=== PATIENT | male | born 1960 | race Caucasian/White ===

== ENCOUNTER 2023-06-15 08:50 | Outpatient (OUT) | payer OTHER, SELFPAY ==
[2023-06-15 10:29] LABS: Alanine Aminotransferase 35 U/L (16-63); Albumin Globulin Ratio 0.9; Albumin Level 3.5 g/dL (3.4-5.0); Alkaline Phosphatase 22 U/L (46-116); Anion Gap 8.7; Aspartate Amino Transferase 19 U/L (15-37); BUN Creatinine Ratio 13.7; Bilirubin Total 0.6 mg/dL (0.2-1.0); Calcium 8.7 mg/dL (8.5-10.1); Carbon Dioxide 29.6 mmol/L (21.0-32.0); Chloride 103 mmol/L (98-107); Chol HDL Ratio 5.8; Cholesterol 215 mg/dL (<=200); Estimated GFR (African America >60 (>=60); Estimated GFR (Non-African Ame >60 (>=60); Globulin 3.8 g/dL; Glucose 118 mg/dL (74-106); HDL Cholesterol 37 mg/dL (40-60); Potassium 4.3 mmol/L (3.5-5.1); Sodium 137 mmol/L (136-145); Total Protein 7.3 g/dL (6.4-8.2); Triglycerides 381 mg/dL (<=150); VLDL CHOLESTEROL 76.2 mg/dL
[2023-06-15 10:30] LABS: Prostate Specific Antigen Scrn 1.44 ng/mL (<=4.00)
[2023-06-15 10:38] LABS: Basophils Absolute Auto 0.1 10^3/uL (0.0-0.1); Basophils Percent Auto 0.9 % (0.2-2.0); Eosinophils Absolute Auto 0.2 10^3/uL (0.0-0.7); Eosinophils Percent Auto 3.4 % (0.9-7.0); Hematocrit 48.5 % (42.0-54.0); Hemoglobin 16.5 g/dL (14.0-18.0); Immature Granulocytes Abs Auto 0.01 10^3/uL (0.00-0.03); Immature Granulocytes Pct Auto 0.2 % (0.0-0.5); Lymphocytes Absolute Auto 1.6 10^3/uL (1.2-3.8); Lymphocytes Percent Auto 30.1 % (20.5-60.0); Mean Corpuscular Hemoglobin 30.7 pg (25.9-34.0); Mean Corpuscular Volume 90.1 fL (80.0-94.0); Mean Platelet Volume 9.8 fL (9.5-13.5); Monocytes Absolute Auto 0.6 10^3/uL (0.3-0.8); Monocytes Percent Auto 10.7 % (1.7-12.0); Neutrophils Absolute Auto 2.9 10^3/uL (1.4-6.5); Neutrophils Percent Auto 54.7 % (43.0-75.0); Platelet Count 278 10^3/uL (150-450); Red Blood Count 5.38 10^6/uL (4.70-6.10); Red Cell Distribution Width 12.9 % (11.0-15.0); White Blood Count 5.4 10^3/uL (4.0-11.0)
[2023-06-15 15:03] LABS: Estimated Average Glucose 108 mg/dL; Glycohemoglobin A1C 5.4 % (4.5-6.2)
== END 2023-06-15 08:51 | disposition home or self-care (01) ==
LOC: LAB 08:54
PROVIDERS: PCP Internal Medicine; Visit Provider Internal Medicine
DX: Z00.00 Encounter for general adult medical examination without abnormal findings (principal); Z12.5 Encounter for screening for malignant neoplasm of prostate
CPT/HCPCS: 36415; 80053; 80061; 83036; 85025; G0103

== ENCOUNTER 2023-07-05 09:36 | Outpatient (OUT) | payer OTHER, SELFPAY ==
--- NOTE | 2023-07-05 | ECG_ITS ---
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
[2023-07-05 11:27] LABS: Free T4 0.82 ng/dL (0.76-1.46)
[2023-07-05 11:51] LABS: Thyroid Stimulating Hormone 4.905 uIU/mL (0.358-3.740)
[2023-07-06 08:12] LABS: Triiodothyronine (T3) 131 ng/dL (71-180)
== END 2023-07-05 09:37 | disposition home or self-care (01) ==
LOC: CARD 09:37
PROVIDERS: PCP Internal Medicine; Visit Provider Internal Medicine
DX: I10 Essential (primary) hypertension (principal); R00.0 Tachycardia, unspecified
CPT/HCPCS: 36415; 84439; 84443; 84480; 93005

== ENCOUNTER 2023-07-24 19:47 | Outpatient (OUT) | payer OTHER, SELFPAY | END 2023-07-24 19:48 | disposition home or self-care (01) | LOC: SLEEP 19:47 | PROVIDERS: PCP Internal Medicine; Visit Provider Internal Medicine | DX: G47.33 Obstructive sleep apnea (adult) (pediatric) (principal) | CPT/HCPCS: 95810 ==

== ENCOUNTER 2023-08-28 19:50 | Outpatient (OUT) | payer OTHER, SELFPAY | END 2023-08-28 19:51 | disposition home or self-care (01) | LOC: SLEEP 19:50 | PROVIDERS: PCP Internal Medicine; Visit Provider Internal Medicine | DX: G47.33 Obstructive sleep apnea (adult) (pediatric) (principal) | CPT/HCPCS: 95811 ==

== ENCOUNTER 2023-11-08 10:44 | Outpatient (OUT) | payer OTHER, SELFPAY ==
--- NOTE | 2023-11-08 | NM_ITS ---
Patient Name: IRVING FRAGOSO MR#: [id number] : 1960 Exam Date: 11/08/2023 Ordering Doctor: DR Jonah Duffy D.O. RADIOLOGY REPORT PROCEDURE: NM ANIL PERF SPECT REST STR COMPARISON: None. INDICATIONS: PRIMARY HYPERTENSION, IFG, HYPERCHOLESTEROLEMIA, FAMILY HX TECHNIQUE: Exam Description: Stress/Rest one day protocol gated SPECT Rest Imagin.9 mCi Tc-99m Cardiolite IV on 11/08/2023 Stress Imaging 30.9 mCi Tc-99m Cardiolite IV on 11/08/2023 Exercise Protocol: 0.4 mg Lexiscan given IV Heart Rate (bpm): Rest: 83 Max: 136 PMHR: 86 Blood Pressure: Rest: 132/86 Max: 178/92 Exercise Time: Minutes: 8 Seconds: 00 Stage Reached: Stage: 3 Mets 10.1 Symptoms: Rest and peak stress ECG findings were normal and the exercise portion of the study was normal per attending physician Dr. Ramon Duffy . For more details please see separate cardiac stress test report. FINDINGS: QUALITY OF STUDY: Good. PERFUSION DEFECT: Perfusion abnormality seen only on rest images with normal stress LOCATION: Basal inferoseptal. Basal inferior. Basal inferolateral. Mid-inferior. Apical inferior. SIZE: Large (5 or more segments). SEVERITY: Severe. TYPE: N/A. WALL MOTION: Normal. LV SIZE: Normal. 66 mL. TID / TCD: None; 0.8 LVEF: Normal. Calculated EF 79%. SUMMARY: Myocardial perfusion imaging study has ABNORMAL findings. CONCLUSION: 1. Large perfusion abnormality in the inferior wall, RCA distribution, only on rest images with normal appearance on the stress images. I favor artifact 2. Normal exercise test Dictated by: Naif Frederick MD on 11/08/2023 at 14:31 Approved by: Naif Frederick MD on 11/08/2023 at 14:34
--- OUTSIDE RECORDS SUMMARY | 2023-11-08 10:47 | XMS_ITS | CCD ---
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 Name Role Phone Jonah Ribera Primary Care Provider Dash Gregory Attending Provider MOUNIKA, DR HAUSER Consulting Unavailable BALL, DR HAUSER Attending Unavailable BALL, DR HAUSER Admitting Unavailable BALL, DR HAUSER Primary Care Unavailable BALL, DR HAUSER Primary Care Unavailable BALL, DR HAUSER Consulting Unavailable BALL, DR HAUSER Attending Unavailable BALL, DR HAUSER Admitting Unavailable Mounika, Jonah Unavailable JONAH RIBERA Referring Unavailabl e Unavailable Unavailable Unavailable Allergies Allergy Classification Reported Allergen(s) Allergy Type Date of Onset Reaction(s) Facility (1 source) patient allergy list reviewed by nurse or physicia Propensity to adverse reactions 8 Comment:Done [facility] Other (1 source) ALLERGIES NOT ON FILE; Translations: [ALLERGIES NOT ON FILE] Propensity to adverse reactions (disorder) [facility] Repository Medications Current Medications Medication Drug Class(es) Dates Sig (Normalized) Sig (Original) aspirin 81 mg delayed release oral tablet (2 sources) Platelet Aggregation Inhibitor, Nonsteroidal Anti-inflammatory Drug take 1 tablet by mouth every twenty-four hours Aspirin 81 81 MG 1 tablet Orally Once a day Active atorvastatin 10 mg oral tablet (4 sources) HMG-CoA Reductase Inhibitor take 1 tablet by mouth once daily in the evening Atorvastatin Calcium 10 MG TAKE 1 TABLET BY MOUTH EVERY DAY IN THE EVENING Active benazepril hydrochloride 10 mg oral tablet (9 sources) Angiotensin Converting Enzyme Inhibitor take 1 tablet by mouth once daily Benazepril HCl 10 MG TAKE 1 TABLET BY MOUTH EVERY DAY Active benzonatate 200 mg oral capsule (8 sources) Non-narcotic Antitussive Start: 04-10-2023 take 1 capsule by mouth every eight hours Benzonatate 200 MG 1 capsule Orally Three times a day for 10 days Mar, Active carvedilol 6.25 mg oral tablet (5 sources) alpha-Adrenergic Gloria, beta-Adrenergic Gloria Start: 06-29-2023 take 1 tablet by mouth every twelve hours Carvedilol 6.25 MG 1 tablet with food Orally Twice a day Jun, Active fenofibrate 134 mg oral capsule (7 sources) Peroxisome Proliferator Receptor alpha Agonist take 1 capsule by mouth every twenty-four hours Fenofibrate Micronized 134 MG 1 capsule with a meal Orally Once a day Active sildenafil 100 mg oral tablet (9 sources) Phosphodiesterase 5 Inhibitor take 1 tablet by mouth every twenty-four hours Sildenafil Citrate 100 MG 1 tablet as needed Orally Once a day for 30 days Active Completed/Discontinued Medications Medication Drug Class(es) Dates Sig (Normalized) Sig (Original) Suprep Bowel Prep - (9 sources) Start: 09-08-2016 Suprep Bowel Prep - 1 Orally Daily for 1 day(s) Aug, Not-Taking/PRN Start: 09-08-2016 Suprep Bowel P rep - 1 Orally Daily for 1 day(s) Aug, Not-Taking Problems Active Problems Problem Classification Problem Date Documented Da te Episodic/Chronic Cardiac dysrhythmias (1 source) Tachycardia, unspecified Episodic Diabetes mellitus without complication (2 sources) Impaired fasting glucose Episodic Disorders of lipid metabolism (18 sources) Pure hypercholesterolemi a, unspecified; Translations: [Pure hypercholesterolemi a] Onset: 08-30-2022 Resolved: 08-30-2022 Chronic Esophageal disorders (15 sources) Stricture of esophagus; Translations: [Esophageal stricture] Onset: 05-13-2018 Chronic Essential hypertension (15 sources) Essential hypertension; Translations: [Essential (primary) hypertension] Onset: 07-16-2023 Chronic Hemorrhoids (3 sources) External hemorrhoids; Translations: [Residual hemorrhoidal skin tags] Episodic Other and unspecified benign neoplasm (9 sources) Benign neoplasm of colon; Translations: [Benign neoplasm of descending colon] Episodic Other and unspecified benign neoplasm (1 source) Benign neoplasm of descending colon; Translations: [Benign neoplasm of descending colon] Episodic Other gastrointestinal disorders (2 sources) Dysphagia; Translations: [Dysphagia] Episodic Other male genital disorders (1 source) Impotence of organic origin; 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] Chronic Other nutritional; endocrine; and metabolic disorders (7 sources) Body mass index 30+ - obesity; Translations: [Body mass index (BMI) 32.0-32.9, adult] Chronic Other nutritional; endocrine; and metabolic disorders (7 sources) Obesity caused by energy imbalance; Translations: [Other obesity due to excess calories] Chronic Other nutritional; endocrine; and metabolic disorders (2 sources) Other obesity due to excess calories Chronic Other nutritional; endocrine; and metabolic disorders (2 sources) Body mass index (BMI) 32.0-32.9, adult Chronic Other screening for suspected conditions (not mental disorders or infectious disease) (2 sources) Encounter for screening for malignant neoplasm of prostate; Translations: [Abnormal findings on diagnostic imaging of heart and coronary circulation] Onset: 07-02-2022 Episodic Other skin disorders (2 sources) Skin tag; Translations: [Other hypertrophic disorders of the skin] Episodic Residual codes; unclassified (2 sources) Obstructive sleep apnea syndrome; Translations: [Obstructive sleep apnea (adult) (pediatric)] Chronic Residual codes; unclassified (1 source) Obstructive sleep apnea (adult) (pediatric) Chronic Residual codes; unclassified (3 sources) Family history of ischemic heart disease and other diseases of the circulatory system; Translations: [Family history of ischemic heart disease and other diseases of the circulatory system] Onset: 07-16-2023 Episodic Past or Other Problems Problem Classification Problem Date Documented Date Episodic/Chronic Esophageal disorders (7 sources) Esophageal disorders; Translations: [Gastro-esophageal reflux disease with esophagitis, without bleeding] Onset: 05-13-2018 Resolved: 06-12-2022 Hyperplasia of prostate (1 source) Benign prostatic hypertrophy without outflow obstruction; Translations: [Hypertrophy (benign) of prostate without urinary obstruction and other lower urinary tract symptoms [LUTS]] Onset: 08-14-2017 Resolved: 06-12-2022 Chronic Other connective tissue disease (1 source) Lateral epicondylitis; Translations: [Lateral epicondylitis of elbow] Onset: 06-02-2015 Episodic Other nutritional; endocrine; and metabolic disorders (1 source) Body mass index 25-29 - overweight; Translations: [Body mass index 28.0-28.9, adult] Onset: 04-01-2018 Resolved: 06-12-2022 Episodic Other nutritional; endocrine; and metabolic disorders (8 sources) Overweight; Translations: [Overweight] Onset: 08-14-2017 Resolved: 06-12-2022 Episodic Results Test Name Value Interpretation Reference Range Facility CT CARDIAC SCORING WO IV CON TRASTon 07-16-2023 CT CARDIAC SCORING WO IV CONTRAST Interpreted By: Eliezer Bazan, STUDY: CT CARDIAC SCORING WO IV CONTRAST; 07/16/2023 11:29 am INDICATION: Signs/Symptoms:FAMILY HISTORY OF ISCHEMIC HEART DISEASE. COMPARISON: None. ACCESSION NUMBER(S): [id number] ORDERING CLINICIAN: JONAH RIBERA TECHNIQUE: Using prospective ECG gating, CT scan of the coronary arteries was performed without intravenous contrast. Coronary calcium scoring was performed according to the method of Agatston. FINDINGS: The score and distribution of calcium in the coronary arteries is as follows: LM 0, LAD 236.83, LCx 0, RCA 0, Total 236.83 The visualized ascending thoracic aorta measures 3.1 cm in diameter. The heart is normal in size. No pericardial effusion is present. No gross evidence of mediastinal or hilar lymphadenopathy or masses is identified. The visualized segments of the lungs are normally expanded. The main pulmonary artery, right and left pulmonary artery are normal in size. The visualized subdiaphragmatic structures appear intact. IMPRESSION: 1. Elevated coronary artery calcium score of 236.83*. *Coronary Artery Agatston score Score risk Very low 1-99 Mildly increased 100-299 Moderately increased >300 Moderate to severely increased >800 Caryl et al. JCCT 2016 (http://dx.doi.org/10 .1016/j.[email or web address]. 003) LAYNE 10-Year CHD Risk with Coronary Artery Calcification can be calcuate using link below [email or web address]. aspx Janae et al. JACC 2015 (http://dx.doi.org/10 .1016/[email or web address] [email or web address]) Signed by: Eliezer Bazan 07/16/2023 4:52 PM Dictation workstation: [id number] DIRECT LDLon 08-30-2022 Cholesterol in LDL [Mass/Vol] 81 mg/dL Normal [facility] Comment on above: Performed By: #### D LDL, ALT #### [facility] [address] [place] [address] Dr. Angel Hernández DLDL NORMAL SEE BELOW Normal [facility] Comment on above: Result Comment: <100 mg/dl OPTIMAL 100 - 129 mg/dl NEAR OR ABOVE OPTIMAL 130 - 159 mg/dl BORDERLINE HIGH 160 - 189 mg/dl HIGH >190 mg/dl VERY HIGH Performed By: #### D LDL, ALT #### [facility] [address] [place] [address] Dr. Angel Hernández SGPTon 08-30-2022 ALT [Catalytic activity/Vol] 53 U/L Normal 16-63 [facility] Comment on above: Performed By: #### D LDL, ALT #### [facility] [address] [place] [address] Dr. Angel Hernández CBC AUTO DIFFon 06-29-2022 BASO # 0.1 103/ul Normal 0.0-0.1 [facility] Comment on above: Performed By: #### C BC #### [facility] [address] [place] [address] Dr. Angel Hernández Basophils/100 WBC (Bld) 1.0 % Normal 0.2-2.0 [facility] Comment on above: Performed By: #### C BC #### [facility] [address] [place] [address] Dr. Angel Hernández EO # 0.2 103/ul Normal 0.0-0.7 [facility] Comment on above: Performed By: #### C BC #### [facility] [address] [place] [address] Dr. Angel Hernández Eosinophils/100 WBC (Bld) 4.7 % Normal 0.9-7.0 [facility] Comment on above: Performed By: #### C BC #### [facility] [address] [place] [address] Dr. Angel Hernández Erythrocyte distribution width (RBC) [Ratio] 12.5 % Normal 11.0-15.0 [facility] Comment on above: Performed By: #### C BC #### [facility] [address] [place] [address] Dr. Angel Hernández Hematocrit (Bld) [Volume fraction] 47.9 % Normal 42.0-54.0 [facility] Comment on above: Performed By: #### C BC #### [facility] [address] [place] [address] Dr. Angel Hernández Hemoglobin (Bld) [Mass/Vol] 16.7 g/dL Normal 14.0-18.0 [facility] Comment on above: Performed By: #### C BC #### [facility] [address] [place] [address] Dr. Angel Hernández IG # 0.01 10e3/ul Normal 0.00-0.03 [facility] Comment on above: Performed By: #### C BC #### [facility] [address] [place] [address] Dr. Angel Hernández IG % 0.2 % Normal 0.0-0.5 [facility] Comment on above: Performed By: #### C BC #### [facility] [address] [place] [address] Dr. Angel Hernández LYMPH # 1.6 103/ul Normal 1.2-3.8 [facility] Comment on above: Performed By: #### C BC #### [facility] [address] [place] [address] Dr. Angel Hernández Lymphocytes/100 WBC (Bld) 30.2 % Normal 20.5-60.0 [facility] Comment on above: Performed By: #### C BC #### [facility] [address] [place] [address] Dr. Angel Hernández MANUAL DIFF REQ NO Normal [facility] Comment on above: Performed By: #### C BC #### [facility] [address] [place] [address] Dr. Angel Hernández MCH (RBC) [Entitic mass] 31.3 pg Normal 25.9-34.0 [facility] Comment on above: Performed By: #### C BC #### [facility] [address] [place] [address] Dr. Angel Hernández MCHC (RBC) [Mass/Vol] 34.9 g/dL Normal 29.9-35.2 [facility] Comment on above: Performed By: #### C BC #### [facility] [address] [place] [address] Dr. Angel Hernández MCV (RBC) [Entitic vol] 89.7 fL Normal 80.0-94.0 [facility] Comment on above: Performed By: #### C BC #### [facility] [address] [place] [address] Dr. Angel Hernández MONO # 0.5 103/ul Normal 0.3-0.8 [facility] Comment on above: Performed By: #### C BC #### [facility] [address] [place] [address] Dr. Angel Hernández Monocytes/100 WBC (Bld) 10.1 % Normal 1.7-12.0 [facility] Comment on above: Performed By: #### C BC #### [facility] [address] [place] [address] Dr. Angel Hernández NEUT # 2.8 103/ul Normal 1.4-6.5 [facility] Comment on above: Performed By: #### C BC #### [facility] [address] [place] [address] Dr. Angel Hernández Neutrophils/100 WBC (Bld) 53.8 % Normal 43.0-75.0 [facility] Comment on above: Performed By: #### C BC #### [facility] [address] [place] [address] Dr. Angel Hernández Platelet mean volume (Bld) [Entitic vol] 9.2 fL Critically low 9.5-13.5 [facility] Comment on above: Performed By: #### C BC #### [facility] [address] [place] [address] Dr. Angel Hernández PLT 271 103/ul Normal 150-450 [facility] Comment on above: Performed By: #### C BC #### [facility] [address] [place] [address] Dr. Angel Hernández RBC 5.34 106/ul Normal 4.70-6.10 [facility] Comment on above: Performed By: #### C BC #### [facility] [address] [address] [address] Angel Hernández WBC 5.1 103/ul Normal 4.0-11.0 [facility] Comment on above: Performed By: #### C BC #### [facility] [address] [address] [address] Angel Hernández DIRECT LDLon 06-29-2022 Cholesterol in LDL [Mass/Vol] 106 mg/dL Normal [facility] Comment on above: Performed By: #### T SH, LIPID, DLDL, CMP #### [facility] [address] [address] [address] Angel Hernández DLDL NORMAL SEE BELOW Normal [facility] Comment on above: Result Comment: <100 mg/dl OPTIMAL 100 - 129 mg/dl NEAR OR ABOVE OPTIMAL 130 - 159 mg/dl BORDERLINE HIGH 160 - 189 mg/dl HIGH >190 mg/dl VERY HIGH Performed By: #### T SH, LIPID, DLDL, CMP #### [facility] [address] [address] [address] Angel Hernández GLYCOHEMOGLOBIN A1Con 2021 ADA RECOMMENDATION SEE BELOW Normal [facility] Comment on above: Result Comment: ADA RECOMMENDED LIMIT 4.0 - 6.0 ADA THERAPEUTIC TARGET < 7.0 ACTION SUGGESTED > 7.0 Performed By: #### A 1C #### [facility] [address] [address] [address] Angel Hernández Glucose [Mass/Vol] 114 mg/dL Normal [facility] Comment on above: Performed By: #### A 1C #### [facility] [address] [address] [address] Angel Hernández HbA1c (Bld) [Mass fraction] 5.6 % Normal 4.5-6.2 [facility] Comment on above: Performed By: #### A 1C #### [facility] [address] [place] [address] Dr. Angel Hernández LIPID PROFILEon 06-29-2022 CHOL-HDL RATIO NORM SEE BELOW Normal [facility] Comment on above: Result Comment: 3.3 - 4.4 LOW RISK 4.4 - 7.1 AVERAGE RISK 7.1 - 11.0 MODERATE RISK >11.0 HIGH RISK Performed By: #### T SH, LIPID, DLDL, CMP #### [facility] [address] [address] [address] Angel Hernández Cholesterol [Mass/Vol] 222 mg/dL Critically high <=200 [facility] Comment on above: Performed By: #### T SH, LIPID, DLDL, CMP #### [facility] [address] [address] [address] Angel Hernández Cholesterol in HDL [Mass/Vol] 35 mg/dL Critically low 40-60 [facility] Comment on above: Performed By: #### T SH, LIPID, DLDL, CMP #### [facility] [address] [address] [address] Angel Hernández Cholesterol.total/Ch olesterol in HDL [Mass ratio] 6.3 {ratio} Normal [facility] Comment on above: Performed By: #### T SH, LIPID, DLDL, CMP #### [facility] [address] [address] [address] Angel Hernández HDL NORMAL > or = 60 mg/dl - LO W CARDIOVASCULAR RISK <40 mg/dl - HIGH CARDIOVASCULAR RISK Normal [facility] Comment on above: Performed By: #### T SH, LIPID, DLDL, CMP #### [facility] [address] [address] [address] Angel Hernández Triglyceride [Mass/Vol] 482 mg/dL Critically high <=150 [facility] Comment on above: Performed By: #### T SH, LIPID, DLDL, CMP #### [facility] [address] [address] [address] Angel Hernández VLDL CALC 96.4 mg/dL Normal [facility] Comment on above: Performed By: #### T SH, LIPID, DLDL, CMP #### [facility] [address] [address] [address] Angel Hernández PROF 14(COMP METB)on 09-15-2 022 Albumin [Mass/Vol] 3.6 g/dL Normal 3.4-5.0 [facility] Comment on above: Performed By: #### T SH, LIPID, DLDL, CMP #### [facility] [address] [place] [address] Dr. Angel Hernández Albumin/Globulin [Mass ratio] 1.0 {ratio} Normal [facility] Comment on above: Performed By: #### T SH, LIPID, DLDL, CMP #### [facility] [address] [place] [address] Dr. Angel Hernández ALP [Catalytic activity/Vol] 26 U/L Critically low 46-116 [facility] Comment on above: Performed By: #### T SH, LIPID, DLDL, CMP #### [facility] [address] [place] [address] Dr. Angel Hernández ALT [Catalytic activity/Vol] 40 U/L Normal 16-63 [facility] Comment on above: Performed By: #### T SH, LIPID, DLDL, CMP #### [facility] [address] [place] [address] Dr. Angel Hernández Anion gap [Moles/Vol] 6.9 mmol/L Normal [facility] Comment on above: Performed By: #### T SH, LIPID, DLDL, CMP #### [facility] [address] [place] [address] Dr. Angel Hernández AST [Catalytic activity/Vol] 17 U/L Normal 15-37 [facility] Comment on above: Performed By: #### T SH, LIPID, DLDL, CMP #### [facility] [address] [place] [address] Dr. Angel Hernández Bilirubin [Mass/Vol] 0.4 mg/dL Normal 0.2-1.0 [facility] Comment on above: Performed By: #### T SH, LIPID, DLDL, CMP #### [facility] [address] [place] [address] Dr. Angel Hernández Calcium [Mass/Vol] 8.8 mg/dL Normal 8.5-10.1 [facility] Comment on above: Performed By: #### T SH, LIPID, DLDL, CMP #### [facility] [address] [address] [address] Angel Hernández Chloride [Moles/Vol] 102 mmol/L Normal 98-107 [facility] Comment on above: Performed By: #### T SH, LIPID, DLDL, CMP #### [facility] [address] [place] [address] Dr. Angel Hernández CO2 [Moles/Vol] 31.5 mmol/L Normal 21.0-32.0 [facility] Comment on above: Performed By: #### T SH, LIPID, DLDL, CMP #### [facility] [address] [place] [address] Dr. nAgel Hernández Creatinine [Mass/Vol] 1.05 mg/dL Normal 0.70-1.30 [facility] Comment on above: Performed By: #### T SH, LIPID, DLDL, CMP #### [facility] [address] [place] [address] Dr. Angel Hernández EGFR-AF CZECH >60 Normal >=60 [facility] Comment on above: Performed By: #### T SH, LIPID, DLDL, CMP #### [facility] [address] [place] [address] Dr. Angel Hernández EGFR-NON AF CZECH >60 Normal >=60 [facility] Comment on above: Performed By: #### T SH, LIPID, DLDL, CMP #### [facility] [address] [place] [address] Dr. Angel Hernández Globulin (S) [Mass/Vol] 3.7 g/dL Normal [facility] Comment on above: Performed By: #### T SH, LIPID, DLDL, CMP #### [facility] [address] [place] [address] Dr. Angel Hernánedz Glucose [Mass/Vol] 125 mg/dL Critically high 74-106 [facility] Comment on above: Performed By: #### T SH, LIPID, DLDL, CMP #### [facility] [address] [place] [address] Dr. Angel Hernández Potassium [Moles/Vol] 4.4 mmol/L Normal 3.5-5.1 [facility] Comment on above: Performed By: #### T SH, LIPID, DLDL, CMP #### [facility] [address] [place] [address] Dr. Angle Hernández Protein [Mass/Vol] 7.3 g/dL Normal 6.4-8.2 [facility] Comment on above: Performed By: #### T SH, LIPID, DLDL, CMP #### [facility] [address] [place] [address] Dr. Angel Hernández Sodium [Moles/Vol] 136 mmol/L Normal 136-145 [facility] Comment on above: Performed By: #### T SH, LIPID, DLDL, CMP #### [facility] [address] [place] [address] Dr. Angel Hernández Urea nitrogen [Mass/Vol] 12.0 mg/dL Normal 7.0-18.0 [facility] Comment on above: Performed By: #### T SH, LIPID, DLDL, CMP #### [facility] [address] [place] [address] Dr. Angel Hernández Urea nitrogen/Creatinine [Mass ratio] 11.4 mg/mg Normal [facility] Comment on above: Performed By: #### T SH, LIPID, DLDL, CMP #### [facility] [address] [place] [address] Dr. Angel Hernández TSHon 06-29-2022 TSH 3.683 uIU/mL Normal 0.358-3.740 [facility] Comment on above: Performed By: #### T SH, LIPID, DLDL, CMP #### [facility] [address] [place] [address] Dr. Angel Hernández COVID-19 Positive/Negativeon 10-05-2020 COVID-19 Positive/Negative Negative Negative [facility] Comment on above: Testing for SARS-CoV -2 by RT-PCRThis test was developed and its performance characteristics determined by [employer] ([place]) and validated at the [facility]. This test has not been FDA cleared or approved. This test has been authorized by FDA under an Emergency Use Authorization (EUA). This test has been validated in accordance with the FDA's Guidance Document (Policy for Diagnostics Testing in Laboratories Certified to Perform High Complexity Testing under CLIA prior to Emergency Use Authorization for Coronavirus Disease-2019 during the Public Health Emergency) issued on January 15, 2020. This test is only authorized for the duration of time the declaration that circumstances exist justifying the authorization of the emergency use of in vitro diagnostic tests for detection of SARS-CoV-2 virus and/or diagnosis of COVID-19 infection under section 564(b)(1) of the Act, 21 U.S.C. 360bbb-3(b)(1), unless the authorization is terminated or revoked sooner. Otheron 10-05-2020 Coronavirus 2019 PCR Interp N/A [facility] Vital Signs Date Time Vital Sign Value Performing Clinician Facility 10-22-2023 15:30-0500 Body height 175.26 cm Jonah Catapooolt Other [facility] Other 10-22-2023 15:30-0500 Body mass index (BMI) [Ratio] 32.16 kg/m2 [facility] Other [facility] Other 10-22-2023 15:30-0500 Body weight 98.79 kg Jonah Ball Other [facility] Other 10-22-2023 15:30-0500 Diastolic blood pressure 80 mm[Hg] Jonah Ball Other [facility] Other 10-22-2023 15:30-0500 Respiratory rate 12 /min Jonah Ball Other [facility] Other 10-22-2023 15:30-0500 Systolic blood pressure 135 mm[Hg] Jonah Ball Other [facility] Other 06-15-2023 13:30-0400 Body height 175.26 cm Jonah Catapooolt Other [facility] Other 06-15-2023 13:30-0400 Body mass index (BMI) [Ratio] 32.1 kg/m2 Jonah Ball Other [facility] Other 06-15-2023 13:30-0400 Body weight 98.61 kg Jonah Ball Other [facility] Other 06-15-2023 13:30-0400 Diastolic blood pressure 85 mm[Hg] Jonah Ball Other [facility] Other 06-15-2023 13:30-0400 Respiratory rate 12 /min Jonah Ball Other [facility] Other 06-15-2023 13:30-0400 Systolic blood pressure 125 mm[Hg] Jonah Ball Other [facility] Other Encounters Encounter Date Encounter Type Care Provider Facility Start: 11-06-2023 End: 11-06-2023 ambulatory Jonah Ball Other [facility] Other Start: 11-06-2023 Telephone encounter Jonah Ball [facility] Start: 10-22-2023 End: 10-22-2023 ambulatory Jonah Ball Other [facility] Other Start: 10-22-2023 Office outpatient vi sit 25 minutes Jonah Ball [facility] Start: 09-05-2023 End: 09-05-2023 ambulatory Jonah Ball Other [facility] Other Start: 09-05-2023 Telephone encounter Jonah Ball [facility] Start: 07-18-2023 End: 07-18-2023 ambulatory Jonah Ball Other [facility] Other Start: 07-18-2023 Telephone encounter Jonah Ball [facility] Start: 07-16-2023 End: 07-17-2023 ambulatory JONAH RIBERA [facility] Start: 06-29-2023 End: 06-29-2023 ambulatory Jonah Ribera Other [facility] Other Start: 06-29-2023 Telephone encounter Jonah Ribera [facility] Start: 06-19-2023 End: 06-19-2023 ambulatory Jonah Ribera Other [facility] Other Start: 06-19-2023 Telephone encounter Jonah Ribera [facility] Start: 06-15-2023 End: 06-15-2023 ambulatory Jonah Ribera Other [facility] Other Start: 06-15-2023 Encounter for genera l adult medical examination without abnormal findings Jonah Ribera [facility] Start: 06-15-2023 Periodic preventive med est patient 40-64yrs Jonah Ribera [facility] Start: 06-11-2023 End: 06-11-2023 ambulatory Jonah Ribera Other [facility] Other Start: 06-11-2023 Encounter for genera l adult medical examination without abnormal findings Jonah Ribera [facility] Start: 06-11-2023 Telephone encounter Jonah Ribera [facility] Start: 03-09-2023 End: 03-09-2023 ambulatory Jonah Ribera Other [facility] Other Start: 03-09-2023 Telephone encounter Jonah Ribera [facility] Start: 08-30-2022 End: 08-31-[address] JONAH RIBERA Facility:[facility] Start: 07-02-2022 Encounter for genera l adult medical examination without abnormal findings DR JONAH RIBERA [facility] Start: 06-29-2022 End: 06-30-[address] JONAH RIBERA Facility:[facility] Start: 06-29-2022 End: 06-30-2022 Encounter for general adult medical examination without abnormal findings DR JONAH RIBERA Facility:[facility] Start: 06-12-2022 Adult health examination Jonah Ribera Other [facility] Other Start: 10-05-2020 End: 10-05-2020 Patient encounter procedure Jonah Ribera -Pre-Surgical Testing Procedures Date Procedure Procedure Detail Performing Clinician Start: 07-16-2023 CT CARDIAC SCORING W O IV CONTRAST JONAH MOUNIKA Start: 06-29-[address] MANUEL RIBERA Comment on above: Performed By: #### [facility] #### [facility] [address] [place] [address] Dr. Angel Hernández Start: 08-23-2017 End: 06-12-2022 Hypertension screening Jonah Ribera Other Start: 04-21-2014 End: 06-12-2022 General examination of patient Jonah Ribera Other Depression screening Henry Ribera Other Immunizations Immunization Date Immunization Notes Care Provider [facility] 08-17-2016 tetanus and diphther ia toxoids, adsorbed, preservative free, for adult use (5 Lf of tetanus toxoid and 2 Lf of diphtheria toxoid) Jonah Ribera Other [facility] Other Payers Date Payer Category Payer Unknown [id number] 1960 Unknown [id number] 1958 Unknown [id number] Self-pay Self Pay [id number] Unknown [id number] Unknown [id number] Social History Date Type Detail Facility Tobacco smoking status NHIS Unknown if ever smoked [facility] Start: 1960 Sex Assigned At Male F [facility] Sex Assigned At Sex Assigned At Bir th [facility] Other Goals Date Patient Goal Desired Activity /State Evaluation note 10-22-2023 Note Date & Type Note Facility 10-22-2023 Evaluation note Encounter Date Diagnosis Assessment Notes Oct, Primary hypertension (ICD-10 - I10) This patient is instructed to consume a healthy, low-fat, low-salt diet. They are also encouraged to continue exercise to achieve/maintain a normal BMI. Oct, IFG (impaired fasting glucose) (ICD-10 - R73.01) Last 2 FBS: 118, 125 A1C < 6.5% Instructed on healthy diet and exercise Oct, Hypercholesterolemia (ICD-10 - E78.00) Instructed on diet and exercise with continued statin therapy.Discusse d the beneficial effects of lowering cholesterol in reducing the risk for cerebrovascular and cardiovascular disease. Oct, Agatston CAC score 200-399 (ICD-10 - R93.1) Increased risk for CAD. LAYNE score indicates 100% risk for WA in next 10 years. Recommend initiating primary prevention measures Recommend initiating ASA 81mg qd Recommend Stress testing Oct, CALLIE (obstructive sleep apnea) (ICD-10 - G47.33) This patient is aware of the benefits associated with CALLIE: With continued use, the patient reduces the risk for WA, CVA, HTN, cardiac dysrhythmias and sudden cardiac deaths.The patient is also aware of the association between CALLIE and morning headaches, daytime somnolence, fatigue and obesity, which also has been improved with continued use.The patient is compliant with treatment, wearing the equipment every night for greater than 4 hours.The patient is instructed to continue use of the CPAP for CALLIE treatment. Oct, Other obesity due to excess calories (ICD-10 - E66.09) This patient has been instructed on a low-fat, high-fiber diet. They are instructed to reduce calories, portion sizes and snacks. It is recommended that they exercise for 30 minutes, 3-5 times weekly. Oct, Body mass index [BMI] 32.0-32.9, adult (ICD-10 - Z68.32) Oct, Family history of premature CAD (ICD-10 - Z82.49) He has increased 10 year risk for CAD. Father suffered fatal WA in 40s. Initiate primary prevention measures. Apr, Gastro-esophageal reflux disease with esophagitis, without bleeding (ICD-10 - K21.00) Avoid lying flat after eating. Avoid eating 2 hours prior to bedtime. Smaller, frequent meals may be better tolerated.Weight loss if overweight.PPI with any heartburn.Monito r for dysphagia. [facility] Other Evaluation note 07-18-2023 Note Date & Type Note Facility 07-18-2023 Evaluation note Encounter Date Diagnosis Assessment Notes Jul, Hypertriglyceridemia (ICD-10 - E78.1) [facility] Other Evaluation note 06-29-2023 Note Date & Type Note Facility 06-29-2023 Evaluation note Encounter Date Diagnosis Assessment Notes Jun, Primary hypertension (ICD-10 - I10) Jun, Tachycardia (ICD-10 - R00.0) [facility] Other Evaluation note 06-15-2023 Note Date & Type Note Facility 06-15-2023 Evaluation note Encounter Date Diagnosis Assessment Notes Jun, Wellness examination (ICD-10 - Z00.00) Healthy diet and exercise. Reviewed age-appropriate preventive testing recommended. Jun, Pure hyperglyceridemia (ICD-10 - E78.1) Instructed on diet and exercise with continued statin therapy.Discussed the beneficial effects of lowering cholesterol in reducing the risk for cerebrovascular and cardiovascular disease. INstructed to restart medications Jun, Primary hypertension (ICD-10 - I10) This patient is instructed to consume a healthy, low-fat, low-salt diet. They are also encouraged to continue exercise to achieve/maintain a normal BMI. Patient is instructed on home BP measurements: - rest for 5 minutes w/o talking- positioned w/ feet on floor and arm supported- average best 2/3 readings w/ goal < 135/85 Stop in after couple weeks for recheck Jun, IFG (impaired fasting glucose) (ICD-10 - R73.01) Healthy diet and exercise Encouraged to lose weight Check A1C Jun, Other obesity due to excess calories (ICD-10 - E66.09) This patient has been instructed on a low-fat, high-fiber diet. They are instructed to reduce calories, portion sizes and snacks. It is recommended that they exercise for 30 minutes, 3-5 times weekly. Jun, Body mass index [BMI] 32.0-32.9, adult (ICD-10 - Z68.32) Apr, Gastro-esophageal reflux disease with esophagitis, without bleeding (ICD-10 - K21.00) Diet instructions: Smaller portions, avoid eating and laying flat, avoid eating or drinking prior to bedtime. Weight loss. [facility] Other Evaluation note 06-11-2023 Note Date & Type Note Facility 06-11-2023 Evaluation note Encounter Date Diagnosis Assessment Notes May, Wellness examination (ICD-10 - Z00.00) [facility] Other Evaluation note Note Date & Type Note Facility Evaluation note No Information [facility] Other History general Narrative - Reported Note Date & Type Note Facility History general Narrative - Reported Type Medical History Dysphagia, unspecified Medical History Esophageal obstruction Medical History Schatzki's ring Medical History Essential hypertension Medical History External hemorrhoids Medical History Adenomatous polyp of descending colon Surgical History COLONOSCOPY Surgical History EGD W/ DILATATION 2015 Hospitalization History SEE SURGICAL HX [facility] Other History general Narrative - Reported Note Date & Type Note Facility History general Narrative - Reported Type Medical History Dysphagia, unspecified Medical History Esophageal obstruction Medical History Schatzki's ring Medical History Essential hypertension Medical History External hemorrhoids Medical History Adenomatous polyp of descending colon Surgical History COLONOSCOPY (repeat 2024) 2019 Surgical History EGD W/ DILATATION 2015 Hospitalization History SEE SURGICAL HX [facility] Other Advance Directives Advance Directive Response Recorded Date/ Time Advance Directives No September 4:44pm Chief Complaint and Reason for Visit Chief Complaint Schatzkis Ring,Fam H x Colon Cancer Assessments No Assessments Information Available Summary Purpose Family History No Family History Records FoundNo Family History Records Found Additional Source Comments (unrecognized sect ion and content) No Status Records FoundNo Status Records Found INFORMATION SOURCE (unrecogn ized section and content) DATE CREATED AUTHOR 09/02/2022 [facility] DATE CREATED AUTHOR AUTHOR'S ORGANIZ ATION 07/21/2023 [facility] REASON FOR VISIT (unrecogniz ed section and content) LLQ painWellness Lab OrdersW ELLNESSLab ResultsBP checkCardiac scoring resultsrefill4 month Follow upMedication Question FOR RECORDS PERTAINING TO PATIENTS WHO ARE OR HAVE BEEN ENROLLED IN A CHEMICAL DEPENDENCY/SUBSTANCEABUSE PROGRAM, SOME INFORMATION MAY BE OMITTED. This clinical summary was aggregated from multiple sources. Caution should be exercised in using it in the provision of clinical care. This summary normalizes information from multiple sources, and as a consequence, information in this document may materially change the coding, format and clinical context of patient data. In addition, data may be omitted in some cases. CLINICAL DECISIONS SHOULD BE BASED ON THE PRIMARY CLINICAL RECORDS. [facility] [employer] [facility]. provides no warranty or guarantee of the accuracy or completeness of information in this document.
--- NOTE | 2023-11-08 13:24 | P.STRESS_ITS ---
Stress Test Stress Test Requesting physician: Jonah Duffy Procedure: treadmill exercise test General Information: Reason for Stress Test: [Evaluation of the patient with strong family history of premature coronary disease and elevated CAC score] Cardiac History and Risk Factors: [Remigio is a 63-year-old patient with no personal history of coronary disease. He has a strong family history of coronary disease with his father dying of a fatal myocardial infarction at age of forty- two. Personal risk factors include essential hypertension hyperlipidemia and elevated CAC score] Resting 12 - Lead Electrocardiogram: Normal sinus rhythm with a ventricular rate 83 bpm. The TX interval is 0.16, QRS 0.10 and the QT 0.36, all within normal limits. There are no pathologic Q waves and only nonspecific ST-T wave changes. Stress Test: Protocol: [Zach protocol] Exercise Capacity: [Patient demonstrated above average exercise capacity. He exercised for eight minutes achieving a heart rate of 136 bpm which is equivalent to eighty-six percent maximum predicted heart rate. Patient exercised into stage III of this protocol which is equivalent to 3.4 miles per hour fourteen percent grade in 10.1 METs units.] Blood Pressure Response: [Patient demonstrated normal blood pressure response to exercise. His resting blood pressure was 132/86 increasing to a peak of 178/92 the gradually returned to baseline during the recovery phase.] Rhythm: [The patient remained in sinus rhythm during exercise, without ectopy] ST - Response: [At peak exercise were slight J-point depression with upsloping ST segments easily returning to baseline prior to 0.08 seconds.] Patient Response: [The patient denied chest pain during exercise] Interpretation: There was no objective evidence of myocardial ischemia during exercise. He demonstrated normal heart rate and blood pressure response to exercise. He demonstrated above average exercise capacity. His Joseph's treadmill score was eight days him in the low risk category. Cardiolite was injected with images in interpretation pending
== END 2023-11-08 10:45 | disposition home or self-care (01) ==
LOC: NM 10:45
PROVIDERS: PCP Internal Medicine; Visit Provider Internal Medicine
DX: I10 Essential (primary) hypertension (principal); R73.01 Impaired fasting glucose; E78.00 Pure hypercholesterolemia, unspecified; R93.1 Abnormal findings on diagnostic imaging of heart and coronary circulation; Z85.49 Personal history of malignant neoplasm of other male genital organs
CPT/HCPCS: 78452; 93017; A9500

== ENCOUNTER 2023-12-05 07:55 | Outpatient (OUT) | payer OTHER, SELFPAY ==
--- OUTSIDE RECORDS SUMMARY | 2023-12-05 07:58 | XMS_ITS | CCD ---
Author Name Unknown Address [address] [facility] [address] [place] [address] Organization [facility] Care Team Providers Care Top Carrier Name Role Phone Jonah Ribera Primary Care Provider [phone] Dash Gregory Attending Provider CLIVE, DR HAUSER Consulting Unavailable BALL, DR HAUSER Attending Unavailable BALL, DR HAUSER Admitting Unavailable BALL, DR HAUSER Primary Care Unavailable BALL, DR HAUSER Primary Care Unavailable BALL, DR HAUSER Consulting Unavailable BALL, DR HAUSER Attending Unavailable BALL, DR HAUSER Admitting Unavailable Clive, Jonah Unavailable JONAH RIBERA Referring UnavailARLENE Zamorano Attending Unavailable Unavailable Unavailable Unavailable Allergies Allergy Classification Reported Allergen(s) Allergy Type Date of Onset Reaction(s) Facility (1 source) patient allergy list reviewed by nurse or physicia Propensity to adverse reactions 8 Comment:Done [facility] Other (1 source) ALLERGIES NOT ON FILE; Translations: [ALLERGIES NOT ON FILE] Propensity to adverse reactions (disorder) [facility] Medications Current Medications Medication Drug Class(es) Dates Sig (Normalized) Sig (Original) aspirin 81 mg delayed release oral tablet (5 sources) Platelet Aggregation Inhibitor, Nonsteroidal Anti-inflammatory Drug take 1 tablet by mouth every twenty-four hours Aspirin 81 81 MG 1 tablet Orally Once a day Active atorvastatin 10 mg oral tablet (7 sources) HMG-CoA Reductase Inhibitor take 1 tablet by mouth once daily in the evening Atorvastatin Calcium 10 MG TAKE 1 TABLET BY MOUTH EVERY DAY IN THE EVENING Active benazepril hydrochloride 10 mg oral tablet (12 sources) Angiotensin Converting Enzyme Inhibitor take 1 tablet by mouth once daily Benazepril HCl 10 MG TAKE 1 TABLET BY MOUTH EVERY DAY Active benzonatate 200 mg oral capsule (11 sources) Non-narcotic Antitussive Start: 04-10-2023 take 1 capsule by mouth every eight hours Benzonatate 200 MG 1 capsule Orally Three times a day for 10 days Mar, Active carvedilol 6.25 mg oral tablet (8 sources) alpha-Adrenergic Gloria, beta-Adrenergic Gloria Start: 06-29-2023 [...] day Active sildenafil 100 mg oral tablet (12 sources) Phosphodiesterase 5 Inhibitor take 1 tablet by mouth every twenty-four hours Sildenafil Citrate 100 MG 1 tablet as needed Orally Once a day for 30 days Active Completed/Discontinued Medications Medication Drug Class(es) Dates Sig (Normalized) Sig (Original) Suprep Bowel Prep - (12 sources) Start: 09-08-2016 Suprep Bowel Prep - 1 Orally Daily for 1 day(s) Aug, Not-Taking/PRN Start: 09-08-2016 Suprep Bowel P rep - 1 Orally Daily for 1 day(s) Aug, Not-Taking Problems Active Problems Problem Classification Problem Date Documented Da te Episodic/Chronic Cardiac dysrhythmias (1 source) Tachycardia, unspecified Episodic Diabetes mellitus without complication (3 sources) Impaired fasting glucose Episodic Disorders of lipid metabolism (20 sources) Pure hypercholesterolemi a, unspecified; Translations: [Pure hypercholesterolemi a] Onset: 08-30-2022 Resolved: 08-30-2022 Chronic Esophageal disorders (20 sources) Stricture of esophagus; Translations: [Esophageal stricture] Onset: 05-13-2018 Chronic Essential hypertension (19 sources) Essential hypertension; Translations: [Essential (primary) hypertension] Onset: 07-16-2023 Chronic Hemorrhoids (3 sources) External hemorrhoids; Translations: [Residual hemorrhoidal skin tags] Episodic Other and unspecified benign neoplasm (12 sources) Benign neoplasm of colon; Translations: [Benign [...] Chronic Other nutritional; endocrine; and metabolic disorders (10 sources) Body mass index 30+ - obesity; Translations: [Body mass index (BMI) 32.0-32.9, adult] Chronic Other nutritional; endocrine; and metabolic disorders (10 sources) Obesity caused by energy imbalance; Translations: [Other obesity due to excess calories] Chronic Other nutritional; endocrine; and metabolic disorders (3 sources) Other obesity due to excess calories Chronic Other nutritional; endocrine; and metabolic disorders (3 sources) Body mass index (BMI) 32.0-32.9, adult Chronic Other screening for suspected conditions (not mental disorders or infectious disease) (3 sources) Encounter for screening for malignant neoplasm of prostate; Translations: [Abnormal findings on diagnostic imaging of heart and coronary circulation] Onset: 07-02-2022 Episodic Other skin disorders (2 sources) Skin tag; Translations: [Other hypertrophic disorders of the skin] Episodic Residual codes; unclassified (5 sources) Obstructive sleep apnea syndrome; Translations: [Obstructive sleep apnea (adult) (pediatric)] Chronic Residual codes; unclassified (2 sources) Obstructive sleep apnea (adult) (pediatric) Chronic Residual codes; unclassified (4 sources) Family history of ischemic heart disease and other diseases of the circulatory system; Translations: [Family history of ischemic heart disease and other diseases of the circulatory system] Onset: 07-16-2023 Episodic Past or Other Problems Problem Classification Problem Date Documented Date Episodic/Chronic Esophageal disorders (8 sources) Esophageal disorders; Translations: [Gastro-esophageal reflux disease [...] Episodic Other nutritional; endocrine; and metabolic disorders (11 sources) Overweight; Translations: [Overweight] Onset: 08-14-2017 Resolved: 06-12-2022 Episodic Results Test Name Value Interpretation Reference Range Facility Office Visiton 11-30-2023 Follow-up visit [id number] Irving Fragoso 1960 M Date Provider Department Center 11/30/2023 Mariela8-ARLENE GUIDRY [facility] Family History Problem Relation Age of Onset Diabetes Mother Heart failure Mother Kidney disease Mother Heart attack Father 42 Family Status - Relation Status Age at Mother Father Level of Service:10098 [place] OFFICE/OUTPATIENT NEW MODERATE MDM 45 MINUTES Normal [facility] CT CARDIAC SCORING WO IV CON TRASTon 07-16-2023 CT CARDIAC SCORING WO IV CONTRAST Interpreted By: Eliezer Bazan, STUDY: CT CARDIAC SCORING WO IV CONTRAST; 07/16/2023 11:29 am INDICATION: Signs/Symptoms:FAMILY HISTORY OF ISCHEMIC HEART DISEASE. COMPARISON: None. ACCESSION NUMBER(S): [id number] ORDERING CLINICIAN: JONAH RIBERA TECHNIQUE: Using prospective [...] using link below [email or web address] aspx Fili. JACC 2014 (http://dx.doi.org/10 .1016/j.j [email or web address]) Signed by: Eliezer Bazan 07/16/2023 4:52 PM Dictation workstation: [id number] [facility] DIRECT LDLon 08-30-2022 Cholesterol in LDL [Mass/Vol] 81 mg/dL Normal [facility] Comment on above: Performed By: #### D LDL, ALT #### [facility] [address] [place] [address] Dr. Angel Hernández DLDL NORMAL SEE BELOW Normal [facility] Comment on above: Result Comment: <100 mg/dl OPTIMAL 100 - 129 mg/dl NEAR OR ABOVE OPTIMAL 130 - 159 mg/dl BORDERLINE HIGH 160 - 189 mg/dl HIGH >190 mg/dl VERY HIGH Performed By: #### D LDL, ALT #### [facility] [address] [place] [address] Dr. [facility] ALT [Catalytic activity/Vol] 53 U/L Normal 16-63 [facility] Comment on above: Performed By: #### D LDL, ALT #### [facility] [address] [place] [address] Dr. Angel Hernández CBC AUTO DIFFon 06-29-2022 BASO # 0.1 103/ul Normal 0.0-0.1 [facility] Comment on above: Performed By: #### C BC #### [facility] [address] [place] [address] Dr. Angel Hernández Basophils/100 WBC (Bld) 1.0 % Normal 0.2-2.0 [facility] Comment on above: Performed By: #### C BC #### [facility] [address] [place] [address] Dr. Angel Hernández EO # 0.2 103/ul Normal 0.0-0.7 [facility] Comment on above: Performed By: #### C BC #### [facility] [address] [place] [address] Dr. Angel Hernández Eosinophils/100 WBC (Bld) 4.7 % Normal 0.9-7.0 [facility] Comment on above: Performed By: #### C BC #### [facility] [address] [place] [address] Dr. Angel Hernández Erythrocyte distribution width (RBC) [Ratio] 12.5 % Normal 11.0-15.0 [facility] Comment on above: Performed By: #### C BC #### [facility] [address] [place] [address] Dr. Angel Hernández Hematocrit (Bld) [Volume fraction] 47.9 % Normal 42.0-54.0 [facility] Comment on above: Performed By: #### C BC #### [facility] [address] [place] [address] Dr. Angel Hernández Hemoglobin (Bld) [Mass/Vol] 16.7 g/dL Normal 14.0-18.0 [facility] Comment on above: Performed By: #### C BC #### [facility] [address] [place] [address] Dr. Angel Hernández IG # 0.01 10e3/ul Normal 0.00-0.03 [facility] Comment on above: Performed By: #### C BC #### [facility] [address] [place] [address] Dr. Angel Hernández IG % 0.2 % Normal 0.0-0.5 [facility] Comment on above: Performed By: #### C BC #### [facility] [address] [place] [address] Dr. Angel Hernández LYMPH # 1.6 103/ul Normal 1.2-3.[address] [facility] Comment on above: Performed By: #### C BC #### [facility] [address] [place] [address] Dr. Angel Hernández Lymphocytes/100 WBC (Bld) 30.2 % Normal 20.5-60.0 [facility] Comment on above: Performed By: #### C BC #### [facility] [address] [place] [address] Dr. Angel Hernández MANUAL DIFF REQ NO Normal [facility] Comment on above: Performed By: #### C BC #### [facility] [address] [place] [address] Dr. Angel Hernández MCH (RBC) [Entitic mass] 31.3 pg Normal 25.9-34.0 [facility] Comment on above: Performed By: #### C BC #### [facility] [address] [place] [address] Dr. Angel Hernández MCHC (RBC) [Mass/Vol] 34.9 g/dL Normal 29.9-35.2 [facility] Comment on above: Performed By: #### C BC #### [facility] [address] [place] [address] Dr. Angel Hernández MCV (RBC) [Entitic vol] 89.7 fL Normal 80.0-94.0 [facility] Comment on above: Performed By: #### C BC #### [facility] [address] [place] [address] Dr. Angel Hernández MONO # 0.5 103/ul Normal 0.3-0.8 [facility] Comment on above: Performed By: #### C BC #### [facility] [address] [place] [address] Dr. Angel Hernández Monocytes/100 WBC (Bld) 10.1 % Normal 1.7-12.0 [facility] Comment on above: Performed By: #### C BC #### [facility] [address] [place] [address] Dr. Angel Hernández NEUT # 2.8 103/ul Normal 1.4-6.[address] [facility] Comment on above: Performed By: #### C BC #### [facility] [address] [place] [address] Dr. Angel Hernández Neutrophils/100 WBC (Bld) 53.8 % Normal 43.0-75.0 [facility] Comment on above: Performed By: #### C BC #### [facility] [address] [place] [address] Dr. Angel Hernández Platelet mean volume (Bld) [Entitic vol] 9.2 fL Critically low 9.5-13.5 [facility] Comment on above: Performed By: #### C BC #### [facility] [address] [address] [address] Angel Hernández PLT 271 103/ul Normal 150-450 [facility] Comment on above: Performed By: #### C BC #### [facility] [address] [address] [address] Angel Hernández RBC 5.34 106/ul Normal 4.70-6.10 [facility] Comment on above: Performed By: #### C BC #### [facility] [address] [address] [address] Angel Hernández WBC 5.1 103/ul Normal 4.0-11.0 [facility] Comment on above: Performed By: #### C BC #### [facility] [address] [place] [address] Dr. Angel Hernández DIRECT LDLon 06-29-2022 Cholesterol in LDL [Mass/Vol] 106 mg/dL Normal [facility] Comment on above: Performed By: #### T MIRANDA, LIPID, DLDL, CMP #### [facility] [address] [place] [address] Dr. Angel Hernández DLDL NORMAL SEE BELOW Normal [facility] Comment on above: Result Comment: <100 mg/dl OPTIMAL 100 - 129 mg/dl NEAR OR ABOVE OPTIMAL 130 - 159 mg/dl BORDERLINE HIGH 160 - 189 mg/dl HIGH >190 mg/dl VERY HIGH Performed By: #### T MIRANDA, LIPID, DLDL, CMP #### [facility] [address] [place] [address] Dr. Angel Hernández GLYCOHEMOGLOBIN A1Con 2021 ADA RECOMMENDATION SEE BELOW Normal [facility] Comment on above: Result Comment: ADA RECOMMENDED LIMIT 4.0 - 6.0 ADA THERAPEUTIC TARGET < 7.0 ACTION SUGGESTED > 7.0 Performed By: #### A 1C #### [facility] [address] [place] [address] Dr. Angel Hernández Glucose [Mass/Vol] 114 mg/dL Normal [facility] Comment on above: Performed By: #### A 1C #### [facility] [address] [address] [address] Angel Hernández HbA1c (Bld) [Mass fraction] 5.6 % Normal 4.5-6.2 [facility] Comment on above: Performed By: #### A 1C #### [facility] [address] [address] [address] Angel Hernández LIPID PROFILEon 06-29-2022 CHOL-HDL RATIO NORM SEE BELOW Normal [facility] Comment on above: Result Comment: 3.3 - 4.4 LOW RISK 4.4 - 7.1 AVERAGE RISK 7.1 - 11.0 MODERATE RISK >11.0 HIGH RISK Performed By: #### T SH, LIPID, DLDL, CMP #### [facility] [address] [address] [address] Angel Hernández Cholesterol [Mass/Vol] 222 mg/dL Critically high <=200 [facility] Comment on above: Performed By: #### T SH, LIPID, DLDL, CMP #### [facility] [address] [address] [address] Angel Hernández Cholesterol in HDL [Mass/Vol] 35 mg/dL Critically low 40-60 [facility] Comment on above: Performed By: #### T SH, LIPID, DLDL, CMP #### [facility] [address] [address] [address] Angel Hernández Cholesterol.total/Ch olesterol in HDL [Mass ratio] 6.3 {ratio} Normal [facility] Comment on above: Performed By: #### T SH, LIPID, DLDL, CMP #### [facility] [address] [address] [address] Angel Hernández HDL NORMAL > or = 60 mg/dl - LO W CARDIOVASCULAR RISK <40 mg/dl - HIGH CARDIOVASCULAR RISK Normal [facility] Comment on above: Performed By: #### T SH, LIPID, DLDL, CMP #### [facility] [address] [address] [address] Angel Hernández Triglyceride [Mass/Vol] 482 mg/dL Critically high <=150 [facility] Comment on above: Performed By: #### T SH, LIPID, DLDL, CMP #### [facility] [address] [address] [address] Angel Hernández VLDL CALC 96.4 mg/dL Normal [facility] Comment on above: Performed By: #### T SH, LIPID, DLDL, CMP #### [facility] [address] [address] [address] Angel Hernández PROF 14(COMP METB)on 022 Albumin [Mass/Vol] 3.6 g/dL Normal 3.4-5.0 [facility] Comment on above: Performed By: #### T SH, LIPID, DLDL, CMP #### [facility] [address] [place] [address] Dr. Angel Hernández Albumin/Globulin [Mass ratio] 1.0 {ratio} Normal [facility] Comment on above: Performed By: #### T SH, LIPID, DLDL, CMP #### [facility] [address] [place] [address] Dr. Angel Hernández ALP [Catalytic activity/Vol] 26 U/L Critically low 46-116 [facility] Comment on above: Performed By: #### T SH, LIPID, DLDL, CMP #### [facility] [address] [place] [address] Dr. Angel Hernández ALT [Catalytic activity/Vol] 40 U/L Normal 16-63 [facility] Comment on above: Performed By: #### T SH, LIPID, DLDL, CMP #### [facility] [address] [place] [address] Dr. Angel Hernández Anion gap [Moles/Vol] 6.9 mmol/L Normal [facility] Comment on above: Performed By: #### T SH, LIPID, DLDL, CMP #### [facility] [address] [place] [address] Dr. Angel Hernández AST [Catalytic activity/Vol] 17 U/L Normal 15-37 [facility] Comment on above: Performed By: #### T SH, LIPID, DLDL, CMP #### [facility] [address] [address] [address] Angel Hernández Bilirubin [Mass/Vol] 0.4 mg/dL Normal 0.2-1.0 [facility] Comment on above: Performed By: #### T SH, LIPID, DLDL, CMP #### [facility] [address] [address] [address] Angel Hernández Calcium [Mass/Vol] 8.8 mg/dL Normal 8.5-10.1 [facility] Comment on above: Performed By: #### T SH, LIPID, DLDL, CMP #### [facility] [address] [place] [address] Dr. Angel Hernández Chloride [Moles/Vol] 102 mmol/L Normal 98-107 [facility] Comment on above: Performed By: #### T SH, LIPID, DLDL, CMP #### [facility] [address] [place] [address] Dr. Angel Hernández CO2 [Moles/Vol] 31.5 mmol/L Normal 21.0-32.0 [facility] Comment on above: Performed By: #### T SH, LIPID, DLDL, CMP #### [facility] [address] [address] [address] Angel Hernández Creatinine [Mass/Vol] 1.05 mg/dL Normal 0.70-1.30 [facility] Comment on above: Performed By: #### T SH, LIPID, DLDL, CMP #### [facility] [address] [place] [address] Dr. Angel Hernández EGFR-AF SRI LANKAN >60 Normal >=60 [facility] Comment on above: Performed By: #### T SH, LIPID, DLDL, CMP #### [facility] [address] [place] [address] Dr. Angel Hernández EGFR-NON AF SRI LANKAN >60 Normal >=60 [facility] Comment on above: Performed By: #### T SH, LIPID, DLDL, CMP #### [facility] [address] [place] [address] Dr. Angel Hernández Globulin (S) [Mass/Vol] 3.7 g/dL Normal [facility] Comment on above: Performed By: #### T SH, LIPID, DLDL, CMP #### [facility] [address] [address] [address] Angel Hernández Glucose [Mass/Vol] 125 mg/dL Critically high 74-106 [facility] Comment on above: Performed By: #### T SH, LIPID, DLDL, CMP #### [facility] [address] [place] [address] Dr. Angel Hernández Potassium [Moles/Vol] 4.4 mmol/L Normal 3.5-5.1 [facility] Comment on above: Performed By: #### T SH, LIPID, DLDL, CMP #### [facility] [address] [place] [address] Dr. Angel Hernández Protein [Mass/Vol] 7.3 g/dL Normal 6.4-8.2 [facility] Comment on above: Performed By: #### T SH, LIPID, DLDL, CMP #### [facility] [address] [place] [address] Dr. Angel Hernández Sodium [Moles/Vol] 136 mmol/L Normal 136-145 [facility] Comment on above: Performed By: #### T SH, LIPID, DLDL, CMP #### [facility] [address] [place] [address] Dr. Angel Hernández Urea nitrogen [Mass/Vol] 12.0 mg/dL Normal 7.0-18.0 [facility] Comment on above: Performed By: #### T SH, LIPID, DLDL, CMP #### [facility] [address] [place] [address] Dr. Angel Hernández Urea nitrogen/Creatinine [Mass ratio] 11.4 mg/mg Normal [facility] Comment on above: Performed By: #### T SH, LIPID, DLDL, CMP #### [facility] [address] [place] [address] Dr. Angel Hernández TSHon 06-29-2022 TSH 3.683 uIU/mL Normal 0.358-3.740 [facility] Comment on above: Performed By: #### T SH, LIPID, DLDL, CMP #### [facility] [address] [address] [address] Angel Hernández COVID-19 Positive/Negativeon 10-05-2020 COVID-19 Positive/Negative Negative Negative [facility] Comment on above: Testing for SARS-CoV -2 by RT-PCRThis test was developed and its performance characteristics determined by [employer] ([employer] and validated at the [facility]. This test has not been FDA [...] Otheron 10-05-2020 Coronavirus 2019 PCR Interp N/A [facility] Vital Signs Date Time Vital Sign Value Performing Clinician Facility 10-22-2023 15:30-0500 Body height 175.26 cm [facility] Other 10-22-2023 15:30-0500 Body mass index (BMI) [Ratio] 32.16 kg/m2 [facility] Other 10-22-2023 15:30-0500 Body weight 98.79 kg [facility] Other [facility] Other 10-22-2023 15:30-0500 Diastolic blood pressure 80 mm[Hg] [facility] Other [facility] Other 10-22-2023 15:30-0500 Respiratory rate 12 /min Jonah Ball Other [facility] Other 10-22-2023 15:30-0500 Systolic blood pressure 135 mm[Hg] Jonah Ball Other [facility] Other 06-15-2023 13:30-0400 Body height 175.26 cm Jonah Ball Other [facility] Other 06-15-2023 13:30-0400 Body mass index (BMI) [Ratio] 32.1 kg/m2 Jonah Ball Other [facility] Other 06-15-2023 13:30-0400 Body weight 98.61 kg Jonah Ball Other [facility] Other 06-15-2023 13:30-0400 Diastolic blood pressure 85 mm[Hg] Jonah Ball Other [facility] Other 06-15-2023 13:30-0400 Respiratory rate 12 /min Jonah Ball Other [facility] Other 06-15-2023 13:30-0400 Systolic blood pressure 125 mm[Hg] Jonah Ball Other [facility] Other Encounters Encounter Date Encounter Type Care Provider Facility Start: 11-30-2023 End: 11-30-2023 ambulatory [facility] Start: 11-14-2023 End: 11-14-2023 ambulatory Jonah Ball Other [facility] Other Start: 11-14-2023 Telephone encounter Jonah Ball [facility] Start: 11-13-2023 End: 11-13-2023 ambulatory Jonah Ball Other [facility] Other Start: 11-13-2023 Telephone encounter Jonah Ribera [facility] Start: 11-06-2023 End: 11-06-2023 ambulatory Jonah Clive Other [facility] Other Start: 11-06-2023 Telephone encounter Jonah Ribera [facility] Start: 10-22-2023 End: 10-22-2023 ambulatory Jonah Ball Other [facility] Other Start: 10-22-2023 Office outpatient vi sit 25 minutes Jonah Ball [facility] Start: 09-05-2023 End: 09-05-2023 ambulatory Jonah Clive Other [facility] Other Start: 09-05-2023 Telephone encounter Jonah Ribera [facility] Start: 07-18-2023 End: 07-18-2023 ambulatory Jonah Clive Other [facility] Other Start: 07-18-2023 Telephone encounter Jonah Ribera [facility] Start: 07-16-2023 End: 07-17-2023 ambulatory JONAH LAWSONBRENT CLIVE [facility] Start: 06-29-2023 End: 06-29-2023 ambulatory Jonah Ribera Other [facility] Other Start: 06-29-2023 Telephone encounter Jonah Ball [facility] Start: 06-19-2023 End: 06-19-2023 ambulatory Jonah Ball Other [facility] Other Start: 06-19-2023 Telephone encounter Jonah Ball [facility] Start: 06-15-2023 End: 06-15-2023 ambulatory Jonah Ball Other [facility] Other Start: 06-15-2023 Encounter for genera l adult medical examination without abnormal findings Jonah Ball [facility] Start: 06-15-2023 Periodic preventive med est patient 40-64yrs Jonah Ball [facility] Start: 06-11-2023 End: 06-11-2023 ambulatory Jonah Ribera Other [facility] Other Start: 06-11-2023 Encounter for genera l adult medical examination without abnormal findings Jonah Ribera [facility] Start: 06-11-2023 Telephone encounter Jonah Ribera [facility] Start: 03-09-2023 End: 03-09-2023 ambulatory Jonah Ribera Other [facility] Other Start: 03-09-2023 Telephone encounter Jonah Ribera [facility] Start: 08-30-2022 End: 08-31-[address] JONAH RIBERA Facility:[facility] Start: 07-02-2022 Encounter for genera l adult medical examination without abnormal findings DR JONAH RIBERA [facility] Start: 06-29-2022 End: 06-30-[address] JONAH RIBERA Facility:[facility] Start: 06-29-2022 End: 06-30-2022 Encounter for general adult medical examination without abnormal findings DR JONAH RIBERA Facility:[facility] Start: 06-12-2022 Adult health examination Jonah Ribera Other [facility] Other Start: 10-05-2020 End: 10-05-2020 Patient encounter procedure Jonah Ribera -Pre-Surgical Testing Procedures Date Procedure Procedure Detail Performing Clinician Start: 07-16-2023 CT CARDIAC SCORING W O IV CONTRAST JONAH RIBERA Start: 06-29-[address] JACKSON IN [facility] Comment on above: Performed By: #### P [facility] #### [facility] [address] [place] [address] Dr. Angel Hernández Start: 08-23-2017 End: 06-12-2022 Hypertension screening Jonah Ribera Other Start: 04-21-2014 End: 06-12-2022 General examination of patient Jonah Clive Other Depression screening Henry Ribera Other Immunizations Immunization Date Immunization Notes Care Provider Shabbir de oliveira 08-17-2016 tetanus and diphther ia toxoids, adsorbed, preservative free, for adult use (5 Lf of tetanus toxoid and 2 Lf of diphtheria toxoid) Jonah Ribera Other [facility] Other Payers Date Payer Category Payer Unknown [id number] 1960 Unknown [id number] 1960 Unknown [id number] 1958 Unknown [id number] Self-pay Self Pay [id number] Unknown [id number] Social History Date Type Detail Facility Tobacco smoking status NHIS Unknown if ever smoked [facility] Start: 1960 Sex Assigned At Male F [facility] Sex Assigned At Sex Assigned At Bir th [facility] Other Goals Date Patient Goal Desired Activity /State Clinical Notes 06-11-2023 to 11-30-2023 Note Date & Type Note Facility 11-30-2023 Note Cardiology Clinic No te Chief Complaint: abnormal stress test HPI: Irving Fragoso is a 63 y.o. male with a past medical history of HTN who was referred to cardiology clinic due to family history of premature coronary artery disease and abnormal stress test. Stress test reveals a defect in inferior portion on rest images but no defect on stress images. Today, patient states that he is doing well. He patient adamantly denies any chest pain. He does endorse occasional shortness of breath. He denies any lower extreme edema, orthopnea, or paroxysmal nocturnal dyspnea.. Patient denies any previous history of CVA, PVD, DM, HTN, Depressed LVEF, and CAD. Patient states that his father had an NH due to blood clots in his early 40s. He denies any other family history of any cardiac problems Cardiology ROS: GENERAL: Denies fever, chills, night sweats, weight loss. HEENT: Denies changes in vision, photophobia, changes in hearing, epistaxis, oral bleeding. CARDIOVASCULAR: As per HPI RESPIRATORY: Denies SOB, coughing, wheezing GI: Denies abdominal pain, nausea/vomiting, heartburn, melena/hematochezia. RENAL: Denies dysuria, hematuria, flank pain. MSK: Denies muscle weakness/pain, arthralgias/joint pain. NEUROLOGIC: Denies LOC, weakness, numbness, headaches. SKIN: Denies abnormal rashes or bleeding. PSYCH: Denies significant anxiety, depression, sleep disturbances. Past Medical History He has a past medical history of Hyperlipidemia, Hypertension, and Sleep apnea. Surgical History He has no past surgical history on file. Social History He reports that he has never smoked. He has never used smokeless tobacco. He reports current alcohol use. No history on file for drug use. Family History Family History Problem Relation Name Age of Onset Diabetes Mother Heart failure Mother Kidney disease Mother Heart attack Father 42 Medications Current Outpatient Medications on File Prior to Visit Medication Sig Dispense Refill aspirin 81 mg EC tablet Take 81 mg by mouth in the morning. atorvastatin (Lipitor) 10 mg tablet Take 10 mg by mouth at bedtime. benazepril (Lotensin) 10 mg tablet Take 10 mg by mouth in the morning. carvedilol (Coreg) 6.25 mg tablet TAKE 1 TABLET BY MOUTH TWICE A DAY WITH FOOD FOR 30 DAYS No current facility-administered medications on file prior to visit. Allergies Patient has no known allergies. Physical Exam VITAL SIGNS: BP 122/80 (BP Location: Right arm, Patient Position: Sitting) Pulse 83 Ht 1.778 m (5' 10 ) Wt 99.3 kg (219 lb) SpO2 95% BMI 31.42 kg/m??? Constitutional: Well developed, Well nourished, No acute distress, Non-toxic appearance. HENT: Normocephalic, Atraumatic, Bilateral external ears have normal appearance, Nose appears normal, nares are patent. Eyes: PERRLA, EOMI, Conjunctiva normal, No discharge. Neck: Normal range of motion, No tenderness, Supple, No stridor. No cervical lymphadenopathy noted. Cardiovascular: Normal heart rate, Normal rhythm, No murmurs, No rubs, No gallops. Thorax & Lungs: Normal breath sounds, No respiratory distress, No wheezing, No chest tenderness to palpation. Abdomen: Bowel sounds normal, Soft, Nontender, No masses, No pulsatile masses. Skin: Warm, Dry, No erythema, No rash. Back: No tenderness, No CVA tenderness. Extremities: Intact distal pulses, No edema, No tenderness, No cyanosis, No clubbing. Musculoskeletal: Grossly normal strength in extremities Neurologic: Alert & oriented x 3, no gross focal neurological deficits Psychiatric: Affect normal, Judgment normal, Mood normal. EKG results: No results found for this or any previous visit (from the past 4464 hour(s)). Echo results: No echocardiogram results found for the past 12 months Radiology: No image results found. Impression: -Abnormal stress test, Defect seen at rest but not at stress -Shortness of breath -Coronary calcification -Family history of premature CAD -Alcohol abuse Plan: -Patient with stress test abnormality at rest, not with stress. This is likely indicative of artifact. Would recommend no further ischemic evaluation at this time given absence of chest pain. -Given shortness of breath, will obtain echocardiogram to assess LVEF, regional wall motion, and valvular function -Would recommend high intensity statin therapy and 81 mg of aspirin daily given coronary calcification and family history of premature CAD. Unfortunately, patient has a strong history of alcohol abuse. He is currently on atorvastatin 10 mg. I counseled him on the importance of alcohol cessation, and will consider additional statin therapy once he cuts down amount of alcohol consumption -Continue atorvastatin 10 mg daily and aspirin 81 mg daily for coronary calcification And for family history of premature CAD -Counseled the patient Extensively on the importance of cutting down on alcohol consumption. He voices understanding (more content not included)... [facility] 11-30-2023 Note New patient here to establish care. Ref from Dr. Ribera for abnormal stress test and family hx of premature CAD. Father passed from NH at age of 42. Never been a smoker, but does drink 3+ beers daily. states his nose turns purple when he drinks. He denies chest pain, SOB, palpitations, and lightheadedness/syncope. Review of Systems All other systems reviewed and are negative. [facility] 10-22-2023 Evaluation note Encounter Date Diagnosis Assessment [...] CAD. LAYNE score indicates 100% risk for NH in next 10 years. Recommend initiating primary prevention measures Recommend initiating ASA 81mg qd Recommend Stress testing Oct, CALLIE (obstructive sleep apnea) (ICD-10 - G47.33) This patient is aware of the benefits associated with CALLIE: With continued use, the patient reduces the risk for NH, CVA, HTN, cardiac dysrhythmias and sudden cardiac [...] year risk for CAD. Father suffered fatal NH in 40s. Initiate primary prevention measures. Apr, Gastro-esophageal reflux disease with esophagitis, without bleeding (ICD-10 - K21.00) Avoid lying flat after eating. Avoid eating 2 hours prior to bedtime. Smaller, frequent meals may be better tolerated.Weight loss if overweight.PPI with any heartburn.Monito r for dysphagia. [facility] Other 10-04-2023 Evaluation note* Encounter Date Diagnosis Assessment Notes Treatment Notes Treatment Clinical Notes Jul, Hypertriglyceridemia (ICD-10 - E78.1) [facility] Other 09-15-2023 Evaluation note* Encounter Date Diagnosis Assessment Notes Treatment Notes Treatment Clinical Notes Jun, Primary hypertension (ICD-10 - I10) Jun, Tachycardia (ICD-10 - R00.0) [facility] Other 09-01-2023 Evaluation note* Encounter Date Diagnosis Assessment Notes Treatment Notes Treatment Clinical Notes Jun, Wellness examination (ICD-10 - Z00.00) Healthy diet and exercise. Reviewed age-appropriate preventive testing recommended. Jun, Pure hyperglyceridem ia (ICD-10 - E78.1) Instructed on diet and [...] couple weeks for recheck Jun, IFG (impaired fastin g glucose) (ICD-10 - R73.01) Healthy diet and exercise Encouraged to lose weight Check A1C Jun, Other obesity due to excess calories (ICD-10 - E66.09) This patient has been instructed on a low-fat, high-fiber diet. They are instructed to reduce calories, portion sizes and snacks. It is recommended that they exercise for 30 minutes, 3-5 times weekly. Jun, Body mass index [BMI ] 32.0-32.9, adult (ICD-10 - Z68.32) Apr, Gastro-esophageal reflux disease with esophagitis, without bleeding (ICD-10 - K21.00) Diet instructions: Smaller portions, avoid eating and laying flat, avoid eating or drinking prior to bedtime. Weight loss. [facility] Other 08-28-2023 Evaluation note* Encounter Date Diagnosis Assessment Notes Treatment Notes Treatment Clinical Notes May, Wellness examination (ICD-10 - Z00.00) [facility] Other Evaluation noteNo InformationNort EventRegist Other History general Narrative - Reported* Type Description Date Medical History Dysphagia, unspecified Medical History Esophageal obstruction Medical History Schatzki's ring Medical History Essential hypertension Medical History External hemorrhoids Medical History Adenomatous polyp of descending colon Surgical History COLONOSCOPY Surgical History EGD W/ DILATATION 2015 Hospitalization History SEE SURGICAL HX [facility] Other History general Narrative - Reported* Type Description Date Medical History Dysphagia, unspecified Medical History Esophageal obstruction Medical History Schatzki's ring Medical History Essential hypertension Medical History External hemorrhoids Medical History Adenomatous polyp of descending colon Surgical History COLONOSCOPY (repeat 2024) 2019 Surgical History EGD W/ DILATATION 2015 Hospitalization History SEE SURGICAL HX [facility] Other Reason for referral (narrative)* Reason Referral for an abno rmal stress test. Diagnosis 1 Family history of pr emature CAD (Z82.49) Referral Organization [facility] sandrita Referring Provider First Name Jonah Referring Provider Last Name Clive Referring Provider Specialty Internal Me dicine Referred Organization [facility] Referred Provider Dileep Ivy V Referred Address [address] [place], [place],[address] Referred Provider Specialty Cardiovascul ar Disease Referral Priority Routine General Notes Mr. Fragoso has a str peter family history for CAD w/ his father having a fatal myocardial infarction in his 40's. Mr. Fragoso risk factors include HTN, HLD, IFG and an elevated CAC score. He completed a stress test, complaining of dyspnea without exertional chest pain. There was no ischemic EKG changes during exercise but his NM images revealed stress induced perfusion defects. Mr. Fragoso is being referred for further testing for obstructive CAD. Clinical Notes Include labs and str ess test (both NM imaging report and treadmill test dictation) [facility] Other Advance Directives No Advanced Directives Records Found Advance Directive Response Recorded Date/ Time Advance Directives No September 4:44pm Chief Complaint and Reason for Visit Chief Complaint Nilesh Kirk H x Colon Cancer Assessments No Assessments Information Available Summary Purpose Family History No Family History Records FoundNo Family History Records FoundNo Family History Records Found Additional Source Comments (unrecognized sect ion and content) No Status Records FoundNo Status Records FoundNo Status Records Found INFORMATION SOURCE (unrecogn ized section and content) DATE CREATED AUTHOR 09/02/2022 [facility] DATE CREATED AUTHOR AUTHOR'S ORGANIZ ATION 07/21/2023 [facility] DATE CREATED AUTHOR AUTHOR'S ORGANIZ ATION 12/02/2023 [facility] REASON FOR VISIT (unrecogniz ed section and content) LLQ painWellness Lab OrdersW ELLNESSLab ResultsBP checkCardiac scoring resultsrefill4 month Follow upMedication QuestionNo Information4 month Follow upStress Test results FOR RECORDS PERTAINING TO PATIENTS WHO ARE [...] BE BASED ON THE PRIMARY CLINICAL RECORDS. [facility]. provides no warranty or guarantee of the accuracy or completeness of information in this document.
--- NOTE | 2023-12-05 09:15 | CA_ITS ---
Patient Name: IRVING FRAGOSO MR#: [id number] : 1960 Exam Date: 12/05/2023 Ordering Doctor: ARLENE GUIDRY M.D. ECHOCARDIOGRAM REPORT PROCEDURE: CA ECHO DOPPLER COMPLETE INDICATIONS: Dyspnea COMPARISON: None. DESCRIPTION: COMPLETE ECHOCARDIOGRAM Real-time transthoracic echocardiography with 2D, M-mode, spectral and color flow Doppler performed. QUALITY: Technical quality was good. LEFT VENTRICLE: Normal chamber size. Mild concentric left ventricular hypertrophy. Global left ventricular systolic function is normal. LV EF: Estimated left ventricular ejection fraction is 55-60%. DIASTOLIC: Normal diastolic function. ATRIAL SEPTUM: LEFT ATRIUM: Normal chamber size. RIGHT ATRIUM: Mild dilatation. RIGHT VENTRICLE: Normal chamber size. Normal right ventricular systolic function. TRICUSPID VALVE: Normal mobility and thickness. No stenosis with trivial regurgitation. No evidence of pulmonary hypertension. RVSP 33 mmHg. MITRAL VALVE: Normal mobility and thickness. No evidence of mitral valve stenosis. There is no mitral annular calcification. Trivial mitral regurgitation. AORTIC VALVE: Normal trileaflet appearance. Thickened aortic valve. Normal leaflet mobility. No evidence of aortic valve stenosis. No aortic regurgitation. AORTIC ROOT: Normal diameter and appearance. PULMONIC VALVE: Normal thickness and mobility. No stenosis. Trivial regurgitation. PERICARDIUM: Trivial pericardial effusion. IVC: Collapses with inspirations. Normal size. PLEURA: CONCLUSION: 1. Mild concentric left ventricular hypertrophy with normal systolic function. LVEF is 55 to 60%. 2. Normal right ventricular size and systolic function. 3. No significant valvular dysfunction. 4. Normal diastolic function. 5. Normal right-sided pressures. 6. Trivial pericardial effusion. Adult Echocardiography Procedure Report Left Ventricle LVEDD (3.7 - 5.6 cm): 4.43 cm LVESD (2.2 - 4.0 cm): 2.93 cm LVIVS thickness (0.6 - 1.2 cm): 1.29 cm LVPW thickness (0.5 - 1.0 cm): 1.25 cm e': 0.09 m/s E - e': 6.21 LVOT Max Gradient: 2.96 mm[Hg] LVOT Area (cm2): 0.86 m/s Peak Velocity (LVOT): 0.86 m/s Mean Velocity (LVOT): 0.59 m/s LVOT Diameter 2.15 cm Left Ventricular Ejection Fraction: 55-60 % Left Atrium LA Volume Index (2D A2C): 21.76 ml/m2 Left Atrium Systolic Dimension: 3.98 cm Mitral Valve MV E to A Ratio: 0.95 Mitral Valve A-Wave Peak Velocity: 0.62 m/s Mitral Valve E-Wave Peak Velocity: 0.59 m/s Right Ventricle RV Internal Diastolic Dimension: 3.73 cm Aorta AO Root Diam: 3.26 cm Ascending Ao Diam: 2.71 cm Aortic Valve AoV Area (Peak Jared): 2.87 cm2, 2.87 cm2 AoV Area (VTI): 2.27 cm2, 2.27 cm2 Peak Velocity(Antegrade Flow): 1.09 m/s Peak Gradient(Antegrade Flow): 4.72 mm[Hg] Mean Velocity(Antegrade Flow): 0.78 m/s Mean Gradient(Antegrade Flow): 2.73 mm[Hg] Velocity Time Integral: 23.49 cm Tricuspid Valve Peak Velocity (Regurgitant Flow): 2.34 m/s, 2.73 m/s, 2.50 m/s Pulmonic Valve Mean Gradient: 3.21 mm[Hg], 3.86 mm[Hg], 3.71 mm[Hg] Mean Velocity: 0.81 m/s, 0.94 m/s, 0.91 m/s Peak Velocity: 1.32 m/s Peak Gradient: 6.72 mm[Hg], 7.09 mm[Hg], 7.09 mm[Hg] Right Atrium Right Atrium Systolic Pressure: 39.80 ml, 39.80 ml Dictated by: Dileep Ivy M.D. on 12/06/2023 at 12:13 Approved by: Dileep Ivy M.D. on 12/06/2023 at 12:17
== END 2023-12-05 07:56 | disposition home or self-care (01) ==
LOC: CARD 07:55
PROVIDERS: PCP Internal Medicine; Visit Provider Internal Medicine Cardiovascular Disease
DX: R06.09 Other forms of dyspnea (principal)
CPT/HCPCS: 93306

== ENCOUNTER 2024-06-25 09:02 | Outpatient (OUT) | payer OTHER, SELFPAY ==
--- OUTSIDE RECORDS SUMMARY | 2024-06-25 09:28 | XMS_ITS | CCD ---
Author Organization [facility] Care Team Providers Care Security Checker Name Role Phone Jonah Duffy Primary Care Provider [phone] Dash Gregory Attending Provider CLIVE, DR HAUSER Consulting Unavailable CLIVE, DR HAUSER Attending Unavailable CLIVE, DR HAUSER Admitting Unavailable BALL, DR HAUSER Primary Care Unavailable CLIVE, DR HAUSER Primary Care Unavailable BALL, DR HAUSER Consulting Unavailable CLIVE, DR HAUSER Attending Unavailable CLIVE, DR HAUSER Admitting Unavailable Clive, Jonah Unavailable JONAH DUFFY Referring Unavailabl e MAYELA YAO Attending Unavailable MAYELA YAO Attending Unavailable MAYELA YAO Attending Unavailable Unavailable Unavailable Unavailable Allergies Allergy Classification Reported Allergen(s) Allergy Type Date of Onset Reaction(s) Facility (1 source) patient allergy list reviewed by nurse or physicia Propensity to adverse reactions 8 Comment:Done [employer] Other (1 source) ALLERGIES NOT ON FILE; Translations: [ALLERGIES NOT ON FILE] Propensity to adverse reactions (disorder) [facility] Repository Medications Current Medications Medication Drug Class(es) Dates Sig (Normalized) Sig (Original) aspirin 81 mg delayed release oral tablet (7 sources) Platelet Aggregation Inhibitor, Nonsteroidal Anti-inflammatory Drug Start: 02-19-2024 Aspirin (Adult Low Dose Aspirin) 81 mg tablet,delayed release (DR/EC) Active 81 MG PO Daily February 19, 2024 12:00am take 1 tablet by bella th every twenty-four hours Aspirin 81 81 MG 1 tablet Orally Once a day Active atorvastatin 10 mg oral tablet (9 sources) HMG-CoA Reductase Inhibitor Start: 02-19-2024 take 10 mg by mouth once daily in the evening Atorvastatin Active 10 MG PO Every evening February 19, 2024 12:00am take 1 tablet by bella th once daily in the evening Atorvastatin Calcium 10 MG TAKE 1 TABLET BY MOUTH EVERY DAY IN THE EVENING Active benazepril hydrochloride 10 mg oral tablet (15 sources) Angiotensin Converting Enzyme Inhibitor Start: 10-11-2020 End: 06-12-2024 take 10 mg by mouth once daily Benazepril Active 10 MG PO Daily 90 90 June 12, 2024 9:59am benzonatate 200 mg oral capsule (11 sources) Non-narcotic Antitussive Start: 04-10-2023 take 1 capsule by mouth every eight hours Benzonatate 200 MG 1 capsule Orally Three times a day for 10 days Mar, Active carvedilol 6.25 mg oral tablet (13 sources) alpha-Adrenergic Gloria, beta-Adrenergic Gloria Start: 12-17-2023 End: 06-17-2024 take 1 tablet by mouth twice daily at mealtime Carvedilol Active 0 .ROUTE .COMPLEX 180 June 17, 2024 5:31pm TAKE 1 TABLET BY MOUTH TWICE A DAY WITH FOOD FOR 30 DAYS Start: 12-17-2023 End: 12-17-2023 take 6.25 mg by mouth twice daily Carvedilol Discontinued 6.25 MG PO Twice daily December 17, 2023 1:00am December 17, 2023 1:59pm Start: 06-29-2023 take 1 tablet by bella th every twelve hours Carvedilol 6.25 MG 1 tablet with food Orally Twice a day Jun, Active fenofibrate 134 mg oral capsule (7 sources) Peroxisome Proliferator Receptor alpha Agonist take 1 capsule by mouth every twenty-four hours Fenofibrate Micronized 134 MG 1 capsule with a meal Orally Once a day Active sildenafil 100 mg oral tablet (14 sources) Phosphodiesterase 5 Inhibitor Start: take 100 mg by mouth once daily Sildenafil Active 100 MG PO Daily February 19, 2024 12:00am take 1 tablet by bella th every twenty-four hours Sildenafil Citrate 100 MG [...] [Esophageal stricture] Onset: 05-13-2018 Chronic Essential hypertension (20 sources) Essential hypertension; Translations: [Essential (primary) hypertension] Onset: 07-16-2023 Chronic Hemorrhoids (3 sources) External hemorrhoids; Translations: [Residual hemorrhoidal skin tags] Episodic Hyperplasia of prostate (3 sources) Benign prostatic hypertrophy without outflow obstruction; Translations: [Hypertrophy (benign) of prostate without urinary obstruction and other lower urinary tract symptoms [LUTS]] Onset: 08-14-2017 Resolved: 06-12-2022 02-20-2024 Chronic Other and unspecified benign neoplasm (12 sources) [...] dysfunction due to arterial insufficiency] Chronic Other male genital disorders (2 sources) Male erectile dysfunction, unspecified; Translations: [Erectile dysfunction] 02-20-2024 Chronic Other nutritional; endocrine; and metabolic disorders [...] mass index (BMI) 32.0-32.9, adult Chronic Other nutritional; endocrine; and metabolic disorders (1 source) Obesity; Translations: [Obesity, unspecified] 02-20-2024 Chronic Other nutritional; endocrine; and metabolic disorders (1 source) Obesity, unspecified; Translations: [Obesity, unspecified] 06-24-2024 Chronic Other screening for suspected conditions (not mental disorders or infectious disease) (9 sources) Encounter for screening for malignant neoplasm of prostate; Translations: [Abnormal findings on diagnostic imaging of heart and coronary circulation] Onset: 07-02-2022 Episodic Other skin disorders (2 sources) Skin tag; Translations: [Other hypertrophic disorders of the skin] Episodic Residual codes; unclassified (7 sources) Obstructive sleep apnea syndrome; Translations: [Obstructive sleep apnea (adult) (pediatric)] 01-07-2024 Chronic Residual codes; unclassified (4 sources) Obstructive sleep apnea (adult) (pediatric); Translations: [Obstructive sleep apnea (adult)(pediatric)] Chronic Residual codes; unclassified (4 sources) Family [...] esophagitis, without bleeding] Onset: 05-13-2018 Resolved: 06-12-2022 Other connective tissue disease (1 source) Lateral [...] Value Interpretation Reference Range Facility Office Vis[facility] 06-09-2024 Follow-up visit [id number] Remigio Min 1960 M Date Provider Department Center 06/09/2024 3848-MAYELA YAO [facility] Family History Problem Relation Age of Onset Diabetes Mother Heart failure Mother Kidney disease Mother Heart attack Father 42 Family Status - Relation Status Age at Mother Father Level of Service:22428 UT OFFICE/OUTPATIENT ESTABLISHED LOW MDM 20 MIN Normal [facility] Office [facility] 02-29-2024 Follow-up visit [id number] Remigio Min 1960 M Date Provider Department Center 02/29/2024 MAYELA HERBERT Family History Problem Relation Age of Onset Diabetes Mother Heart failure Mother Kidney disease Mother Heart attack Father 42 Family Status - Relation Status Age at Mother Father Level of Service:05056 UT OFFICE/OUTPATIENT ESTABLISHED LOW MDM 20 MIN Normal [facility] Office [facility] 11-30-2023 Follow-up visit [id number] Remigio Min 1960 M Date Provider [facility] History Problem Relation Age of Onset Diabetes Mother Heart failure Mother Kidney disease Mother Heart attack Father 42 Family Status - Relation Status Age at Mother Father Level of Service:44044 UT OFFICE/OUTPATIENT NEW MODERATE MDM 45 MINUTES Normal [facility] CT CARDIAC SCORING WO IV CON TRASTon 07-16-2023 CT CARDIAC SCORING WO IV CONTRAST Interpreted By: Eliezer Bazan, STUDY: CT CARDIAC SCORING WO IV CONTRAST; 07/16/2023 11:29 am INDICATION: Signs/Symptoms:FAMILY HISTORY OF ISCHEMIC HEART DISEASE. COMPARISON: None. ACCESSION NUMBER(S): [id number] ORDERING CLINICIAN: JONAH DUFFY TECHNIQUE: Using prospective ECG gating, CT scan [...] link below [email or web address] aspx Janae valladares al. JACC 2014 (http://dx.doi.org/10 .1016/j.j [email or web address]) Signed by: Eliezer Bazan 07/16/2023 4:52 PM Dictation workstation: [id number] [facility] DIRECT LDLon 08-30-2022 Cholesterol in LDL [Mass/Vol] 81 mg/dL Normal [facility] Comment on above: Performed By: #### D LDL, ALT #### [facility] [address] [place] [address] Dr. Angel Hernández DLDL NORMAL SEE BELOW Normal [facility] Comment on above: Result Comment: <100 mg/dl OPTIMAL 100 - 129 mg/dl NEAR OR ABOVE OPTIMAL 130 - 159 mg/dl BORDERLINE HIGH 160 - 189 mg/dl HIGH >190 mg/dl VERY HIGH Performed By: #### D LDL, ALT #### [facility] [address] [place] [address] Dr. Angel Hernández SGPTon 08-30-2022 ALT [Catalytic activity/Vol] 53 U/L Normal 16-63 [facility] Comment on above: Performed By: #### D LDL, ALT #### [facility] [address] [address] [address] Angel Hernández CBC AUTO DIFFon 06-29-2022 BASO # 0.1 103/ul Normal 0.0-0.1 [facility] Comment on above: Performed By: #### C BC #### [facility] [address] [place] [address] Dr. Angel Hernández Basophils/100 WBC (Bld) 1.0 % Normal 0.2-2.0 [facility] Comment on above: Performed By: #### C BC #### [facility] [address] [address] [address] Angel Hernández EO # 0.2 103/ul Normal 0.0-0.7 [facility] Comment on above: Performed By: #### C BC #### [facility] [address] [place] [address] Dr. Angel Hernández Eosinophils/100 WBC (Bld) 4.7 % Normal 0.9-7.0 [facility] Comment on above: Performed By: #### C BC #### [facility] [address] [place] [address] Dr. Angel Hernández Erythrocyte distribution width (RBC) [Ratio] 12.5 % Normal 11.0-15.0 [facility] Comment on above: Performed By: #### C BC #### [facility] [address] [place] [address] Dr. Angel Hernández Hematocrit (Bld) [Volume fraction] 47.9 % Normal 42.0-54.0 [facility] Comment on above: Performed By: #### C BC #### [facility] [address] [place] [address] Dr. Angel Hernández Hemoglobin (Bld) [Mass/Vol] 16.7 g/dL Normal 14.0-18.0 [facility] Comment on above: Performed By: #### C BC #### [facility] [address] [place] [address] Dr. Angel Hernández IG # 0.01 10e3/ul Normal 0.00-0.03 [facility] Comment on above: Performed By: #### C BC #### [facility] [address] [place] [address] Dr. Angel Hernández IG % 0.2 % Normal 0.0-0.5 [facility] Comment on above: Performed By: #### C BC #### [facility] [address] [place] [address] Dr. Angel Hernández LYMPH # 1.6 103/ul Normal 1.2-3.8 [facility] Comment on above: Performed By: #### C BC #### [facility] [address] [place] [address] Dr. Angel Hernández Lymphocytes/100 WBC (Bld) 30.2 % Normal 20.5-60.0 [facility] Comment on above: Performed By: #### C BC #### [facility] [address] [place] [address] Dr. Angel Hernández MANUAL DIFF REQ NO Normal [facility] Comment on above: Performed By: #### C BC #### [facility] [address] [place] [address] Dr. Angel Hernández MCH (RBC) [Entitic mass] 31.3 pg Normal 25.9-34.0 [facility] Comment on above: Performed By: #### C BC #### [facility] [address] [place] [address] Dr. Angel Hernández MCHC (RBC) [Mass/Vol] 34.9 g/dL Normal 29.9-35.2 [facility] Comment on above: Performed By: #### C BC #### [facility] [address] [place] [address] Dr. Angel Hernández MCV (RBC) [Entitic vol] 89.7 fL Normal 80.0-94.0 [facility] Comment on above: Performed By: #### C BC #### [facility] [address] [place] [address] Dr. Angel Hernández MONO # 0.5 103/ul Normal 0.3-0.8 [facility] Comment on above: Performed By: #### C BC #### [facility] [address] [place] [address] Dr. Angel Hernández Monocytes/100 WBC (Bld) 10.1 % Normal 1.7-12.0 [facility] Comment on above: Performed By: #### C BC #### [facility] [address] [place] [address] Dr. Angel Hernández NEUT # 2.8 103/ul Normal 1.4-6.5 [facility] Comment on above: Performed By: #### C BC #### [facility] [address] [place] [address] Dr. Angel Hernández Neutrophils/100 WBC (Bld) 53.8 % Normal 43.0-75.0 [facility] Comment on above: Performed By: #### C BC #### [facility] [address] [place] [address] Dr. Angel Hernández Platelet mean volume (Bld) [Entitic vol] 9.2 fL Critically low 9.5-13.5 [facility] Comment on above: Performed By: #### C BC #### [facility] [address] [place] [address] Dr. Angel Hernández PLT 271 103/ul Normal 150-450 [facility] Comment on above: Performed By: #### C BC #### [facility] [address] [place] [address] Dr. Angel Hernández RBC 5.34 106/ul Normal 4.70-6.10 [facility] Comment on above: Performed By: #### C BC #### [facility] [address] [place] [address] Dr. Angel Hernández WBC 5.1 103/ul Normal 4.0-11.0 [facility] Comment on above: Performed By: #### C BC #### [facility] [address] [place] [address] Dr. Angel Hernández DIRECT LDLon 06-29-2022 Cholesterol in LDL [Mass/Vol] 106 mg/dL Normal [facility] Comment on above: Performed By: #### T SH, LIPID, DLDL, CMP #### [facility] [address] [place] [address] Dr. Angel Hernández DLDL NORMAL SEE BELOW Normal [facility] Comment on above: Result Comment: <100 mg/dl OPTIMAL 100 - 129 mg/dl NEAR OR ABOVE OPTIMAL 130 - 159 mg/dl BORDERLINE HIGH 160 - 189 mg/dl HIGH >190 mg/dl VERY HIGH Performed By: #### T SH, LIPID, DLDL, CMP #### [facility] [address] [place] [address] Dr. Angel Hernández GLYCOHEMOGLOBIN A1Con 2021 ADA RECOMMENDATION SEE BELOW Normal [facility] Comment on above: Result Comment: ADA RECOMMENDED LIMIT 4.0 - 6.0 ADA THERAPEUTIC TARGET < 7.0 ACTION SUGGESTED > 7.0 Performed By: #### A 1C #### [facility] [address] [address] [address] Angel Hernández Glucose [Mass/Vol] 114 mg/dL Normal [facility] Comment on above: Performed By: #### A 1C #### [facility] [address] [address] [address] Angel Hernández HbA1c (Bld) [Mass fraction] 5.6 % Normal 4.5-6.2 [facility] Comment on above: Performed By: #### A 1C #### [facility] [address] [place] [address] Dr. Angel Hernández LIPID PROFILEon 06-29-2022 CHOL-HDL RATIO NORM SEE BELOW Normal [facility] Comment on above: Result Comment: 3.3 - 4.4 LOW RISK 4.4 - 7.1 AVERAGE RISK 7.1 - 11.0 MODERATE RISK >11.0 HIGH RISK Performed By: #### T SH, LIPID, DLDL, CMP #### [facility] [address] [address] [address] Angel Hernández Cholesterol [Mass/Vol] 222 mg/dL Critically high <=200 [facility] Comment on above: Performed By: #### T SH, LIPID, DLDL, CMP #### [facility] [address] [address] [address] Angel Hernández Cholesterol in HDL [Mass/Vol] 35 mg/dL Critically low 40-60 [facility] Comment on above: Performed By: #### T SH, LIPID, DLDL, CMP #### [facility] [address] [address] [address] Angel Hernández Cholesterol.total/Ch olesterol in HDL [Mass ratio] 6.3 {ratio} Normal [facility] Comment on above: Performed By: #### T SH, LIPID, DLDL, CMP #### [facility] [address] [address] [address] Angel Hernández HDL NORMAL > or = 60 mg/dl - LO W CARDIOVASCULAR RISK <40 mg/dl - HIGH CARDIOVASCULAR RISK Normal [facility] Comment on above: Performed By: #### T SH, LIPID, DLDL, CMP #### [facility] [address] [address] [address] Angel Hernández Triglyceride [Mass/Vol] 482 mg/dL Critically high <=150 [facility] Comment on above: Performed By: #### T SH, LIPID, DLDL, CMP #### [facility] [address] [address] [address] Angel Hernández VLDL CALC 96.4 mg/dL Normal [facility] Comment on above: Performed By: #### T SH, LIPID, DLDL, CMP #### [facility] [address] [address] [address] Angel Hernández PROF 14(COMP METB)on 022 Albumin [Mass/Vol] 3.6 g/dL Normal 3.4-5.0 [facility] Comment on above: Performed By: #### T SH, LIPID, DLDL, CMP #### [facility] [address] [address] [address] Angel Hernández Albumin/Globulin [Mass ratio] 1.0 {ratio} Normal [facility] Comment on above: Performed By: #### T SH, LIPID, DLDL, CMP #### [facility] [address] [address] [address] Angel Hernández ALP [Catalytic activity/Vol] 26 U/L Critically low 46-116 [facility] Comment on above: Performed By: #### T SH, LIPID, DLDL, CMP #### [facility] [address] [address] [address] Angel Hernández ALT [Catalytic activity/Vol] 40 U/L Normal 16-63 [facility] Comment on above: Performed By: #### T SH, LIPID, DLDL, CMP #### [facility] [address] [address] [address] Angel Hernández Anion gap [Moles/Vol] 6.9 mmol/L Normal [facility] Comment on above: Performed By: #### T SH, LIPID, DLDL, CMP #### [facility] [address] [place] [address] Dr. Angel Hernández AST [Catalytic activity/Vol] 17 U/L Normal 15-37 [facility] Comment on above: Performed By: #### T SH, LIPID, DLDL, CMP #### [facility] [address] [place] [address] Dr. Angel Hrenández Bilirubin [Mass/Vol] 0.4 mg/dL Normal 0.2-1.0 [facility] Comment on above: Performed By: #### T SH, LIPID, DLDL, CMP #### [facility] [address] [place] [address] Dr. Angel Hernández Calcium [Mass/Vol] 8.8 mg/dL Normal 8.5-10.1 [facility] Comment on above: Performed By: #### T SH, LIPID, DLDL, CMP #### [facility] [address] [place] [address] Dr. Angel Hernández Chloride [Moles/Vol] 102 mmol/L Normal 98-107 [facility] Comment on above: Performed By: #### T SH, LIPID, DLDL, CMP #### [facility] [address] [place] [address] Dr. Angel Hernández CO2 [Moles/Vol] 31.5 mmol/L Normal 21.0-32.0 [facility] Comment on above: Performed By: #### T SH, LIPID, DLDL, CMP #### [facility] [address] [place] [address] Dr. Angel Hernández Creatinine [Mass/Vol] 1.05 mg/dL Normal 0.70-1.30 [facility] Comment on above: Performed By: #### T SH, LIPID, DLDL, CMP #### [facility] [address] [place] [address] Dr. Angel Hernández EGFR-AF MALDIVIAN >60 Normal >=60 [facility] Comment on above: Performed By: #### T SH, LIPID, DLDL, CMP #### [facility] [address] [place] [address] Dr. Angel Hernández EGFR-NON AF MALDIVIAN >60 Normal >=60 [facility] Comment on above: Performed By: #### T SH, LIPID, DLDL, CMP #### [facility] [address] [address] [address] Angel Hernández Globulin (S) [Mass/Vol] 3.7 g/dL Normal [facility] Comment on above: Performed By: #### T SH, LIPID, DLDL, CMP #### [facility] [address] [address] [address] Angel Hernández Glucose [Mass/Vol] 125 mg/dL Critically high 74-106 [facility] Comment on above: Performed By: #### T SH, LIPID, DLDL, CMP #### [facility] [address] [place] [address] Dr. Angel Hernández Potassium [Moles/Vol] 4.4 mmol/L Normal 3.5-5.1 [facility] Comment on above: Performed By: #### T SH, LIPID, DLDL, CMP #### [facility] [address] [place] [address] Dr. Angel Hernández Protein [Mass/Vol] 7.3 g/dL Normal 6.4-8.2 [facility] Comment on above: Performed By: #### T SH, LIPID, DLDL, CMP #### [facility] [address] [place] [address] Dr. Angel Hernández Sodium [Moles/Vol] 136 mmol/L Normal 136-145 [facility] Comment on above: Performed By: #### T SH, LIPID, DLDL, CMP #### [facility] [address] [place] [address] Dr. Angel Hernández Urea nitrogen [Mass/Vol] 12.0 mg/dL Normal 7.0-18.0 [facility] Comment on above: Performed By: #### T SH, LIPID, DLDL, CMP #### [facility] [address] [place] [address] Dr. Angel Hernández Urea nitrogen/Creatinine [Mass ratio] 11.4 mg/mg Normal [facility] Comment on above: Performed By: #### T SH, LIPID, DLDL, CMP #### [facility] [address] [place], [place] [address] Dr. Angel Hernández TSHon 06-29-2022 TSH 3.683 uIU/mL Normal 0.358-3.740 [facility] Comment on above: Performed By: #### T SH, LIPID, DLDL, CMP #### [facility] [address] [address] [address] Angel Hernández COVID-19 Positive/Negativeon 10-05-2020 COVID-19 Positive/Negative Negative Negative [facility] Comment on above: Testing for SARS-CoV -2 by RT-PCRThis test was developed and its performance characteristics determined by [employer] and validated at the [facility]. This test has not been FDA [...] Otheron 10-05-2020 Coronavirus 2019 PCR Interp N/A [facility] Vital Signs Date Time Vital Sign Value Performing Clinician Facility 06-24-2024 09: Body height 175.26 cm [facility] 06-24-2024 09: Body mass index (BMI) [Ratio] 33.7 kg/m2 [facility] 06-24-2024 09: Body weight 103.53 kg [facility] 06-24-2024 09:040 Diastolic blood pressure 89 mm[Hg] [facility] 06-24-2024 09:19-0400 Heart rate 91 /min [facility] 06-24-2024 09:19-0400 Respiratory rate 16 /min [facility] 06-24-2024 09:19-0400 Systolic blood pressure 130 mm[Hg] [facility] 02-20-2024 09:41-0400 Body height 175.26 cm [facility] 02-20-2024 09:41-0400 Body mass index (BMI) [Ratio] 33.2 kg/m2 [facility] 02-20-2024 09:41-0400 Body weight 102.05 kg [facility] 02-20-2024 09:41-0400 Diastolic blood pressure 88 mm[Hg] [facility] 02-20-2024 09:41-0400 Heart rate 96 /min [facility] 02-20-2024 09:41-0400 Respiratory rate 20 /min [facility] 02-20-2024 09:41-0400 Systolic blood pressure 120 mm[Hg] [facility] 10-22-2023 15:30-0500 Body height 175.26 cm Ojnah Ball Other [facility] [employer] Other 10-22-2023 15:30-0500 Body mass index (BMI) [Ratio] 32.16 kg/m2 Jonah Ball Other [facility] [employer] Other 10-22-2023 15:30-0500 Body weight 98.79 kg Jonah Ball Other [employer] [facility] [employer] Other 10-22-2023 15:30-0500 Diastolic blood pressure 80 mm[Hg] Jonah Ball Other [facility] [employer] Other 10-22-2023 15:30-0500 Respiratory rate 12 /min Jonah Ball Other [facility] [employer] Other 10-22-2023 15:30-0500 Systolic blood pressure 135 mm[Hg] Jonah Ball Other [employer] Other 06-15-2023 13:30-0400 Body height 175.26 cm Jonah Ball Other [employer] Other 06-15-2023 13:30-0400 Body mass index (BMI) [Ratio] 32.1 kg/m2 Jonah Ball Other [employer] Other 06-15-2023 13:30-0400 Body weight 98.61 kg Jonah Ball Other [employer] Other 06-15-2023 13:30-0400 Diastolic blood pressure 85 mm[Hg] Jonah Ball Other [employer] Other 06-15-2023 13:30-0400 Respiratory rate 12 /min Jonah Ball Other [employer] Other 06-15-2023 13:30-0400 Systolic blood pressure 125 mm[Hg] Jonah Ball Other [employer] Other Encounters Encounter Date Encounter Type Care Provider Facility Start: 06-24-2024 End: 06-24-2024 ambulatory [facility] Work Phone: Start: 06-24-2024 End: 06-24-2024 Encounter for general adult medical examination without abnormal findings [facility] Start: 06-24-2024 End: 06-24-2024 Patient encounter procedure [facility] Work Phone: Start: 06-20-2024 Patient encounter status [facility] Start: 06-09-2024 End: 06-09-2024 ambulatory [facility] Start: 02-29-2024 End: 02-29-2024 ambulatory [facility] Start: 02-20-2024 End: 02-20-2024 ambulatory [facility] Work Phone: Start: 02-20-2024 End: 02-20-2024 Patient encounter procedure [facility] Work Phone: Start: 12-17-2023 Non-patient / Non-visit [facility] Work Phone: Start: 11-30-2023 End: 11-30-2023 ambulatory MAYELA [facility] Start: 11-14-2023 End: 11-14-2023 ambulatory Jonah Ball Other [employer] Other Start: 11-14-2023 Telephone encounter Jonah Ball [facility] Start: 11-13-2023 End: 11-13-2023 ambulatory Jonah Ball Other [employer] Other Start: 11-13-2023 Telephone encounter Jonah Ball [facility] Start: 11-06-2023 End: 11-06-2023 ambulatory Jonah Ball Other [employer] Other Start: 11-06-2023 Telephone encounter Jonah Ball [facility] Start: 10-22-2023 End: 10-22-2023 ambulatory Jonah Ball Other [employer] Other Start: 10-22-2023 Office outpatient vi sit 25 minutes Jonah Ball [facility] Start: 09-05-2023 End: 09-05-2023 ambulatory Jonah Ball Other [employer] Other Start: 09-05-2023 Telephone encounter Jonah Ball [facility] Start: 07-18-2023 End: 07-18-2023 ambulatory Jonah Ball Other [employer] Other Start: 07-18-2023 Telephone encounter Jonah Ball [facility] Start: 07-16-2023 End: 07-17-2023 ambulatory JONAH DUFFY [facility] Start: 06-29-2023 End: 06-29-2023 ambulatory Jonah Duffy Other [employer] Other Start: 06-29-2023 Telephone encounter Jonah Duffy [facility] Start: 06-19-2023 End: 06-19-2023 ambulatory Jonah Duffy Other [employer] Other Start: 06-19-2023 Telephone encounter Jonah Duffy [facility] Start: 06-15-2023 End: 06-15-2023 ambulatory Jonah Duffy Other [employer] Other Start: 06-15-2023 Encounter for genera l adult medical examination without abnormal findings Jonah Duffy [facility] Start: 06-15-2023 Periodic preventive med est patient 40-64yrs Jonah Duffy [facility] Start: 06-11-2023 End: 06-11-2023 ambulatory Jonah Duffy Other [employer] Other Start: 06-11-2023 Encounter for genera l adult medical examination without abnormal findings Jonah Duffy [facility] Start: 06-11-2023 Telephone encounter Jonah STORM [facility] Start: 03-09-2023 End: 03-09-2023 ambulatory Jonah Duffy Other [employer] Other Start: 03-09-2023 Telephone encounter Jonah STORM [facility] Start: 08-30-2022 End: 08-31-[address] JONAH DUFFY Facility:[facility] Start: 07-02-2022 Encounter for genera l adult medical examination without abnormal findings DR JONAH DUFFY [facility] Start: 06-29-2022 End: 06-30-[address] JONAH DUFFY Facility:[facility] Start: 06-29-2022 End: 06-30-2022 Encounter for general adult medical examination without abnormal findings DR JONAH DUFFY Facility:[facility] Start: 06-12-2022 Adult health examination oJnah Duffy Other [facility] [employer] Other Start: 10-05-2020 End: 10-05-2020 Patient encounter procedure Jonah Duffy -Pre-Surgical Testing Procedures Date Procedure Procedure Detail Performing Clinician Start: 07-16-2023 CT CARDIAC SCORING W O IV CONTRAST JONAH DUFFY Start: 06-29-[address] JACKSON [facility] Comment on above: Performed By: #### [facility] #### [facility] [address] [place] [address] Dr. Angel Hernández Start: 08-23-2017 End: 06-12-2022 Hypertension screening Jonah Duffy Other Start: 04-21-2014 End: 06-12-2022 General examination of patient Jonah Duffy Other Depression screening Henry Duffy Other Plan of Treatment Date Care Activity Detail Author Comprehensive metabo lic 2000 panel - Serum or Plasma [facility] enter [facility] Immunizations Immunization Date Immunization Notes Care Provider Fa yennifer 08-17-2016 tetanus and diphther ia toxoids, adsorbed, preservative free, for adult use (5 Lf of tetanus toxoid and 2 Lf of diphtheria toxoid) Jonah Duffy Other [facility] Payers Date Payer Category Payer Unknown [id number] 2022 Unknown [id number] 1960 Unknown [id number] [id number] [id number] 1960 Unknown [id number] [id number] 1958 Unknown [id number] Self-pay Self Pay [id number] Unknown [id number] Social History Date Type Detail Facility Tobacco smoking status NHIS Unknown if ever smoked [facility] Start: 1960 Sex Assigned At Male F [facility] Sex Assigned At Sex Assigned At Bir th [facility] [employer] Other Start: 10-11-2020 Tobacco smoking status NHIS Never smoked tobacco (finding) [facility] Goals Date Patient Goal Desired Activity /State Clinical Notes 06-11-2023 to 06-09-2024 Note Date & Type Note Facility 06-09-2024 Note [facility] Note HPI: Remigio Min is a 64 y.o. male with a past medical history of HTN who was referred to cardiology clinic due to family history of premature coronary artery disease and abnormal stress test. Stress test revealed a defect in inferior portion on rest images but no defect on stress images. Patient presents today for follow-up. Overall, he is doing well. He adamantly denies any chest pain/chest pressure/chest tightness. He denies any significant dyspnea/dyspnea on exertion. He states that a few days ago, he went to the fair and walked for several hours without any chest pain or shortness of breath. He does complain of some overall fatigue, which he is scheduled to see his PCP for. Cardiology ROS: Review of Systems All other systems reviewed and are negative. Past Medical History He has a past [...] known allergies. Physical Exam VITAL SIGNS: BP 128/79 (BP Location: Left arm, Patient Position: Sitting) Pulse 88 Ht 1.778 m (5' 10 ) Wt 104 kg (230 lb) SpO2 95% BMI 33.00 kg/m??? Constitutional: Well developed, Well nourished, No [...] previous visit (from the past 4464 hour(s)). Impression: -Abnormal stress test, Defect seen at rest but not at stress -Coronary calcification -Family history of premature CAD -Alcohol abuse Plan: -Patient with stress test abnormality at rest, not with stress. This is likely indicative of artifact. Would recommend no further ischemic evaluation at this time given absence of chest pain. Echo unremarkable. -Continue high intensity statin therapy and 81 mg [...] And for family history of premature CAD -He will follow up with his PCP regarding fatigue -Optimize medical management -Aggressive risk factor modification -Plan of care discussed with patient. All questions were answered. Patient voices understanding and is agreeable with current plan. -Patient was educated on red flag symptoms. Strict return precautions were provided. Patient verbalizes understanding -Follow-up in cardiology clinic in 3 months, or sooner as needed Thank you for allowing us to participate in the care of your patient. Please do not hesitate to contact cardiology with any questions or concerns. Mayela Yao MD Interventional Cardiology [facility] 02-29-2024 Note [facility] Note HPI: Remigio Min is a 63 y.o. male with a past medical history of HTN who was referred to cardiology clinic due to family history of premature coronary artery disease and abnormal stress test. Stress test reveals a defect in inferior portion on rest images but no defect on stress images. Patient here for 3 mo follow up echo, SOB, and hyperlipidemia. He denies chest pain, SOB, palpitations, and lightheadedness/syncope. Echo was performed and demonstrates mild concentric left ventricular hypertrophy. Otherwise, no significant findings. Cardiology ROS: Review of Systems All other systems reviewed and are negative. Past Medical History He has a past [...] no known allergies. Physical Exam VITAL SIGNS: There were no vitals taken for this visit. Constitutional: Well developed, Well nourished, No acute [...] previous visit (from the past 4464 hour(s)). Impression: -Abnormal stress test, Defect seen at rest but not at stress -Shortness of breath, resolved -Coronary calcification -Family history of premature CAD -Alcohol abuse Plan: -Patient with stress test abnormality at rest, not with stress. This is likely indicative of artifact. Would recommend no further ischemic evaluation at this time given absence of chest pain. Echo unremarkable. -Continue high intensity statin therapy and 81 mg [...] And for family history of premature CAD -Optimize medical management -Aggressive risk factor modification -Plan of care discussed with patient. All questions were answered. Patient voices understanding and is agreeable with current plan. -Patient was educated on red flag symptoms. Strict return precautions were provided. Patient verbalizes understanding -Follow-up in cardiology clinic in 3 months, or sooner as needed Thank you for allowing us to participate in the care of your patient. Please do not hesitate to contact cardiology with any questions or concerns. Mayela Yao MD Interventional Cardiology [facility] 11-30-2023 Note Cardiology Clinic No te Chief Complaint: abnormal stress test HPI: Remigio Min is a 63 y.o. male with a [...] Patient states that his father had an ME due to blood clots in his early [...] He voices understanding (more content not included)... [facility] 11-30-2023 Note New patient here to establish care. Ref from Dr. Duffy for abnormal stress test and family hx of premature CAD. Father passed from ME at age of 42. Never been a smoker, but does drink 3+ beers daily. states his nose turns purple when he drinks. He denies chest pain, SOB, palpitations, and lightheadedness/syncope. Review of Systems All other systems reviewed and are negative. [facility] 10-22-2023 Evaluation note Encounter Date Diagnosis [...] CAD. LAYNE score indicates 100% risk for ME in next 10 years. Recommend initiating primary prevention measures Recommend initiating ASA 81mg qd Recommend Stress testing Oct, CALLIE (obstructive sleep apnea) (ICD-10 - G47.33) This patient is aware of the benefits associated with CALLIE: With continued use, the patient reduces the risk for ME, CVA, HTN, cardiac dysrhythmias and sudden cardiac [...] year risk for CAD. Father suffered fatal ME in 40s. Initiate primary prevention measures. Apr, Gastro-esophageal reflux disease with esophagitis, without bleeding (ICD-10 - K21.00) Avoid lying flat after eating. Avoid eating 2 hours prior to bedtime. Smaller, frequent meals may be better tolerated.Weight loss if overweight.PPI with any heartburn.Monito r for dysphagia. [employer] Other 10-04-2023 Evaluation note* Encounter Date Diagnosis Assessment Notes Treatment Notes Treatment Clinical Notes Jul, Hypertriglyceridemia (ICD-10 - E78.1) [employer] Other 09-15-2023 Evaluation note* Encounter Date Diagnosis Assessment Notes Treatment Notes Treatment Clinical Notes Jun, Primary hypertension (ICD-10 - I10) Jun, Tachycardia (ICD-10 - R00.0) [employer] Other 09-01-2023 Evaluation note* Encounter Date Diagnosis [...] or drinking prior to bedtime. Weight loss. [employer] Other 08-28-2023 Evaluation note* Encounter Date Diagnosis Assessment Notes Treatment Notes Treatment Clinical Notes May, Wellness examination (ICD-10 - Z00.00) [employer] Other Evaluation noteNo [employer] Other Evaluation note* Diagnosis Onset Date Resolution Status Elevated cholesterol acute Elevated coronary artery calcium score acute Hypertension acute CALLIE (obstructive sleep apnea) acute [facility] Work Phone: Evaluation note* Diagnosis Onset Date Resolution Status Benign prostatic hyperplasia with lower urinary tract symptoms acute Elevated cholesterol acute Elevated coronary artery calcium score acute Erectile dysfunction acute Hypertension acute Obesity acute CALLIE (obstructive sleep apnea) acute Screening PSA (prostate specific antigen) acute Wellness examination acute [facility] Work Phone: Hismyvi general Narrative - Reported* Type Description Date Medical History Dysphagia, unspecified Medical History Esophageal obstruction Medical History Schatzki's ring Medical History Essential hypertension Medical History External hemorrhoids Medical History Adenomatous polyp of descending colon Surgical History COLONOSCOPY Surgical History EGD W/ DILATATION 2015 Hospitalization History SEE SURGICAL [employer] Other History general Narrative - Reported* Type Description Date Medical History Dysphagia, unspecified Medical History Esophageal obstruction Medical History Schatzki's ring Medical History Essential hypertension Medical History External hemorrhoids Medical History Adenomatous polyp of descending colon Surgical History COLONOSCOPY (repeat 2024) 2019 Surgical History EGD W/ DILATATION 2015 Hospitalization History SEE SURGICAL [employer] Other Reason for referral (narrative)* Reason Referral for an abno rmal stress test. Diagnosis 1 Family history of pr emature CAD (Z82.49) Referral Organization [facility] Rose remy Referring Provider First Name Jonah Referring Provider Last Name Clive Referring Provider Specialty Internal Me dicjavi Referred Organization [facility] Referred Provider Dileep Ivy V Referred Address [address] [place], [place],[address] Referred Provider Specialty Cardiovascul ar Disease Referral Priority Routine General Notes Mr. Min has a str peter family history for CAD w/ his father having a fatal myocardial infarction in his 40's. Mr. Min risk factors include HTN, HLD, IFG and an elevated CAC score. He completed a stress test, complaining of dyspnea without exertional chest pain. There was no ischemic EKG changes during exercise but his NM images revealed stress induced perfusion defects. Mr. Min is being referred for further testing for obstructive CAD. Clinical Notes Include labs and str ess test (both NM imaging report and treadmill test dictation) [employer] Other Advance Directives Advance Directive Response Recorded Date/ Time Advance Directives No September 4:44pm Advance Directive Response Recorded Date/ Time Advance Directives No September 5:44pm Chief Complaint and Reason for Visit Chief Complaint Dioweslyricky Liang,Fam H x Colon Cancer Chief Complaint Amb Documentation 4 month follow up Reason for Visit Elevated cholesterol Elevated coronary artery calcium score Hypertension CALLIE (obstructive sleep apnea) Chief Complaint Wellness Reason for Visit Benign prostatic hyp erplasia with lower urinary tract symptoms Elevated cholesterol Elevated coronary artery calcium score Erectile dysfunction Hypertension Obesity CALLIE (obstructive sleep apnea) Screening PSA (prostate specific antigen) Wellness examination Assessments No Assessments Information Available Summary Purpose Family History Relationship Condition Age at Onset Recorded Date/T rona Not Specified No pertinent family history Unknown father Unknown Heart disease Unknown Not Specified Heart disease Unknown Diabetes mellitus Unknown Unknown Relationship Condition Age at Onset Recorded Date/T rona Not Specified No pertinent family history Unknown father Unknown Heart disease Unknown mother Heart disease Unknown Diabetes mellitus Unknown Unknown Additional Source Comments (unrecognized sect ion and content) No Status Records FoundNo Status Records FoundNo Status Records Found INFORMATION SOURCE (unrecogn ized section and content) DATE CREATED AUTHOR 09/02/2022 [facility] DATE CREATED AUTHOR AUTHOR'S ORGANIZ ATION 07/21/2023 [facility] DATE CREATED AUTHOR AUTHOR'S ORGANIZ ATION 06/10/2024 [facility] REASON FOR VISIT (unrecogniz ed section and content) LLQ painWellness Lab OrdersW ELLNESSLab ResultsBP checkCardiac scoring resultsrefill4 month Follow upMedication QuestionNo Information4 month Follow upStress Test results Care Teams (unrecognized sec tion and content) Team Status: Active Member Role Status Dates Jonah Duffy , Primary Care Provider Active Team Status: Inactive Member Role Status Dates Jonah Duffy , DO Primary Care Provide r, Attending Provider Active Start: June 24, 2024 End: June 24, 2024 Team Status: Active Member Role Status Dates Jonah Duffy , Primary Care Provider Active Team Status: Active Member Role Status Dates Jonah Duffy , Primary Care Provider Active Start: December 17, 2023 ISAAC Talbot Attending Provider Active Start : December 17, 2023 Team Status: Inactive Member Role Status Dates Jonah Duffy , Primary Care Provide r, Attending Provider Active Start: February 20, 2024 End: February 20, 2024 Team Status: Inactive Member Role Status Dates Jonah Duffy , DO Primary Care Provide r, Attending Provider Active Start: June 24, 2024 End: June 24, 2024 Goals (unrecognized section and content) Goals may be documented in a n alternate section FOR RECORDS PERTAINING TO PATIENTS WHO ARE [...] BE BASED ON THE PRIMARY CLINICAL RECORDS. [facility]. provides no warranty or guarantee of the accuracy or completeness of information in this document.
[2024-06-25 09:39] LABS: Basophils Absolute Auto 0.1 10^3/uL (0.0-0.1); Basophils Percent Auto 1.2 % (0.2-2.0); Eosinophils Absolute Auto 0.2 10^3/uL (0.0-0.7); Eosinophils Percent Auto 2.7 % (0.9-7.0); Hematocrit 47.6 % (42.0-54.0); Hemoglobin 16.3 g/dL (14.0-18.0); Immature Granulocytes Abs Auto 0.01 10^3/uL (0.00-0.03); Immature Granulocytes Pct Auto 0.2 % (0.0-0.5); Lymphocytes Absolute Auto 1.6 10^3/uL (1.2-3.8); Lymphocytes Percent Auto 27.5 % (20.5-60.0); Mean Corpuscular HGB Conc 34.2 g/dL (29.9-35.2); Mean Corpuscular Hemoglobin 30.8 pg (25.9-34.0); Mean Platelet Volume 9.3 fL (9.5-13.5); Monocytes Absolute Auto 0.6 10^3/uL (0.3-0.8); Monocytes Percent Auto 10.1 % (1.7-12.0); Neutrophils Absolute Auto 3.5 10^3/uL (1.4-6.5); Neutrophils Percent Auto 58.3 % (43.0-75.0); Platelet Count 254 10^3/uL (150-450); Red Blood Count 5.29 10^6/uL (4.70-6.10); Red Cell Distribution Width 12.3 % (11.0-15.0); White Blood Count 5.9 10^3/uL (4.0-11.0)
[2024-06-25 11:32] LABS: Alanine Aminotransferase 45 U/L (16-63); Albumin Level 3.6 g/dL (3.4-5.0); Alkaline Phosphatase 29 U/L (46-116); Anion Gap 10.8; Aspartate Amino Transferase 19 U/L (15-37); BUN Creatinine Ratio 16.7; Bilirubin Total 0.7 mg/dL (0.2-1.0); Calcium 9.2 mg/dL (8.5-10.1); Carbon Dioxide 28.5 mmol/L (21.0-32.0); Chloride 104 mmol/L (98-107); Chol HDL Ratio 3.8; Cholesterol 148 mg/dL (<=200); Estimated GFR (African America >60 (>=60); Estimated GFR (Non-African Ame >60 (>=60); Globulin 3.5 g/dL; Glucose 117 mg/dL (74-106); HDL Cholesterol 39 mg/dL (40-60); Potassium 4.3 mmol/L (3.5-5.1); Sodium 139 mmol/L (136-145); Total Protein 7.1 g/dL (6.4-8.2); Triglycerides 227 mg/dL (<=150); VLDL CHOLESTEROL 45.4 mg/dL
[2024-06-25 12:11] LABS: Prostate Specific Antigen Scrn 1.61 ng/mL (<=4.00)
== END 2024-06-25 09:03 | disposition home or self-care (01) ==
LOC: LAB 09:04
PROVIDERS: PCP Internal Medicine; Visit Provider Internal Medicine
DX: Z00.00 Encounter for general adult medical examination without abnormal findings (principal)
CPT/HCPCS: 36415; 80053; 80061; 85025; G0103

== ENCOUNTER 2024-08-18 06:25 | Outpatient (OUT) | payer OTHER, SELFPAY ==
[2024-08-18 06:54] LABS: Estimated GFR (African America >60 (>=60 mL/min/1.73m^2); Estimated GFR (Non-African Ame 55 (>=60 mL/min/1.73m^2)
--- NOTE | 2024-08-18 06:59 | MR_ITS ---
The [address] [address] Patient Name: IRVING FRAGOSO MRN: [id number] date: 1960 Sex: M Assigned Patient Location: MRI Current Patient Location: MRI Accession/Order Number: [id number] Exam Date: 08/18/2024 07:00 Report Date: 08/18/2024 15:19 At the request of: ANALISA RIBERA Procedure: MR head/brain wo/w con EXAM: MR head/brain wo/w con HISTORY: mild cognitive impairment COMPARISON: None. TECHNIQUE: Multiplanar T1-weighted, axial FLAIR, and susceptibility images were obtained without intravenous contrast. Following intravenous gadolinium-based contrast administration, axial T2-weighted, diffusion, and T1-weighted images (in multiple planes) were obtained. Contrast: 19 mL Dotarem Findings: There is no mass effect, midline shift, or evidence of intracranial hemorrhage. The ventricles are proportionate to the cerebral sulci. Normal major vascular intracranial flow-voids. There is moderate generalized cerebral atrophy. No significant white matter lesions. Postcontrast images demonstrate no abnormal intracranial enhancement. No abnormality of the skull marrow signal. The visualized portions of paranasal sinuses, and mastoid air cells are relatively clear. The orbits are grossly unremarkable. MR/MR head/brain wo/w con Impression: Moderate generalized cerebral atrophy. No acute pathology or masses. Electronically authenticated by: MATA SANTORO Date: 08/18/2024 15:19
[2024-08-18 11:14] LABS: Thyroid Stimulating Hormone 6.553 uIU/mL (0.358-3.740)
[2024-08-18 14:39] LABS: Free T4 0.78 ng/dL (0.76-1.46)
[2024-08-19 07:12] LABS: Vitamin B12 542 pg/mL (232-1245)
== END 2024-08-18 06:26 | disposition home or self-care (01) ==
LOC: MRI 06:26
PROVIDERS: PCP Internal Medicine; Visit Provider Internal Medicine
DX: G31.84 Mild cognitive impairment of uncertain or unknown etiology (principal); I10 Essential (primary) hypertension; E78.00 Pure hypercholesterolemia, unspecified; Z81.8 Family history of other mental and behavioral disorders; Z84.89 Family history of other specified conditions; R53.83 Other fatigue; R79.89 Other specified abnormal findings of blood chemistry; D64.9 Anemia, unspecified
CPT/HCPCS: 36415; 70553; 82565; 82607; 82746; 84439; 84443

== ENCOUNTER 2025-07-16 06:35 | Outpatient (OUT) | payer OTHER, SELFPAY ==
--- OUTSIDE RECORDS SUMMARY | 2025-04-23 09:29 | XMS_ITS ---
Author Name Auto Generated Organization OHIP Support Name Relationship Address Phone FOUZIA, HILDA Next of Kin Unknown [phone] FOUZIA, PENELOPE Next of Kin Unknown [phone] NOVI, MITZY Next of Kin Unknown [phone] FOUZIA, HILDA Next of Kin Unknown [phone] FOUZIA, PENELOPE Next of Kin Unknown [phone] NOVI, MITZY Next of Kin Unknown [phone] FOUZIA, HILDA Next of Kin Unknown [phone] FOUZIA, HILDA Next of Kin Unknown [phone] FOUZIA, PENELOPE Next of Kin Unknown [phone] NOVI, MITZY Next of Kin Unknown [phone] FOUZIA, HILDA Next of Kin Unknown [phone] FOUZIA, PENELOPE Next of Kin Unknown [phone] NOVI, MITZY Next of Kin Unknown [phone] FOUZIA, HILDA Next of Kin Unknown [phone] FOUZIA, PENELOPE Next of Kin Unknown [phone] NOVI, MITZY Next of Kin Unknown [phone] FOUZIA, HILDA Next of Kin Unknown [phone] FOUZIA, PENELOPE Next of Kin Unknown [phone] NOVI, MITZY Next of Kin Unknown [phone] FOUZIA, HILDA Next of Kin Unknown [phone] Care Team Providers Care Transfer Worker Name Role Phone MAYELA GUIDRY Attending Unavailable SHIN WALLACE Attending Unavailable ANNETET BETANCOURT Attending Unavailable NAA FELDER Attending Unavailable ANNETTE BETANCOURT Attending Unavailable ANNETTE BETANCOURT Attending Unavailable ANNETTE BETANCOURT Attending Unavailable PROBLEMS DATE TYPE CONDITION / CODE ATTENDING STATUS [facility] 02/20/2025 Admitting Diagnosis Pure hypercholesterolemia, unspecified / E78.00(ICD-10) [facility] Active [facility] 02/20/2025 Admitting Diagnosis Hypertensive heart disease without heart failure / I11.9(ICD-10) [facility] Active [facility] 02/20/2025 Admitting Diagnosis Pure hyperglyceridemia / E78.1(ICD-10) [facility] Active [facility] 02/20/2025 Admitting Diagnosis Type 2 diabetes mellitus without complications / E11.9(ICD-10) [facility] Active [facility] PROCEDURES No Procedure Records Found RESULTS PROGRESS Observed: 02/20/2025 3:40 PM Status: COMPLETED Source: [facility] Cardiology - [facility] Subjective Irving Fragoso is a 64 y.o. year old male patient being seen for Hypertension , coronary artery calcification, hyperlipidemia Patient Active Problem List Diagnosis Elevated cholesterol Elevated coronary artery calcium score Hypertension CALLIE (obstructive sleep apnea) Benign prostatic hyperplasia with lower urinary tract symptoms Erectile dysfunction Obesity Screening PSA (prostate specific antigen) Wellness examination Episodic altered awareness Generalized anxiety disorder Visual disturbances Tinnitus of both ears HPI Patient is 64-year-old male with history of hypertension and hyperlipidemia as well as coronary calcification. He has family history of premature coronary artery disease and history of alcohol abuse. He is here today for follow-up visit accompanied by his . He denies any chest pain or shortness of breath at rest or with exertion however he is not physically very active. He denies orthopnea or paroxysmal nocturnal dyspnea or dizziness or palpitations or legs edema or discomfort on exertion. He denies smoking. He cut down on alcohol consumption from 4 beers a day to 1 beer a day. He has been alcoholic for a long time. He was diagnosed in August 2024 with dementia which felt to be Alzheimer and he was started on medications. He has history of sleep apnea and he wears CPAP every night. He denies history of diabetes mellitus ROS All systems were reviewed and they were negative except for the positive findings noted above in the history Past Medical History: Diagnosis Date Alcohol abuse Coronary artery calcification Hyperlipidemia Hypertension Sleep apnea No past surgical history on file. Family History Problem Relation Name Age of Onset Diabetes Mother Heart failure Mother Kidney disease Mother Heart attack Father 42 Social History Tobacco Use Smoking status: Never Smokeless tobacco: Never Substance Use Topics Alcohol use: Yes Comment: 2-3 beers daily Allergies No Known Allergies Medications Current Outpatient Medications: aspirin 81 mg EC tablet, Take 81 mg by mouth in the morning., Disp: , Rfl: atorvastatin (Lipitor) 10 mg tablet, Take 10 mg by mouth at bedtime., Disp: , Rfl: benazepril (Lotensin) 10 mg tablet, Take 10 mg by mouth in the morning., Disp: , Rfl: carvedilol (Coreg) 6.25 mg tablet, TAKE 1 TABLET BY MOUTH TWICE A DAY WITH FOOD FOR 30 DAYS, Disp: , Rfl: donepezil (Aricept) 10 mg tablet, Take 10 mg by mouth at bedtime., Disp: , Rfl: memantine (Namenda) 10 mg tablet, Take 10 mg by mouth twice a day., Disp: , Rfl: thiamine (Vitamin B-1) 100 mg tablet, in the morning., Disp: , Rfl: Objective Visit Vitals BP 112/82 (BP Location: Left arm, Patient Position: Sitting) Pulse 76 Ht 1.778 m (5' 10 ) Wt 103 kg (227 lb) SpO2 94% BMI 32.57 kg/m??? Smoking Status Never BSA 2.26 m??? Physical exam: GENERAL: alert and oriented x3, well developed, in no acute distress. HEAD: atraumatic, normocephalic. EYES: BRIANNA, EOMI. NECK: trachea midline, no JVD present, no carotid bruits present. CARDIAC: S1, S2 present. RRR. No murmur, rubs, or gallops. RESPIRATORY: CTAB, no increased effort of breathing, no rales, rhonchi, or wheezing. ABDOMEN: soft, nontender, nondistended. EXTREMITIES: no lower extremity edema. No rash/skin discoloration present. NEURO: strength/sensation equal and symmetric in bilateral upper and lower extremities. PSYCH: appropriate mood, affect, and judgement. Recent Labs 08/18/2024 TSH 6.55, free T40.78 06/25/2024 White blood count 5.9, hemoglobin 16, hematocrit 47.6, platelets 254 Sodium 139, potassium 4.3, BUN 16, creatinine 0.96, GFR above 60, glucose 117, calcium 9.2 Total bilirubin 0.7, AST 19, ALT 45, alk phos 29, total protein 7.1, albumin 3.6 Triglyceride 227, cholesterol 148, LDL 64, HDL 39 Imaging and other tests EKG: On stress test on 11/08/2023 showed normal sinus rhythm, normal EKG Echo: 12/05/2023 Treadmill nuclear stress test: 11/08/[address] heart calcium score 07/16/2023 1. Elevated coronary artery calcium score of 236.83*. *Coronary Artery Agatston score Score risk Very low 1-99 Mildly increased 100-299 Moderately increased >300 Moderate to severely increased >800 FINDINGS: The score and distribution of calcium [...] left pulmonary artery are normal in size. Assessment/Plan Atherosclerotic heart disease manifested by coronary calcification with mildly increased calcium score 07/16/2023 He had treadmill stress nuclear test 11/08/2023, the EKG portion was normal. The nuclear portion showed inferior defect only on resting images indicating most likely diaphragmatic attenuation. The patient did not have chest pain He is on aspirin, atorvastatin and carvedilol Essential hypertension, well-controlled on Lotensin and Coreg Mixed hyperlipidemia, on atorvastatin. LDL cholesterol is good but last triglyceride was elevated Obstructive sleep apnea, on CPAP Obesity, BMI 32.6 kg/m??? Alcohol abuse, he is down to 1 beer a day from about 4 beers a day for many years Dementia, he is on Aricept and Namenda Erectile dysfunction, he was started on medication recently, not sure of the name Plan: Continue aspirin, atorvastatin, carvedilol, and Lotensin Patient was encouraged to continue with his attempt to totally stop drinking alcohol Will check fasting lipids, AST ALT and also HbA1c since his triglyceride was high to make sure that he does not have diabetes or prediabetes The patient was advised to follow low calorie low-carb diet and exercise in order to lose weight He was advised to start walking aiming for 1 mile a day 5 days a week The patient and his were instructed regarding the fatal combination of Cialis/Viagra and nitroglycerin and that in case he has chest pain after taking any of those medications to inform the medical provider to avoid to be given nitroglycerin Follow-up in 6 months Shin Wallace MD,[facility] OFFICE VISIT Observed: 02/20/2025 3:40 PM Status: COMPLETED Source: [facility] [id number] Irving Fragoso M Counts Include 234 Beds At [facility] Provider Department Center 02/20/2025 [id number] WALLACE Family History Problem Relation Age of Onset Diabetes Mother Heart failure Mother Kidney disease Mother Heart attack Father 42 Family Status - Relation Status Age at Mother Father Level of Service:92706 [place] OFFICE/OUTPATIENT ESTABLISHED MOD MDM 30 MIN Reason for Visit and Comments: Hypertension [368683] - No recent labs/imaging. coronary artery calcification [Other] Shortness of Breath [784187] - says he gets winded with stairs but patient denies this. He denies cardiac symptoms of any kind at this time. OFFICE VISIT Observed: 08/28/2024 10:00 AM Status: COMPLETED Source: [facility] [id number] Irving Fragoso M Counts Include 234 Beds At [facility] Provider Department Center 08/28/2024 [id number] GUIDRY Family History Problem Relation Age of Onset Diabetes Mother Heart failure Mother Kidney disease Mother Heart attack Father 42 Family Status - Relation Status Age at Mother Father Level of Service:43337 [place] OFFICE/OUTPATIENT ESTABLISHED LOW MDM 20 MIN PROGRESS Observed: 08/28/2024 10:00 AM Status: COMPLETED Source: [facility] [place] HPI: Irving Fragoso is a 64 y.o. male with a past medical history of HTN who was referred to cardiology clinic due to family history of premature coronary artery disease and abnormal stress test. Stress test revealed a defect in inferior portion on rest images but no defect on stress images. Patient here for 3 mo follow up hypertension and hyperlipidemia. Denies chest pain and SOB. Patient denies palpitations and lightheadedness. Had routine labs w/ lipid panel in Jun 2024. Says PCP made no changes s/p lab results. No additional complaints or concerns. Cardiology ROS: 10 point ROS is performed and is negative unless otherwise specified in HPI. Past Medical History He has a past [...] once he cuts down amount of alcohol consumption. I again had an extensive discussion with him and his regarding the importance of cutting down alcohol consumption. He voices understanding. -Continue atorvastatin 10 mg daily and aspirin [...] cardiology with any questions or concerns. Mayela Guidry MD Interventional Cardiology [facility] ALLERGIES DATE TYPE / CODE NAME / CODE REACTION SEVERITY SOURCE SYSTEMIC/[id number]( SNOMED CT) NO KNOWN ALLERGIES [facility] ENCOUNTERS ADMIT/DISCHARGE ACCOUNT NUMBER ADMITTING ENCOUNTER CLASS LOCATION SOURCE 04/23/2025/ 5 [id number] Ambulatory Building:[facility] 02/23/2025/ 5 [id number] Ambulatory Building:[facility] 02/20/2025/ 5 [id number] Ambulatory Building:[facility] 12/29/2024/ 5 [id number] Ambulatory Building:[facility] 11/17/2024/ 5 [id number] Ambulatory Building:[facility] EPIC 10/16/2024/ 5 [id number] Ambulatory Building:[facility] EPIC 10/04/2024/ 4 [id number] Ambulatory Building:[facility] EPIC 08/28/2024/ 4 [id number] Ambulatory Building:[facility] PAYERS ENCOUNTER GUARANTOR PAYER SUBSCRIBER SOURCE 04/23/2025 IRVING FRAGOSOB: [facility] [address] [place], [place] [address]Cbn: (HP) (WP) Primary Insurance:MEDICAL MUTUALPolicy Number: [id number] e Date:2024-01-14 HILDA FRAGOSOB: [id number] [address] [facility] EPIC 02/23/2025 IRVING FRAGOSOB: [facility] [address] [place], [place] [address]Udv: (HP) (WP) Primary Insurance:MEDICAL MUTUALPolicy Number: [id number] e Date:2024-01-14 HILDA FRAGOSODOB: [id number], [place] [address] [facility] EPIC 02/20/2025 Primary Insurance:MEDICAL MUTUALPolicy Number: [id number] e Date:2024-01-14 HILDA FRAGOSODOB: [id number], [place] [address] [facility] 12/29/2024 IRVING FRAGOSOB: [facility] [address] [place], [place] [address]Zeh: (HP) (WP) Primary Insurance:MEDICAL MUTUALPolicy Number: [id number] e Date:2024-01-14 HILDA FRAGOSODOB: [id number], [place] [address] [facility] EPIC 11/17/2024 IRVING FRAGOSODOB: [facility] [address] [place] [address]Idx: (HP) (WP) Primary Insurance:MEDICAL MUTUALPolicy Number: [id number] e Date:2024-01-14 HILDA FRAGOSODOB: [id number], [place] [address] [facility] EPIC 10/16/2024 IRVING FRAGOSODOB: [facility] [address] [place] [address]Xrn: (HP) (WP) Primary Insurance:MEDICAL MUTUALPolicy Number: [id number] e Date:2024-01-14 HILDA FRAGOSODOB: [id number] [place] [address] [facility] EPIC 10/04/2024 IRVING FRAGOSODOB: [facility] [address] [place] [address]Pem: (HP) (WP) Primary Insurance:MEDICAL MUTUALPolicy Number: [id number] e Date:2024-01-14 HILDA FRAGOSODOB: [id number], [place] [address] [facility] EPIC 08/28/2024 Primary Insurance:MEDICAL MUTUALPolicy Number: [id number] e Date:2024-01-14 HILDA FRAGOSODOB: [id number], [place] [address] [facility]
--- OUTSIDE RECORDS SUMMARY | 2025-07-16 06:40 | XMS_ITS | Clinical Summary ---
Author Organization [facility] Address [address] [place] [address] Phone Care Team Providers Care Jazz Musician Name Role Phone Unavailable Primary Care Provider Unavailabl e Social History Tobacco Use Types Packs/Day Years Used Date Smoking Tobacco: Never Assessed Sex and Gender Information Value Date Recorded Sex Assigned at Not on file Legal Sex Male 3:21 PM EDT Gender Identity Not on file Sexual Orientation Not on file Plan of Treatment Health Maintenance Due Date Last Done Comments CT Colonography 1961 Colonoscopy 1961 Colorectal Cancer Screening 1961 FIT-DNA (Cologuard) 1961 FIT 1961 HIV Screening 1961 Lipid Panel 1961 Sigmoidoscopy 1961 Yearly Adult Physical 1961 MMR Vaccines (1 of 1 - Standard series) 1962 Hepatitis C Screening 1979 DTaP/Tdap/Td Vaccines (1 - Tdap) 1983 PSA Prostate Cancer Screening 2011 Pneumococcal Vaccine (1 of 1 - PCV) 2011 Zoster Vaccines (1 of 2) 2011 COVID-19 Vaccine (4 - 2024-2 6 season) 2025 09/28/2021, 02/03/2021, 01/13/2021 Influenza Vaccine (#1) 2025 07/20/2020 RSV High Risk: (Elderly (60+ ) or Population) (1 - 1-dose 75+ series) 2036 HIB Vaccines Aged Out No longer eligi ble based on patient's age to complete this topic HPV Vaccines Aged Out No longer eligi ble based on patient's age to complete this topic Hepatitis A Vaccines Aged Out No long er eligible based on patient's age to complete this topic Hepatitis B Vaccines Aged Out No long er eligible based on patient's age to complete this topic IPV Vaccines Aged Out No longer eligi ble based on patient's age to complete this topic Meningococcal Vaccine Aged Out No dionicio myrna eligible based on patient's age to complete this topic Rotavirus Vaccines Aged Out No longer eligible based on patient's age to complete this topic
--- OUTSIDE RECORDS SUMMARY | 2025-07-16 06:40 | XMS_ITS | Clinical Summary ---
Author Organization [facility] Address [address] [place] [address] Care Team Providers Care Living Supervisor Name Role Phone Jonah Duffy DO Primary Care Provider [phone] Allergies No known active allergies Medications aspirin 81 mg EC tablet Take 81 mg by mouth in the morning. Active donepezil (Aricept) 10 mg tablet Take 10 mg by mouth at bedtime. 5 01/17/20 26 Active memantine (Namenda) 10 mg tablet Take 10 mg by mouth twice a day. 5 12/25/19 26 Active thiamine (Vitamin B-1) 100 mg tablet in the morning. 5 Active atorvastatin (Lipitor) 10 mg tabletIndications :Benign hypertensive heart disease without congestive heart failure Take 1 tablet (10 mg) by mouth at bedtime. 90 tablet 3 5 Active benazepril (Lotensin) 10 mg tabletIndications :Benign hypertensive heart disease without congestive heart failure Take 1 tablet (10 mg) by mouth once daily as directed. 90 tablet 3 5 Active carvedilol (Coreg) 6.25 mg tabletIndications :Benign hypertensive heart disease without congestive heart failure Take 1 tablet (6.25 mg) by mouth with breakfast and with evening meal. 180 tablet 3 5 Active Active Problems Problem Noted Date Diagnosed Date Atherosclerosis of [place] co ronary artery of [place] heart without angina pectoris 02/20/2025 Benign hypertensive heart di sease without congestive heart failure 02/20/2025 Episodic altered awareness 10/17/2024 Generalized anxiety disorder 10/17/2024 Visual disturbances 10/17/2024 Tinnitus of both ears 10/17/2024 Benign prostatic hyperplasia with lower urinary tract symptoms 08/28/2024 Erectile dysfunction 08/28/2024 Obesity 08/28/2024 Screening PSA (prostate specific antigen) 2023 Wellness examination 08/28/2024 Pure hypercholesterolemia 06/04/2024 Elevated coronary artery calcium score Hypertension 06/04/2024 CALLIE (obstructive sleep apnea) 06/04/2024 Family History Medical History Relation Name Comments Heart attack Father Diabetes Mother Heart failure Mother Kidney disease Mother Relation Name Status Comments Father Mother Social History Tobacco Use Types Packs/Day Years Used Date Smoking Tobacco: Never Smokeless Tobacco: Never Alcohol Use Standard Drinks/Week Comments Yes 0 (1 standard drink = 0.6 oz pur e alcohol) 2-3 beers daily [place] Safety & Environment Answer Date Rec orded Fear of Current or Ex-Partner Not on file Emotionally Abused Not on file 12/07/2023 Physically Abused Not on file 12/07/2023 Sexually Abused Not on file 12/07/2023 Physically or Sexually Abused Not on file Sex and Gender Information Value Date Recorded Sex Assigned at Male 02/17/2025 9:08 AM EDT Legal Sex Male 9:28 AM EST Gender Identity Male 02/17/2025 9:08 AM EDT Sexual Orientation Heterosexual or Straight 03/2025 9:08 AM EDT Last Filed Vital Signs Vital Sign Reading Time Taken Comments Blood Pressure 112/82 02/20/2025 3:58 PM EDT Pulse 76 02/20/2025 3:58 PM EDT Temperature - - Respiratory Rate - - Oxygen Saturation 94% 02/20/2025 3:58 PM EDT Inhaled Oxygen Concentration - - Weight 103 kg (227 lb) 02/20/2025 3:58 PM EDT Height 177.8 cm (5' 10 ) 02/20/2025 3:58 PM EDT Body Mass Index 32.57 02/20/2025 3:58 PM EDT Plan of Treatment Health Maintenance Due Date Last Done Comments CT Colonography 1961 Colonoscopy 1961 Colorectal Cancer Screening 1961 Diabetes: Hemoglobin A1C 1961 FIT-DNA 1961 FIT 1961 FOBT 1961 Sigmoidoscopy 1961 Diabetes: Retinopathy Screening 1971 Depression Screening 1973 Diabetes: Urine Protein Screening 1980 Pneumococcal Vaccine: Pediatrics (0 to 5 Years) and At-Risk Patients (6 to 64 Years) (1 of 2 - PCV) 1980 Adult Tetanus 1983 Zoster Vaccines (1 of 2) 2011 COVID-19 Vaccine (4 - 2024-2 6 season) 2025 09/28/2021, 02/03/2021, 01/13/2021 Influenza Vaccine (#1) 2025 07/20/2020 HIB Vaccines Aged Out No longer eligi ble based on patient's age to complete this topic HPV Vaccines Aged Out No longer eligi ble based on patient's age to complete this topic IPV Vaccines Aged Out No longer eligi ble based on patient's age to complete this topic Meningococcal B Vaccine Aged Out No l onger eligible based on patient's age to complete this topic Meningococcal Vaccine Aged Out No dionicio myrna eligible based on patient's age to complete this topic Rotavirus Vaccines Aged Out No longer eligible based on patient's age to complete this topic Insurance [facility] [address] [address] [employer] M[employer] Care Teams Living Supervisor Relationship Specialty Start Date End Date Jonah Duffy DO [address] [facility] [place] [address] PCP - General 2/16/24
--- OUTSIDE RECORDS SUMMARY | 2025-07-16 06:40 | XMS_ITS | Clinical Summary ---
Author Organization [facility] Address [address] [place] [address] Care Team Providers Care Shank Scourer Name Role Phone Jonah Duffy DO Primary Care Provider [phone] Rosalee Ragsdale DO Unavailable [phone] Allergies No known active allergies Medications aspirin 81 MG EC tablet Take 81 mg by mouth in the morning. Active atorvastatin (Lipitor) 10 MG tablet Take 10 mg by mouth at bedtime 4 Active benazepril (Lotensin) 10 MG tablet Take 10 mg by mouth in the morning. 4 Active carvedilol (Coreg) 6.25 MG tablet Take 6.25 mg by mouth in the morning and 6.25 mg in the evening. Take with meals. 4 Active thiamine (Vitamin B-1) 100 MG tabletIndicati ons:MCI (mild cognitive impairment) Take 1 tablet (100 mg) by mouth Daily 90 tablet 3 5 11/17/19 26 Active memantine (Namenda) 10 MG tabletIndicati ons:MCI (mild cognitive impairment) Take 1 tablet (10 mg) by mouth in the morning and 1 tablet (10 mg) before bedtime. 180 tablet 3 5 12/25/19 26 Active donepezil (Aricept) 10 MG tabletIndicati ons:MCI (mild cognitive impairment) Take 1 tablet (10 mg) by mouth in the morning and in the evening 180 tablet 3 5 07/22/20 25 Active guanFACINE (Intuniv) 1 mg 24 hr tabletIndicati ons:PBA (pseudobulbar affect) Take 1 tablet (1 mg) by mouth Daily 30 tablet 11 5 07/22/20 25 Active guanFACINE (Intuniv) 1 mg 24 hr tabletIndicati ons:PBA (pseudobulbar affect) Take 1 tablet (1 mg) by mouth at bedtime 90 tablet 3 5 06/22/20 25 Discontinued Active Problems Problem Noted Date Diagnosed Date Benign hypertensive heart di sease without congestive heart failure 02/20/2025 Atherosclerosis of [place]into co ronary artery of minto heart without angina pectoris 02/20/2025 MCI (mild cognitive impairment) 12/29/2024 Episodic altered awareness 10/17/2024 Generalized anxiety disorder 10/17/2024 Tinnitus of both ears 10/17/2024 Visual disturbances 10/17/2024 Benign prostatic hyperplasia with lower urinary tract symptoms 08/28/2024 Erectile dysfunction 08/28/2024 Obesity 08/28/2024 Screening PSA (prostate specific antigen) 2023 Wellness examination 08/28/2024 Elevated cholesterol 06/04/2024 Elevated coronary artery calcium score Hypertension 06/04/2024 CALLIE (obstructive sleep apnea) 06/04/2024 Encounters Date Type Department Care Team Description 06/22/2025 Refill [facility] [address] [place] [address] Chapito Adams MD PBA (pseudobulbar affect) (Primary Dx) 05/22/2025 Telephone [facility] [address] [place] [address] Chapito Adams MD 04/23/2025 9:30 AM EDT Office Visit [facility] [address] [place] [address] Chapito Adams MD MCI (mild cognitive impairment) 04/23/2025 Bamboo flowsheet [facility] [address] [place] [address] Chapito Adams MD 04/23/2025 Travel from Last 3 Months Social History Tobacco Use Types Packs/Day Years Used Date Smoking Tobacco: Never Smokeless Tobacco: Never Alcohol Use Standard Drinks/Week Comments Yes 5 (1 standard drink = 0.6 oz pur e alcohol) Sex and Gender Information Value Date Recorded Sex Assigned at Not on file Legal Sex Male 7:18 PM EDT Gender Identity Not on file Sexual Orientation Not on file Last Filed Vital Signs Vital Sign Reading Time Taken Comments Blood Pressure 122/78 04/23/2025 9:40 AM EDT Pulse - - Temperature - - Respiratory Rate - - Oxygen Saturation - - Inhaled Oxygen Concentration - - Weight 103 kg (228 lb) 04/23/2025 9:40 AM EDT Height 177.8 cm (5' 10 ) 04/23/2025 9:40 AM EDT Body Mass Index 32.71 04/23/2025 9:40 AM EDT Plan of Treatment Health Maintenance Due Date Last Done Comments CT Colonography 1961 Colonoscopy 1961 Colorectal Cancer Screening 1961 FIT-DNA 1961 FIT 1961 FOBT 1961 Sigmoidoscopy 1961 Influenza Vaccine (#1) 2025 07/20/2020 Insurance [employer] Care Teams Shank Scourer Relationship Specialty Start Date End Date Jonah Duffy DO PCP - General Internal Medicine 01/07/24 Rosalee Ragsdale DO [address] [place] [address] Referring Physician Neurology 01/02/24
[2025-07-16 06:59] LABS: Hematocrit 46.7 % (42.0-54.0); Hemoglobin 16.1 g/dL (14.0-18.0); Immature Granulocytes Abs Auto 0.01 10^3/uL (0.00-0.03); Immature Granulocytes Pct Auto 0.1 % (0.0-0.5); Lymphocytes Absolute Auto 2.3 10^3/uL (1.2-3.8); Mean Corpuscular HGB Conc 34.5 g/dL (29.9-35.2); Mean Corpuscular Hemoglobin 30.8 pg (25.9-34.0); Mean Corpuscular Volume 89.5 fL (80.0-94.0); Platelet Count 275 10^3/uL (150-450); Red Blood Count 5.22 10^6/uL (4.70-6.10); White Blood Count 6.8 10^3/uL (4.0-11.0)
[2025-07-16 09:00] LABS: Alanine Aminotransferase 51 U/L (16-63); Albumin Globulin Ratio 0.9; Albumin Level 3.6 g/dL (3.4-5.0); Alkaline Phosphatase 34 U/L (46-116); Anion Gap 13.3; Aspartate Amino Transferase 23 U/L (15-37); Blood Urea Nitrogen 16.0 mg/dL (7.0-18.0); Calcium 8.7 mg/dL (8.5-10.1); Carbon Dioxide 30.1 mmol/L (21.0-32.0); Chloride 104 mmol/L (98-107); Cholesterol 111 mg/dL (<=200); Estimated GFR (African America >60 (>=60 mL/min/1.73m^2); Estimated GFR (Non-African Ame >60 (>=60 mL/min/1.73m^2); Globulin 3.8 g/dL; Glucose 116 mg/dL (74-106); HDL Cholesterol 33 mg/dL (40-60); Potassium 4.4 mmol/L (3.5-5.1); Sodium 143 mmol/L (136-145); Thyroid Stimulating Hormone 7.503 uIU/mL (0.358-3.740); Total Protein 7.4 g/dL (6.4-8.2); Triglycerides 133 mg/dL (<=150); VLDL CHOLESTEROL 26.6 mg/dL
== END 2025-07-16 06:36 | disposition home or self-care (01) ==
LOC: LAB 06:38
PROVIDERS: PCP Internal Medicine; Visit Provider Internal Medicine
DX: Z00.00 Encounter for general adult medical examination without abnormal findings (principal); Z12.5 Encounter for screening for malignant neoplasm of prostate; R19.7 Diarrhea, unspecified
CPT/HCPCS: 36415; 80053; 80061; 83036; 84443; 85025; G0103

== ENCOUNTER 2025-07-20 07:51 | Outpatient (OUT) | payer OTHER, SELFPAY ==
--- OUTSIDE RECORDS SUMMARY | 2025-07-20 07:54 | XMS_ITS | Clinical Summary ---
Author Organization [facility] Address [address] [place] [address] Care Team Providers Care [employer] Storage Architect Name Role Phone Jonah Duffy DO Primary Care Provider [phone] Allergies No known active allergies Medications aspirin [...] Problem Noted Date Diagnosed Date Atherosclerosis of [place] co ronary artery of solomon heart without angina pectoris 02/20/2025 Benign hypertensive [...] patient's age to complete this topic Insurance [facility] [id number] [employer] Care Teams Emc Storage Architect Relationship Specialty Start Date End Date Jonah Duffy DO [address] [facility] [place] [address] PCP - General 2/16/24
--- OUTSIDE RECORDS SUMMARY | 2025-07-20 07:54 | XMS_ITS | Clinical Summary ---
Author Organization [facility] Address [address] [place] [address] Phone Care Team Providers Care Manager Fashion Name Role Phone Unavailable Primary Care Provider [...]
--- OUTSIDE RECORDS SUMMARY | 2025-07-20 07:56 | XMS_ITS | CCD ---
Author Organization [facility] Care Team Providers Care 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 Name Role Phone Jonah Duffy Primary Care Provider Dash Gregory Attending Provider [phone] CLIVE, DR HAUSER Consulting Unavailable CLIVE, DR HAUSER Attending Unavailable CLIVE, DR HAUSER Admitting Unavailable CLIVE, DR HAUSER Primary Care Unavailable CLIVE, DR HAUSER Primary Care Unavailable CLIVE, DR HAUSER Consulting Unavailable CLIVE, DR HAUSER Attending Unavailable CLIVE, DR HAUSER Admitting Unavailable Jonah Duffy Unavailable JONAH DUFFY Referring UnavailJonah Rosas MD Primary Care Provider Rosalee Ragsdale DO Unavailable MAYELA YAO Attending Unavailable MAYELA YAO Attending Unavailable MAYELA YAO Attending Unavailable SHIN BRADSHAW Attending Unavailable Jonah Duffy DO Primary Care Provider NAA FELDER Attending Unavailable ANNETTE ADAMS Attending Unavailable ANNETTE ADAMS Attending Unavailable ANNETTE ADAMS Attending Unavailable ANNETTE ADAMS Attending Unavailable Jonah Duffy DO Primary Care Provider Jonah Duffy DO Attending Provider Unavailable Unavailable Unavailable Allergies Allergy Classification Reported Allergen(s) Allergy Type Date of Onset Reaction(s) Facility (1 source) patient allergy list reviewed by nurse or physicia Propensity to adverse reactions 8 Comment:Done [employer] Other (1 source) ALLERGIES NOT ON FILE; Translations: [ALLERGIES NOT ON FILE] Propensity to adverse reactions (disorder[facility] Medications Current Medications Medication Drug Class(es) Dates Sig (Normalized) Sig (Original) aspirin 81 mg delayed release oral tablet (20 sources) Platelet Aggregation Inhibitor, Nonsteroidal Anti-inflammatory Drug Start: 02-19-2024 Aspirin (Adult Low Dose Aspirin) 81 mg tablet,delayed release (DR/EC) Active 81 MG PO Daily February 19, 2024 12:00am Complies with drug therapy atorvastatin 10 mg oral tablet (20 sources) HMG-CoA Reductase Inhibitor Start: 12-29-2024 take 1 tablet by mouth once daily in the evening Atorvastatin 10 mg tablet Active 10 MG PO Every evening December 29, 2024 9:23am Complies with drug therapy Start: 08-17-2024 End: 12-29-2024 take 1 tablet by mouth once daily in the evening Atorvastatin 10 mg tablet Discontinued 0 .ROUTE .COMPLEX August 17, 2024 8:52pm December 29, 2024 9:25am TAKE 1 TABLET BY MOUTH EVERY DAY IN THE EVENING Start: 10-19-2023 End: 08-17-2024 take 1 tablet by mouth once daily in the evening Atorvastatin 10 mg tablet Discontinued 10 MG PO Every evening February 19, 2024 12:00am July 22, 2024 10:39pm benzonatate 200 mg oral capsule (11 sources) Non-narcotic Antitussive Start: 04-10-2023 take 1 capsule by mouth every eight hours Benzonatate 200 MG 1 capsule Orally Three times a day for 10 days Mar, Active donepezil hydrochloride 10 mg oral tablet (20 sources) Start: 07-02-2025 take 1 tablet by mouth twice daily Donepezil 10 mg tablet Active 10 MG PO Twice daily July 02, 2025 8:44am Complies with drug therapy Start: 11-17-2024 End: 01-16-2026 take 1 tablet by mouth once daily Donepezil 10 mg tablet Discontinued 10 MG PO Daily December 29, 2024 12:00am July 02, 2025 8:45am Start: 10-04-2024 End: 01-02-2025 take 1 tablet by mouth once daily at bedtime Donepezil (Aricept) 5 mg tablet Discontinued 5 MG PO Daily at bedtime October 06, 2024 1:00am December 29, 2024 8:43am fenofibrate 134 mg oral capsule (7 sources) Peroxisome Proliferator Receptor alpha Agonist take 1 capsule by mouth every twenty-four hours Fenofibrate Micronized 134 MG 1 capsule with a meal Orally Once a day Active 24 hr guanFACINE 1 mg extended release oral tablet (7 sources) Central alpha-2 Adrenergic Agonist Start: 06-22-20 End: 07-22-20 take 1 tablet by mouth once daily guanFACINE (Intuniv) 1 mg 24 hr tablet Indications: PBA (pseudobulbar affect) Take 1 tablet (1 mg) by mouth Daily 30 tablet 11 06/22/2025 07/22/2025 Active Start: 02-23-2025 End: 06-22-2025 take 1 tablet by mouth every twenty-four hours at bedtime guanFACINE (Intuniv) 1 mg 24 hr tablet Indications: PBA (pseudobulbar affect) Take 1 tablet (1 mg) by mouth at bedtime 90 tablet 3 05/22/2025 06/22/2025 Discontinued memantine hydrochloride 5 mg oral tablet (14 sources) E-lwblwr-K-aspartate Receptor Antagonist Start: 12-29-2024 End: 12-24-2025 take 1 tablet by mouth in the morning memantine (Namenda) 10 MG tablet Indications: MCI (mild cognitive impairment) Take 1 tablet (10 mg) by mouth in the morning and 1 tablet (10 mg) before bedtime. 180 tablet 3 12/29/2024 12/24/2025 Active Start: 11-17-2024 End: 11-17-2025 take 1 tablet by mouth twice daily Memantine 5 mg tablet Discontinued 5 MG PO Twice daily December 29, 2024 12:00am July 02, 2025 8:45am sildenafil 100 mg oral tablet (17 sources) Phosphodiesterase 5 Inhibitor Start: 02-19-2024 take 1 tablet by mouth once daily as needed Sildenafil 100 mg tablet Active 100 MG PO Daily as needed February 19, 2024 12:00am Complies with drug therapy take 1 tablet by bella th every twenty-four hours Sildenafil Citrate 100 MG 1 tablet as needed Orally Once a day for 30 days Active thiamine 100 mg oral tablet (18 sources) Start: 10-04-2024 End: 11-17-2025 take 1 tablet by mouth once daily Thiamine Hcl (Vitamin B1) 100 mg tablet Active 100 MG PO Daily October 06, 2024 1:00am Complies with drug therapy Completed/Discontinued Medications Medication Drug Class(es) Dates Sig (Normalized) Sig (Original) benazepril hydrochloride 10 mg oral tablet (20 sources) Angiotensin Converting Enzyme Inhibitor Start: 10-11-2020 End: 12-29-2024 take 1 tablet by mouth once daily Benazepril 10 mg tablet Discontinued 10 MG PO Daily 90 90 July 22, 2024 10:38pm December 29, 2024 9:25am carvedilol 6.25 mg oral tablet (20 sources) alpha-Adrenergic Gloria, beta-Adrenergic Gloria Start: 12-17-2023 End: 07-22-2024 take 1 tablet by mouth twice daily at mealtime Carvedilol 6.25 mg tablet Discontinued 0 .ROUTE .COMPLEX 180 June 17, 2024 5:31pm July 22, 2024 10:39pm TAKE 1 TABLET BY MOUTH TWICE A DAY WITH FOOD FOR 30 DAYS Start: 06-29-2023 End: 12-29-2024 take 1 tablet by mouth twice daily Carvedilol 6.25 mg tablet Discontinued 6.25 MG PO Twice daily December 17, 2023 1:00am December 17, 2023 1:59pm Suprep Bowel Prep - (12 sources) Start: 09-08-2016 Suprep Bowel P rep - 1 Orally Daily for 1 day(s) Aug, Not-Taking/PRN Start: 09-08-2016 Suprep Bowel P rep - 1 Orally Daily for 1 day(s) Aug, Not-Taking Problems Active Problems Problem Classification Problem Date Documented Da te Episodic/Chronic Alcohol-related disorders (4 sources) Alcohol intake above recommended sensible limits; Translations: [Alcohol abuse, uncomplicated] 08-06-2024 Chronic Anxiety disorders (15 sources) Generalized anxiety disorder; Translations: [Generalized anxiety disorder] Onset: 10-17-2024 10-17-2024 Chronic Cardiac dysrhythmias (1 source) Tachycardia, unspecified Episodic Coronary atherosclerosis and other heart disease (6 sources) Coronary atherosclerosis; Translations: [Atherosclerotic heart disease of [place] coronary artery without angina pectoris] Onset: 02-20-2025 02-23-2025 Chronic Delirium, dementia, and amnestic and other cognitive disorders (5 sources) Pseudobulbar affect; Translations: [Pseudobulbar affect] 02-23-2025 Chronic Diabetes mellitus without complication (2 sources) Type 2 diabetes mellitus without complications; Translations: [Type 2 diabetes mellitus without complications] Onset: 02-20-2025 Chronic Diabetes mellitus without complication (3 sources) Impaired fasting glucose Episodic Disorders of lipid metabolism (20 sources) Pure hypercholesterolemi a, unspecified; Translations: [Pure hypercholesterolemi a] Onset: 08-30-2022 Resolved: 08-30-2022 Chronic Esophageal disorders (20 sources) Stricture of esophagus; Translations: [Esophageal stricture] Onset: 05-13-2018 Chronic Essential hypertension (20 sources) Essential hypertension; Translations: [Essential (primary) hypertension] Onset: 07-16-2023 Chronic Comment on above: Echo: LVEF 55%, norm al RV size/function, LVH - 11/2023 Hemorrhoids (3 sources) External hemorrhoids; Translations: [Residual hemorrhoidal skin tags] Episodic Hyperplasia of prostate (20 sources) Benign prostatic hypertrophy without outflow obstruction; Translations: [Hypertrophy (benign) of prostate without urinary obstruction and other lower urinary tract symptoms [LUTS]] Onset: 08-14-2017 Resolved: 06-12-2022 02-20-2024 Chronic Hypertension with complications and secondary hypertension (8 sources) Hypertensive heart disease without heart failure; Translations: [Benign hypertensive heart disease without congestive heart failure] Onset: 02-20-2025 Chronic Other and unspecified benign neoplasm (12 sources) Benign neoplasm of colon; Translations: [Benign neoplasm of descending colon] Episodic Other and unspecified benign neoplasm (1 source) Benign neoplasm of descending colon; Translations: [Benign neoplasm of descending colon] Episodic Other gastrointestinal disorders (2 sources) Dysphagia; Translations: [Dysphagia] Episodic Other gastrointestinal disorders (1 source) Increased frequency of defecation; Translations: [Change in bowel habit] 12-29-2024 Episodic Other hereditary and degenerative nervous system conditions (17 sources) Impaired cognition; Translations: [Mild cognitive impairment, so stated] Onset: 12-29-2024 10-04-2024 Chronic Other hereditary and degenerative nervous system conditions (1 source) Mild cognitive impairment, so stated; Translations: [Mild cognitive impairment, so stated] 12-29-2024 Chronic Other male genital disorders (1 source) Impotence of organic origin; 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] Chronic Other male genital disorders (20 sources) Male erectile dysfunction, unspecified; Translations: [Erectile dysfunction] Onset: 08-28-2024 02-20-2024 Chronic Other nervous system disorders (5 sources) Impaired cognition 10-07-2024 Episodic Other nutritional; endocrine; and metabolic disorders (10 [...] Chronic Other nutritional; endocrine; and metabolic disorders (20 sources) Obesity; Translations: [Obesity, unspecified] Onset: 08-28-2024 02-20-2024 Chronic Other nutritional; endocrine; and metabolic disorders (3 sources) Obesity, unspecified; Translations: [Obesity, unspecified] 06-24-2024 Chronic Other screening for suspected conditions (not mental disorders or infectious disease) (20 sources) Encounter for screening for malignant neoplasm of prostate; Translations: [Abnormal findings on diagnostic imaging of heart and coronary circulation] Onset: 07-02-2022 Episodic Comment on above: Echo: LVEF 55%, norm al RV size/function, LVH - 11/2023 CAC: LAD 236Echo: LV EF 55%, normal RV size/function, LVH - 11/2023,Stress test: no reversible defect - 10/2023 Other skin disorders (2 sources) Skin tag; Translations: [Other hypertrophic disorders of the skin] Episodic Residual codes; unclassified (20 sources) Obstructive sleep apnea syndrome; Translations: [Obstructive sleep apnea (adult) (pediatric)] Onset: 06-04-2024 01-07-2024 Chronic Comment on above: AHI 54 w/ Psat 80% Residual codes; unclassified (6 sources) Obstructive sleep apnea (adult) (pediatric); Translations: [Obstructive sleep apnea (adult)(pediatric)] Chronic Residual codes; unclassified (4 sources) Family history of ischemic heart disease and other diseases of the circulatory system; Translations: [Family history of ischemic heart disease and other diseases of the circulatory system] Onset: 07-16-2023 Episodic Residual codes; unclassified (3 sources) Family history of dementia; Translations: [Family history of other mental and behavioral disorders] 08-06-2024 Episodic Residual codes; unclassified (1 source) Family history of other mental and behavioral disorders; Translations: [Family history of other neurological diseases] 12-29-2024 Episodic Past or Other Problems Problem Classification Problem Date Documented Date Episodic/Chronic Blindness and vision defects (13 sources) Visual disturbance; Translations: [Unspecified visual disturbance] Onset: 10-17-2024 10-17-2024 Episodic Esophageal disorders (8 sources) Esophageal disorders; Translations: [Gastro-esophageal reflux disease with esophagitis, without bleeding] Onset: 05-13-2018 Resolved: 06-12-2022 Other connective tissue disease (1 source) Lateral epicondylitis; Translations: [Lateral epicondylitis of elbow] Onset: 06-02-2015 Episodic Other ear and sense organ disorders (13 sources) Bilateral tinnitus; Translations: [Tinnitus, bilateral] Onset: 10-17-2024 10-17-2024 Episodic Other nutritional; endocrine; and metabolic disorders (1 source) Body mass index 25-29 - overweight; Translations: [Body mass index 28.0-28.9, adult] Onset: 04-01-2018 Resolved: 06-12-2022 Episodic Other nutritional; endocrine; and metabolic disorders (11 sources) Overweight; Translations: [Overweight] Onset: 08-14-2017 Resolved: 06-12-2022 Episodic Residual codes; unclassified (13 sources) Transient alteration of awareness; Translations: [Transient alteration of awareness] Onset: 10-17-2024 10-17-2024 Episodic Results Test Name Value Interpretation Reference Range Facility Office Visiton 02-20-2025 Follow-up visit [id number] Remigio Min 1960 M Date Provider Department Center 02/20/2025 [id number] BRADSHAW [facility] Family History Problem Relation Age of Onset Diabetes Mother Heart failure Mother Kidney disease Mother Heart attack Father 42 Family Status - Relation Status Age at Mother Father Level of Service:37343 [place] OFFICE/OUTPATIENT ESTABLISHED MOD MDM 30 MIN Reason for Visit and Comments: Hypertension [460322] - No recent labs/imaging. coronary artery calcification [Other] Shortness of Breath [118788] - says he gets winded with stairs but patient denies this. He denies cardiac symptoms of any kind at this time. Normal [facility] Office Visiton 08-28-2024 Follow-up visit [id number] Remigio Min 1960 M Date Provider Department Center 08/28/2024 Billy-MAYELA YAO [facility] Family History Problem Relation Age of Onset Diabetes Mother Heart failure Mother Kidney disease Mother Heart attack Father 42 Family Status - Relation Status Age at Mother Father Level of Service:16523 [place] OFFICE/OUTPATIENT ESTABLISHED LOW MDM 20 MIN Normal [facility] Basophils Auto (Bld) [#/Vol] on 06-25-2024 Basophils (Bld) [#/Vol] 0.1 10 3/uL 0.0-0.1 [facility] Basophils/100 WBC Auto (Bld) on 06-25-2024 Basophils/100 WBC (Bld) 1.2 % 0.2-2.0 [facility] Cholesterol in LDL Calc [Mas s/Vol]on 06-25-2024 Cholesterol in LDL [Mass/Vol] 64.0 mg/dL [facility] Comment on above: <100 mg/dl [id number] 0-129 mg/dl NEAR OR ABOVE [id number] mg/dl BORDERLINE [id number] mg/dl HIGH>190 mg/dl VERY HIGH Cholesterol in VLDL Calc [Ma ss/Vol]on 06-25-2024 Cholesterol in VLDL [Mass/Vol] 45.4 mg/dL [facility] Eosinophils/100 WBC Auto (Bl d)on 06-25-2024 Eosinophils/100 WBC (Bld) 2.7 % 0.9-7.0 [facility] Erythrocyte distribution wid th Auto (RBC) [Ratio]on 06-25-2024 Erythrocyte distribution width (RBC) [Ratio] 12.3 % 11.0-15.0 [facility] Estimated glomerular filtrat ion rate (GFR) non- Americanon 06-25-2024 GFR/1.73 sq M.predicted among non-blacks MDRD (S/P/Bld) [Vol rate/Area] mL/min/{1.73_m2} >=60 [facility] Globulin Calc (S) [Mass/Vol] on 06-25-2024 Globulin (S) [Mass/Vol] 3.5 g/dL [facility] Hematocrit Auto (Bld) [Volum e fraction]on 06-25-2024 Hematocrit (Bld) [Volume fraction] 47.6 % 42.0-54.0 [facility] Hemoglobin [Mass/volume] in Bloodon 06-25-2024 Hemoglobin (Bld) [Mass/Vol] 16.3 g/dL 14.0-18.0 [facility] Laboratory - Chemistry and C hemistry - challengeon 06-25-2024 Albumin [Mass/Vol] 3.6 g/dL 3.4-5.0 [facility] ALP [Catalytic activity/Vol] 29 U/L Low 46-116 [facility] ALT [Catalytic activity/Vol] 45 U/L 16-63 [facility] AST [Catalytic activity/Vol] 19 U/L 15-37 [facility] Bilirubin [Mass/Vol] 0.7 mg/dL 0.2-1.0 [facility] Calcium [Mass/Vol] 9.2 mg/dL 8.5-10.1 [facility] Chloride [Moles/Vol] 104 mmol/L 98-107 [facility] Cholesterol [Mass/Vol] 148 mg/dL <=200 [facility] Cholesterol in HDL [Mass/Vol] 39 mg/dL Low 40-60 [facility] Comment on above: > or =60 mg/dl - LOW CARDIOVASCULAR RISK<40 mg/dl - HIGH CARDIOVASCULAR RISK CO2 [Moles/Vol] 28.5 mmol/L 21.0-32.0 [facility] Creatinine [Mass/Vol] 0.96 mg/dL 0.70-1.30 [facility] GFR/1.73 sq M.predicted MDRD (S/P/Bld) [Vol rate/Area] mL/min/{1.73_m2} >=60 [facility] Glucose [Mass/Vol] 117 mg/dL High 74-106 [facility] Potassium [Moles/Vol] 4.3 mmol/L 3.5-5.1 [facility] Protein [Mass/Vol] 7.1 g/dL 6.4-8.2 [facility] Sodium [Moles/Vol] 139 mmol/L 136-145 [facility] Triglyceride [Mass/Vol] 227 mg/dL High <=150 [facility] Urea nitrogen [Mass/Vol] 16.0 mg/dL 7.0-18.0 [facility] Urea nitrogen/Creatinine [Mass ratio] 16.7 mg/mg [facility] Laboratory - Hematology and Cell countson 06-25-2024 Immature granulocytes/100 WBC (Bld) 0.2 % 0.0-0.5 [facility] Leukocytes [#/volume] correc jeremi for nucleated erythrocytes in Blood by Automated counon 06-25-2024 WBC corrected for nucl RBC Auto (Bld) [#/Vol] 5.9 10 3/uL 4.0-11.0 [facility] Lymphocytes Auto (Bld) [#/Vo l]on 06-25-2024 Lymphocytes (Bld) [#/Vol] 1.6 10 3/uL 1.2-3.8 [facility] Lymphocytes/100 WBC Auto (Bl d)on 06-25-2024 Lymphocytes/100 WBC (Bld) 27.5 % 20.5-60.0 [facility] MCH Auto (RBC) [Entitic mass ]on 06-25-2024 MCH (RBC) [Entitic mass] 30.8 pg 25.9-34.0 [facility] MCHC Auto (RBC) [Mass/Vol]on 06-25-2024 MCHC (RBC) [Mass/Vol] 34.2 g/dL 29.9-35.2 [facility] MCV Auto (RBC) [Entitic vol] on 06-25-2024 MCV (RBC) [Entitic vol] 90.0 fL 80.0-94.0 [facility] Monocytes Auto (Bld) [#/Vol] on 06-25-2024 Monocytes (Bld) [#/Vol] 0.6 10 3/uL 0.3-0.8 [facility] Monocytes/100 WBC Auto (Bld) on 06-25-2024 Monocytes/100 WBC (Bld) 10.1 % 1.7-12.0 [facility] Neutrophils Auto (Bld) [#/Vo l]on 06-25-2024 Neutrophils (Bld) [#/Vol] 3.5 10 3/uL 1.4-6.5 [facility] Neutrophils/100 WBC Auto (Bl d)on 06-25-2024 Neutrophils/100 WBC (Bld) 58.3 % 43.0-75.0 [facility] No Panel Informationon 06-25 Eosinophils # (Auto) 0.2 10 3/uL 0.0-0.7 [facility] Immature Granulocyte # (Auto) 0.01 10 3/uL 0.00-0.03 [facility] Prostate Specific Antigen Screen 1.61 ng/mL <=4.00 [facility] Platelet mean volume Auto (B ld) [Entitic vol]on 06-25-2024 Platelet mean volume (Bld) [Entitic vol] 9.3 fL Low 9.5-13.5 [facility] Platelets Auto (Bld) [#/Vol] on 06-25-2024 Platelets (Bld) [#/Vol] 254 10 3/uL 150-450 [facility] RBC Auto (Bld) [#/Vol]on RBC (Bld) [#/Vol] 5.29 10 6/uL 4.70-6.10 [facility] Serum or plasma albumin/glob ulin mass ratioon 06-25-2024 Albumin/Globulin [Mass ratio] 1.0 {ratio} [facility] Serum or plasma anion gap de terminationon 06-25-2024 Anion gap [Moles/Vol] 10.8 mmol/L [facility] Serum or plasma total choles terol/high density lipoprotein (HDL) cholesterol mass latha 06-25-2024 Cholesterol.total/Ch olesterol in HDL [Mass ratio] 3.8 {ratio} [facility] Comment on above: 3.3 - 4.4 LOW RISK4. 4 - 7.1 AVERAGE RISK7.1 - 11.0 MODERATE RISK>11.0 [facility] Office Visiton 06-09-2024 Follow-up visit [id number] Remigio Min 1960 M Date Provider Department Center 06/09/2024 Mariela8-MAYELA YAO RAFI [facility] Family History Problem Relation Age of Onset Diabetes Mother Heart failure Mother Kidney disease Mother Heart attack Father 42 Family Status - Relation Status Age at Mother Father Level of Service:80501 [place] OFFICE/OUTPATIENT ESTABLISHED LOW MDM 20 MIN Normal [facility] Office Visiton 02-29-2024 Follow-up visit [id number] Remigio Min 1960 M Date Provider Department Center 02/29/2024 [id number] YAO PABLO MCKEE [facility] Family History Problem Relation Age of Onset Diabetes Mother Heart failure Mother Kidney disease Mother Heart attack Father 42 Family Status - Relation Status Age at Mother Father Level of Service:[id number] [place] OFFICE/OUTPATIENT ESTABLISHED LOW MDM 20 MIN Normal [facility] CT CARDIAC SCORING WO IV CON TRASTon 07-16-2023 CT CARDIAC SCORING WO IV CONTRAST Interpreted By: Eliezer Bazan, STUDY: CT CARDIAC SCORING WO IV CONTRAST; 07/16/2023 11:29 am INDICATION: Signs/Symptoms:FAMILY HISTORY OF ISCHEMIC HEART DISEASE. COMPARISON: None. ACCESSION NUMBER(S): [id number] ORDERING CLINICIAN: JONAH DUFFY TECHNIQUE: Using prospective [...] using link below [email or web address] aspx Camilo JACC 2014 (http://dx.doi.org/10 .1016/j.j [email or web address]) Signed by: Eliezer Bazan 07/16/2023 4:52 PM Dictation workstation: [id number] [facility] DIRECT LDLon 08-30-2022 Cholesterol in LDL [Mass/Vol] 81 mg/dL Normal [facility] Comment on above: Performed By: #### D LDL, ALT #### [facility] [address] [place] [address] Dr. Angel Hernández DLDL NORMAL SEE BELOW Normal [facility] Comment on above: Result Comment: <100 mg/dl OPTIMAL 100 - 129 mg/dl NEAR OR ABOVE OPTIMAL 130 - 159 mg/dl BORDERLINE HIGH 160 - 189 mg/dl HIGH >190 mg/dl VERY HIGH Performed By: #### D LDL, ALT #### [facility] [address] [place] [address] Dr. Angel Hernández SGPTon 08-30-2022 ALT [Catalytic activity/Vol] 53 U/L Normal 16-63 [facility] Comment on above: Performed By: #### D LDL, ALT #### [facility] [address] [place] [address] Dr. Angel Hernández CBC AUTO DIFFon 06-29-2022 BASO # 0.1 103/ul Normal 0.0-0.1 [facility] Comment on above: Performed By: #### C BC #### [facility] [address] [place] [address] Dr. Angel Hernández Basophils/100 WBC (Bld) 1.0 % Normal 0.2-2.0 [facility] Comment on above: Performed By: #### C BC #### [facility] [address] [place] [address] Dr. Angel Hernández EO # 0.2 103/ul Normal 0.0-0.7 [facility] Comment on above: Performed By: #### C BC #### [facility] [address] [place] [address] Dr. Angel Hernández Eosinophils/100 WBC (Bld) 4.7 % Normal 0.9-7.0 [facility] Comment on above: Performed By: #### C BC #### [facility] [address] [place] [address] Dr. Angel Hernández Erythrocyte distribution width (RBC) [Ratio] 12.5 % Normal 11.0-15.0 [facility] Comment on above: Performed By: #### C BC #### [facility] [address] [place] [address] Dr. Angel Hernández Hematocrit (Bld) [Volume fraction] 47.9 % Normal 42.0-54.0 [facility] Comment on above: Performed By: #### C BC #### [facility] [address] [place] [address] Dr. Angel Hernández Hemoglobin (Bld) [Mass/Vol] 16.7 g/dL Normal 14.0-18.0 [facility] Comment on above: Performed By: #### C BC #### [facility] [address] [place] [address] Dr. Angel Hernández IG # 0.01 10e3/ul Normal 0.00-0.03 [facility] Comment on above: Performed By: #### C BC #### [facility] [address] [place] [address] Dr. Angel Hernández IG % 0.2 % Normal 0.0-0.5 [facility] Comment on above: Performed By: #### C BC #### [facility] [address] [place] [address] Dr. Angel Hernández LYMPH # 1.6 103/ul Normal 1.2-3.8 [facility] Comment on above: Performed By: #### C BC #### [facility] [address] [place] [address] Dr. Angel Hernández Lymphocytes/100 WBC (Bld) 30.2 % Normal 20.5-60.0 [facility] Comment on above: Performed By: #### C BC #### [facility] [address] [place] [address] Dr. Angel Hernández MANUAL DIFF REQ NO Normal [facility] Comment on above: Performed By: #### C BC #### [facility] [address] [place] [address] Dr. Angel Hernández MCH (RBC) [Entitic mass] 31.3 pg Normal 25.9-34.0 [facility] Comment on above: Performed By: #### C BC #### [facility] [address] [place] [address] Dr. Angel Hernández MCHC (RBC) [Mass/Vol] 34.9 g/dL Normal 29.9-35.2 [facility] Comment on above: Performed By: #### C BC #### [facility] [address] [place] [address] Dr. Angel Hernández MCV (RBC) [Entitic vol] 89.7 fL Normal 80.0-94.0 [facility] Comment on above: Performed By: #### C BC #### [facility] [address] [place] [address] Dr. Angel Hernández MONO # 0.5 103/ul Normal 0.3-0.8 [facility] Comment on above: Performed By: #### C BC #### [facility] [address] [place] [address] Dr. Angel Hernández Monocytes/100 WBC (Bld) 10.1 % Normal 1.7-12.0 [facility] Comment on above: Performed By: #### C BC #### [facility] [address] [place] [address] Dr. Angel Hernández NEUT # 2.8 103/ul Normal 1.4-6.5 [facility] Comment on above: Performed By: #### C BC #### [facility] [address] [place] [address] Dr. Angel Hernández Neutrophils/100 WBC (Bld) 53.8 % Normal 43.0-75.0 [facility] Comment on above: Performed By: #### C BC #### [facility] [address] [place] [address] Dr. Angel Hernández Platelet mean volume (Bld) [Entitic vol] 9.2 fL Critically low 9.5-13.5 [facility] Comment on above: Performed By: #### C BC #### [facility] [address] [address] [address] Angel Hernández PLT 271 103/ul Normal 150-450 [facility] Comment on above: Performed By: #### C BC #### [facility] [address] [address] [address] Angel Hernández RBC 5.34 106/ul Normal 4.70-6.10 [facility] Comment on above: Performed By: #### C BC #### [facility] [address] [address] [address] Angel Hernández WBC 5.1 103/ul Normal 4.0-11.0 [facility] Comment on above: Performed By: #### C BC #### [facility] [address] [place] [address] Dr. Angel Hernández DIRECT LDLon 06-29-2022 Cholesterol in LDL [Mass/Vol] 106 mg/dL Normal [facility] Comment on above: Performed By: #### T MIRANDA, LIPID, DLDL, CMP #### [facility] [address] [address] [address] Angel Hernández DLDL NORMAL SEE BELOW Normal [facility] Comment on above: Result Comment: <100 mg/dl OPTIMAL 100 - 129 mg/dl NEAR OR ABOVE OPTIMAL 130 - 159 mg/dl BORDERLINE HIGH 160 - 189 mg/dl HIGH >190 mg/dl VERY HIGH Performed By: #### T SH, LIPID, DLDL, CMP #### [facility] [address] [place] [address] Dr. Angel Hernández GLYCOHEMOGLOBIN A1Con 2021 ADA RECOMMENDATION SEE BELOW Normal [facility] Comment on above: Result Comment: ADA RECOMMENDED LIMIT 4.0 - 6.0 ADA THERAPEUTIC TARGET < 7.0 ACTION SUGGESTED > 7.0 Performed By: #### A 1C #### [facility] [address] [place] [address] Dr. Angel Hernández Glucose [Mass/Vol] 114 mg/dL Normal [facility] Comment on above: Performed By: #### A 1C #### [facility] [address] [address] [address] Angel Hernández HbA1c (Bld) [Mass fraction] 5.6 % Normal 4.5-6.2 [facility] Comment on above: Performed By: #### A 1C #### [facility] [address] [address] [address] Angel Hernández LIPID PROFILEon 06-29-2022 CHOL-HDL RATIO NORM SEE BELOW Normal [facility] Comment on above: Result Comment: 3.3 - 4.4 LOW RISK 4.4 - 7.1 AVERAGE RISK 7.1 - 11.0 MODERATE RISK >11.0 HIGH RISK Performed By: #### T SH, LIPID, DLDL, CMP #### [facility] [address] [place] [address] Dr. Angel Hernández Cholesterol [Mass/Vol] 222 mg/dL Critically high <=200 [facility] Comment on above: Performed By: #### T SH, LIPID, DLDL, CMP #### [facility] [address] [place] [address] Dr. Angel Hernández Cholesterol in HDL [Mass/Vol] 35 mg/dL Critically low 40-60 [facility] Comment on above: Performed By: #### T SH, LIPID, DLDL, CMP #### [facility] [address] [place] [address] Dr. Angel Hernández Cholesterol.total/Ch olesterol in HDL [Mass ratio] 6.3 {ratio} Normal [facility] Comment on above: Performed By: #### T SH, LIPID, DLDL, CMP #### [facility] [address] [address] [address] Angel Hernández HDL NORMAL > or = 60 mg/dl - LO W CARDIOVASCULAR RISK <40 mg/dl - HIGH CARDIOVASCULAR RISK Normal [facility] Comment on above: Performed By: #### T SH, LIPID, DLDL, CMP #### [facility] [address] [place] [address] Dr. Angel Hernández Triglyceride [Mass/Vol] 482 mg/dL Critically high <=150 [facility] Comment on above: Performed By: #### T SH, LIPID, DLDL, CMP #### [facility] [address] [address] [address] Angel Hernández VLDL CALC 96.4 mg/dL Normal [facility] Comment on above: Performed By: #### T SH, LIPID, DLDL, CMP #### [facility] [address] [address] [address] Angel Hernández PROF 14(COMP METB)on 022 Albumin [Mass/Vol] 3.6 g/dL Normal 3.4-5.0 [facility] Comment on above: Performed By: #### T SH, LIPID, DLDL, CMP #### [facility] [address] [place] [address] Dr. Angel Hernández Albumin/Globulin [Mass ratio] 1.0 {ratio} Normal [facility] Comment on above: Performed By: #### T SH, LIPID, DLDL, CMP #### [facility] [address] [address] [address] Angel Hernández ALP [Catalytic activity/Vol] 26 U/L Critically low 46-116 [facility] Comment on above: Performed By: #### T SH, LIPID, DLDL, CMP #### [facility] [address] [place] [address] Dr. Angel Hernández ALT [Catalytic activity/Vol] 40 U/L Normal 16-63 [facility] Comment on above: Performed By: #### T SH, LIPID, DLDL, CMP #### [facility] [address] [place] [address] Dr. Angel Hernández Anion gap [Moles/Vol] 6.9 mmol/L Normal [facility] Comment on above: Performed By: #### T SH, LIPID, DLDL, CMP #### [facility] [address] [place] [address] Dr. Angel Hernández AST [Catalytic activity/Vol] 17 U/L Normal 15-37 [facility] Comment on above: Performed By: #### T SH, LIPID, DLDL, CMP #### [facility] [address] [address] [address] Angel Hernández Bilirubin [Mass/Vol] 0.4 mg/dL Normal 0.2-1.0 [facility] Comment on above: Performed By: #### T SH, LIPID, DLDL, CMP #### [facility] [address] [address] [address] Angel Hernández Calcium [Mass/Vol] 8.8 mg/dL Normal 8.5-10.1 [facility] Comment on above: Performed By: #### T SH, LIPID, DLDL, CMP #### [facility] [address] [address] [address] Angel Hernández Chloride [Moles/Vol] 102 mmol/L Normal 98-107 [facility] Comment on above: Performed By: #### T SH, LIPID, DLDL, CMP #### [facility] [address] [place] [address] Dr. Angel Hernández CO2 [Moles/Vol] 31.5 mmol/L Normal 21.0-32.0 [facility] Comment on above: Performed By: #### T SH, LIPID, DLDL, CMP #### [facility] [address] [place] [address] Dr. Angel Hernández Creatinine [Mass/Vol] 1.05 mg/dL Normal 0.70-1.30 [facility] Comment on above: Performed By: #### T SH, LIPID, DLDL, CMP #### [facility] [address] [place] [address] Dr. Angel Hernández EGFR-AF TRINIDADIAN >60 Normal >=[address] [facility] Comment on above: Performed By: #### T SH, LIPID, DLDL, CMP #### [facility] [address] [place] [address] Dr. Angel Hernández EGFR-NON AF TRINIDADIAN >60 Normal >=60 [facility] Comment on above: Performed By: #### T SH, LIPID, DLDL, CMP #### [facility] [address] [place] [address] Dr. Angel Hernández Globulin (S) [Mass/Vol] 3.7 g/dL Normal [facility] Comment on above: Performed By: #### T SH, LIPID, DLDL, CMP #### [facility] [address] [address] [address] Angel Hernández Glucose [Mass/Vol] 125 mg/dL Critically high 74-106 [facility] Comment on above: Performed By: #### T SH, LIPID, DLDL, CMP #### [facility] [address] [address] [address] Angel Hernández Potassium [Moles/Vol] 4.4 mmol/L Normal 3.5-5.1 [facility] Comment on above: Performed By: #### T SH, LIPID, DLDL, CMP #### [facility] [address] [place] [address] Dr. Angel Hernández Protein [Mass/Vol] 7.3 g/dL Normal 6.4-8.2 [facility] Comment on above: Performed By: #### T SH, LIPID, DLDL, CMP #### [facility] [address] [place] [address] Dr. Angel Hernández Sodium [Moles/Vol] 136 mmol/L Normal 136-145 [facility] Comment on above: Performed By: #### T SH, LIPID, DLDL, CMP #### [facility] [address] [place] [address] Dr. Angel Hernández Urea nitrogen [Mass/Vol] 12.0 mg/dL Normal 7.0-18.0 [facility] Comment on above: Performed By: #### T SH, LIPID, DLDL, CMP #### [facility] [address] [place] [address] Dr. Angel Hernández Urea nitrogen/Creatinine [Mass ratio] 11.4 mg/mg Normal [facility] Comment on above: Performed By: #### T SH, LIPID, DLDL, CMP #### [facility] [address] [place] [address] Dr. Angel Hernández TSHon 06-29-2022 TSH 3.683 uIU/mL Normal 0.358-3.740 [facility] Comment on above: Performed By: #### T SH, LIPID, DLDL, CMP #### [facility] [address] [address] [address] Angel Hernández COVID-19 Positive/Negativeon 10-05-2020 COVID-19 Positive/Negative Negative Negative [facility] Comment on above: Testing for SARS-CoV -2 by RT-PCRThis test was developed and its performance characteristics determined by [employer] and validated at the [facility]. This test has not been FDA [...] Coronavirus 2019 PCR Interp N/A [facility] Vital Signs Date Time Vital Sign Value Performing Clinician Facility 07-02-2025 08:37-0400 Body height 175.26 cm [employer] Work Phone: [facility] 07-02-2025 08:37-0400 Body mass index (BMI) [Ratio] 33.5 kg/m2 Jonah [employer] DO Work Phone: [facility] 07-02-2025 08:37-0400 Body weight 103.19 kg Jonah [employer] DO Work Phone: [facility] 07-02-2025 08:37-0400 Diastolic blood pressure 74 mm[Hg] [employer] DO Work Phone: [facility] 07-02-2025 08:37-0400 Heart rate 85 /min [employer] DO Work Phone: [facility] 07-02-2025 08:37-0400 Respiratory rate 12 /min Jonah Ball DO Work Phone: [facility] 07-02-2025 08:37-0400 Systolic blood pressure 114 mm[Hg] Jonah Ball DO Work Phone: [facility] 04-23-2025 09:40-0400 Body height 177.8 cm Annette Adams MD Work Phone: [facility] 04-23-2025 09:40-0400 Body mass index (BMI) [Ratio] 32.71 kg/m2 Annette Adams MD Work Phone: [facility] 04-23-2025 09:40-0400 Body weight 103.42 kg Annette Adams MD Work Phone: [facility] 04-23-2025 09:40-0400 Diastolic blood pressure 78 mm[Hg] Annette Adams MD Work Phone: [facility] 04-23-2025 09:40-0400 Systolic blood pressure 122 mm[Hg] Annette Adams MD Work Phone: [facility] 12-29-2024 08:43-0400 Body height 175.26 cm [facility] 12-29-2024 08:43-0400 Body mass index (BMI) [Ratio] 34 kg/m2 [facility] 12-29-2024 08:43-0400 Body weight 104.32 kg [facility] 12-29-2024 08:43-0400 Diastolic blood pressure 80 mm[Hg] [facility] 12-29-2024 08:43-0400 Heart rate 87 /min [facility] 12-29-2024 08:43-0400 Respiratory rate 12 /min [facility] 12-29-2024 08:43-0400 Systolic blood pressure 120 mm[Hg] [facility] 11-17-2024 11:05-0500 Body height 177.8 cm Naa Felder NP Work Phone: [facility] 11-17-2024 11:05-0500 Body mass index (BMI) [Ratio] 32.8 kg/m2 Naa Felder [employer] Work Phone: [facility] 11-17-2024 11:05-0500 Body weight 103.69 kg Naa Felder [employer] Work Phone: [facility] 11-17-2024 11:05-0500 Diastolic blood pressure 84 mm[Hg] Naa Felder [employer] Work Phone: [facility] 11-17-2024 11:05-0500 Systolic blood pressure 138 mm[Hg] Naa Felder [employer] Work Phone: [facility] 10-04-2024 12:29-0500 Body height 175.3 cm Annette Adams MD Work Phone: [facility] 10-04-2024 12:29-0500 Body mass index (BMI) [Ratio] 33.08 kg/m2 Annette Adams MD Work Phone: [facility] 10-04-2024 12:29-0500 Body weight 101.61 kg Annette Adams MD Work Phone: [facility] 08-06-2024 15:42-0400 Body height 175.26 cm [facility] 08-06-2024 15:42-0400 Body mass index (BMI) [Ratio] 33 kg/m2 [facility] 08-06-2024 15:42-0400 Body weight 101.37 kg [facility] 08-06-2024 15:42-0400 Diastolic blood pressure 87 mm[Hg] [facility] 08-06-2024 15:42-0400 Heart rate 89 /min [facility] 08-06-2024 15:42-0400 Respiratory rate 12 /min [facility] 08-06-2024 15:42-0400 Systolic blood pressure 131 mm[Hg] [facility] 06-24-2024 09:19-0400 Body height 175.26 cm [facility] 06-24-2024 09:19-0400 Body mass index (BMI) [Ratio] 33.7 kg/m2 [facility] 06-24-2024 09:19-0400 Body weight 103.53 kg [facility] 06-24-2024 09:19-0400 Diastolic blood pressure 89 mm[Hg] [facility] 06-24-2024 09:19-0400 Heart rate 91 /min [facility] 06-24-2024 09:19-0400 Respiratory rate 16 /min [facility] 06-24-2024 09:19-0400 Systolic blood pressure 130 mm[Hg] [facility] 02-20-2024 09:41-0400 Body height 175.26 cm [facility] 02-20-2024 09:41-0400 Body mass index (BMI) [Ratio] 33.2 kg/m2 [facility] 02-20-2024 09:41-0400 Body weight 102.05 kg [facility] 02-20-2024 09:41-0400 Diastolic blood pressure 88 mm[Hg] [facility] 02-20-2024 09:41-0400 Heart rate 96 /min [facility] 02-20-2024 09:41-0400 Respiratory rate 20 /min [facility] 02-20-2024 09:41-0400 Systolic blood pressure 120 mm[Hg] [facility] 10-22-2023 15:30-0500 Body height 175.26 cm Jonah Ball Other [facility] [employer] Other 10-22-2023 15:30-0500 Body mass index (BMI) [Ratio] 32.16 kg/m2 Jonah Ball Other [employer] [facility] [employer] Other 10-22-2023 15:30-0500 Body weight 98.79 kg Jonah Ball Other [employer] [facility] [employer] Other 10-22-2023 15:30-0500 Diastolic blood pressure 80 mm[Hg] Jonah Ball Other [employer] Other 10-22-2023 15:30-0500 Respiratory rate 12 /min Jonah Ball Other [employer] Other 10-22-2023 15:30-0500 Systolic blood pressure 135 mm[Hg] Jonah Ball Other [employer] Other 06-15-2023 13:30-0400 Body height 175.26 cm Jonah Ball Other [employer] Other 06-15-2023 13:30-0400 Body mass index (BMI) [Ratio] 32.1 kg/m2 Jonah Ball Other [employer] Other 06-15-2023 13:30-0400 Body weight 98.61 kg Jonah Ball Other [employer] Other 06-15-2023 13:30-0400 Diastolic blood pressure 85 mm[Hg] Jonah Ball Other [employer] Other 06-15-2023 13:30-0400 Respiratory rate 12 /min Jonah Ball Other [employer] Other 06-15-2023 13:30-0400 Systolic blood pressure 125 mm[Hg] Jonah Ball Other [employer] Other Encounters Encounter Date Encounter Type Care Provider Facility Start: 07-02-2025 End: 07-02-2025 ambulatory Jonah Clive DO Work Phone: [facility] Work Phone: Start: 07-02-2025 End: 07-02-2025 Patient encounter procedure Jonah Duffy DO -[facility] Work Phone: Start: 07-02-2025 End: 07-02-2025 Patient encounter status Jonah Ball [facility] Start: 06-22-2025 End: 06-22-2025 Refill Annette Adams MD Work Phone: [facility] Comment on above: PBA (pseudobulbar af fect) (Primary Dx) Start: 04-23-2025 End: 04-23-2025 Bamboo flowskirill Adams MD Work Phone: [facility] Start: 04-23-2025 End: 04-23-2025 Bamboo flowskirill Adams MD Work Phone: [facility] Start: 04-23-2025 End: 04-23-2025 Office outpatient visit 25 minutes Annette Adams MD Work Phone: [facility] Comment on above: MCI (mild cognitive impairment) Start: 04-23-2025 End: 04-23-2025 ambulatory ANNETTE ADAMS Not Available Start: 02-23-2025 End: 02-23-2025 Bamboo flowskirill Adams MD Work Phone: [facility] Start: 02-23-2025 End: 02-23-2025 Bamboo flowskirill Adams MD Work Phone: [facility] Start: 02-23-2025 End: 02-23-2025 Office outpatient visit 25 minutes Annette Adams MD Work Phone: [facility] Comment on above: PBA (pseudobulbar af fect) (Primary Dx); MCI (mild cognitive impairment) Start: 02-23-2025 End: 02-23-2025 ambulatory ANNETTE ADAMS Not Available Start: 02-20-2025 End: 02-20-2025 ambulatory [facility] Start: 12-29-2024 End: 12-29-2024 Bamboo flowskirill Adams MD Work Phone: [facility] Start: 12-29-2024 End: 12-29-2024 Bamboo flowsheet Annette Adams MD Work Phone: [facility] Start: 12-29-2024 End: 12-29-2024 ambulatory ANNETTE ADAMS Not Available Start: 12-29-2024 End: 12-29-2024 ambulatory [facility] Work Phone: Start: 12-29-2024 End: 12-29-[address] [facility] Phys[facility] Work Phone: Start: 11-17-2024 End: 11-17-2024 Office outpatient visit 25 minutes Naa Felder [employer] Work Phone: [facility] Comment on above: MCI (mild cognitive impairment) Start: 11-17-2024 End: 11-17-2024 Orders Only Haydee Fuller [employer] Work Phone: [facility] [phone] Comment on above: MCI (mild cognitive impairment) (Primary Dx); Generalized anxiety disorder (CMS/HCC); CALLIE (obstructive sleep apnea) Start: 10-16-2024 End: 10-16-2024 Patient encounter procedure [facility] [address] [facility] Comment on above: Episodic altered shelia reness; Resistant hypertension (CMS/HCC); Generalized anxiety disorder (CMS/HCC); Tinnitus of both ears; Visual disturbances Start: 10-16-2024 End: 10-16-2024 ambulatory NAA FELDER Not Available Start: 10-04-2024 End: 10-04-2024 Bamboo flowsheet Annette Adams MD Work Phone: [facility] Start: 10-04-2024 End: 10-04-2024 Bamboo flowsheet Annette Adams MD Work Phone: [facility] Start: 10-04-2024 Patient encounter status Annette Adams MD Work Phone: [facility] Start: 10-04-2024 End: 10-04-2024 Office outpatient visit 25 minutes Annette Adams MD Work Phone: [facility] Comment on above: MCI (mild cognitive impairment) (Primary Dx) Start: 10-04-2024 End: 10-04-2024 ambulatory ANNETTE ADAMS Not Available Start: 08-28-2024 End: 08-28-2024 ambulatory [facility] Start: 08-06-2024 End: 08-06-2024 ambulatory [facility] Work Phone: Start: 08-06-2024 End: 08-06-[address] [facility] Physician [facility] Work Phone: Start: 06-25-2024 Non-patient / Non-visit [facility] Work Phone: Start: 06-24-2024 End: 06-24-2024 ambulatory [facility] Work Phone: Start: 06-24-2024 End: 06-24-2024 Encounter for general adult medical examination without abnormal findings [facility] Start: 06-24-2024 End: 06-24-[address] [facility] Phys[facility] Work Phone: Start: 06-20-2024 Patient encounter status [facility] Start: 06-09-2024 End: 06-09-2024 ambulatory [facility] Start: 02-29-2024 End: 02-29-2024 ambulatory [facility] Start: 02-20-2024 End: 02-20-2024 ambulatory [facility] Work Phone: Start: 02-20-2024 End: 02-20-[address] [facility] Physician [facility] Work Phone: Start: 12-17-2023 Non-patient / Non-visit [facility] Phys[facility] Work Phone: Start: 11-14-2023 End: 11-14-2023 ambulatory [facility] Other [employer] Other Start: 11-14-2023 Telephone encounter Jonah Duffy [facility] Start: 11-13-2023 End: 11-13-2023 ambulatory Jonah Duffy Other [employer] Other Start: 11-13-2023 Telephone encounter Jonah Duffy [facility] Start: 11-06-2023 End: 11-06-2023 ambulatory Jonah Duffy Other [employer] Other Start: 11-06-2023 Telephone encounter Jonah Duffy [facility] Start: 10-22-2023 End: 10-22-2023 ambulatory Jonah Duffy Other [employer] Other Start: 10-22-2023 Office outpatient vi sit 25 minutes Jonah Clive [facility] Start: 09-05-2023 End: 09-05-2023 ambulatory Jonah Duffy Other [employer] Other Start: 09-05-2023 Telephone encounter Jonah Duffy [facility] Start: 07-18-2023 End: 07-18-2023 ambulatory Jonah Duffy Other [employer] Other Start: 07-18-2023 Telephone encounter Jonah Ball [facility] Start: 07-16-2023 End: 07-17-2023 ambulatory JONAH PASCUAL [facility] Start: 06-29-2023 End: 06-29-2023 ambulatory Jonah Duffy Other [employer] Other Start: 06-29-2023 Telephone encounter Jonah Ball [facility] Start: 06-19-2023 End: 06-19-2023 ambulatory Jonah Ball Other [employer] Other Start: 06-19-2023 Telephone encounter Jonah Ball [facility] Start: 06-15-2023 End: 06-15-2023 ambulatory Jonah Duffy Other [employer] Other Start: 06-15-2023 Encounter for genera l adult medical examination without abnormal findings Jonah Duffy [facility] Start: 06-15-2023 Periodic preventive med est patient 40-64yrs Jonah Duffy [facility] Start: 06-11-2023 End: 06-11-2023 ambulatory Jonah Duffy Other [employer] Other Start: 06-11-2023 Encounter for genera l adult medical examination without abnormal findings Jonah Duffy [facility] Start: 06-11-2023 Telephone encounter [facility] Start: 03-09-2023 End: 03-09-2023 ambulatory Jonah Duffy Other [employer] Other Start: 03-09-2023 Telephone encounter [facility] Start: 08-30-2022 End: 08-31-[address] JONAH DUFFY Facility:[facility] Start: 07-02-2022 Encounter for genera l adult medical examination without abnormal findings DR JONAH DUFFY [facility] Start: 06-29-2022 End: 06-30-[address] JONAH DUFFY Facility:[facility] Start: 06-29-2022 End: 06-30-2022 Encounter for general adult medical examination without abnormal findings DR JONAH DUFFY Facility:[facility] Start: 06-12-2022 Adult health examination Jonah Duffy Other [employer] Other Start: 10-05-2020 End: 10-05-2020 Patient encounter procedure Jonah Duffy -Pre-Surgical Testing Procedures Date Procedure Procedure Detail Performing Clinician Start: 07-16-2023 CT CARDIAC SCORING W O IV CONTRAST JONAH DUFFY Start: 06-29-[address] MANUEL DUFFY Comment on above: Performed By: #### P [facility] #### [facility] [address] [place] [address] Dr. Angel Hernández Start: 08-23-2017 End: 06-12-2022 Hypertension screening Jonah Duffy Other Start: 04-21-2014 End: 06-12-2022 General examination of patient Jonah Duffy Other Depression screening Henry Duffy Other Plan of Treatment Date Care Activity Detail Author Start: 06-15-2025 Influenza vaccination [facility] Start: 04-23-2025 End: 04-23-2025 Patient encounter procedure [facility] Comment on above: Arrived Start: 02-23-2025 End: 02-23-2025 Patient encounter procedure 02/23/2025 11:20 AM EDT Office Visit [facility] [address] [place] [address] Annette Adams MD [address] [place] [address] Arrived [facility] Comment on above: Arrived Start: 12-29-2024 End: 12-29-2024 Patient encounter procedure [facility] Comment on above: Arrived Start: 11-17-2024 End: 11-17-2024 Patient encounter procedure 11/17/2024 10:50 AM EST Office Visit [facility] [address] [facility] [address] [place] [address] Naa Felder, [employer] [address], [address] [place] [id number] [facility] Start: 10-23-2024 End: 10-23-2024 Patient encounter procedure 10/23/2024 11:00 AM EST Office Visit [facility] [address] [address] [facility] Start: 10-07-2024 End: 10-04-2025 Brain Mapping Brain Mapping Neurology Routine MCI (mild cognitive impairment) Expected: 10/07/2024 (Approximate), Expires: 10/04/2025 [facility] Work Phone: Comment on above: Expected: 10/07/2024 (Approximate), Expires: 10/04/2025 Start: 10-04-2024 End: 10-04-2024 Patient encounter procedure 10/04/2024 12:30 PM EST Office Visit [facility] [address] [place] [address] Annette Adams MD [address] [facility] [address] [place] [id number] Arrived [facility] Comment on above: Arrived Start: 06-15-2024 Influenza vaccination Influenz a Vaccine (#1) [facility] Start: 1960 Screening for malign ant neoplasm of colon [facility] Brain Mapping Brain Mapping Neurology Routine Episodic altered awareness 10/16/2024 2:38 PM EST [facility] Work Phone: Comprehensive metabo lic 1999 panel - Serum or Plasma [facility] Comprehensive metabo lic 1999 panel - Serum or Plasma [facility] Immunizations Immunization Date Immunization Notes Care Provider Fa cility 07-20-2020 influenza virus vaccine, unspecified formulation Annette Adams MD Work Phone: [facility] 08-17-2016 tetanus and diphther ia toxoids, adsorbed, preservative free, for adult use (5 Lf of tetanus toxoid and 2 Lf of diphtheria toxoid) Jonah Duffy Other [facility] Payers Date Payer Category Payer Private Health Insurance [employer] [id number] 2024 Unknown [id number] 1960 Unknown [id number] 593 1961 Unknown [id number] [id number]. 593 1961 Unknown [id number]. 1259 1961 Unknown [id number]. 1259 1961 Unknown [id number]. 1259 1961 Unknown [id number]. 1259 1961 Unknown [id number] [id number]. 1259 1961 Unknown [id number] [id number]. 1259 1959 Unknown [id number] Self-pay Self Pay [id number] Unknown [id number] Unknown [id number] Social History Date Type Detail Facility Tobacco smoking status WIIS Unknown if ever smoked [facility] Start: 1960 Sex Assigned At Male [facility] Start: 10-04-2024 End: 04-23-2025 Sex Assigned At [facility] [email or web address] Other Start: 10-11-2020 End: 10-04-2024 Tobacco smoking status WIIS Never smoked tobacco (finding) [facility] Tobacco smoking status [facility] Tobacco smoking consumption unknown [facility] Start: 1960 Sex assigned at Not on file [facility] Start: 10-04-2024 Tobacco use and exposure Smokeless tobacco non-user [facility] Start: 10-04-2024 End: 04-23-2025 Alcoholic beverage intake Current drinker of alcohol (finding) [facility] Start: 10-04-2024 End: 04-23-2025 History of Social function [facility] Start: 12-29-2024 Sex Male (finding) [facility] Goals Date Patient Goal Desired Activity /State Clinical Notes 06-11-2023 to 04-23-2025 Annette Adams MD - 04/23/2025 9:30 AM Alton Adams MD - 02/23/2025 11:20 AM Yany Fuller NP - 11/17/2024 4:54 PM Crissy Clayton - 10/16/2024 3:00 PM EST Note Date & Type Note Facility 04-23-2025 History of Present illness Narrative Images from the original note were not included. CHIEF COMPLAINT REASON FOR VISIT : a follow up to PBA and mild cognitive impairment. Subjective Remigio Min is a 64 y.o. male who presents for MCI and PBA History of Present Illness The patient presents for memory issues, sleep apnea, and shortness of breath. His reports that he has been experiencing both good and bad days. His sleep pattern is generally stable, with no reported irritability. However, he exhibits restlessness, often choosing to sit on the floor rather than the couch. He does not express any discomfort or pain. Occasionally, he experiences shortness of breath, which is attributed to his weight. He prefers staying at home, except for dining out. He enjoys spending time on the front porch and watching TV. His notes that he seems to have anticipated his current condition, as he retired early due to memory issues. He is capable of performing household tasks but lacks motivation. His participation in activities is inconsistent; sometimes he engages in conversation and other times he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 note* Encounter Date Diagnosis Assessment Notes Treatment Notes Treatment Clinical Notes May, Wellness examination (ICD-10 - Z00.00) [facility] Other Evaluation noteNo [employer] Other Evaluation note* Diagnosis Onset Date Resolution Status Elevated cholesterol acute Elevated coronary artery calcium score acute Hypertension acute CALLIE (obstructive sleep apnea) acute [facility] Work Phone: Evaluation note* Diagnosis Onset Date Resolution Status Benign prostatic hyperplasia with lower urinary tract symptoms acute Elevated cholesterol acute Elevated coronary artery calcium score acute Erectile dysfunction acute Hypertension acute Obesity acute CALLIE (obstructive sleep apnea) acute Screening PSA (prostate specific antigen) acute Wellness examination acute [facility] Work Phone: Evaluation note* Diagnosis MCI (mild cognitive impairment)- Primary Mild cognitive impairment, so stated [facility] Diagnosis Episodic altered awareness Resistant hypertension (CMS/HCC) Generalized anxiety disorder (CMS/HCC) Generalized anxiety disorder Tinnitus of both ears Unspecified tinnitus Visual disturbances Unspecified visual disturbance [facility] Diagnosis MCI (mild cognitive impairment) Mild cognitive impairment, so stated [facility] Diagnosis MCI (mild cognitive impairment)- Primary Mild cognitive impairment, so stated Generalized anxiety disorder (CMS/HCC) Generalized anxiety disorder CALLIE (obstructive sleep apnea) Obstructive sleep apnea (adult) (pediatric) [facility] Diagnosis Onset Date Resolution Status Admit Date Elevated cholesterol acute Jeffrey 2024 8:28am Elevated coronary artery audie cium score acute December 29, 2024 8:28am Excessive drinking alcohol acute December 29, 2024 8:28am Family history of dementia acute December 29, 2024 8:28am Hypertension acute December 29, 2024 8:28am MCI (mild cognitive impairment) acut e December 29, 2024 8:28am Obesity acute December 29 8:28am CALLIE (obstructive sleep apnea) acute December 29, 2024 8:28am [facility] Work Phone: Evaluation note* Diagnosis PBA (pseudobulbar affect)- Primary 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 MCI (mild cognitive impairment) Mild cognitive impairment, so stated [facility] Diagnosis MCI (mild cognitive impairment) Mild cognitive impairment, so stated [facility] Diagnosis PBA (pseudobulbar affect)- Primary 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 [facility] Diagnosis Onset Date Resolution Status Admit Date Alzheimer's dementia acute Jun 8:24am Elevated cholesterol acute Jun 8:24am Elevated coronary artery calcium score acute July 02, 2025 8:24am Excessive drinking alcohol acute July 02, 2025 8:24am Family history of dementia acute July 02, 2025 8:24am Hypertension acute July 022024 8:24am Obesity acute June 8:24am CALLIE (obstructive sleep apnea) acute July 02, 2025 8:24am Screening PSA (prostate specific antigen) acute June 8:24am Wellness examination acute Jun 8:24am [facility] Work Phone: History general Narrative - Reported* Type Description Date Medical History Dysphagia, unspecified Medical History Esophageal obstruction Medical History Schatzki's ring Medical History Essential hypertension Medical History External hemorrhoids Medical History Adenomatous polyp of descending colon Surgical History COLONOSCOPY Surgical History EGD W/ DILATATION 2015 Hospitalization History SEE SURGICAL HX [facility] Other History general Narrative - Reported* Type Description Date Medical History Dysphagia, unspecified Medical History Esophageal obstruction Medical History Schatzki's ring Medical History Essential hypertension Medical History External hemorrhoids Medical History Adenomatous polyp of descending colon Surgical History COLONOSCOPY (repeat 2024) 2019 Surgical History EGD W/ DILATATION 2015 Hospitalization History SEE SURGICAL HX [facility] Other Reason for referral (narrative)* Reason Referral for an abno rmal stress test. Diagnosis 1 Family history of pr emature CAD (Z82.49) Referral Organization [facility] sandrita Referring Provider First Name Jonah Referring Provider Last Name Clive Referring Provider Specialty Internal Mi dicine Referred Organization [facility] Referred Provider Dileep Ivy V Referred Address [address], [place],[address] Referred Provider Specialty Cardiovascul ar Disease Referral [...] NM imaging report and treadmill test dictation) [facility] Other Reason for referral (narrative)No reason for [facility] Advance Directives Advance Directive Response Recorded Date/ Time Advance Directives No September 4:44pm Advance Directive Response Recorded Date/ Time Advance Directives No September 5:44pm Chief Complaint and Reason for Visit Chief Complaint Schadorykis Ring,Fam H x Colon Cancer Chief Complaint Amb [...] Screening PSA (prostate specific antigen) Wellness examination Chief Complaint Wellness medical concerns, memory, sleeps a lot Reason for Visit Benign prostatic hyp erplasia with lower urinary tract symptoms Elevated cholesterol Elevated coronary artery calcium score Erectile dysfunction Hypertension Obesity CALLIE (obstructive sleep apnea) Screening PSA (prostate specific antigen) Wellness examination Chief Complaint Admit Date 6 month f/u December 29, 2024 8:2 8am Reason for Visit Admit Date Elevated cholesterol December 29, 2024 8: 28am Elevated coronary artery calcium score M arch 2024 8:28am Excessive drinking alcohol December 29 8:28am Family history of dementia December 29 8:28am Hypertension December 29, 2024 8:2 8am MCI (mild cognitive impairment) December 292024 8:28am Obesity December 29, 2024 8:2 8am CALLIE (obstructive sleep apnea) December 8:28am Chief Complaint Admit Date Wellness July 02, 2025 8:24am Reason for Visit Admit Date Alzheimer's dementia July 02 8:24am Elevated cholesterol July 02 8:24am Elevated coronary artery calcium score S eptember 2024 8:24am Excessive drinking alcohol June 8:24am Family history of dementia June 8:24am Hypertension July 02, 2025 8:24am Obesity July 02, 2025 8:24am CALLIE (obstructive sleep apnea) July 02, 2025 8:24am Screening PSA (prostate specific antigen ) July 02, 2025 8:24am Wellness examination July 02 8:24am Assessments No Assessments Information Available Summary Purpose [...] Records FoundNo Status Records FoundNo Status Records FoundNo Status Records Found INFORMATION SOURCE (unrecogn ized section and content) DATE CREATED AUTHOR 09/02/2022 [facility] DATE CREATED AUTHOR AUTHOR'S ORGANIZ ATION 07/21/2023 [facility] DATE CREATED AUTHOR AUTHOR'S ORGANIZ ATION 02/22/2025 [facility] DATE CREATED AUTHOR AUTHOR'S ORGANIZ ATION 04/27/2025 [facility] EPIC REASON FOR VISIT (unrecogniz ed section and content) Reason Comments Memory Loss MCI Reason Comments Brain Map Specialty Diagnoses / Procedures Referred By Contac t Referred To Contact Neurology Diagnoses MCI (mild cognitive impairment) Procedures Brain Mapping Annette Adams MD [address] [place] [address] Phone: tel: fax: Annette Adams MD [address] [place] [address] Phone: tel: fax: Referral ID Status Reason Start Date Expiration Date Visits Re quested Visits Authorized [id number] Closed 10/07/2024 04/05/2025 1 1 Reason Comments New Med Request Care Teams (unrecognized sec tion and content) Team Status: Active Member Role Status Dates Jonah Duffy DO Primary Care Provider Active Team Status: Inactive Member Role Status Dates Jonah Duffy DO Primary Care Provide r, Attending Provider Active Start: June 24, 2024 End: June 24, 2024 Team Status: Active Member Role Status Dates Jonah Duffy DO Primary Care Provider Active Start: December 17, 2023 Sonia Mike , RMA Attending Provider Active Start : December 17, 2023 Team Status: Inactive Member Role Status Dates Jonah Duffy DO Primary Care Provide r, Attending Provider Active Start: February 20, 2024 End: February 20, 2024 Team Status: Active Member Role Status Dates Jonah Duffy DO Primary Care Provide r, Attending Provider Active Start: June 25, 2024 Team Status: Inactive Member Role Status Dates Jonah Duffy DO Primary Care Provide r, Attending Provider Active Start: August 06, 2024 End: August 06, 2024 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 Relationship Specialty Start Date End Date Jonah Duffy MD [address] [place] [id number] PCP - General Internal Medicine 01/07/24 Rosalee Ragsdale DO [address] [place] [address] Referring Physician Neurology 01/02/24 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 Relationship Specialty Start Date End Date Jonah Duffy MD [address] [place] [id number] PCP - General Internal Medicine 01/07/24 Rosalee Ragsdale DO [address] [place] [address] Referring Physician Neurology 01/02/24 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 Relationship Specialty Start Date End Date Jonah Duffy MD [address] [place] [phone] PCP - General Internal Medicine 01/07/24 Rosalee Ragsdale DO [address] [place] [address] Referring Physician Neurology 01/02/24 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 Relationship Specialty Start Date End Date Jonah Duffy MD [address] [place] [address] PCP - General Internal Medicine 01/07/24 Rosalee Ragsdale DO [address] [place] [address] Referring Physician Neurology 01/02/24 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 Relationship Specialty Start Date End Date Jonah Duffy MD [address] [place] [address] PCP - General Internal Medicine 01/07/24 Rosalee Ragsdale DO [address] [place] [address] Referring Physician Neurology 01/02/24 Team Status: Inactive Member Role Status Dates Jonah Duffy DO Primary Care Provide r, Attending Provider Active Start: December 29, 2024 End: December 29, 2024 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 Relationship Specialty Start Date End Date Jonah Duffy MD [address] [place] [address] PCP - General Internal Medicine 01/07/24 Rosalee Ragsdale DO [address] [place] [address] Referring Physician Neurology 01/02/24 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 Relationship Specialty Start Date End Date Jonah Duffy DO PCP - General Internal Medicine 01/07/24 Rosalee Ragsdale DO [address] [place] [address] Referring Physician Neurology 01/02/24 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 Relationship Specialty Start Date End Date Jonah Duffy DO PCP - General Internal Medicine 01/07/24 Rosalee Ragsdale DO [address] [place] [address] Referring Physician Neurology 01/02/24 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 Relationship Specialty Start Date End Date Jonah Duffy DO PCP - General Internal Medicine 01/07/24 Rosalee Ragsdale DO [address] [place] [address] Referring Physician Neurology 01/02/24 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 Relationship Specialty Start Date End Date Jonah Duffy DO PCP - General Internal Medicine 01/07/24 Rosalee Ragsdale DO [address] [place] [address] Referring Physician Neurology 01/02/24 Team Status: Inactive Member Role Status Dates Jonah Duffy DO Primary Care Provider Active Start: July 02, 2025 End: July 02, 2025 Jonah Duffy DO Attending Provider Active Sta rt: July 02, 2025 End: July 02, 2025 Goals (unrecognized section and content) Goals may [...] BE BASED ON THE PRIMARY CLINICAL RECORDS. [facility] [facility]. provides no warranty or guarantee of the accuracy or completeness of information in this document.
--- NOTE | 2025-07-20 08:00 | CA_ITS ---
Patient Name: IRVING FRAGOSO MR#: [id number] : 1960 Exam Date: 07/20/2025 Ordering Doctor: DR ANALISA RIBERA D.O. ECHOCARDIOGRAM REPORT PROCEDURE: CA ECHO DOPPLER COMPLETE INDICATIONS: Dyspnea, heart murmur, hypertension COMPARISON: None. DESCRIPTION: COMPLETE ECHOCARDIOGRAM Real-time transthoracic echocardiography with 2D, M-mode, spectral and color flow Doppler performed. QUALITY: Technical quality was good. LEFT VENTRICLE: Normal chamber size. Mild concentric left ventricular hypertrophy. Normal systolic function. Estimated left ventricular ejection fraction is 65%. LV EF: Normal left ventricular ejection fraction, (>55%). DIASTOLIC: Normal diastolic function. ATRIAL SEPTUM: LEFT ATRIUM: Normal chamber size. RIGHT ATRIUM: Normal chamber size. RIGHT VENTRICLE: Normal chamber size. Normal right ventricular systolic function. TRICUSPID VALVE: Normal mobility and thickness. No stenosis with trivial regurgitation. Unable to assess right-sided pressures due to lack of measurable tricuspid regurgitation. MITRAL VALVE: Normal mobility and thickness. No evidence of mitral valve stenosis. There is no mitral annular calcification. No mitral regurgitation. AORTIC VALVE: Normal trileaflet appearance. No visible sclerosis. Normal leaflet mobility. No evidence of aortic valve stenosis. No aortic regurgitation. AORTIC ROOT: Normal diameter and appearance, measuring 3.1 cm. Ascending aorta is normal in size, measuring 2.8 cm. PULMONIC VALVE: Normal thickness and mobility. No stenosis. Mild regurgitation. PERICARDIUM: No evidence of pericardial effusion. IVC: Not well visualized. PLEURA: CONCLUSION: 1. Mild concentric ventricular hypertrophy with normal systolic function. Estimated LVEF is 65%. 2. Normal right ventricular size and systolic function. 3. Normal diastolic function. 4. No significant valvular dysfunction. 5. Unable to assess right-sided pressures due to lack of measurable tricuspid regurgitation. Adult Echocardiography Procedure Report Left Ventricle LVEDD (3.7 - 5.6 cm): 3.45 cm LVESD (2.2 - 4.0 cm): 2.47 cm LVIVS thickness (0.6 - 1.2 cm): 1.20 cm LVPW thickness (0.5 - 1.0 cm): 1.15 cm e': 0.11 m/s E - e': 6.19 LVOT Max Gradient: 4.31 mm[Hg] LVOT Area (cm2): 1.04 m/s Peak Velocity (LVOT): 1.04 m/s Mean Velocity (LVOT): 0.70 m/s LVOT Diameter 2.17 cm Left Ventricular Ejection Fraction: 65 % Left Atrium LA Volume Index (2D A2C): 27.56 ml/m2 Left Atrium Systolic Dimension: 3.74 cm Mitral Valve MV E to A Ratio: 0.96 Mitral Valve A-Wave Peak Velocity: 0.70 m/s Mitral Valve E-Wave Peak Velocity: 0.67 m/s Right Ventricle Aorta AO Root Diam: 3.06 cm Ascending Ao Diam: 2.78 cm Aortic Valve AoV Area (Peak Jared): 3.92 cm2, 3.92 cm2 AoV Area (VTI): 4.44 cm2, 4.44 cm2 Peak Velocity(Antegrade Flow): 0.98 m/s Peak Gradient(Antegrade Flow): 3.86 mm[Hg] Mean Velocity(Antegrade Flow): 0.63 m/s Mean Gradient(Antegrade Flow): 1.88 mm[Hg] Velocity Time Integral: 17.14 cm Tricuspid Valve Pulmonic Valve Peak Velocity: 1.09 m/s Peak Gradient: 4.75 mm[Hg] Right Atrium Right Atrium Systolic Pressure: 45.81 ml, 45.81 ml Dictated by: Dileep Ivy M.D. on 07/20/2025 at 13:13 Approved by: Dileep Ivy M.D. on 07/20/2025 at 13:17
--- NOTE | 2025-07-20 08:03 | XR_ITS ---
The [address] [address] Patient Name: IRVING FRAGOSO MRN: [id number] date: 1960 Sex: M Assigned Patient Location: CARD Current Patient Location: CARD Accession/Order Number: [id number] Exam Date: 07/20/2025 07:58 Report Date: 07/20/2025 08:12 At the request of: ANALISA RIBERA DO Procedure: XR chest 2V Chest 2 views CLINICAL HISTORY: Dyspnea COMPARISON: None FINDINGS: Heart normal in size. Elevation right hemidiaphragm. No consolidation pneumothorax pleural effusion or free air. XR/XR chest 2V IMPRESSION: NO ACUTE CARDIOPULMONARY ABNORMALITY. Impression dictated by: Petar Lee Jr. DBillOBill 07/20/2025 8:12 AM Dictation Location: [facility] Electronically authenticated by: [id number] Date: 07/20/2025 08:12
== END 2025-07-20 07:52 | disposition home or self-care (01) ==
LOC: CARD 07:51
PROVIDERS: PCP Internal Medicine; Visit Provider Internal Medicine
DX: R06.00 Dyspnea, unspecified (principal); R01.1 Cardiac murmur, unspecified
CPT/HCPCS: 71046; 93306

== ENCOUNTER 2025-07-23 10:39 | Outpatient (OUT) | payer OTHER, SELFPAY ==
--- OUTSIDE RECORDS SUMMARY | 2025-07-23 10:52 | XMS_ITS | CCD ---
Author Organization [facility] Care Team Providers Care Case Maker Name Role Phone Jonah Duffy Primary Care Provider [phone] Dash Gregory Attending Provider [phone] CLIVE, DR HAUSER Consulting Unavailable CLIVE, DR [...] physicia Propensity to adverse reactions 8 Comment:Done [employer] Other (1 source) ALLERGIES NOT ON FILE; Translations: [ALLERGIES NOT ON FILE] Propensity to adverse reactions (disorder) [facility] Medications Current Medications Medication Drug [...] hydrochloride 5 mg oral tablet (14 sources) T-abctzq-V-aspartate Receptor Antagonist Start: 12-29-2024 End: 12-24-2025 take [...] Coronary atherosclerosis; Translations: [Atherosclerotic heart disease of [place] coronary artery without angina pectoris] Onset: 02-20-2025 [...] Range Facility Office Visiton 02-20-2025 Follow-up visit [id number] Remigio Min 1960 M Date Provider Department Center 02/20/2025 [id number] BRADSHAW [facility] Timmy [facility] Family History Problem Relation Age of Onset Diabetes Mother Heart failure Mother Kidney disease Mother Heart attack Father 42 Family Status - Relation Status Age at Mother Father Level of Service:78179 [place] OFFICE/OUTPATIENT ESTABLISHED MOD MDM 30 MIN Reason for Visit and Comments: Hypertension [002916] - No recent labs/imaging. coronary artery calcification [Other] Shortness of Breath [615953] - says he gets winded with stairs but patient denies this. He denies cardiac symptoms of any kind at this time. Normal [facility] Office Visiton 08-28-2024 Follow-up visit [id number] Remigio Mni 1960 M Date Provider Department Center 08/28/2024 Billy-MAYELA YAO Timmy [facility] Family History Problem Relation Age of Onset Diabetes Mother Heart failure Mother Kidney disease Mother Heart attack Father 42 Family Status - Relation Status Age at Mother Father Level of Service:67174 [place] OFFICE/OUTPATIENT ESTABLISHED LOW MDM 20 MIN Normal [facility] Basophils Auto (Bld) [#/Vol] on 06-25-2024 Basophils (Bld) [#/Vol] 0.1 10 3/uL 0.0-0.1 [facility] Basophils/100 WBC Auto (Bld) on 06-25-2024 Basophils/100 WBC (Bld) 1.2 % 0.2-2.0 [facility] Cholesterol in LDL Calc [Mas s/Vol]on 06-25-2024 Cholesterol in LDL [Mass/Vol] 64.0 mg/dL [facility] Comment on above: <100 mg/dl [id number] 0-129 mg/dl NEAR OR ABOVE [id number] mg/dl BORDERLINE [id number] mg/dl HIGH>190 mg/dl VERY HIGH Cholesterol in VLDL Calc [Ma ss/Vol]on 06-25-2024 Cholesterol in VLDL [Mass/Vol] 45.4 mg/dL [facility] Eosinophils/100 WBC Auto (Bl d)on 06-25-2024 Eosinophils/100 WBC (Bld) 2.7 % 0.9-7.0 [facility] Erythrocyte distribution wid th Auto (RBC) [Ratio]on 06-25-2024 Erythrocyte distribution width (RBC) [Ratio] 12.3 % 11.0-15.0 [facility] Estimated glomerular filtrat ion rate (GFR) non- Americanon 06-25-2024 GFR/1.73 sq M.predicted among non-blacks MDRD (S/P/Bld) [Vol rate/Area] mL/min/{1.73_m2} >=60 [facility] Globulin Calc (S) [Mass/Vol] on 06-25-2024 Globulin (S) [Mass/Vol] 3.5 g/dL [facility] Hematocrit Auto (Bld) [Volum e fraction]on 06-25-2024 Hematocrit (Bld) [Volume fraction] 47.6 % 42.0-54.0 [facility] Hemoglobin [Mass/volume] in Bloodon 06-25-2024 Hemoglobin (Bld) [Mass/Vol] 16.3 g/dL 14.0-18.0 [facility] Laboratory - Chemistry and C hemistry - challengeon 06-25-2024 Albumin [Mass/Vol] 3.6 g/dL 3.4-5.0 [facility] ALP [Catalytic activity/Vol] 29 U/L Low 46-116 [facility] ALT [Catalytic activity/Vol] 45 U/L 16-63 [facility] AST [Catalytic activity/Vol] 19 U/L 15-37 [facility] Bilirubin [Mass/Vol] 0.7 mg/dL 0.2-1.0 [facility] Calcium [Mass/Vol] 9.2 mg/dL 8.5-10.1 [facility] Chloride [Moles/Vol] 104 mmol/L 98-107 [facility] Cholesterol [Mass/Vol] 148 mg/dL <=200 [facility] Cholesterol in HDL [Mass/Vol] 39 mg/dL Low 40-60 [facility] Comment on above: > or =60 mg/dl - LOW CARDIOVASCULAR RISK<40 mg/dl - HIGH CARDIOVASCULAR RISK CO2 [Moles/Vol] 28.5 mmol/L 21.0-32.0 [facility] Creatinine [Mass/Vol] 0.96 mg/dL 0.70-1.30 [facility] GFR/1.73 sq M.predicted MDRD (S/P/Bld) [Vol rate/Area] mL/min/{1.73_m2} >=60 [facility] Glucose [Mass/Vol] 117 mg/dL High 74-106 [facility] Potassium [Moles/Vol] 4.3 mmol/L 3.5-5.1 [facility] Protein [Mass/Vol] 7.1 g/dL 6.4-8.2 [facility] Sodium [Moles/Vol] 139 mmol/L 136-145 [facility] Triglyceride [Mass/Vol] 227 mg/dL High <=150 [facility] Urea nitrogen [Mass/Vol] 16.0 mg/dL 7.0-18.0 [facility] Urea nitrogen/Creatinine [Mass ratio] 16.7 mg/mg [facility] Laboratory - Hematology and Cell countson 06-25-2024 Immature granulocytes/100 WBC (Bld) 0.2 % 0.0-0.5 [facility] Leukocytes [#/volume] correc jeremi for nucleated erythrocytes in Blood by Automated counon 06-25-2024 WBC corrected for nucl RBC Auto (Bld) [#/Vol] 5.9 10 3/uL 4.0-11.0 [facility] Lymphocytes Auto (Bld) [#/Vo l]on 06-25-2024 Lymphocytes (Bld) [#/Vol] 1.6 10 3/uL 1.2-3.8 [facility] Lymphocytes/100 WBC Auto (Bl d)on 06-25-2024 Lymphocytes/100 WBC (Bld) 27.5 % 20.5-60.0 [facility] MCH Auto (RBC) [Entitic mass ]on 06-25-2024 MCH (RBC) [Entitic mass] 30.8 pg 25.9-34.0 [facility] MCHC Auto (RBC) [Mass/Vol]on 06-25-2024 MCHC (RBC) [Mass/Vol] 34.2 g/dL 29.9-35.2 [facility] MCV Auto (RBC) [Entitic vol] on 06-25-2024 MCV (RBC) [Entitic vol] 90.0 fL 80.0-94.0 [facility] Monocytes Auto (Bld) [#/Vol] on 06-25-2024 Monocytes (Bld) [#/Vol] 0.6 10 3/uL 0.3-0.8 [facility] Monocytes/100 WBC Auto (Bld) on 06-25-2024 Monocytes/100 WBC (Bld) 10.1 % 1.7-12.0 [facility] Neutrophils Auto (Bld) [#/Vo l]on 06-25-2024 Neutrophils (Bld) [#/Vol] 3.5 10 3/uL 1.4-6.5 [facility] Neutrophils/100 WBC Auto (Bl d)on 06-25-2024 Neutrophils/100 WBC (Bld) 58.3 % 43.0-75.0 [facility] No Panel Informationon 06-25 Eosinophils # (Auto) 0.2 10 3/uL 0.0-0.7 [facility] Immature Granulocyte # (Auto) 0.01 10 3/uL 0.00-0.03 [facility] Prostate Specific Antigen Screen 1.61 ng/mL <=4.00 [facility] Platelet mean volume Auto (B ld) [Entitic vol]on 06-25-2024 Platelet mean volume (Bld) [Entitic vol] 9.3 fL Low 9.5-13.5 [facility] Platelets Auto (Bld) [#/Vol] on 06-25-2024 Platelets (Bld) [#/Vol] 254 10 3/uL 150-450 [facility] RBC Auto (Bld) [#/Vol]on RBC (Bld) [#/Vol] 5.29 10 6/uL 4.70-6.10 [facility] Serum or plasma albumin/glob ulin mass ratioon 06-25-2024 Albumin/Globulin [Mass ratio] 1.0 {ratio} [facility] Serum or plasma anion gap de terminationon 06-25-2024 Anion gap [Moles/Vol] 10.8 mmol/L [facility] Serum or plasma total choles terol/high density lipoprotein (HDL) cholesterol mass latha 06-25-2024 Cholesterol.total/Ch olesterol in HDL [Mass ratio] 3.8 {ratio} [facility] Comment on above: 3.3 - 4.4 LOW RISK4. 4 - 7.1 AVERAGE RISK7.1 - 11.0 MODERATE RISK>11.0 HIGH [facility]ISK Office Visiton 06-09-2024 Follow-up visit [id number] Remigio Min 1960 M Date Provider Department Center 06/09/2024 Mariela8-MAYELA YAO RAFI Warner [facility] Family History Problem Relation Age of Onset Diabetes Mother Heart failure Mother Kidney disease Mother Heart attack Father 42 Family Status - Relation Status Age at Mother Father Level of Service:53993 [place] OFFICE/OUTPATIENT ESTABLISHED LOW MDM 20 MIN Normal [facility] Office Visiton 02-29-2024 Follow-up visit [id number] Remigio Min 1960 M Date Provider Department Center 02/29/2024 3848-MAYELA YAO PABLO MCKEE [facility] Family History Problem Relation Age of Onset Diabetes Mother Heart failure Mother Kidney disease Mother Heart attack Father 42 Family Status - Relation Status Age at Mother Father Level of Service:99839 [place] OFFICE/OUTPATIENT ESTABLISHED LOW MDM 20 MIN Normal [facility] CT CARDIAC SCORING WO IV CON TRASTon 07-16-2023 CT CARDIAC SCORING WO IV CONTRAST Interpreted By: Eliezer Bazan, STUDY: CT CARDIAC SCORING WO IV CONTRAST; 07/16/2023 11:29 am INDICATION: Signs/Symptoms:FAMILY HISTORY OF ISCHEMIC HEART DISEASE. COMPARISON: None. ACCESSION NUMBER(S): [id number] ORDERING CLINICIAN: JONAH DUFFY TECHNIQUE: Using prospective [...] Eliezer Bazan 07/16/2023 4:52 PM Dictation workstation: [id number] [facility] DIRECT LDLon 08-30-2022 Cholesterol in LDL [Mass/Vol] 81 mg/dL Normal [facility] Comment on above: Performed By: #### D LDL, ALT #### [facility] [address] [place] [address] Dr. Angel Hernández DLDL NORMAL SEE BELOW Normal [facility] Comment on above: Result Comment: <100 mg/dl OPTIMAL 100 - 129 mg/dl NEAR OR ABOVE OPTIMAL 130 - 159 mg/dl BORDERLINE HIGH 160 - 189 mg/dl HIGH >190 mg/dl VERY HIGH Performed By: #### D LDL, ALT #### [facility] [address] [place] [address] Dr. Angel Hernández SGPTon 08-30-2022 ALT [Catalytic activity/Vol] 53 U/L Normal 16-63 [facility] Comment on above: Performed By: #### D LDL, ALT #### [facility] [address] [place] [address] Dr. Angel Hernández CBC AUTO DIFFon 06-29-2022 BASO # 0.1 103/ul Normal 0.0-0.1 [facility] Comment on above: Performed By: #### C BC #### [facility] [address] [place] [address] Dr. Angel Hernández Basophils/100 WBC (Bld) 1.0 % Normal 0.2-2.0 [facility] Comment on above: Performed By: #### C BC #### [facility] [address] [place] [address] Dr. Angel Hernández EO # 0.2 103/ul Normal 0.0-0.7 [facility] Comment on above: Performed By: #### C BC #### [facility] [address] [place] [address] Dr. Angel Heránndez Eosinophils/100 WBC (Bld) 4.7 % Normal 0.9-7.0 [facility] Comment on above: Performed By: #### C BC #### [facility] [address] [place] [address] Dr. Angel Hernández Erythrocyte distribution width (RBC) [Ratio] 12.5 % Normal 11.0-15.0 [facility] Comment on above: Performed By: #### C BC #### [facility] [address] [place] [address] Dr. Angel Hernández Hematocrit (Bld) [Volume fraction] 47.9 % Normal 42.0-54.0 [facility] Comment on above: Performed By: #### C BC #### [facility] [address] [place] [address] Dr. Angel Hernández Hemoglobin (Bld) [Mass/Vol] 16.7 g/dL Normal 14.0-18.0 [facility] Comment on above: Performed By: #### C BC #### [facility] [address] [place] [address] Dr. Angel Hernández IG # 0.01 10e3/ul Normal 0.00-0.03 [facility] Comment on above: Performed By: #### C BC #### [facility] [address] [place] [address] Dr. Angel Hernández IG % 0.2 % Normal 0.0-0.5 [facility] Comment on above: Performed By: #### C BC #### [facility] [address] [place] [address] Dr. Angel Hernández LYMPH # 1.6 103/ul Normal 1.2-3.8 [facility] Comment on above: Performed By: #### C BC #### [facility] [address] [place] [address] Dr. Angel Hernández Lymphocytes/100 WBC (Bld) 30.2 % Normal 20.5-60.0 [facility] Comment on above: Performed By: #### C BC #### [facility] [address] [place] [address] Dr. Angel Hernández MANUAL DIFF REQ NO Normal [facility] Comment on above: Performed By: #### C BC #### [facility] [address] [place] [address] Dr. Angel Hernández MCH (RBC) [Entitic mass] 31.3 pg Normal 25.9-34.0 [facility] Comment on above: Performed By: #### C BC #### [facility] [address] [place] [address] Dr. Angel Hernández MCHC (RBC) [Mass/Vol] 34.9 g/dL Normal 29.9-35.2 [facility] Comment on above: Performed By: #### C BC #### [facility] [address] [place] [address] Dr. Angel Hernández MCV (RBC) [Entitic vol] 89.7 fL Normal 80.0-94.0 [facility] Comment on above: Performed By: #### C BC #### [facility] [address] [place] [address] Dr. Angel Hernández MONO # 0.5 103/ul Normal 0.3-0.8 [facility] Comment on above: Performed By: #### C BC #### [facility] [address] [place] [address] Dr. Angel Hernández Monocytes/100 WBC (Bld) 10.1 % Normal 1.7-12.0 [facility] Comment on above: Performed By: #### C BC #### [facility] [address] [place] [address] Dr. Angel Hernández NEUT # 2.8 103/ul Normal 1.4-6.5 [facility] Comment on above: Performed By: #### C BC #### [facility] [address] [place] [address] Dr. Angel Hernández Neutrophils/100 WBC (Bld) 53.8 % Normal 43.0-75.0 [facility] Comment on above: Performed By: #### C BC #### [facility] [address] [place] [address] Dr. Angel Hernández Platelet mean volume (Bld) [Entitic vol] 9.2 fL Critically low 9.5-13.5 [facility] Comment on above: Performed By: #### C BC #### [facility] [address] [address] [address] Angel Hernández PLT 271 103/ul Normal 150-450 [facility] Comment on above: Performed By: #### C BC #### [facility] [address] [address] [address] Angel Hernández RBC 5.34 106/ul Normal 4.70-6.10 [facility] Comment on above: Performed By: #### C BC #### [facility] [address] [address] [address] Angel Hernández WBC 5.1 103/ul Normal 4.0-11.0 [facility] Comment on above: Performed By: #### C BC #### [facility] [address] [place] [address] Dr. Angel Hernández DIRECT LDLon 06-29-2022 Cholesterol in LDL [Mass/Vol] 106 mg/dL Normal [facility] Comment on above: Performed By: #### T MIRANDA, LIPID, DLDL, CMP #### [facility] [address] [address] [address] Angel Hernández DLDL NORMAL SEE BELOW Normal [facility] Comment on above: Result Comment: <100 mg/dl OPTIMAL 100 - 129 mg/dl NEAR OR ABOVE OPTIMAL 130 - 159 mg/dl BORDERLINE HIGH 160 - 189 mg/dl HIGH >190 mg/dl VERY HIGH Performed By: #### T SH, LIPID, DLDL, CMP #### [facility] [address] [place] [address] Dr. Angel Hernández GLYCOHEMOGLOBIN A1Con 2021 ADA RECOMMENDATION SEE BELOW Normal [facility] Comment on above: Result Comment: ADA RECOMMENDED LIMIT 4.0 - 6.0 ADA THERAPEUTIC TARGET < 7.0 ACTION SUGGESTED > 7.0 Performed By: #### A 1C #### [facility] [address] [place] [address] Dr. Angel Hernández Glucose [Mass/Vol] 114 mg/dL Normal [facility] Comment on above: Performed By: #### A 1C #### [facility] [address] [address] [address] Angel Hernández HbA1c (Bld) [Mass fraction] 5.6 % Normal 4.5-6.2 [facility] Comment on above: Performed By: #### A 1C #### [facility] [address] [address] [address] Angel Hernández LIPID PROFILEon 06-29-2022 CHOL-HDL RATIO NORM SEE BELOW Normal [facility] Comment on above: Result Comment: 3.3 - 4.4 LOW RISK 4.4 - 7.1 AVERAGE RISK 7.1 - 11.0 MODERATE RISK >11.0 HIGH RISK Performed By: #### T SH, LIPID, DLDL, CMP #### [facility] [address] [place] [address] Dr. Angel Hernández Cholesterol [Mass/Vol] 222 mg/dL Critically high <=200 [facility] Comment on above: Performed By: #### T SH, LIPID, DLDL, CMP #### [facility] [address] [place] [address] Dr. Angel Hernández Cholesterol in HDL [Mass/Vol] 35 mg/dL Critically low 40-60 [facility] Comment on above: Performed By: #### T SH, LIPID, DLDL, CMP #### [facility] [address] [place] [address] Dr. Angel Hernández Cholesterol.total/Ch olesterol in HDL [Mass ratio] 6.3 {ratio} Normal [facility] Comment on above: Performed By: #### T SH, LIPID, DLDL, CMP #### [facility] [address] [address] [address] Angel Hernández HDL NORMAL > or = 60 mg/dl - LO W CARDIOVASCULAR RISK <40 mg/dl - HIGH CARDIOVASCULAR RISK Normal [facility] Comment on above: Performed By: #### T SH, LIPID, DLDL, CMP #### [facility] [address] [place] [address] Dr. Angel Hernández Triglyceride [Mass/Vol] 482 mg/dL Critically high <=150 [facility] Comment on above: Performed By: #### T SH, LIPID, DLDL, CMP #### [facility] [address] [address] [address] Angel Hernández VLDL CALC 96.4 mg/dL Normal [facility] Comment on above: Performed By: #### T SH, LIPID, DLDL, CMP #### [facility] [address] [address] [address] Angel Hernández PROF 14(COMP METB)on 022 Albumin [Mass/Vol] 3.6 g/dL Normal 3.4-5.0 [facility] Comment on above: Performed By: #### T SH, LIPID, DLDL, CMP #### [facility] [address] [place] [address] Dr. Angel Hernández Albumin/Globulin [Mass ratio] 1.0 {ratio} Normal [facility] Comment on above: Performed By: #### T SH, LIPID, DLDL, CMP #### [facility] [address] [address] [address] Angel Hernández ALP [Catalytic activity/Vol] 26 U/L Critically low 46-116 [facility] Comment on above: Performed By: #### T SH, LIPID, DLDL, CMP #### [facility] [address] [place] [address] Dr. Angel Hernández ALT [Catalytic activity/Vol] 40 U/L Normal 16-63 [facility] Comment on above: Performed By: #### T SH, LIPID, DLDL, CMP #### [facility] [address] [place] [address] Dr. Angel Hernández Anion gap [Moles/Vol] 6.9 mmol/L Normal [facility] Comment on above: Performed By: #### T SH, LIPID, DLDL, CMP #### [facility] [address] [place] [address] Dr. Angel Hernández AST [Catalytic activity/Vol] 17 U/L Normal 15-37 [facility] Comment on above: Performed By: #### T SH, LIPID, DLDL, CMP #### [facility] [address] [address] [address] Angel Hernández Bilirubin [Mass/Vol] 0.4 mg/dL Normal 0.2-1.0 [facility] Comment on above: Performed By: #### T SH, LIPID, DLDL, CMP #### [facility] [address] [address] [address] Angel Hernández Calcium [Mass/Vol] 8.8 mg/dL Normal 8.5-10.1 [facility] Comment on above: Performed By: #### T SH, LIPID, DLDL, CMP #### [facility] [address] [address] [address] Angel Hernández Chloride [Moles/Vol] 102 mmol/L Normal 98-107 [facility] Comment on above: Performed By: #### T SH, LIPID, DLDL, CMP #### [facility] [address] [place] [address] Dr. Angel Hernández CO2 [Moles/Vol] 31.5 mmol/L Normal 21.0-32.0 [facility] Comment on above: Performed By: #### T SH, LIPID, DLDL, CMP #### [facility] [address] [place] [address] Dr. Angel Hernández Creatinine [Mass/Vol] 1.05 mg/dL Normal 0.70-1.30 [facility] Comment on above: Performed By: #### T SH, LIPID, DLDL, CMP #### [facility] [address] [place] [address] Dr. Angel Hernández EGFR-AF PAKISTANI >60 Normal >=60 [facility] Comment on above: Performed By: #### T SH, LIPID, DLDL, CMP #### [facility] [address] [place] [address] Dr. Angel Hernández EGFR-NON AF PAKISTANI >60 Normal >=60 [facility] Comment on above: Performed By: #### T SH, LIPID, DLDL, CMP #### [facility] [address] [place] [address] Dr. Angel Hernández Globulin (S) [Mass/Vol] 3.7 g/dL Normal [facility] Comment on above: Performed By: #### T SH, LIPID, DLDL, CMP #### [facility] [address] [address] [address] Angel Hernández Glucose [Mass/Vol] 125 mg/dL Critically high 74-106 [facility] Comment on above: Performed By: #### T SH, LIPID, DLDL, CMP #### [facility] [address] [address] [address] Angel Hernández Potassium [Moles/Vol] 4.4 mmol/L Normal 3.5-5.1 [facility] Comment on above: Performed By: #### T SH, LIPID, DLDL, CMP #### [facility] [address] [place] [address] Dr. Angel Hernández Protein [Mass/Vol] 7.3 g/dL Normal 6.4-8.2 [facility] Comment on above: Performed By: #### T SH, LIPID, DLDL, CMP #### [facility] [address] [place] [address] Dr. Angel Hernández Sodium [Moles/Vol] 136 mmol/L Normal 136-145 [facility] Comment on above: Performed By: #### T SH, LIPID, DLDL, CMP #### [facility] [address] [place] [address] Dr. Angel Hernández Urea nitrogen [Mass/Vol] 12.0 mg/dL Normal 7.0-18.0 [facility] Comment on above: Performed By: #### T SH, LIPID, DLDL, CMP #### [facility] [address] [place] [address] Dr. Angel Hernández Urea nitrogen/Creatinine [Mass ratio] 11.4 mg/mg Normal [facility] Comment on above: Performed By: #### T SH, LIPID, DLDL, CMP #### [facility] [address] [place] [address] Dr. Angel Hernández TSHon 06-29-2022 TSH 3.683 uIU/mL Normal 0.358-3.740 [facility] Comment on above: Performed By: #### T SH, LIPID, DLDL, CMP #### [facility] [address] [address] [address] Angel Hernández COVID-19 Positive/Negativeon 10-05-2020 COVID-19 Positive/Negative Negative Negative [facility] Comment on above: Testing for SARS-CoV -2 by RT-PCRThis test was developed and its performance characteristics determined by [employer] and validated at the [facility]. This test has not been FDA cleared [...] Otheron 10-05-2020 Coronavirus 2019 PCR Interp N/A [facility] Vital Signs Date Time Vital Sign Value Performing Clinician Facility 07-02-2025 08:37-0400 Body height 175.26 cm [employer] Work Phone: [facility] 07-02-2025 08:37-0400 Body mass index (BMI) [Ratio] 33.5 kg/m2 Jonah [employer] DO Work Phone: [facility] 07-02-2025 08:37-0400 Body weight 103.19 kg Jonah [employer] DO Work Phone: [facility] 07-02-2025 08:37-0400 Diastolic blood pressure 74 mm[Hg] [employer] DO Work Phone: [facility] 07-02-2025 08:37-0400 Heart rate 85 /min [employer] DO Work Phone: [facility] 07-02-2025 08:37-0400 Respiratory rate 12 /min Jonah Ball DO Work Phone: [facility] 07-02-2025 08:37-0400 Systolic blood pressure 114 mm[Hg] Jonah Ball DO Work Phone: [facility] 04-23-2025 09:40-0400 Body height 177.8 cm Annette Adams MD Work Phone: [facility] 04-23-2025 09:40-0400 Body mass index (BMI) [Ratio] 32.71 kg/m2 Annette Adams MD Work Phone: [facility] 04-23-2025 09:40-0400 Body weight 103.42 kg Annette Adams MD Work Phone: [facility] 04-23-2025 09:40-0400 Diastolic blood pressure 78 mm[Hg] Annette Adams MD Work Phone: [facility] 04-23-2025 09:40-0400 Systolic blood pressure 122 mm[Hg] Annette Adams MD Work Phone: [facility] 12-29-2024 08:43-0400 Body height 175.26 cm [facility] 12-29-2024 08:43-0400 Body mass index (BMI) [Ratio] 34 kg/m2 [facility] 12-29-2024 08:43-0400 Body weight 104.32 kg [facility] 12-29-2024 08:43-0400 Diastolic blood pressure 80 mm[Hg] [facility] 12-29-2024 08:43-0400 Heart rate 87 /min [facility] 12-29-2024 08:43-0400 Respiratory rate 12 /min [facility] 12-29-2024 08:43-0400 Systolic blood pressure 120 mm[Hg] [facility] 11-17-2024 11:05-0500 Body height 177.8 cm Naa Felder NP Work Phone: [facility] 11-17-2024 11:05-0500 Body mass index (BMI) [Ratio] 32.8 kg/m2 Naa Felder SAFETY DEPOSIT SUPERVISOR Work Phone: [facility] 11-17-2024 11:05-0500 Body weight 103.69 kg Naa Felder SAFETY DEPOSIT SUPERVISOR Work Phone: [facility] 11-17-2024 11:05-0500 Diastolic blood pressure 84 mm[Hg] Naa Felder SAFETY DEPOSIT SUPERVISOR Work Phone: [facility] 11-17-2024 11:05-0500 Systolic blood pressure 138 mm[Hg] Naa Felder SAFETY DEPOSIT SUPERVISOR Work Phone: [facility] 10-04-2024 12:29-0500 Body height 175.3 cm Annette Adams MD Work Phone: [facility] 10-04-2024 12:29-0500 Body mass index (BMI) [Ratio] 33.08 kg/m2 Annette Adams MD Work Phone: [facility] 10-04-2024 12:29-0500 Body weight 101.61 kg Annette Adams MD Work Phone: [facility] 08-06-2024 15:42-0400 Body height 175.26 cm [facility] 08-06-2024 15:42-0400 Body mass index (BMI) [Ratio] 33 kg/m2 [facility] 08-06-2024 15:42-0400 Body weight 101.37 kg [facility] 08-06-2024 15:42-0400 Diastolic blood pressure 87 mm[Hg] [facility] 08-06-2024 15:42-0400 Heart rate 89 /min [facility] 08-06-2024 15:42-0400 Respiratory rate 12 /min [facility] 08-06-2024 15:42-0400 Systolic blood pressure 131 mm[Hg] [facility] 06-24-2024 09:19-0400 Body height 175.26 cm [facility] 06-24-2024 09:19-0400 Body mass index (BMI) [Ratio] 33.7 kg/m2 [facility] 06-24-2024 09:19-0400 Body weight 103.53 kg [facility] 06-24-2024 09:19-0400 Diastolic blood pressure 89 mm[Hg] [facility] 06-24-2024 09:19-0400 Heart rate 91 /min [facility] 06-24-2024 09:19-0400 Respiratory rate 16 /min [facility] 06-24-2024 09:19-0400 Systolic blood pressure 130 mm[Hg] [facility] 02-20-2024 09:41-0400 Body height 175.26 cm [facility] 02-20-2024 09:41-0400 Body mass index (BMI) [Ratio] 33.2 kg/m2 [facility] 02-20-2024 09:41-0400 Body weight 102.05 kg [facility] 02-20-2024 09:41-0400 Diastolic blood pressure 88 mm[Hg] [facility] 02-20-2024 09:41-0400 Heart rate 96 /min [facility] 02-20-2024 09:41-0400 Respiratory rate 20 /min [facility] 02-20-2024 09:41-0400 Systolic blood pressure 120 mm[Hg] [facility] 10-22-2023 15:30-0500 Body height 175.26 cm Jonah Ball Other [facility] [employer] Other 10-22-2023 15:30-0500 Body mass index (BMI) [Ratio] 32.16 kg/m2 Jonah Ball Other [facility] [facility] [employer] Other 10-22-2023 15:30-0500 Body weight 98.79 kg Jonah Ball Other [employer] [facility] [employer] Other 10-22-2023 15:30-0500 Diastolic blood pressure 80 mm[Hg] Jonah Ball Other [employer] Other 10-22-2023 15:30-0500 Respiratory rate 12 /min Jonah Ball Other [employer] Other 10-22-2023 15:30-0500 Systolic blood pressure 135 mm[Hg] Jonah Ball Other [employer] Other 06-15-2023 13:30-0400 Body height 175.26 cm Jonah Ball Other [employer] Other 06-15-2023 13:30-0400 Body mass index (BMI) [Ratio] 32.1 kg/m2 Jonah Ball Other [employer] Other 06-15-2023 13:30-0400 Body weight 98.61 kg Jonah Ball Other [employer] Other 06-15-2023 13:30-0400 Diastolic blood pressure 85 mm[Hg] Jonah Ball Other [employer] Other 06-15-2023 13:30-0400 Respiratory rate 12 /min Jonah Ball Other [employer] Other 06-15-2023 13:30-0400 Systolic blood pressure 125 mm[Hg] Jonah Ball Other [employer] Other Encounters Encounter Date Encounter Type Care Provider Facility Start: 07-02-2025 End: 07-02-2025 ambulatory Jonah Clive DO Work Phone: [facility] Work Phone: Start: 07-02-2025 End: 07-02-2025 Patient encounter procedure Jonah Duffy DO -[facility] Work Phone: Start: 07-02-2025 End: 07-02-2025 Patient encounter status Jonah Ball [facility] Start: 06-22-2025 End: 06-22-2025 Refill Annette Adams MD Work Phone: [facility] Comment on above: PBA (pseudobulbar af fect) (Primary Dx) Start: 04-23-2025 End: 04-23-2025 Bamboo flowskirill Adams MD Work Phone: [facility] Start: 04-23-2025 End: 04-23-2025 Bamboo flowskirill Adams MD Work Phone: [facility] Start: 04-23-2025 End: 04-23-2025 Office outpatient visit 25 minutes Annette Adams MD Work Phone: [facility] Comment on above: MCI (mild cognitive impairment) Start: 04-23-2025 End: 04-23-2025 ambulatory ANNETTE ADAMS Not Available Start: 02-23-2025 End: 02-23-2025 Bamboo flowskirill Adams MD Work Phone: [facility] Start: 02-23-2025 End: 02-23-2025 Bamboo flowskirill Adams MD Work Phone: [facility] Start: 02-23-2025 End: 02-23-2025 Office outpatient visit 25 minutes Annette Adams MD Work Phone: [facility] Comment on above: PBA (pseudobulbar af fect) (Primary Dx); MCI (mild cognitive impairment) Start: 02-23-2025 End: 02-23-2025 ambulatory ANNETTE ADAMS Not Available Start: 02-20-2025 End: 02-20-2025 ambulatory [facility] Start: 12-29-2024 End: 12-29-2024 Bamboo flowskirill Adams MD Work Phone: [facility] Start: 12-29-2024 End: 12-29-2024 Bamboo flowsheet Annette Adams MD Work Phone: [facility] Start: 12-29-2024 End: 12-29-2024 ambulatory ANNETTE ADAMS Not Available Start: 12-29-2024 End: 12-29-2024 ambulatory [facility] Work Phone: Start: 12-29-2024 End: 12-29-2024 [facility] Work Phone: Start: 11-17-2024 End: 11-17-2024 Office outpatient visit 25 minutes Naa Felder SAFETY DEPOSIT SUPERVISOR Work Phone: [facility] Comment on above: MCI (mild cognitive impairment) Start: 11-17-2024 End: 11-17-2024 Orders Only Haydee Fuller SAFETY DEPOSIT SUPERVISOR Work Phone: [facility] Comment on above: MCI (mild cognitive impairment) (Primary Dx); Generalized anxiety disorder (CMS/HCC); CALLIE (obstructive sleep apnea) Start: 10-16-2024 End: 10-16-2024 Patient encounter procedure [facility] Breast Spl[facility] Comment on above: Episodic altered shelia reness; Resistant hypertension (CMS/HCC); Generalized anxiety disorder (CMS/HCC); Tinnitus of both ears; Visual disturbances Start: 10-16-2024 End: 10-16-2024 ambulatory NAA FELDER Not Available Start: 10-04-2024 End: 10-04-2024 Bamboo flowsheet Annette Adams MD Work Phone: [facility] Start: 10-04-2024 End: 10-04-2024 Bamboo flowsheet Annette Adams MD Work Phone: [facility] Start: 10-04-2024 Patient encounter status Annette Adams MD Work Phone: [facility] Start: 10-04-2024 End: 10-04-2024 Office outpatient visit 25 minutes Annette Adams MD Work Phone: [facility] Comment on above: MCI (mild cognitive impairment) (Primary Dx) Start: 10-04-2024 End: 10-04-2024 ambulatory ANNETTE ADAMS Not Available Start: 08-28-2024 End: 08-28-2024 ambulatory [facility] Start: 08-06-2024 End: 08-06-2024 ambulatory [facility] Work Phone: Start: 08-06-2024 End: 08-06-2024 [facility] procedure [facility] Work Phone: Start: 06-25-2024 Non-patient / Non-visit [facility] Work Phone: Start: 06-24-2024 End: 06-24-2024 ambulatory [facility] Work Phone: Start: 06-24-2024 End: 06-24-2024 Encounter for general adult medical examination without abnormal findings [facility] Start: 06-24-2024 End: 06-24-2024 Patient encounter procedure [facility] Work Phone: Start: 06-20-2024 Patient encounter status [facility] Start: 06-09-2024 End: 06-09-2024 ambulatory [facility] Start: 02-29-2024 End: 02-29-2024 ambulatory [facility] Start: 02-20-2024 End: 02-20-2024 ambulatory [facility] Work Phone: Start: 02-20-2024 End: 02-20-2024 Patient encounter procedure [facility] Work Phone: Start: 12-17-2023 Non-patient / Non-visit [facility] Work Phone: Start: 11-14-2023 End: 11-14-2023 ambulatory [facility] Other [employer] Other Start: 11-14-2023 Telephone encounter Jonah Duffy [facility] Start: 11-13-2023 End: 11-13-2023 ambulatory Jonah Duffy Other [employer] Other Start: 11-13-2023 Telephone encounter Jonah Duffy [facility] Start: 11-06-2023 End: 11-06-2023 ambulatory Jonah Duffy Other [employer] Other Start: 11-06-2023 Telephone encounter Jonah Duffy [facility] Start: 10-22-2023 End: 10-22-2023 ambulatory Jonah Duffy Other [employer] Other Start: 10-22-2023 Office outpatient vi sit 25 minutes Jonah Clive [facility] Start: 09-05-2023 End: 09-05-2023 ambulatory Jonah Duffy Other [employer] Other Start: 09-05-2023 Telephone encounter Jonah Duffy [facility] Start: 07-18-2023 End: 07-18-2023 ambulatory Jonah Duffy Other [employer] Other Start: 07-18-2023 Telephone encounter Jonah Ball [facility] Start: 07-16-2023 End: 07-17-2023 ambulatory JONAH PASCUAL [facility] Start: 06-29-2023 End: 06-29-2023 ambulatory Joanh Duffy Other [employer] Other Start: 06-29-2023 Telephone encounter Jonah Ball [facility] Start: 06-19-2023 End: 06-19-2023 ambulatory Jonah Ball Other [employer] Other Start: 06-19-2023 Telephone encounter Jonah Ball [facility] Start: 06-15-2023 End: 06-15-2023 ambulatory Jonah Duffy Other [employer] Other Start: 06-15-2023 Encounter for genera l adult medical examination without abnormal findings Jonah Duffy [facility] Start: 06-15-2023 Periodic preventive med est patient 40-64yrs Jonah Duffy [facility] Start: 06-11-2023 End: 06-11-2023 ambulatory Jonah Duffy Other [employer] Other Start: 06-11-2023 Encounter for genera l adult medical examination without abnormal findings Jonah Duffy [facility] Start: 06-11-2023 Telephone encounter [facility] Start: 03-09-2023 End: 03-09-2023 ambulatory Jonah Duffy Other [employer] Other Start: 03-09-2023 Telephone encounter [facility] Start: 08-30-2022 End: 08-31-[address] JONAH DUFFY Facility:[facility] Start: 07-02-2022 Encounter for genera l adult medical examination without abnormal findings DR JONAH DUFFY [facility] Start: 06-29-2022 End: 06-30-[address] JONAH DUFFY Facility:[facility] Start: 06-29-2022 End: 06-30-2022 Encounter for general adult medical examination without abnormal findings DR JONAH DUFFY Facility:[facility] Start: 06-12-2022 Adult health examination Jonah Duffy Other [employer] Other Start: 10-05-2020 End: 10-05-2020 Patient encounter procedure Jonah Duffy -Pre-Surgical Testing Procedures Date Procedure Procedure Detail Performing Clinician Start: 07-16-2023 CT CARDIAC SCORING W O IV CONTRAST JONAH DUFFY Start: 06-29-[address] MANUEL DUFFY Comment on above: Performed By: #### [facility] #### [facility] [address] [place] [address] Dr. Angel Hernández Start: 08-23-2017 End: 06-12-2022 [...] Visit [facility] [address] [place] [address] Annette Adams MD [address] [place] [address] Arrived [facility] Comment on above: Arrived Start: 12-29-2024 End: 12-29-2024 Patient encounter procedure [facility] Comment on above: Arrived Start: 11-17-2024 End: 11-17-2024 Patient encounter procedure 11/17/2024 10:50 AM EST Office Visit [facility] [address] [facility] [address] [place] [address] Naa Felder, SAFETY DEPOSIT SUPERVISOR [address], [address] [place] [id number] [facility] Start: 10-23-2024 End: 10-23-2024 Patient encounter procedure 10/23/2024 11:00 AM EST Office Visit [facility] [address] [address] [facility] Start: 10-07-2024 End: 10-04-2025 Brain Mapping [facility] Routine MCI (mild cognitive impairment) Expected: 10/07/2024 (Approximate), Expires: 10/04/2025 [facility] Work Phone: Comment on above: Expected: 10/07/2024 (Approximate), Expires: 10/04/2025 Start: 10-04-2024 End: 10-04-2024 Patient encounter procedure 10/04/2024 12:30 PM EST Office Visit [facility] [address] [place] [address] Annette Adams MD [address] [facility] [address] [place] [id number] Arrived [facility] Comment on above: Arrived Start: 06-15-2024 Influenza vaccination Influenz a Vaccine (#1) [facility] Start: 1960 Screening for malign ant neoplasm of colon [facility] Brain Mapping [facility] Neurology Routine Episodic altered awareness 10/16/2024 2:38 PM EST [facility] Work Phone: Comprehensive metabo lic 1999 panel - Serum or Plasma [facility] Comprehensive metabo lic 1999 panel - Serum or Plasma [facility] Immunizations Immunization Date Immunization Notes Care Provider Fa cility 07-20-2020 influenza virus vaccine, unspecified formulation Annette Adams MD Work Phone: [facility] 08-17-2016 tetanus and diphther ia toxoids, adsorbed, preservative free, for adult use (5 Lf of tetanus toxoid and 2 Lf of diphtheria toxoid) Jonah Duffy Other [facility] Payers Date Payer Category Payer Private Health Insurance [employer] [id number] 2024 Unknown [id number] 1960 Unknown [id number] 1961 Unknown [id number] 1961 Unknown [id number]. 1259 1961 Unknown [id number]. 1259 1961 Unknown [id number]. 1259 1961 Unknown [id number]. 1259 1961 Unknown [id number]. 1259 1961 Unknown [id number] [id number]. 1259 1959 Unknown [id number] Self-pay Self Pay [id number] Unknown [id number] Unknown [id number] Social History Date Type Detail Facility Tobacco smoking status MNIS Unknown if ever smoked [facility] Start: 1960 Sex Assigned At Male [facility] Start: 10-04-2024 End: 04-23-2025 Sex Assigned At [facility] [employer] Other Start: 10-11-2020 End: 10-04-2024 Tobacco smoking status MNIS Never smoked tobacco (finding) [facility] Tobacco smoking status [facility] Tobacco smoking consumption unknown [facility] Start: 1960 Sex assigned at Not on file [facility] Start: 10-04-2024 Tobacco use and exposure Smokeless tobacco non-user [facility] Start: 10-04-2024 End: 04-23-2025 Alcoholic beverage intake Current drinker of alcohol (finding) [facility] Start: 10-04-2024 End: 04-23-2025 History of Social function [facility] Start: 12-29-2024 Sex Male (finding) [facility] Goals Date Patient Goal Desired Activity [...] in all four extremities, including at least pondman, finger abductors, biceps, triceps, deltoid, toe flexors [...] activities. This clinical note was created utilizing [employer] documentation system. All information has been thoroughly reviewed, corrected as necessary, and authenticated by the provider to ensure accuracy and completeness. On occasion, [employer] documentation system erroneously drops words or replaces a spoken word with a similar sounding word. Please notify with any questions or concerns regarding this clinical note. documented in this encounter [facility] 02-23-2025 History of Present illness Narrative Images [...] reflexes: Latha's absent. Ankle clonus absent. Coordination Wioukq-fu-oslk, rapid alternating movements and cfyh-we-pcii normal bilaterally without dysmetria. Gait Normal casual, toe, heel and tandem gait. Romberg is absent. PROCEDURE: NONE ASSESSMENT AND PLAN: Remigio Min is a 64 year old male with cognitive decline accompanied by pseudobulbar affect with emotional outbursts as well as hypersexual tenancies to the point that it is affecting their social [place]. This is most consistent with a frontal [...] Annette Adams MD documented in this encounter [facility] 02-20-2025 Note [place] [facility] Subjective Remigio Min is a [...] with mildly increased (more content not included)... [facility] 11-17-2024 History of Present illness Narrative Neuropsych testing referral placed/ordered/claudias memory testing and sent to patient. documented in this encounter [facility] 10-16-2024 History of Present illness Narrative Sean [...] dementia. Faster alpha peak frequencies correlate with [employer] over-arousal conditions. Excessive SMR has been associated with attention disorders. documented in this encounter [facility] 10-04-2024 History of Present illness Narrative Images [...] will not do much. 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 He states he did not seem to notice any issues when he was working, Did have MRI at [facility], States there is a strong hx of [...] reflexes: Latha's absent. Ankle clonus absent. Coordination Xpmsdq-[id number]-[id number], rapid alternating movements and jibp-vs-lobf normal bilaterally without dysmetria. Gait Normal casual, [...] up 6-8 weeks. documented in this encounter [facility] 08-28-2024 Note [facility] Note HPI: Remigio Min is [...] or concerns. Mayela Yao MD Interventional Cardiology [facility] 06-09-2024 Note [facility] Note HPI: Remigio Min is [...] or concerns. Mayela Yao MD Interventional Cardiology [facility] 02-29-2024 Note [facility] Note HPI: Remigio Min is [...] or concerns. Mayela Yao MD Interventional Cardiology [facility] 10-22-2023 Evaluation note Encounter Date Diagnosis Assessment [...] CAD. LAYNE score indicates 100% risk for NJ in next 10 years. Recommend initiating primary prevention measures Recommend initiating ASA 81mg qd Recommend Stress testing Oct, CALLIE (obstructive sleep apnea) (ICD-10 - G47.33) This patient is aware of the benefits associated with CALLIE: With continued use, the patient reduces the risk for NJ, CVA, HTN, cardiac dysrhythmias and sudden cardiac [...] year risk for CAD. Father suffered fatal NJ in 40s. Initiate primary prevention measures. Apr, Gastro-esophageal reflux disease with esophagitis, without bleeding (ICD-10 - K21.00) Avoid lying flat after eating. Avoid eating 2 hours prior to bedtime. Smaller, frequent meals may be better tolerated.Weight loss if overweight.PPI with any heartburn.Monito r for dysphagia. [employer] Other 10-04-2023 Evaluation note* Encounter Date Diagnosis Assessment Notes Treatment Notes Treatment Clinical Notes Jul, Hypertriglyceridemia (ICD-10 - E78.1) [employer] Other 09-15-2023 Evaluation note* Encounter Date Diagnosis Assessment Notes Treatment Notes Treatment Clinical Notes Jun, Primary hypertension (ICD-10 - I10) Jun, Tachycardia (ICD-10 - R00.0) [facility] Other 09-01-2023 Evaluation note* Encounter Date Diagnosis [...] or drinking prior to bedtime. Weight loss. [facility] Other 08-28-2023 Evaluation note* Encounter Date Diagnosis Assessment Notes Treatment Notes Treatment Clinical Notes May, Wellness examination (ICD-10 - Z00.00) [employer] Other Evaluation noteNo [employer]ort [employer] Other Evaluation note* Diagnosis Onset Date Resolution Status Elevated cholesterol acute Elevated coronary artery calcium score acute Hypertension acute CALLIE (obstructive sleep apnea) acute [facility] Work Phone: Evaluation note* Diagnosis Onset Date Resolution Status Benign prostatic hyperplasia with lower urinary tract symptoms acute Elevated cholesterol acute Elevated coronary artery calcium score acute Erectile dysfunction acute Hypertension acute Obesity acute CALLIE (obstructive sleep apnea) acute Screening PSA (prostate specific antigen) acute Wellness examination acute [facility] Work Phone: Evaluation note* Diagnosis MCI (mild [...] sleep apnea) acute December 29, 2024 8:28am [facility] Work Phone: Evaluation note* Diagnosis PBA (pseudobulbar [...] June 8:24am Wellness examination acute Jun 8:24am [facility] Work Phone: History general Narrative - Reported* Type Description Date Medical History Dysphagia, unspecified Medical History Esophageal obstruction Medical History Schatzki's ring Medical History Essential hypertension Medical History External hemorrhoids Medical History Adenomatous polyp of descending colon Surgical History COLONOSCOPY Surgical History EGD W/ DILATATION 2015 Hospitalization History SEE SURGICAL HX [facility] Other History general Narrative - Reported* Type Description Date Medical History Dysphagia, unspecified Medical History Esophageal obstruction Medical History Schatzki's ring Medical History Essential hypertension Medical History External hemorrhoids Medical History Adenomatous polyp of descending colon Surgical History COLONOSCOPY (repeat 2024) 2019 Surgical History EGD W/ DILATATION 2015 Hospitalization History SEE SURGICAL HX [facility] Other Reason for referral (narrative)* Reason Referral for an abno rmal stress test. Diagnosis 1 Family history of pr emature CAD (Z82.49) Referral Organization [facility] sandrita Referring Provider First Name Jonah Referring Provider Last Name Clive Referring Provider Specialty Internal [place] Referred Organization [facility] Referred Provider Dileep Ivy V Referred Address [address] [place], [place],[address] Referred Provider Specialty Cardiovascul ar Disease Referral [...] NM imaging report and treadmill test dictation) [employer] Other Reason for referral (narrative)No reason for referral information availableUniversity [facility]als [facility] Work Phone: Advance Directives Advance Directive Response [...] and content) DATE CREATED AUTHOR 09/02/2022 [facility] DATE CREATED AUTHOR AUTHOR'S ORGANIZ ATION 07/21/2023 [facility] DATE CREATED AUTHOR AUTHOR'S ORGANIZ ATION 02/22/2025 [facility] DATE CREATED AUTHOR AUTHOR'S ORGANIZ ATION 04/27/2025 [facility] EPIC REASON FOR VISIT (unrecogniz ed section and content) Reason Comments Memory Loss MCI Reason Comments Brain Map Specialty Diagnoses / Procedures Referred By Contac t Referred To Contact Neurology Diagnoses MCI (mild cognitive impairment) Procedures Brain Mapping Annette Adams MD [address] [place] [address] Phone: tel: fax: Annette Adams MD [address] [place] [address] Phone: tel: fax: Referral ID Status Reason Start Date Expiration Date Visits Re quested Visits Authorized [id number] Closed 10/07/2024 04/05/2025 1 1 Reason Comments [...] August 06, 2024 End: August 06, 2024 Case Maker Relationship Specialty Start Date End Date Jonah Duffy MD [address] [place] [id number] PCP - General Internal Medicine 01/07/24 Rosalee Ragsdale DO [address] [place] [address] Referring Physician Neurology 01/02/24 Case Maker Relationship Specialty Start Date End Date Jonah Duffy MD [address] [place] [phone] PCP - General Internal Medicine 01/07/24 Rosalee Ragsdale DO [address] [place] [address] Referring Physician Neurology 01/02/24 Case Maker Relationship Specialty Start Date End Date Jonah Duffy MD [address] [place] [id number] PCP - General Internal Medicine 01/07/24 Rosalee Ragsdale DO [address] [place] [address] Referring Physician Neurology 01/02/24 Case Maker Relationship Specialty Start Date End Date Jonah Duffy MD [address] [place] [phone] PCP - General Internal Medicine 01/07/24 Rosalee Ragsdale DO [address] [place] [address] Referring Physician Neurology 01/02/24 Case Maker Relationship Specialty Start Date End Date Jonah Duffy MD [address] [place] [phone] PCP - General Internal Medicine 01/07/24 Rosalee Ragsdale DO [address] [place] [address] Referring Physician Neurology 01/02/24 Team Status: Inactive Member Role Status Dates Jonah Duffy DO Primary Care Provide r, Attending Provider Active Start: December 29, 2024 End: December 29, 2024 Case Maker Relationship Specialty Start Date End Date Jonah Duffy MD [address] [place] [phone] PCP - General Internal Medicine 01/07/24 Rosalee Ragsdale DO [address] [place] [address] Referring Physician Neurology 01/02/24 Case Maker Relationship Specialty Start Date End Date Jonah Duffy DO PCP - General Internal Medicine 01/07/24 Rosalee Ragsdale DO [address] [place] [address] Referring Physician Neurology 01/02/24 Case Maker Relationship Specialty Start Date End Date Jonah Duffy DO PCP - General Internal Medicine 01/07/24 Rosalee Ragsdale DO [address] [place] [address] Referring Physician Neurology 01/02/24 Case Maker Relationship Specialty Start Date End Date Jonah Duffy DO PCP - General Internal Medicine 01/07/24 Rosalee Ragsdale DO [address] [place] [address] Referring Physician Neurology 01/02/24 Case Maker Relationship Specialty Start Date End Date Jonah Duffy DO PCP - General Internal Medicine 01/07/24 Rosalee Ragsdale DO [address] [place] [address] Referring Physician Neurology 01/02/24 Team Status: Inactive [...] BE BASED ON THE PRIMARY CLINICAL RECORDS. [employer] [facility] provides no warranty or guarantee of the accuracy or completeness of information in this document.
== END 2025-07-23 10:40 | disposition home or self-care (01) ==
LOC: LAB 10:42
PROVIDERS: PCP Internal Medicine; Visit Provider Psychiatry & Neurology Neurology
DX: F48.2 Pseudobulbar affect (principal); G31.84 Mild cognitive impairment of uncertain or unknown etiology
CPT/HCPCS: 36415; 81401; 83520

== ENCOUNTER 2025-07-23 10:46 | Outpatient (OUT) | payer OTHER, SELFPAY ==
--- OUTSIDE RECORDS SUMMARY | 2025-07-23 10:57 | XMS_ITS | CCD ---
Author Organization [facility] Care Team Providers Care Drafter Refrigeration Name Role Phone Jonah Duffy Primary Care Provider Dash Greogry Attending Provider [phone] CLIVE, DR HAUSER Consulting Unavailable CLIVE, DR [...] physicia Propensity to adverse reactions 8 Comment:Done [place] Other (1 source) ALLERGIES NOT ON FILE; Translations: [ALLERGIES NOT ON FILE] Propensity to adverse reactions (disorder) [facility] Medications Current Medications Medication Drug Class(es) [...] hydrochloride 5 mg oral tablet (14 sources) G-dhrwku-W-aspartate Receptor Antagonist Start: 12-29-2024 End: 12-24-2025 take [...] Coronary atherosclerosis; Translations: [Atherosclerotic heart disease of [place] coronary artery without angina pectoris] Onset: 02-20-2025 [...] Range Facility Office Visiton 02-20-2025 Follow-up visit [id number] Remigio Min 1960 M Date Provider Department Center 02/20/2025 [id number] BRADSHAW [facility] Timmy [facility] Family History Problem Relation Age of Onset Diabetes Mother Heart failure Mother Kidney disease Mother Heart attack Father 42 Family Status - Relation Status Age at Mother Father Level of Service:71760 [place] OFFICE/OUTPATIENT ESTABLISHED MOD MDM 30 MIN Reason for Visit and Comments: Hypertension [549434] - No recent labs/imaging. coronary artery calcification [Other] Shortness of Breath [270800] - says he gets winded with stairs but patient denies this. He denies cardiac symptoms of any kind at this time. Normal [facility] Office Visiton 08-28-2024 Follow-up visit [id number] Remigio Min 1960 M Date Provider Department Center 08/28/2024 Billy-MAYELA YAO [facility] Family History Problem Relation Age of Onset Diabetes Mother Heart failure Mother Kidney disease Mother Heart attack Father 42 Family Status - Relation Status Age at Mother Father Level of Service:88275 [place] OFFICE/OUTPATIENT ESTABLISHED LOW MDM 20 MIN Normal [facility] Basophils Auto (Bld) [#/Vol] on 06-25-2024 Basophils (Bld) [#/Vol] 0.1 10 3/uL 0.0-0.1 [facility] Basophils/100 WBC Auto (Bld) on 06-25-2024 Basophils/100 WBC (Bld) 1.2 % 0.2-2.0 [facility] Cholesterol in LDL Calc [Mas s/Vol]on 06-25-2024 Cholesterol in LDL [Mass/Vol] 64.0 mg/dL [facility] Comment on above: <100 mg/dl [id number] 0-129 mg/dl NEAR OR ABOVE [id number] mg/dl BORDERLINE SOIE315-808 mg/dl HIGH>190 mg/dl VERY HIGH Cholesterol in VLDL Calc [Ma ss/Vol]on 06-25-2024 Cholesterol in VLDL [Mass/Vol] 45.4 mg/dL [facility] Eosinophils/100 WBC Auto (Bl d)on 06-25-2024 Eosinophils/100 WBC (Bld) 2.7 % 0.9-7.0 [facility] Erythrocyte distribution wid th Auto (RBC) [Ratio]on 06-25-2024 Erythrocyte distribution width (RBC) [Ratio] 12.3 % 11.0-15.0 [facility] Estimated glomerular filtrat ion rate (GFR) non- Americanon 06-25-2024 GFR/1.73 sq M.predicted among non-blacks MDRD (S/P/Bld) [Vol rate/Area] mL/min/{1.73_m2} >=60 [facility] Globulin Calc (S) [Mass/Vol] on 06-25-2024 Globulin (S) [Mass/Vol] 3.5 g/dL [facility] Hematocrit Auto (Bld) [Volum e fraction]on 06-25-2024 Hematocrit (Bld) [Volume fraction] 47.6 % 42.0-54.0 [facility] Hemoglobin [Mass/volume] in Bloodon 06-25-2024 Hemoglobin (Bld) [Mass/Vol] 16.3 g/dL 14.0-18.0 [facility] Laboratory - Chemistry and C hemistry - challengeon 06-25-2024 Albumin [Mass/Vol] 3.6 g/dL 3.4-5.0 [facility] ALP [Catalytic activity/Vol] 29 U/L Low 46-116 [facility] ALT [Catalytic activity/Vol] 45 U/L 16-63 [facility] AST [Catalytic activity/Vol] 19 U/L 15-37 [facility] Bilirubin [Mass/Vol] 0.7 mg/dL 0.2-1.0 [facility] Calcium [Mass/Vol] 9.2 mg/dL 8.5-10.1 [facility] Chloride [Moles/Vol] 104 mmol/L 98-107 [facility] Cholesterol [Mass/Vol] 148 mg/dL <=200 [facility] Cholesterol in HDL [Mass/Vol] 39 mg/dL Low 40-60 [facility] Comment on above: > or =60 mg/dl - LOW CARDIOVASCULAR RISK<40 mg/dl - HIGH CARDIOVASCULAR RISK CO2 [Moles/Vol] 28.5 mmol/L 21.0-32.0 [facility] Creatinine [Mass/Vol] 0.96 mg/dL 0.70-1.30 [facility] GFR/1.73 sq M.predicted MDRD (S/P/Bld) [Vol rate/Area] mL/min/{1.73_m2} >=60 [facility] Glucose [Mass/Vol] 117 mg/dL High 74-106 [facility] Potassium [Moles/Vol] 4.3 mmol/L 3.5-5.1 [facility] Protein [Mass/Vol] 7.1 g/dL 6.4-8.2 [facility] Sodium [Moles/Vol] 139 mmol/L 136-145 [facility] Triglyceride [Mass/Vol] 227 mg/dL High <=150 [facility] Urea nitrogen [Mass/Vol] 16.0 mg/dL 7.0-18.0 [facility] Urea nitrogen/Creatinine [Mass ratio] 16.7 mg/mg [facility] Laboratory - Hematology and Cell countson 06-25-2024 Immature granulocytes/100 WBC (Bld) 0.2 % 0.0-0.5 [facility] Leukocytes [#/volume] correc jeremi for nucleated erythrocytes in Blood by Automated counon 06-25-2024 WBC corrected for nucl RBC Auto (Bld) [#/Vol] 5.9 10 3/uL 4.0-11.0 [facility] Lymphocytes Auto (Bld) [#/Vo l]on 06-25-2024 Lymphocytes (Bld) [#/Vol] 1.6 10 3/uL 1.2-3.8 [facility] Lymphocytes/100 WBC Auto (Bl d)on 06-25-2024 Lymphocytes/100 WBC (Bld) 27.5 % 20.5-60.0 [facility] MCH Auto (RBC) [Entitic mass ]on 06-25-2024 MCH (RBC) [Entitic mass] 30.8 pg 25.9-34.0 [facility] MCHC Auto (RBC) [Mass/Vol]on 06-25-2024 MCHC (RBC) [Mass/Vol] 34.2 g/dL 29.9-35.2 [facility] MCV Auto (RBC) [Entitic vol] on 06-25-2024 MCV (RBC) [Entitic vol] 90.0 fL 80.0-94.0 [facility] Monocytes Auto (Bld) [#/Vol] on 06-25-2024 Monocytes (Bld) [#/Vol] 0.6 10 3/uL 0.3-0.8 [facility] Monocytes/100 WBC Auto (Bld) on 06-25-2024 Monocytes/100 WBC (Bld) 10.1 % 1.7-12.0 [facility] Neutrophils Auto (Bld) [#/Vo l]on 06-25-2024 Neutrophils (Bld) [#/Vol] 3.5 10 3/uL 1.4-6.5 [facility] Neutrophils/100 WBC Auto (Bl d)on 06-25-2024 Neutrophils/100 WBC (Bld) 58.3 % 43.0-75.0 [facility] No Panel Informationon 06-25 Eosinophils # (Auto) 0.2 10 3/uL 0.0-0.7 [facility] Immature Granulocyte # (Auto) 0.01 10 3/uL 0.00-0.03 [facility] Prostate Specific Antigen Screen 1.61 ng/mL <=4.00 [facility] Platelet mean volume Auto (B ld) [Entitic vol]on 06-25-2024 Platelet mean volume (Bld) [Entitic vol] 9.3 fL Low 9.5-13.5 [facility] Platelets Auto (Bld) [#/Vol] on 06-25-2024 Platelets (Bld) [#/Vol] 254 10 3/uL 150-450 [facility] RBC Auto (Bld) [#/Vol]on RBC (Bld) [#/Vol] 5.29 10 6/uL 4.70-6.10 [facility] Serum or plasma albumin/glob ulin mass ratioon 06-25-2024 Albumin/Globulin [Mass ratio] 1.0 {ratio} [facility] Serum or plasma anion gap de terminationon 06-25-2024 Anion gap [Moles/Vol] 10.8 mmol/L [facility] Serum or plasma total choles terol/high density lipoprotein (HDL) cholesterol mass latha 06-25-2024 Cholesterol.total/Ch olesterol in HDL [Mass ratio] 3.8 {ratio} [facility] Comment on above: 3.3 - 4.4 LOW RISK4. 4 - 7.1 AVERAGE RISK7.1 - 11.0 MODERATE RISK>11.0 [facility] Office Visiton 06-09-2024 Follow-up visit [id number] Remigio Min 1960 M Date Provider Department Center 06/09/2024 Mariela8-MAYELA YAO RAFI [facility] Family History Problem Relation Age of Onset Diabetes Mother Heart failure Mother Kidney disease Mother Heart attack Father 42 Family Status - Relation Status Age at Mother Father Level of Service:25962 [place] OFFICE/OUTPATIENT ESTABLISHED LOW MDM 20 MIN Normal [facility] Office Visiton 02-29-2024 Follow-up visit [id number] Remigio Min 1960 M Date Provider Department Center 02/29/2024 3848-MAYELA YAO PABLO MCKEE [facility] Family History Problem Relation Age of Onset Diabetes Mother Heart failure Mother Kidney disease Mother Heart attack Father 42 Family Status - Relation Status Age at Mother Father Level of Service:06830 [place] OFFICE/OUTPATIENT ESTABLISHED LOW MDM 20 MIN Normal [facility] CT CARDIAC SCORING WO IV CON TRASTon 07-16-2023 CT CARDIAC SCORING WO IV CONTRAST Interpreted By: Eliezer Bazan, STUDY: CT CARDIAC SCORING WO IV CONTRAST; 07/16/2023 11:29 am INDICATION: Signs/Symptoms:FAMILY HISTORY OF ISCHEMIC HEART DISEASE. COMPARISON: None. ACCESSION NUMBER(S): [id number] ORDERING CLINICIAN: JONAH DUFFY TECHNIQUE: Using prospective [...] Eliezer Bazan 07/16/2023 4:52 PM Dictation workstation: [id number] [facility] DIRECT LDLon 08-30-2022 Cholesterol in LDL [Mass/Vol] 81 mg/dL Normal [facility] Comment on above: Performed By: #### D LDL, ALT #### [facility] [address] [place] [address] Dr. Angel Hernández DLDL NORMAL SEE BELOW Normal [facility] Comment on above: Result Comment: <100 mg/dl OPTIMAL 100 - 129 mg/dl NEAR OR ABOVE OPTIMAL 130 - 159 mg/dl BORDERLINE HIGH 160 - 189 mg/dl HIGH >190 mg/dl VERY HIGH Performed By: #### D LDL, ALT #### [facility] [address] [place] [address] Dr. Angel Hernández SGPTon 08-30-2022 ALT [Catalytic activity/Vol] 53 U/L Normal 16-63 [facility] Comment on above: Performed By: #### D LDL, ALT #### [facility] [address] [place] [address] Dr. Angel Hernández CBC AUTO DIFFon 06-29-2022 BASO # 0.1 103/ul Normal 0.0-0.1 [facility] Comment on above: Performed By: #### C BC #### [facility] [address] [place] [address] Dr. Angel Hernández Basophils/100 WBC (Bld) 1.0 % Normal 0.2-2.0 [facility] Comment on above: Performed By: #### C BC #### [facility] [address] [place] [address] Dr. Angel Hrenández EO # 0.2 103/ul Normal 0.0-0.7 [facility] Comment on above: Performed By: #### C BC #### [facility] [address] [place] [address] Dr. Angel Hernández Eosinophils/100 WBC (Bld) 4.7 % Normal 0.9-7.0 [facility] Comment on above: Performed By: #### C BC #### [facility] [address] [place] [address] Dr. Angel Hernández Erythrocyte distribution width (RBC) [Ratio] 12.5 % Normal 11.0-15.0 [facility] Comment on above: Performed By: #### C BC #### [facility] [address] [place] [address] Dr. Angel Hernández Hematocrit (Bld) [Volume fraction] 47.9 % Normal 42.0-54.0 [facility] Comment on above: Performed By: #### C BC #### [facility] [address] [place] [address] Dr. Angel Hernández Hemoglobin (Bld) [Mass/Vol] 16.7 g/dL Normal 14.0-18.0 [facility] Comment on above: Performed By: #### C BC #### [facility] [address] [place] [address] Dr. Angel Hernández IG # 0.01 10e3/ul Normal 0.00-0.03 [facility] Comment on above: Performed By: #### C BC #### [facility] [address] [place] [address] Dr. Angel Hernández IG % 0.2 % Normal 0.0-0.5 [facility] Comment on above: Performed By: #### C BC #### [facility] [address] [place] [address] Dr. Angel Hernández LYMPH # 1.6 103/ul Normal 1.2-3.8 [facility] Comment on above: Performed By: #### C BC #### [facility] [address] [place] [address] Dr. Angel Hernández Lymphocytes/100 WBC (Bld) 30.2 % Normal 20.5-60.0 [facility] Comment on above: Performed By: #### C BC #### [facility] [address] [place] [address] Dr. Angel Hernández MANUAL DIFF REQ NO Normal [facility] Comment on above: Performed By: #### C BC #### [facility] [address] [place] [address] Dr. Angel Hernández MCH (RBC) [Entitic mass] 31.3 pg Normal 25.9-34.0 [facility] Comment on above: Performed By: #### C BC #### [facility] [address] [place] [address] Dr. Angel Hernández MCHC (RBC) [Mass/Vol] 34.9 g/dL Normal 29.9-35.2 [facility] Comment on above: Performed By: #### C BC #### [facility] [address] [place] [address] Dr. Angel Hernández MCV (RBC) [Entitic vol] 89.7 fL Normal 80.0-94.0 [facility] Comment on above: Performed By: #### C BC #### [facility] [address] [place] [address] Dr. Angel Hernández MONO # 0.5 103/ul Normal 0.3-0.8 [facility] Comment on above: Performed By: #### C BC #### [facility] [address] [place] [address] Dr. Angel Hernández Monocytes/100 WBC (Bld) 10.1 % Normal 1.7-12.0 [facility] Comment on above: Performed By: #### C BC #### [facility] [address] [place] [address] Dr. Angel Hernández NEUT # 2.8 103/ul Normal 1.4-6.5 [facility] Comment on above: Performed By: #### C BC #### [facility] [address] [place] [address] Dr. Angel Hernández Neutrophils/100 WBC (Bld) 53.8 % Normal 43.0-75.0 [facility] Comment on above: Performed By: #### C BC #### [facility] [address] [place] [address] Dr. Angel Hernández Platelet mean volume (Bld) [Entitic vol] 9.2 fL Critically low 9.5-13.5 [facility] Comment on above: Performed By: #### C BC #### [facility] [address] [address] [address] Angel Hernández PLT 271 103/ul Normal 150-450 [facility] Comment on above: Performed By: #### C BC #### [facility] [address] [address] [address] Angel Hernández RBC 5.34 106/ul Normal 4.70-6.10 [facility] Comment on above: Performed By: #### C BC #### [facility] [address] [address] [address] Angel Hernández WBC 5.1 103/ul Normal 4.0-11.0 [facility] Comment on above: Performed By: #### C BC #### [facility] [address] [place] [address] Dr. Angel Hernández DIRECT LDLon 06-29-2022 Cholesterol in LDL [Mass/Vol] 106 mg/dL Normal [facility] Comment on above: Performed By: #### T MIRANDA, LIPID, DLDL, CMP #### [facility] [address] [address] [address] Angel Hernández DLDL NORMAL SEE BELOW Normal [facility] Comment on above: Result Comment: <100 mg/dl OPTIMAL 100 - 129 mg/dl NEAR OR ABOVE OPTIMAL 130 - 159 mg/dl BORDERLINE HIGH 160 - 189 mg/dl HIGH >190 mg/dl VERY HIGH Performed By: #### T SH, LIPID, DLDL, CMP #### [facility] [address] [place] [address] Dr. Angel Hernández GLYCOHEMOGLOBIN A1Con 2021 ADA RECOMMENDATION SEE BELOW Normal [facility] Comment on above: Result Comment: ADA RECOMMENDED LIMIT 4.0 - 6.0 ADA THERAPEUTIC TARGET < 7.0 ACTION SUGGESTED > 7.0 Performed By: #### A 1C #### [facility] [address] [place] [address] Dr. Angel Hernández Glucose [Mass/Vol] 114 mg/dL Normal [facility] Comment on above: Performed By: #### A 1C #### [facility] [address] [address] [address] Angel Hernández HbA1c (Bld) [Mass fraction] 5.6 % Normal 4.5-6.2 [facility] Comment on above: Performed By: #### A 1C #### [facility] [address] [address] [address] Angel Hernández LIPID PROFILEon 06-29-2022 CHOL-HDL RATIO NORM SEE BELOW Normal [facility] Comment on above: Result Comment: 3.3 - 4.4 LOW RISK 4.4 - 7.1 AVERAGE RISK 7.1 - 11.0 MODERATE RISK >11.0 HIGH RISK Performed By: #### T SH, LIPID, DLDL, CMP #### [facility] [address] [place] [address] Dr. Angel Hernández Cholesterol [Mass/Vol] 222 mg/dL Critically high <=200 [facility] Comment on above: Performed By: #### T SH, LIPID, DLDL, CMP #### [facility] [address] [place] [address] Dr. Angel Hernández Cholesterol in HDL [Mass/Vol] 35 mg/dL Critically low 40-60 [facility] Comment on above: Performed By: #### T SH, LIPID, DLDL, CMP #### [facility] [address] [place] [address] Dr. Angel Hernández Cholesterol.total/Ch olesterol in HDL [Mass ratio] 6.3 {ratio} Normal [facility] Comment on above: Performed By: #### T SH, LIPID, DLDL, CMP #### [facility] [address] [address] [address] Angel Hernández HDL NORMAL > or = 60 mg/dl - LO W CARDIOVASCULAR RISK <40 mg/dl - HIGH CARDIOVASCULAR RISK Normal [facility] Comment on above: Performed By: #### T SH, LIPID, DLDL, CMP #### [facility] [address] [place] [address] Dr. Angel Hernández Triglyceride [Mass/Vol] 482 mg/dL Critically high <=150 [facility] Comment on above: Performed By: #### T SH, LIPID, DLDL, CMP #### [facility] [address] [address] [address] Angel Hernández VLDL CALC 96.4 mg/dL Normal [facility] Comment on above: Performed By: #### T SH, LIPID, DLDL, CMP #### [facility] [address] [address] [address] Angel Hernández PROF 14(COMP METB)on 022 Albumin [Mass/Vol] 3.6 g/dL Normal 3.4-5.0 [facility] Comment on above: Performed By: #### T SH, LIPID, DLDL, CMP #### [facility] [address] [place] [address] Dr. Angel Hernández Albumin/Globulin [Mass ratio] 1.0 {ratio} Normal [facility] Comment on above: Performed By: #### T SH, LIPID, DLDL, CMP #### [facility] [address] [address] [address] Angel Hernández ALP [Catalytic activity/Vol] 26 U/L Critically low 46-116 [facility] Comment on above: Performed By: #### T SH, LIPID, DLDL, CMP #### [facility] [address] [place] [address] Dr. Angel Hernández ALT [Catalytic activity/Vol] 40 U/L Normal 16-63 [facility] Comment on above: Performed By: #### T SH, LIPID, DLDL, CMP #### [facility] [address] [place] [address] Dr. Angel Hernández Anion gap [Moles/Vol] 6.9 mmol/L Normal [facility] Comment on above: Performed By: #### T SH, LIPID, DLDL, CMP #### [facility] [address] [place] [address] Dr. Angel Hernández AST [Catalytic activity/Vol] 17 U/L Normal 15-37 [facility] Comment on above: Performed By: #### T SH, LIPID, DLDL, CMP #### [facility] [address] [address] [address] Angel Hernández Bilirubin [Mass/Vol] 0.4 mg/dL Normal 0.2-1.0 [facility] Comment on above: Performed By: #### T SH, LIPID, DLDL, CMP #### [facility] [address] [address] [address] Angel Hernández Calcium [Mass/Vol] 8.8 mg/dL Normal 8.5-10.1 [facility] Comment on above: Performed By: #### T SH, LIPID, DLDL, CMP #### [facility] [address] [address] [address] Angel Hernández Chloride [Moles/Vol] 102 mmol/L Normal 98-107 [facility] Comment on above: Performed By: #### T SH, LIPID, DLDL, CMP #### [facility] [address] [place] [address] Dr. Angel Hernández CO2 [Moles/Vol] 31.5 mmol/L Normal 21.0-32.0 [facility] Comment on above: Performed By: #### T SH, LIPID, DLDL, CMP #### [facility] [address] [place] [address] Dr. Angel Hernández Creatinine [Mass/Vol] 1.05 mg/dL Normal 0.70-1.30 [facility] Comment on above: Performed By: #### T SH, LIPID, DLDL, CMP #### [facility] [address] [place] [address] Dr. Angel Hernández EGFR-AF BRAZILIAN >60 Normal >=60 [facility] Comment on above: Performed By: #### T SH, LIPID, DLDL, CMP #### [facility] [address] [place] [address] Dr. Angel Hernández EGFR-NON AF BRAZILIAN >60 Normal >=60 [facility] Comment on above: Performed By: #### T SH, LIPID, DLDL, CMP #### [facility] [address] [place] [address] Dr. Angel Hernández Globulin (S) [Mass/Vol] 3.7 g/dL Normal [facility] Comment on above: Performed By: #### T SH, LIPID, DLDL, CMP #### [facility] [address] [address] [address] Angel Hernández Glucose [Mass/Vol] 125 mg/dL Critically high 74-106 [place] Comment on above: Performed By: #### T SH, LIPID, DLDL, CMP #### [facility] [address] [address] [address] Angel Hernández Potassium [Moles/Vol] 4.4 mmol/L Normal 3.5-5.1 [facility] Comment on above: Performed By: #### T SH, LIPID, DLDL, CMP #### [facility] [address] [place] [address] Dr. Angel Hernández Protein [Mass/Vol] 7.3 g/dL Normal 6.4-8.2 [facility] Comment on above: Performed By: #### T SH, LIPID, DLDL, CMP #### [facility] [address] [place] [address] Dr. Angel Hernández Sodium [Moles/Vol] 136 mmol/L Normal 136-145 [facility] Comment on above: Performed By: #### T SH, LIPID, DLDL, CMP #### [facility] [address] [place] [address] Dr. Angel Hernández Urea nitrogen [Mass/Vol] 12.0 mg/dL Normal 7.0-18.0 [facility] Comment on above: Performed By: #### T SH, LIPID, DLDL, CMP #### [facility] [address] [place] [address] Dr. Angel Hernández Urea nitrogen/Creatinine [Mass ratio] 11.4 mg/mg Normal [facility] Comment on above: Performed By: #### T SH, LIPID, DLDL, CMP #### [facility] [address] [place] [address] Dr. Angel Hernández TSHon 06-29-2022 TSH 3.683 uIU/mL Normal 0.358-3.740 [facility] Comment on above: Performed By: #### T SH, LIPID, DLDL, CMP #### [facility] [address] [address] [address] Angel Hernández COVID-19 Positive/Negativeon 10-05-2020 COVID-19 Positive/Negative Negative Negative [facility] Comment on above: Testing for SARS-CoV -2 by RT-PCRThis test was developed and its performance characteristics determined by [employer] ([employer]) and validated at the [facility]. This test has not been FDA [...] Otheron 10-05-2020 Coronavirus 2019 PCR Interp N/A [facility] Vital Signs Date Time Vital Sign Value Performing Clinician Facility 07-02-2025 08:37-0400 Body height 175.26 cm [employer] Work Phone: [facility] 07-02-2025 08:37-0400 Body mass index (BMI) [Ratio] 33.5 kg/m2 Jonah restOpolis DO Work Phone: [facility] 07-02-2025 08:37-0400 Body weight 103.19 kg Jonah restOpolis DO Work Phone: [facility] 07-02-2025 08:37-0400 Diastolic blood pressure 74 mm[Hg] Signic[employer] DO Work Phone: [facility] 07-02-2025 08:37-0400 Heart rate 85 /min [employer]ic[employer] DO Work Phone: [facility] 07-02-2025 08:37-0400 Respiratory rate 12 /min Jonah Ball DO Work Phone: [facility] 07-02-2025 08:37-0400 Systolic blood pressure 114 mm[Hg] Jonah Ball DO Work Phone: [facility] 04-23-2025 09:40-0400 Body height 177.8 cm Annette Adams MD Work Phone: [facility] 04-23-2025 09:40-0400 Body mass index (BMI) [Ratio] 32.71 kg/m2 Annette Adams MD Work Phone: [facility] 04-23-2025 09:40-0400 Body weight 103.42 kg Annette Adams MD Work Phone: [facility] 04-23-2025 09:40-0400 Diastolic blood pressure 78 mm[Hg] Annette Adams MD Work Phone: [facility] 04-23-2025 09:40-0400 Systolic blood pressure 122 mm[Hg] Annette Adasm MD Work Phone: [facility] 12-29-2024 08:43-0400 Body height 175.[address] [facility] 12-29-2024 08:43-0400 Body mass index (BMI) [Ratio] 34 kg/m2 [facility] 12-29-2024 08:43-0400 Body weight 104.[address] [facility] 12-29-2024 08:43-0400 Diastolic blood pressure 80 mm[Hg] [facility] 12-29-2024 08:43-0400 Heart rate 87 /min [facility] 12-29-2024 08:43-0400 Respiratory rate 12 /min [facility] 12-29-2024 08:43-0400 Systolic blood pressure 120 mm[Hg] [facility] 11-17-2024 11:05-0500 Body height 177.8 cm Naa Felder NP Work Phone: [facility] 11-17-2024 11:05-0500 Body mass index (BMI) [Ratio] 32.8 kg/m2 Naa Felder SHAKE LOADER Work Phone: [facility] 11-17-2024 11:05-0500 Body weight 103.69 kg Naa Felder SHAKE LOADER Work Phone: [facility] 11-17-2024 11:05-0500 Diastolic blood pressure 84 mm[Hg] Naa Felder SHAKE LOADER Work Phone: [facility] 11-17-2024 11:05-0500 Systolic blood pressure 138 mm[Hg] Naa Felder SHAKE LOADER Work Phone: [facility] 10-04-2024 12:29-0500 Body height 175.3 cm Annette Adams MD Work Phone: [facility] 10-04-2024 12:29-0500 Body mass index (BMI) [Ratio] 33.08 kg/m2 Annette Adams MD Work Phone: [facility] 10-04-2024 12:29-0500 Body weight 101.61 kg Annette Adams MD Work Phone: [facility] 08-06-2024 15:42-0400 Body height 175.[address] [facility] 08-06-2024 15:42-0400 Body mass index (BMI) [Ratio] 33 kg/m2 [facility] 08-06-2024 15:42-0400 Body weight 101.[address] [facility] 08-06-2024 15:42-0400 Diastolic blood pressure 87 mm[Hg] [facility] 08-06-2024 15:42-0400 Heart rate 89 /min [facility] 08-06-2024 15:42-0400 Respiratory rate 12 /min [facility] 08-06-2024 15:42-0400 Systolic blood pressure 131 mm[Hg] [facility] 06-24-2024 09:19-0400 Body height 175.[address] [facility] 06-24-2024 09:19-0400 Body mass index (BMI) [Ratio] 33.7 kg/m2 [facility] 06-24-2024 09:19-0400 Body weight 103.[address] [facility] 06-24-2024 09:19-0400 Diastolic blood pressure 89 mm[Hg] [facility] 06-24-2024 09:19-0400 Heart rate 91 /min [facility] 06-24-2024 09:19-0400 Respiratory rate 16 /min [facility] 06-24-2024 09:19-0400 Systolic blood pressure 130 mm[Hg] [facility] 02-20-2024 09:41-0400 Body height 175.[address] [facility] 02-20-2024 09:41-0400 Body mass index (BMI) [Ratio] 33.2 kg/m2 [facility] 02-20-2024 09:41-0400 Body weight 102.[address] [facility] 02-20-2024 09:41-0400 Diastolic blood pressure 88 mm[Hg] [facility] 02-20-2024 09:41-0400 Heart rate 96 /min [facility] 02-20-2024 09:41-0400 Respiratory rate 20 /min [facility] 02-20-2024 09:41-0400 Systolic blood pressure 120 mm[Hg] [facility] 10-22-2023 15:30-0500 Body height 175.26 cm Jonah Ball Other [facility] [employer] Other 10-22-2023 15:30-0500 Body mass index (BMI) [Ratio] 32.16 kg/m2 Jonah Ball Other [facility] [employer] Other 10-22-2023 15:30-0500 Body weight 98.79 kg Jonah Ball Other [facility] [employer] Other 10-22-2023 15:30-0500 Diastolic blood pressure 80 mm[Hg] Jonah Ball Other [facility] Other 10-22-2023 15:30-0500 Respiratory rate 12 /min Jonah Ball Other [facility] Other 10-22-2023 15:30-0500 Systolic blood pressure 135 mm[Hg] Jonah Ball Other [facility] Other 06-15-2023 13:30-0400 Body height 175.26 cm Jonah Ball Other [facility] Other 06-15-2023 13:30-0400 Body mass index (BMI) [Ratio] 32.1 kg/m2 Jonah Ball Other [facility] Other 06-15-2023 13:30-0400 Body weight 98.61 kg Jonah Ball Other [facility] Other 06-15-2023 13:30-0400 Diastolic blood pressure 85 mm[Hg] Jonah Ball Other [facility] Other 06-15-2023 13:30-0400 Respiratory rate 12 /min Jonah Ball Other [facility] Other 06-15-2023 13:30-0400 Systolic blood pressure 125 mm[Hg] Jonah Ball Other [facility] Other Encounters Encounter Date Encounter Type Care Provider Facility Start: 07-02-2025 End: 07-02-2025 ambulatory Jonah Clive DO Work Phone: [facility] Work Phone: Start: 07-02-2025 End: 07-02-2025 Patient encounter procedure Jonah Duffy DO -[facility] Work Phone: Start: 07-02-2025 End: 07-02-2025 Patient encounter status Jonah Ball [facility] Start: 06-22-2025 End: 06-22-2025 Refill Annette Adams MD Work Phone: [facility] [place] [facility] Comment on above: PBA (pseudobulbar af fect) (Primary Dx) Start: 04-23-2025 End: 04-23-2025 Bamboo flowskirill Adams MD Work Phone: [facility] Start: 04-23-2025 End: 04-23-2025 Bamboo flowskirill Adams MD Work Phone: [facility] Start: 04-23-2025 End: 04-23-2025 Office outpatient visit 25 minutes Annette Adams MD Work Phone: [facility] Comment on above: MCI (mild cognitive impairment) Start: 04-23-2025 End: 04-23-2025 ambulatory ANNETTE ADAMS Not Available Start: 02-23-2025 End: 02-23-2025 Bamboo flowskirill Adams MD Work Phone: [facility] Start: 02-23-2025 End: 02-23-2025 Bamboo flowskirill Adams MD Work Phone: [facility] Start: 02-23-2025 End: 02-23-2025 Office outpatient visit 25 minutes Annette Adams MD Work Phone: [facility] Comment on above: PBA (pseudobulbar af fect) (Primary Dx); MCI (mild cognitive impairment) Start: 02-23-2025 End: 02-23-2025 ambulatory ANNETTE ADAMS Not Available Start: 02-20-2025 End: 02-20-2025 ambulatory [facility] Start: 12-29-2024 End: 12-29-2024 Bamboo flowskirill Adams MD Work Phone: [facility] Start: 12-29-2024 End: 12-29-2024 Bamboo flowsheet Annette Adams MD Work Phone: [facility] Start: 12-29-2024 End: 12-29-2024 ambulatory ANNETTE ADAMS Not Available Start: 12-29-2024 End: 12-29-2024 ambulatory [facility] Work Phone: Start: 12-29-2024 End: 12-29-2024 Patient encounter procedure [facility] Physician [facility] Work Phone: Start: 11-17-2024 End: 11-17-2024 Office outpatient visit 25 minutes Naa Felder SHAKE LOADER Work Phone: [facility] Comment on above: MCI (mild cognitive impairment) Start: 11-17-2024 End: 11-17-2024 Orders Only Haydee Fuller SHAKE LOADER Work Phone: [facility] [phone] Comment on above: MCI (mild cognitive impairment) (Primary Dx); Generalized anxiety disorder (CMS/HCC); CALLIE (obstructive sleep apnea) Start: 10-16-2024 End: 10-16-2024 Patient encounter procedure [facility] Clinical Laboratory Manager [facility] Comment on above: Episodic altered shelia reness; Resistant hypertension (CMS/HCC); Generalized anxiety disorder (CMS/HCC); Tinnitus of both ears; Visual disturbances Start: 10-16-2024 End: 10-16-2024 ambulatory NAA FELDER Not Available Start: 10-04-2024 End: 10-04-2024 Bamboo flowsheet Annette Adams MD Work Phone: [facility] Start: 10-04-2024 End: 10-04-2024 Bamboo flowsheet Annette Adams MD Work Phone: [facility] Start: 10-04-2024 Patient encounter status Annette Adams MD Work Phone: [facility] Start: 10-04-2024 End: 10-04-2024 Office outpatient visit 25 minutes Annette Adams MD Work Phone: [facility] Comment on above: MCI (mild cognitive impairment) (Primary Dx) Start: 10-04-2024 End: 10-04-2024 ambulatory ANNETTE ADAMS Not Available Start: 08-28-2024 End: 08-28-2024 ambulatory [facility] Start: 08-06-2024 End: 08-06-2024 ambulatory [facility] Work Phone: Start: 08-06-2024 End: 08-06-2024 Patient encounter procedure [facility] Physician [facility] Work Phone: Start: 06-25-2024 Non-patient / Non-visit [facility] Physician [facility] Work Phone: Start: 06-24-2024 End: 06-24-2024 ambulatory [facility] Work Phone: Start: 06-24-2024 End: 06-24-2024 Encounter for general adult medical examination without abnormal findings [facility] Start: 06-24-2024 End: 06-24-2024 Patient encounter procedure [facility] Physician [facility] Work Phone: Start: 06-20-2024 Patient encounter status [facility] Start: 06-09-2024 End: 06-09-2024 ambulatory [facility] Start: 02-29-2024 End: 02-29-2024 ambulatory [facility] Start: 02-20-2024 End: 02-20-2024 ambulatory [facility] Work Phone: Start: 02-20-2024 End: 02-20-2024 Patient encounter procedure [facility] Physician [facility] Work Phone: Start: 12-17-2023 Non-patient / Non-visit [facility] Physician [facility] Work Phone: Start: 11-14-2023 End: 11-14-2023 ambulatory [facility] Other [facility] Other Start: 11-14-2023 Telephone encounter Jonah Duffy [facility] Start: 11-13-2023 End: 11-13-2023 ambulatory Jonah Duffy Other [facility] Other Start: 11-13-2023 Telephone encounter oJnah Duffy [facility] Start: 11-06-2023 End: 11-06-2023 ambulatory Jonah Duffy Other [facility] Other Start: 11-06-2023 Telephone encounter Jonah Duffy [facility] Start: 10-22-2023 End: 10-22-2023 ambulatory Jonah Duffy Other [facility] Other Start: 10-22-2023 Office outpatient vi sit 25 minutes Jonah Clive [facility] Start: 09-05-2023 End: 09-05-2023 ambulatory Jonah Duffy Other [facility] Other Start: 09-05-2023 Telephone encounter Jonah Duffy [facility] Start: 07-18-2023 End: 07-18-2023 ambulatory Jonah Duffy Other [facility] Other Start: 07-18-2023 Telephone encounter Jonah Ball [facility] Start: 07-16-2023 End: 07-17-2023 ambulatory JONAH PASCUAL [facility] Start: 06-29-2023 End: 06-29-2023 ambulatory Jonah Duffy Other [facility] Other Start: 06-29-2023 Telephone encounter Jonah Ball [facility] Start: 06-19-2023 End: 06-19-2023 ambulatory Jonah Ball Other [facility] Other Start: 06-19-2023 Telephone encounter Jonah Ball [facility] Start: 06-15-2023 End: 06-15-2023 ambulatory Jonah Duffy Other [facility] Other Start: 06-15-2023 Encounter for genera l adult medical examination without abnormal findings Jonah Duffy [facility] Start: 06-15-2023 Periodic preventive med est patient 40-64yrs Jonah Duffy [facility] Start: 06-11-2023 End: 06-11-2023 ambulatory Jonah Duffy Other [facility] Other Start: 06-11-2023 Encounter for genera l adult medical examination without abnormal findings Jonah Duffy [facility] Start: 06-11-2023 Telephone encounter [facility] Start: 03-09-2023 End: 03-09-2023 ambulatory Jonah Duffy Other [facility] Other Start: 03-09-2023 Telephone encounter [facility] Start: 08-30-2022 End: 08-31-[address] JONAH DUFFY Facility:[facility] Start: 07-02-2022 Encounter for genera l adult medical examination without abnormal findings DR JONAH DUFFY [facility] Start: 06-29-2022 End: 06-30-[address] JONAH DUFFY Facility:[facility] Start: 06-29-2022 End: 06-30-2022 Encounter for general adult medical examination without abnormal findings DR JONAH DUFFY Facility:[facility] Start: 06-12-2022 Adult health examination Jonah Duffy Other [facility] Other Start: 10-05-2020 End: 10-05-2020 Patient encounter procedure Jonah Duffy -Pre-Surgical Testing Procedures Date Procedure Procedure Detail Performing Clinician Start: 07-16-2023 CT CARDIAC SCORING W O IV CONTRAST JONAH DUFFY Start: 06-29-[address] MANUEL DUFFY Comment on above: Performed By: #### P [facility] #### [facility] [address] [place] [address] Dr. Angel Hernández Start: 08-23-2017 End: 06-12-2022 [...] Visit [facility] [address] [place] [address] Annette Adams MD [address] [place] [address] Arrived [facility] Comment on above: Arrived Start: 12-29-2024 End: 12-29-2024 Patient encounter procedure [facility] Comment on above: Arrived Start: 11-17-2024 End: 11-17-2024 Patient encounter procedure 11/17/2024 10:50 AM EST Office Visit [facility] [address] [facility] [address] [place] [address] Naa Felder, SHAKE LOADER [address], [address] [place] [id number] [facility] Start: 10-23-2024 End: 10-23-2024 Patient encounter procedure 10/23/2024 11:00 AM EST Office Visit [facility] [address] [address] [facility] Start: 10-07-2024 End: 10-04-2025 Brain Mapping Brain Mapping Neurology Routine MCI (mild cognitive impairment) Expected: 10/07/2024 (Approximate), Expires: 10/04/2025 [facility] Work Phone: Comment on above: Expected: 10/07/2024 (Approximate), Expires: 10/04/2025 Start: 10-04-2024 End: 10-04-2024 Patient encounter procedure 10/04/2024 12:30 PM EST Office Visit [facility] [address] [place] [address] Annette Adams MD [address] [facility] [address] [place] [id number] Arrived [facility] Comment on above: Arrived Start: 06-15-2024 Influenza vaccination Influenz a Vaccine (#1) [facility] Start: 1960 Screening for malign ant neoplasm of colon [facility] Brain Mapping Brain Mapping Neurology Routine Episodic altered awareness 10/16/2024 2:38 PM EST [facility] Work Phone: Comprehensive metabo lic 1999 panel - Serum or Plasma [facility] Comprehensive metabo lic 1999 panel - Serum or Plasma [facility] Immunizations Immunization Date Immunization Notes Care Provider Fa cility 07-20-2020 influenza virus vaccine, unspecified formulation Annette Adams MD Work Phone: [facility] 08-17-2016 tetanus and diphther ia toxoids, adsorbed, preservative free, for adult use (5 Lf of tetanus toxoid and 2 Lf of diphtheria toxoid) Jonah Duffy Other [facility] Payers Date Payer Category Payer Private Health Insurance [employer] [id number] 2024 Unknown [id number] 1960 Unknown [id number] 1961 Unknown [id number] [id number]. 593 1961 Unknown [id number]. 1259 1961 Unknown [id number]. 1259 1961 Unknown [id number] [id number]. 1259 1961 Unknown [id number]. 1259 1961 Unknown [id number] [id number]. 1259 1961 Unknown [id number] [id number]. 1259 1959 Unknown [id number] Self-pay Self Pay [id number] Unknown [id number] Unknown [id number] Social History Date Type Detail Facility Tobacco smoking status NMIS Unknown if ever smoked [facility] Start: 1960 Sex Assigned At Male [facility] Start: 10-04-2024 End: 04-23-2025 Sex Assigned At [facility] [employer] Other Start: 10-11-2020 End: 10-04-2024 Tobacco smoking status NMIS Never smoked tobacco (finding) [facility] Tobacco smoking status [facility] Tobacco smoking consumption unknown [facility] Start: 1960 Sex assigned at Not on file [facility] Start: 10-04-2024 Tobacco use and exposure Smokeless tobacco non-user [facility] Start: 10-04-2024 End: 04-23-2025 Alcoholic beverage intake Current drinker of alcohol (finding) [facility] Start: 10-04-2024 End: 04-23-2025 History of Social function [facility] Start: 12-29-2024 Sex Male (finding) [facility] Goals Date Patient Goal Desired Activity [...] in all four extremities, including at least rural route mail carrier, finger abductors, biceps, triceps, deltoid, toe flexors [...] activities. This clinical note was created utilizing [employer] documentation system. All information has been thoroughly reviewed, corrected as necessary, and authenticated by the provider to ensure accuracy and completeness. On occasion, [employer] documentation system erroneously drops words or replaces a spoken word with a similar sounding word. Please notify with any questions or concerns regarding this clinical note. documented in this encounter [facility] 02-23-2025 History of Present illness Narrative [...] reflexes: Latha's absent. Ankle clonus absent. Coordination Wtqzmr-wf-fzap, rapid alternating movements and gbpp-bm-ztpn normal bilaterally without dysmetria. Gait Normal casual, toe, heel and tandem gait. Romberg is absent. PROCEDURE: NONE ASSESSMENT AND PLAN: Remigio Min is a 64 year old male with cognitive decline accompanied by pseudobulbar affect with emotional outbursts as well as hypersexual tenancies to the point that it is affecting their social s[place]ovia. This is most consistent with a frontal [...] Annette Adams MD documented in this encounter [facility] 02-20-2025 Note MD Cardiology - [facility] Subjective Remigio Min is a [...] with mildly increased (more content not included)... [facility] 11-17-2024 History of Present illness Narrative Neuropsych testing referral placed/ordered/claudias memory testing and sent to patient. documented in this encounter [facility] 10-16-2024 History of Present illness Narrative [...] dementia. Faster alpha peak frequencies correlate with TOOLROOM CLERK over-arousal conditions. Excessive SMR has been associated with attention disorders. documented in this encounter [facility] 10-04-2024 History of Present illness Narrative [...] will not do much. 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 He states he did not seem to notice any issues when he was working, Did have MRI at [facility], States there is a strong hx [...] reflexes: Latha's absent. Ankle clonus absent. Coordination Bvqheq-ed-abdr, rapid alternating movements and vhjm-wc-xbbc normal bilaterally without dysmetria. Gait Normal casual, [...] up 6-8 weeks. documented in this encounter [facility] 08-28-2024 Note [facility] Note HPI: Remigio Min is [...] or concerns. Mayela Yao MD Interventional Cardiology [facility] 06-09-2024 Note [facility] Note HPI: Remigio Min is [...] or concerns. Mayela Yao MD Interventional Cardiology [facility] 02-29-2024 Note [facility] Note HPI: Remigio Min is [...] or concerns. Mayela Yao MD Interventional Cardiology [facility] 10-22-2023 Evaluation note Encounter Date Diagnosis [...] CAD. LAYNE score indicates 100% risk for W[place] in next 10 years. Recommend initiating primary prevention measures Recommend initiating ASA 81mg qd Recommend Stress testing Oct, CALLIE (obstructive sleep apnea) (ICD-10 - G47.33) This patient is aware of the benefits associated with CALLIE: With continued use, the patient reduces the risk for [place], CVA, HTN, cardiac dysrhythmias and sudden cardiac [...] year risk for CAD. Father suffered fatal [place] in 40s. Initiate primary prevention measures. Apr, Gastro-esophageal reflux disease with esophagitis, without bleeding (ICD-10 - K21.00) Avoid lying flat after eating. Avoid eating 2 hours prior to bedtime. Smaller, frequent meals may be better tolerated.Weight loss if overweight.PPI with any heartburn.Monito r for dysphagia. [facility] Other 10-04-2023 Evaluation note* Encounter Date Diagnosis Assessment Notes Treatment Notes Treatment Clinical Notes Jul, Hypertriglyceridemia (ICD-10 - E78.1) [facility] Other 09-15-2023 Evaluation note* Encounter Date Diagnosis Assessment Notes Treatment Notes Treatment Clinical Notes Jun, Primary hypertension (ICD-10 - I10) Jun, Tachycardia (ICD-10 - R00.0) [facility] Other 09-01-2023 Evaluation note* Encounter Date Diagnosis [...] or drinking prior to bedtime. Weight loss. [facility] Other 08-28-2023 Evaluation note* Encounter Date Diagnosis Assessment Notes Treatment Notes Treatment Clinical Notes May, Wellness examination (ICD-10 - Z00.00) [facility] Other Evaluation noteNo InformationNort [employer] Other Evaluation note* Diagnosis Onset Date Resolution Status Elevated cholesterol acute Elevated coronary artery calcium score acute Hypertension acute CALLIE (obstructive sleep apnea) acute [facility] Work Phone: Evaluation note* Diagnosis Onset Date Resolution Status Benign prostatic hyperplasia with lower urinary tract symptoms acute Elevated cholesterol acute Elevated coronary artery calcium score acute Erectile dysfunction acute Hypertension acute Obesity acute CALLIE (obstructive sleep apnea) acute Screening PSA (prostate specific antigen) acute Wellness examination acute [facility] Work Phone: Evaluation note* Diagnosis MCI [...] sleep apnea) acute December 29, 2024 8:28am [facility] Work Phone: Evaluation note* Diagnosis PBA [...] June 8:24am Wellness examination acute Jun 8:24am [facility] Work Phone: History general Narrative - Reported* Type Description Date Medical History Dysphagia, unspecified Medical History Esophageal obstruction Medical History Schatzki's ring Medical History Essential hypertension Medical History External hemorrhoids Medical History Adenomatous polyp of descending colon Surgical History COLONOSCOPY Surgical History EGD W/ DILATATION 2015 Hospitalization History SEE SURGICAL HX [facility] Other History general Narrative - Reported* Type Description Date Medical History Dysphagia, unspecified Medical History Esophageal obstruction Medical History Schatzki's ring Medical History Essential hypertension Medical History External hemorrhoids Medical History Adenomatous polyp of descending colon Surgical History COLONOSCOPY (repeat 2024) 2019 Surgical History EGD W/ DILATATION 2015 Hospitalization History SEE SURGICAL HX [facility] Other Reason for referral (narrative)* Reason Referral for an abno rmal stress test. Diagnosis 1 Family history of pr emature CAD (Z82.49) Referral Organization [facility] sandrita Referring Provider First Name Jonah Referring Provider Last Name Clive Referring Provider Specialty Internal Ma dicine Referred Organization [facility] Referred Provider Dileep Ivy V Referred Address [address], [place],[address] Referred Provider Specialty Cardiovascul ar Disease Referral [...] NM imaging report and treadmill test dictation) [facility] Other Reason for referral (narrative)No reason for referral [facility] Work Phone: Advance Directives Advance Directive [...] and content) DATE CREATED AUTHOR 09/02/2022 [facility] DATE CREATED AUTHOR AUTHOR'S ORGANIZ ATION 07/21/2023 [facility] DATE CREATED AUTHOR AUTHOR'S ORGANIZ ATION 02/22/2025 [facility] DATE CREATED AUTHOR AUTHOR'S ORGANIZ ATION 04/27/2025 [facility] dical Specialists EPIC REASON FOR VISIT (unrecogniz ed section and content) Reason Comments Memory Loss MCI Reason Comments Brain Map Specialty Diagnoses / Procedures Referred By Contac t Referred To Contact Neurology Diagnoses MCI (mild cognitive impairment) Procedures Brain Mapping Annette Adams MD [address] [place] [address] Phone: tel: fax: Annette Adams MD [address] [place] [address] Phone: tel: fax: Referral ID Status Reason Start Date Expiration Date Visits Re quested Visits Authorized [id number] Closed 10/07/2024 04/05/2025 1 1 Reason Comments [...] August 06, 2024 End: August 06, 2024 [employer] Relationship Specialty Start Date End Date Jonah Duffy MD [address] [place] [id number] PCP - General Internal Medicine 01/07/24 Rosalee Ragsdale DO [address] [place] [address] Referring Physician Neurology 01/02/24 [employer] Relationship Specialty Start Date End Date Jonah Duffy MD [address] [place] [id number] PCP - General Internal Medicine 01/07/24 Rosalee Ragsdale DO [address] [place] [address] Referring Physician Neurology 01/02/24 [employer] Relationship Specialty Start Date End Date Jonah Duffy MD [address] [place] [phone] PCP - General Internal Medicine 01/07/24 Rosalee Ragsdale DO [address] [place] [address] Referring Physician Neurology 01/02/24 [employer] Relationship Specialty Start Date End Date Jonah Duffy MD [address] [place] [phone] PCP - General Internal Medicine 01/07/24 Rosalee Ragsdale DO [address] [place] [address] Referring Physician Neurology 01/02/24 [employer] Relationship Specialty Start Date End Date Jonah Duffy MD [address] [place] [phone] PCP - General Internal Medicine 01/07/24 Rosalee Ragsdale DO [address] [place] [address] Referring Physician Neurology 01/02/24 Team Status: Inactive Member Role Status Dates Jonah Duffy DO Primary Care Provide r, Attending Provider Active Start: December 29, 2024 End: December 29, 2024 [employer] Relationship Specialty Start Date End Date Jonah Duffy MD [address] [place] [phone] PCP - General Internal Medicine 01/07/24 Rosalee Ragsdale DO [address] [place] [address] Referring Physician Neurology 01/02/24 [employer] Relationship Specialty Start Date End Date Jonah Duffy DO PCP - General Internal Medicine 01/07/24 Rosalee Ragsdale DO [address] [place] [address] Referring Physician Neurology 01/02/24 [employer] Relationship Specialty Start Date End Date Jonah Duffy DO PCP - General Internal Medicine 01/07/24 Rosalee Ragsdale DO [address] [place] [address] Referring Physician Neurology 01/02/24 [employer] Relationship Specialty Start Date End Date Jonah Duffy DO PCP - General Internal Medicine 01/07/24 Rosalee Ragsdale DO [address] [place] [address] Referring Physician Neurology 01/02/24 [employer] Relationship Specialty Start Date End Date Jonah Duffy DO PCP - General Internal Medicine 01/07/24 Rosalee Ragsdale DO [address] [place] [address] Referring Physician Neurology 01/02/24 Team Status: Inactive [...] BE BASED ON THE PRIMARY CLINICAL RECORDS. [facility]. provides no warranty or guarantee of the accuracy or completeness of information in this document.
[2025-07-23 11:43] LABS: Thyroid Stimulating Hormone 5.412 uIU/mL (0.358-3.740)
== END 2025-07-23 10:47 | disposition home or self-care (01) ==
LOC: LAB 10:47
PROVIDERS: PCP Internal Medicine; Visit Provider Internal Medicine
DX: R79.89 Other specified abnormal findings of blood chemistry (principal); F48.2 Pseudobulbar affect; G31.84 Mild cognitive impairment of uncertain or unknown etiology
CPT/HCPCS: 36415; 81401; 83520; 84439; 84443; 86376

== ENCOUNTER 2025-09-21 15:19 | Outpatient (OUT) | payer OTHER, SELFPAY ==
--- OUTSIDE RECORDS SUMMARY | 2025-09-21 15:24 | XMS_ITS | CCD ---
Author Organization [facility] CliniSynj Care Team Providers Care Senior Animator Name Role Phone Jonah Duffy Primary Care Provider [phone] Dash Gregory Attending Provider [phone] CLIVE, DR HAUSER Consulting Unavailable CLIVE, DR [...] DO Primary Care Provider Jonah Duffy DO Primary Care Provider Jonah Duffy DO Attending Provider [phone] Rosalee Ragsdale DO Unavailable Jonah Duffy DO Primary Care Provider NAA FELDER Attending Unavailable ANNETTE ADAMS Attending Unavailable ANNETTE ADAMS Attending Unavailable ANNETTE ADAMS Attending Unavailable ANNETTE ADAMS Attending Unavailable CELIA MONTANEZ Attending Unavailable JONAH DUFFY Referring Unavailable ANNETTE ADAMS Attending Unavailable Unavailable Unavailable Unavailable Allergies Allergy ClassificationReported Allergen(s)Allergy TypeDate of OnsetReaction(s) Facility (1 source)patient allergy list reviewed by nurse or physiciaPropensity to adverse gxbivwegb91-16-6329Tipopnd:farmbuy Other (1 source)ALLERGIES NOT ON FILE; Translations: [ALLERGIES NOT ON FILE]Propensity to adverse reactions (disorder)[facility] Medications Current Medications MedicationDrug Class(es)DatesSig (Normalized)Sig (Original)aspirin 81 mg delayed release oral tablet (20 sources)Platelet Aggregation Inhibitor, Nonsteroidal Anti-inflammatory Drug Start: 57-39-7637Heogsfq (Adult Low Dose Aspirin) 81 mg tablet,delayed release (DR/EC) Active 81 MG PO Daily February 19, 2024 12:00am Complies with drug therapy atorvastatin 10 mg oral tablet (20 sources)HMG-CoA Reductase InhibitorStart: 08-17-2024 End: 80-05-3313fjcb 1 tablet by mouth once daily in the eveningAtorvastatin 10 mg tablet Discontinued 0 .ROUTE .COMPLEX 90 August 17, 2024 8:52pm December 29, 2024 9:25am TAKE 1 TABLET BY MOUTH EVERY DAY IN THE EVENINGStart: 10-19-2023 End: 29-61-3421jjpe 1 tablet by mouth at bedtimeatorvastatin (Lipitor) 10 MG tablet Take 10 mg by mouth at bedtime 10/19/2023 Activebenazepril hydrochloride 10 mg oral tablet (20 sources)Angiotensin Converting Enzyme InhibitorStart: 10-11-2020 End: 81-37-5743dwpp 1 tablet by mouth in the morningbenazepril (Lotensin) 10 MG tablet Take 10 mg by mouth in the morning. 11/18/2023 Activebenzonatate 200 mg oral capsule (11 sources)Non-narcotic AntitussiveStart: 44-12-7221sscu 1 capsule by mouth every eight hoursBenzonatate 200 MG 1 capsule Orally Three times a day for 10 days Mar, Activedonepezil hydrochloride 10 mg oral tablet (20 sources)Start: 04-23-2025 End: 23-73-4202qxii 1 tablet by mouth in the morningdonepezil (Aricept) 10 MG tablet Indications: MCI (mild cognitive impairment) Take 1 tablet (10 mg)by mouth in the morning and in the evening 180 tablet 3 07/23/2025 07/18/2026 ActiveStart: 11-17-2024 End: 37-83-0009enft 1 tablet by mouth once dailyDonepezil 10 mg tablet Discontinued 10 MG PO Daily December 29, 2024 12:00am July 02, 2025 8:45am Start: 10-04-2024 End: 72-93-8435cpdu 1 tablet by mouth once daily at bedtimeDonepezil (Aricept) 5 mg tablet Discontinued 5 MG PO Daily at bedtime October 06, 2024 1:00am December 29, 2024 8:43amfenofibrate 134 mg oral capsule (7 sources)Peroxisome Proliferator Receptor alpha Agonisttake 1 capsule by mouth every twenty-four hoursFenofibrate Micronized 134 MG 1 capsule with a meal Orally Once a day Ngowxx61 hr guanFACINE 1 mg extended release oral tablet (15 sources)Central alpha-2 Adrenergic AgonistStart: 06-22-2025 End: 11-75-2315esnb 1 tablet by mouth once dailyguanFACINE (Intuniv) 1 mg 24 hr tablet Indications: PBA (pseudobulbar affect) Take 1 tablet (1 mg) by mouth Daily 90 tablet 3 07/23/2025 07/18/2026 ActiveStart: 02-23-2025 End: 31-34-6263ieml 1 tablet by mouth every twenty-four hours at bedtime guanFACINE (Intuniv) 1 mg 24 hr tablet Indications: PBA (pseudobulbar affect) Take 1 tablet (1 mg) by mouth at bedtime 90 tablet 3 05/22/2025 06/22/2025 Discontinuedmemantine hydrochloride 10 mg oral tablet (20 sources)E-wephdz-V-aspartate Receptor AntagonistStart: 12-29-2024 End: 05-18-2930ocpb 1 tablet by mouth in the morningmemantine (Namenda) 10 MG tablet Indications: MCI (mild cognitive impairment) Take 1 tablet (10 mg)by mouth in the morning and 1 tablet (10 mg) before bedtime. 180 tablet 3 07/23/2025 07/18/2026 ActiveStart: 11-17-2024 End: 20-62-5671ngvt 1 tablet by mouth twice dailyMemantine 5 mg tablet Discontinued 5 MG PO Twice daily December 29, 2024 12:00am July 02, 2025 8:45amQUEtiapine 25 mg oral tablet (6 sources)Atypical AntipsychoticStart: 79-58-5490cidd 1 tablet by mouth at bedtimeQUEtiapine (SEROquel) 25 MG tablet Indications: PBA (pseudobulbar affect) , MCI (mild cognitive impairment) TAKE 1 TABLET BY MOUTH AT BEDTIME 90 tablet 3 08/14/2025 ActiveStart: 07-23-2025 End: 00-51-6144pdkj 1 tablet by mouth at bedtimeQUEtiapine (SEROquel) 25 MG tablet Indications: PBA (pseudobulbar affect) , MCI (mild cognitive impairment) Take 1 tablet (25 mg) by mouth at bedtime 30 tablet 2 07/23/2025 08/14/2025 Discontinuedsildenafil 100 mg oral tablet (17 sources)Phosphodiesterase 5 InhibitorStart: 21-30-5127rska 1 tablet by mouth once daily as neededSildenafil 100 mg tablet Active 100 MG PO Daily as needed February 19, 2024 12:00am Complies with drug therapytake 1 tablet by mouth every twenty-four hoursSildenafil Citrate 100 MG 1 tablet as needed Orally Once a day for 30 days Activethiamine 100 mg oral tablet (20 sources)Start: 10-04-2024 End: 10-13-2681ofjp 1 tablet by mouth once dailythiamine (Vitamin B-1) 100 MG tablet Indications: MCI (mild cognitive impairment) Take 1 tablet (100 mg) by mouth Daily 90 tablet 3 07/23/2025 07/18/2026 Active Completed/Discontinued Medications MedicationDrug Class(es)DatesSig (Normalized)Sig (Original)carvedilol 6.25 mg oral tablet (20 sources)alpha-Adrenergic Gloria, beta-Adrenergic BlockerStart: 12-17-2023 End: 52-52-3096iqhq 1 tablet by mouth twice daily at mealtimeCarvedilol 6.25 mg tablet Discontinued 0 .ROUTE .COMPLEX 180 June 17, 2024 5:31pm July 22, 2024 10:39pm TAKE 1 TABLET BY MOUTH TWICE A DAY WITH FOOD FOR 30 DAYSStart: 06-29-2023 End: 86-17-2122ozya 1 tablet by mouth in the morningcarvedilol (Coreg) 6.25 MG tablet Take 6.25 mg by mouth in the morning and 6.25 mg in the evening. Take with meals. 11/03/2023 ActiveSuprep Bowel Prep - (12 sources)Start: 75-23-0789Zijtfn Bowel Prep - 1 Orally Daily for 1 day(s) Aug, Not-Taking/PRNStart: 92-95-5140Fietas Bowel Prep - 1 Orally Daily for 1 day(s) Aug, Not-Taking Problems Active Problems Problem ClassificationProblemDateDocumented DateEpisodic/ChronicAlcohol-related disorders (4 sources)Alcohol intake above recommended sensible limits; Translations: [Alcohol abuse, uncomplicated]94-62-3116TytpcltRawzysa disorders (20 sources)Generalized anxiety disorder; Translations: [Generalized anxiety disorder]Onset: 891424-52-2400PhjaprtSxzqryh dysrhythmias (1 source)Tachycardia, unspecifiedEpisodicCoronary atherosclerosis and other heart disease (12 sources)Coronary atherosclerosis; Translations: [Atherosclerotic heart disease of [place] coronary artery without angina pectoris]Onset: 02-20-2025 98-21-7094KoydxwrNzedkyyw, dementia, and amnestic and other cognitive disorders (13 sources)Pseudobulbar affect; Translations: [Pseudobulbar affect]Onset: 607741-03-7426TomgdelJybchywa mellitus without complication (2 sources)Type 2 diabetes mellitus without complications; Translations: [Type 2 diabetes mellitus without complications]Onset: 20-28-6468XmnwxeaCtiknvjc mellitus without complication (3 sources)Impaired fasting glucoseEpisodicDisorders of lipid metabolism (20 sources)Pure hypercholesterolemia, unspecified; Translations: [Pure hypercholesterolemia]Onset: 08-30-2022 Resolved: 17-17-1039MdolnppJyxngplmhu disorders (20 sources)Stricture of esophagus; Translations: [Esophageal stricture]Onset: 27-62-7949LnxkgfnXgugxlfoj hypertension (20 sources)Essential hypertension; Translations: [Essential (primary) hypertension]Onset: 44-31-4516JmyjgthNxuuyxy on above:Echo: LVEF 55%, normal RV size/function, LVH - 11/2023Hemorrhoids (3 sources)External hemorrhoids; Translations: [Residual hemorrhoidal skin tags] EpisodicHyperplasia of prostate (20 sources)Benign prostatic hypertrophy without outflow obstruction; Translations: [Hypertrophy (benign) of prostate without urinary obstruction and other lower urinary tract symptoms [LUTS]]Onset: 08-14-2017 Resolved: 742902-58-8816HemzpcjLlrdzswbieuz with complications and secondary hypertension (14 sources)Hypertensive heart disease without heart failure; Translations: [Benign hypertensive heart disease without congestive heart failure]Onset: 21-30-3182WoosypiMacifosvr of unspecified nature or uncertain behavior (1 source)Neoplastic disease; Translations: [Neoplasm of unspecified behavior of bone, soft tissue, and skin]15-44-9328QgrrbukdCwyhk and unspecified benign neoplasm (12 sources)Benign neoplasm of colon; Translations: [Benign neoplasm of descending colon]EpisodicOther and unspecified benign neoplasm (1 source)Benign neoplasm of descending colon; Translations: [Benign neoplasm of descending colon]EpisodicOther gastrointestinal disorders (2 sources)Dysphagia; Translations: [Dysphagia]EpisodicOther gastrointestinal disorders (1 source)Increased frequency of defecation; Translations: [Change in bowel habit]48-27-6032CsmocgqyFruar hereditary and degenerative nervous system conditions (20 sources)Impaired cognition; Translations: [Mild cognitive impairment, so stated]Onset: 407658-96-2983YzafzexIxmmm hereditary and degenerative nervous system conditions (1 source)Mild cognitive impairment, so stated; Translations: [Mild cognitive impairment, so stated]45-84-5920DrwkeqjAbjyl male genital disorders (1 source)Impotence of organic origin; 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]ChronicOther male genital disorders (20 sources)Male erectile dysfunction, unspecified; Translations: [Erectile dysfunction]Onset: 895001-15-4025GqokatjNtynj nervous system disorders (5 sources)Impaired jdpxgnipq74-96-7437YjidfbldMwdos nutritional; endocrine; and metabolic disorders (10 sources)Body mass index 30+ - obesity; Translations: [Body mass index (BMI) 32.0-32.9, adult]ChronicOther nutritional; endocrine; and metabolic disorders (10 sources)Obesity caused by energy imbalance; Translations: [Other obesity due to excess calories]ChronicOther nutritional; endocrine; and metabolic disorders (3 sources)Other obesity due to excess caloriesChronicOther nutritional; endocrine; and metabolic disorders (3 sources)Body mass index (BMI) 32.0-32.9, adultChronicOther nutritional; endocrine; and metabolic disorders (20 sources)Obesity; Translations: [Obesity, unspecified]Onset: 08-28-2024 38-02-2831QnbgvzeImbbo nutritional; endocrine; and metabolic disorders (3 sources)Obesity, unspecified; Translations: [Obesity, unspecified]06-24-2024 ChronicOther skin disorders (2 sources)Skin tag; Translations: [Other hypertrophic disorders of the skin] EpisodicOther skin disorders (1 source)Lentiginosis; Translations: [Other melanin hyperpigmentation] 35-92-2558BczicvjxWshng skin disorders (1 source)Actinic keratosis; Translations: [Actinic keratosis]74-97-4725Oqecehki Other skin disorders (1 source)Seborrheic keratosis; Translations: [Other seborrheic keratosis] 54-74-2696OlnubovdSgwkzaxk codes; unclassified (20 sources)Obstructive sleep apnea syndrome; Translations: [Obstructive sleep apnea (adult) (pediatric)]Onset: 040797-58-7466PsxyrygGtnqnnr on above:AHI 55 w/ Psat 80%Residual codes; unclassified (6 sources)Obstructive sleep apnea (adult) (pediatric); Translations: [Obstructive sleep apnea (adult)(pediatric)]ChronicResidual codes; unclassified (4 sources)Family history of ischemic heart disease and other diseases of the circulatory system; Translations: [Family history of ischemic heart disease and other diseases of the circulatory system]Onset: 00-40-2226NxhmnatbFjwxinmx codes; unclassified (3 sources)Family history of dementia; Translations: [Family history of other mental and behavioral disorders]68-89-9156TxymrqvsMyrybvct codes; unclassified (1 source)Family history of other mental and behavioral disorders; Translations: [Family history of other neurological diseases]70-06-3907Rxlblgov Past or Other Problems Problem ClassificationProblemDateDocumented DateEpisodic/ChronicBlindness and vision defects (19 sources)Visual disturbance; Translations: [Unspecified visual disturbance] Onset: 066957-69-3646UkcivencMyhrltqigo disorders (8 sources)Esophageal disorders; Translations: [Gastro-esophageal reflux disease with esophagitis, without bleeding]Onset: 05-13-2018 Resolved: 04-71-1917Qoacu connective tissue disease (1 source)Lateral epicondylitis; Translations: [Lateral epicondylitis of elbow] Onset: 70-16-3021FqejxzqdImuta ear and sense organ disorders (19 sources)Bilateral tinnitus; Translations: [Tinnitus, bilateral]Onset: 142159-77-9357EbvkuygxTahag nutritional; endocrine; and metabolic disorders (1 source)Body mass index 25-29 - overweight; Translations: [Body mass index 28.0-28.9, adult]Onset: 04-01-2018 Resolved: 50-86-5861ZsthitgzMewxn nutritional; endocrine; and metabolic disorders (11 sources)Overweight; Translations: [Overweight]Onset: 08-14-2017 Resolved: 26-05-2918WghwiwcrChyty screening for suspected conditions (not mental disorders or infectious disease) (20 sources)Encounter for screening for malignant neoplasm of prostate; Translations: [Abnormal findings on diagnostic imaging of heart and coronary circulation]Onset: 21-48-4952FhclsbszXqobcmb on above:Echo: LVEF 55%, normal RV size/function, LVH - AC: LAD 236Echo: LVEF 55%, normal RV size/function, LVH - 11/2023,Stress test: no reversible defect- esidual codes; unclassified (19 sources)Transient alteration of awareness; Translations: [Transient alteration of awareness]Onset: 268065-01-9366Bhuqrbwc Results Test NameValueInterpretationReference RangeFacilityCryotherapy, skin lesionon 21-14-8650MRDZ HealthcareLesion biopsyon 05-53-7574Isuh of biopsy: tangential Informed consent: discussed and consent obtained Informed consent comment: The risks and benefits of the biopsy were discussed. Risks include but are not limited to bleeding, infection, scarring, pain, and nerve damage. An opportunity to ask questions prior to the procedure was permitted and all questions were answered. Patient was prepped and draped in usual sterile fashion: area cleansed with alcohol. Anesthesia: the lesion was anesthetized in a standard fashion Anesthetic: 1% lidocaine w/ epinephrine 1-100,000 buffered w/ 8.4% NaHCO3 Instrument used: DermaBlade Hemostasis achieved with: electrodesiccation Outcome: patient tolerated procedure well Outcome comment: The specimen was placed in a prelabeled formalin container to be sent for pathology Post-procedure details: sterile dressing applied and wound care instructions given Post-procedure details comment: Emphasized need to contact clinic for any signs of infection, uncontrollable bleeding, or complications. Dressing type: bandage Additional details: Photo taken yes Amount of lidocaine used: 0.5 [facility]Type [facility] biopsy[facility] tangential Informed consent: discussed and consent obtained Informed consent comment: The risks and benefits of the biopsy were discussed. Risks include but are not limited to bleeding, infection, scarring, pain, and nerve damage. An opportunity to ask questions prior to the procedure was permitted and all questions were answered. Patient was prepped and draped in usual sterile fashion: area cleansed with alcohol. Anesthesia: the lesion was anesthetized in a standard fashion Anesthetic: 1% lidocaine w/ epinephrine 1-100,000 buffered w/ 8.4% NaHCO3 Instrument used: DermaBlade Hemostasis achieved with: electrodesiccation Outcome: patient tolerated procedure well Outcome comment: The specimen was placed in a prelabeled formalin container to be sent for pathology Post-procedure details: sterile dressing applied and wound care instructions given Post-procedure details comment: Emphasized need to contact clinic for any signs of infection, uncontrollable bleeding, or complications. Dressing type: bandage Additional details: Photo taken yes Amount of lidocaine used: 1.0 [facility]Office [facility]iton 12-66-7633Rzjkqi-up [id number] Remigio Fragoso 1960 M Date Provider Department Center 02/20/2025 73283-TWKSDXSHIN BRADSHAW [facility] Family History Problem Relation Age of Onset Diabetes Mother Heart failure Mother Kidney disease Mother Heart attack Father 42 Family Status - Relation Status Age at Mother Father Level of Service:78773 ND OFFICE/OUTPATIENT ESTABLISHED MOD MDM 30 MIN Reason for Visit and Comments: Hypertension [210007] - No recent labs/imaging. coronary artery calcification [Other] Shortness of Breath [812018] - says he gets winded with stairs but patient denies this. He denies cardiac symptoms of any kind at this time.[facility] 09-80-7604Mpliui-up visit [id number] Remigio Fragoso 1960 M Date Provider Department Center 08/28/2024 3848-LASHONDAPAMCOMFORT VASQUEZJasiel CARD [facility] Family History Problem Relation Age of Onset Diabetes Mother Heart failure Mother Kidney disease Mother Heart attack Father 42 Family Status - Relation Status Age at Mother Father Level of Service:18150 [place] OFFICE/OUTPATIENT ESTABLISHED LOW [facility] Auto (Bld[facility] [#/Vol]on 06-25-2024 Basophils (Bld) [#/Vol]0.1 10 3/uL0.0-0.1FOhio Valley Hospital Basophils/100 WBC Auto (Bld)on 60-07-8870Koluzptui/100 WBC (Bld)1.2 %0.2-2.0 [facility] HospitalCholesterol in LDL Calc [Mass/Vol]on 06-25-2024 Cholesterol in LDL [Mass/Vol]64.0 mg/dLMercy Health Willard HospitalComment on above:<100 mg/dl QLPULGI099-513 mg/dl NEAR OR ABOVE IWFQNKA164-093 mg/dl BORDERLINE AWNP379-218 mg/dl HIGH>190 mg/dl VERY HIGHCholesterol in VLDL Calc [Mass/Vol]on 76-98-5005Tvonupmgvcr in VLDL [Mass/Vol]45.4 mg/dLMercy Health Willard HospitalEosinophils/100 WBC Auto (Bld)on 06-25-2024 Eosinophils/100 WBC (Bld)2.7 %0.9-7.0[facility] Erythrocyte distribution width Auto (RBC) [Ratio]on 45-63-0577Obcumiodnql distribution width (RBC) [Ratio]12.3 %11.0-15.0[facility] Estimated glomerular filtration rate (GFR) non- Americanon 06-25-2024 GFR/1.73 sq M.predicted among non-blacks MDRD (S/P/Bld) [Vol rate/Area] mL/min/{1.73_m2}>=60[facility] HospitalGlobulin Calc (S) [Mass/Vol]on 32-43-5442Vkhuedfm (S) [Mass/Vol]3.5 g/dLMercy Health Willard HospitalHematocrit Auto (Bld) [Volume fraction]on 39-52-3790Tvwxkkgxuo (Bld) [Volume fraction]47.6 %42.0-54.0[facility] HospitalHemoglobin [Mass/volume] in Bloodon 43-02-3322Wyldlpzaui (Bld) [Mass/Vol]16.3 g/dL14.0-18.0 [facility] HospitalLaboratory - Chemistry and Chemistry - challengeon 02-19-7180Migtzwx [Mass/Vol]3.6 g/dL3.4-5.0[facility] HospitalALP [Catalytic activity/Vol]29 U/HQea46-680GrodrnzdvMercy Health Willard HospitalALT [Catalytic activity/Vol]45 U/Z34-67CddhwmdtiMercy Health Willard HospitalAST [Catalytic activity/Vol]19 U/N08-31NiwbstyujMercy Health Willard Hospital Bilirubin [Mass/Vol]0.7 mg/dL0.2-1.0[facility] HospitalCalcium [Mass/Vol]9.2 mg/dL8.5-10.1FOhio Valley HospitalChloride [Moles/Vol] 104 mmol/X48-929OnbivdwqsMercy Health Willard HospitalCholesterol [Mass/Vol]148 mg/dL <=200[facility] HospitalCholesterol in HDL [Mass/Vol]39 mg/dLLow 40-60[facility] HospitalComment on above:> or =60 mg/dl - LOW CARDIOVASCULAR RISK<40 mg/dl - HIGH CARDIOVASCULAR RISKCO2 [Moles/Vol]28.5 mmol/L21.0-32.0[facility] HospitalCreatinine [Mass/Vol]0.96 mg/dL 0.70-1.30[facility] HospitalGFR/1.73 sq M.predicted MDRD (S/P/Bld) [Vol rate/Area]mL/min/{1.73_m2}>=60[facility] HospitalGlucose [Mass/Vol]117 mg/sNQwho48-816AfhzbdrelMercy Health Willard HospitalPotassium [Moles/Vol]4.3 mmol/L3.5-5.1FOhio Valley HospitalProtein [Mass/Vol] 7.1 g/dL6.4-8.2FSt. Rita's Hospitalodium [Moles/Vol]139 mmol/L 136-145[facility] HospitalTriglyceride [Mass/Vol]227 mg/dLHigh <=150Mer[facility] HospitalUrea nitrogen [Mass/Vol]16.0 mg/dL7.0-18.0 [facility] HospitalUrea nitrogen/Creatinine [Mass ratio]16.7 mg/mg [facility] HospitalLaboratory - Hematology and Cell countson 85-98-6238Cyjpxtvv granulocytes/100 WBC (Bld)0.2 %0.0-0.5FOhio Valley HospitalLeukocytes [#/volume] corrected for nucleated erythrocytes in Blood by Automated counon 17-90-5297IFL corrected for nucl RBC Auto (Bld) [#/Vol]5.9 10 3/uL4.0-11.0[facility] HospitalLymphocytes Auto (Bld) [#/Vol]on 86-26-6907Dxkmhqwlguf (Bld) [#/Vol]1.6 10 3/uL1.2-3.8[facility] HospitalLymphocytes/100 WBC Auto (Bld)on 06-25-2024 Lymphocytes/100 WBC (Bld)27.5 %20.5-60.0[facility] HospitalH Auto (RBC) [Entitic mass]on 78-44-5719UAL (RBC) [Entitic mass]30.8 pg25.9-34.0 [facility] HospitalMCHC Auto (RBC) [Mass/Vol]on 17-17-3786WZFJ (RBC) [Mass/Vol]34.2 g/dL29.9-35.2FOhio Valley HospitalMCV Auto (RBC) [Entitic vol]on 36-62-4508YJL (RBC) [Entitic vol]90.0 fL80.0-94.0[facility] HospitalMonocytes Auto (Bld) [#/Vol]on 66-75-9366Dxfdhlpie (Bld) [#/Vol]0.6 10 3/uL0.3-0.8[facility] HospitalMonocytes/100 WBC Auto (Bld)on 68-79-1166Ggvqtdyrg/100 WBC (Bld)10.1 %1.7-12.0[facility] HospitalNeutrophils Auto (Bld) [#/Vol]on 45-76-8279Nenpxunkiwf (Bld) [#/Vol]3.5 10 3/uL1.4-6.5FOhio Valley HospitalNeutrophils/100 WBC Auto (Bld)on 74-95-4827Agauvrcrghr/100 WBC (Bld)58.3 %43.0-75.0[facility] HospitalNo Panel Informationon 94-66-5455Achhuprhavd # (Auto)0.2 10 3/uL0.0-0.7FOhio Valley HospitalImmature Granulocyte # (Auto)0.01 10 3/uL0.00-0.03[facility] HospitalProstate Specific Antigen Screen1.61 ng/mL<=4.00[facility] HospitalPlatelet mean volume Auto (Bld) [Entitic vol]on 00-66-8507Vhuxqgmn mean volume (Bld) [Entitic vol]9.3 fL Low9.5-13.5FOhio Valley HospitalPlatelets Auto (Bld) [#/Vol]on 96-11-3035Rnzevyzcr (Bld) [#/Vol]254 10 3/cL508-247BkrsvpnoyMercy Health Willard HospitalRBC Auto (Bld) [#/Vol]on 94-33-0809WDN (Bld) [#/Vol]5.29 10 6/uL4.70-6.10 [facility] Barber[facility] Campuserum or plasma albumin/globulin mass ratioon 23-67-3531Grhyusf/Globulin [Mass ratio]1.0 {ratio}[facility] Barberton Campuserum or plasma anion gap determinationon 19-08-1927Dltdu gap [Moles/Vol] 10.8 mmol/LFSt. Rita's Hospitalerum or plasma total cholesterol/high density lipoprotein (HDL) cholesterol mass latha 06-25-2024 Cholesterol.total/Cholesterol in HDL [Mass ratio]3.8 {ratio}[facility] HospitalComment on above:3.3 - 4.4 LOW RISK4.4 - 7.1 AVERAGE RISK7.1 - 11.0 MODERATE RISK>11.0 HIGH RISKOffice Visiton 45-66-5257Anabtc-up visit [id number] Remigio Fragoso 1960 M Date Provider Department Center 06/09/2024 MAYELA HERBERT Family History Problem Relation Age of Onset Diabetes Mother Heart failure Mother Kidney disease Mother Heart attack Father 42 Family Status - Relation Status Age at Mother Father Level of Service:78735 [place] OFFICE/OUTPATIENT ESTABLISHED LOW [facility]Office [facility] 26-56-2191Uuauak-up visit [id number] Remigio Fragoso 1960 M Date Provider Department Center 02/29/2024 MarielaMAYELA ERICKSON Family History Problem Relation Age of Onset Diabetes Mother Heart failure Mother Kidney disease Mother Heart attack Father 42 Family Status - Relation Status Age at Mother Father Level of Service:33487 [place] OFFICE/OUTPATIENT ESTABLISHED LOW [facility] HospitalCT CARDIAC SCORING WO IV CONTRASTon 30-31-5491RZ CARDIAC SCORING WO IV CONTRASTInterpreted By: Eliezer Bazan, STUDY: CT CARDIAC SCORING WO IV CONTRAST; 07/16/2023 11:29 am INDICATION: Signs/Symptoms:FAMILY HISTORY OF ISCHEMIC HEART DISEASE. COMPARISON: None. ACCESSION NUMBER(S): [id number] ORDERING CLINICIAN: JONAH DUFFY TECHNIQUE: Using prospective [...] increased >800 Caryl et al. JCCT 2016 ([email or web address].[email or web address]) LYANE 10-Year CHD Risk with Coronary Artery Calcification can be calcuate using link below [email or web address] Fili. JACC 2014 (http://dx.doi.org/10.1016/j.j acc.2015.08.035) Signed by: Eliezer Bazan 07/16/2023 4:52 PM Dictation workstation: [id number] District HospitalDIRECT LDLon [id number] in LDL [Mass/Vol]81 mg/dLOhioHealth Dublin Methodist HospitalComment on above:Performed By: #### CRISTAL, ALT #### [facility] [address] [place] [address] Dr. Angel Melgoza NORMALSEE BELOWNoOhioHealth Grady Memorial HospitalComment on above: Result Comment: <100 mg/dl OPTIMAL 100 - 129 mg/dl NEAR OR ABOVE OPTIMAL 130 - 159 mg/dl BORDERLINE HIGH 160 - 189 mg/dl HIGH >190 mg/dl VERY HIGHPerformed By: #### CRISTAL, ALT #### [facility] [address] [place] [address] Dr. Angel Page [phone] [Catalytic activity/Vol]53 U/LAdybym36-80Ekv [facility] CenterComment on above:Performed By: #### DLDL, ALT #### [facility] [address] [place] [address] Dr. Angel French AUTO DIFFon [id number] #0.1 103/ulNormal0.0-0.1The [facility] CenterComment on above:Performed By: #### CBC #### [facility] [address] [place] [address] Dr. Angel HernándezBasophils/100 WBC (Bld)1.0 %Normal0.2-2.0[facility] Comment on above:Performed By: #### CBC #### [facility] [address] [place] [address] Dr. Angel Pierre #0.2 103/ulNormal0.0-0.7The [facility] CenterComment on above: Performed By: #### CBC #### [facility] [address] [place] [address] Dr. Angel Bordenosinophils/100 WBC (Bld)4.7 %Normal0.9-7.0The [facility] Comment on above:Performed By: #### CBC #### [facility] [address] [place] [address] Dr. Angel Bordenrythrocyte distribution width (RBC) [Ratio]12.5 %Lksamf10.0-15.0 The [facility] CenterComment on above:Performed By: #### CBC #### [facility] [address] [place] [address] Dr. Angel HernándezHematocrit (Bld) [Volume fraction]47.9 %Rfasou62.0-54.0The [facility] CenterComment on above:Performed By: #### CBC #### [facility] [address] [place] [address] Dr. Angel HernándezHemoglobin (Bld) [Mass/Vol]16.7 g/tGLviknx21.0-18.0The [facility] CenterComment on above:Performed By: #### CBC #### [facility] [address] [place] [address] Dr. Angel Koehler #0.01 10e3/ulNormal0.00-0.03The [facility] CenterComment on above:Performed By: #### CBC #### [facility] [address] [place] [address] Dr. Angel Koehler %0.2 %Normal0.0-0.5The [facility] CenterComment on above: Performed By: #### CBC #### [facility] [address] [place] [address] Dr. Angel Allen #1.6 103/ulNormal1.2-3.8The Timmy HospitalComment on above:Performed By: #### CBC #### [facility] [address] [address] [address] Angel Newsomemphocytes/100 WBC (Bld)30.2 %Szjayy48.5-60.0The [facility] CenterComment on above:Performed By: #### CBC #### [facility] [address] [place] [address] Dr. Angel Garcia DIFF REQNONormalThe Florida HospitalComment on above: Performed By: #### CBC #### [facility] [address] [place] [address] Dr. Angel Frausto (RBC) [Entitic mass]31.3 cqHsuris59.9-34.0The [facility] CenterComment on above:Performed By: #### CBC #### [facility] [address] [place] [address] Dr. Angel Frausto (RBC) [Mass/Vol]34.9 g/hQLezwoc42.9-35.2The [facility] CenterComment on above:Performed By: #### CBC #### [facility] [address] [place] [address] Dr. Angel Poon (RBC) [Entitic vol]89.7 kXLqgpyc76.0-94.0The [facility] CenterComment on above:Performed By: #### CBC #### [facility] [address] [place] [address] Dr. Angel Sunshine #0.5 103/ulNormal0.3-0.8The [facility] CenterComment on above:Performed By: #### CBC #### [facility] [address] [place] [address] Dr. Angel Benitoocytes/100 WBC (Bld)10.1 %Normal1.7-12.0The [facility] Comment on above:Performed By: #### CBC #### [facility] [address] [place] [address] Dr. Angel Good #2.8 103/ulNormal1.4-6.5The [facility] CenterComment on above:Performed By: #### CBC #### [facility] [address] [place] [address] Dr. Angel Kirbyutrophils/100 WBC (Bld)53.8 %Mqepbu05.0-75.0The [facility] CenterComment on above:Performed By: #### CBC #### [facility] [address] [place] [address] Dr. Angel Ventura mean volume (Bld) [Entitic vol]9.2 fLCritically low 9.5-13.5The [facility] CenterComment on above:Performed By: #### CBC #### [facility] [address] [place] [address] Dr. Angel HernándezPLT271 103/xrOwyorz213-934Lcx [facility] CenterComment on above: Performed By: #### CBC #### [facility] [address] [place] [address] Dr. Angel HernándezRBC5.34 106/ulNormal4.70-6.10The [facility] CenterComment on above:Performed By: #### CBC #### [facility] [address] [place] [address] Dr. Angel HernándezWBC5.1 103/ulNormal4.0-11.0The [facility] on above: Performed By: #### CBC #### [facility] [address] [place] [address] Dr. Angel Mancia LDLon 30-26-2414Xnjyvkisper in LDL [Mass/Vol]106 mg/dL NormalThe [facility] CenterComment on above:Performed By: #### TSH, LIPID, DLDL, CMP #### [facility] [address] [place] [address] Dr. Angel HernándezDLDL NORMALSEE BELOWNormalThVan Wert County HospitalComment on above: Result Comment: <100 mg/dl OPTIMAL 100 - 129 mg/dl NEAR OR ABOVE OPTIMAL 130 - 159 mg/dl BORDERLINE HIGH 160 - 189 mg/dl HIGH >190 mg/dl VERY HIGHPerformed By: #### TSH, LIPID, DLDL, CMP #### [facility] [address] [address] [address] Angel HernándezGLYCOHEMOGLOBIN A1Con 98-92-6621GPA RECOMMENDATIONSEE BELOWOhio State East HospitalComtrinity health [facility] on above:Result Comment: ADA RECOMMENDED LIMIT 4.0 - 6.0 ADA THERAPEUTIC TARGET < 7.0 ACTION SUGGESTED > 7.0Performed By: #### A1C #### [facility] [address] [place] [address] Dr. Angel HernándezGlucose [Mass/Vol]114 mg/dLOhioHealth Dublin Methodist HospitalComtrinity health [facility] hospital on above:Performed By: #### A1C #### [facility] [address] [place] [address] Dr. Angel HernándezHbA1c (Bld) [Mass fraction]5.6 %Normal4.5-6.2[facility] on above:Performed By: #### A1C #### [facility] [address] [place] [address] Dr. Angel HernándezLIPID PROFILEon [id number]-HDL RATIO NORMSEE [facility] HospitalComtr[facility] on above:Result Comment: 3.3 - 4.4 LOW RISK 4.4 - 7.1 AVERAGE RISK 7.1 - 11.0 MODERATE RISK >11.0 HIGH RISKPerformed By: #### TSH, LIPID, DLDL, CMP #### [facility] [address] [place] [address] Dr. Angel HernándezCholesterol [Mass/Vol]222 mg/dLCritically high<=200The [facility] on above:Performed By: #### TSH, LIPID, DLDL, CMP #### [facility] [address] [place] [address] Dr. Angel HernándezCholesterol in HDL [Mass/Vol]35 mg/dLCritically acz40-49HuaRiverview Health Institute on above:Performed By: #### TSH, LIPID, DLDL, CMP #### [facility] [address] [place] [address] Dr. Yilan ChangCholesterol.total/Cholesterol in HDL [Mass ratio]6.3 {ratio} NormalThe [facility] CenterComment on above:Performed By: #### TSH, LIPID, DLDL, CMP #### [facility] [address] [address] [address] Angel Keita NORMAL> or = 60 mg/dl - LOW CARDIOVASCULAR RISK <40 mg/dl - HIGH CARDIOVASCULAR RISKNoOhioHealth Grady Memorial HospitalComment on above:Performed By: #### TSH, LIPID, DLDL, CMP #### [facility] [address] [place] [address] Dr. Angel HernándezTriglyceride [Mass/Vol]482 mg/dLCritically high<=150The [facility] CenterComtrinity health [facility] on above:Performed By: #### TSH, LIPID, DLDL, CMP #### [facility] [address] [place] [address] Dr. Angel HernándezVLDL CALC96.4 mg/dLNoOhioHealth Grady Memorial HospitalComment on above: Performed By: #### TSH, LIPID, DLDL, CMP #### [facility] [address] [place] [address] Dr. Angel Brooks 14(COMP METB)on 06-11-5366Ikugjbg [Mass/Vol]3.6 g/dLNormal 3.4-5.0[facility] on above:Performed By: #### TSH, LIPID, DLDL, CMP #### [facility] [address] [place] [address] Dr. Angel HernándezAlbumin/Globulin [Mass ratio]1.0 {ratio}NormalThe [facility] CenterComtrinity health [facility] on above:Performed By: #### TSH, LIPID, DLDL, CMP #### [facility] [address] [place] [address] Dr. Angel Mortensen [Catalytic activity/Vol]26 U/LCritically uty75-858Tsn [facility] CenterComment on above:Performed By: #### TSH, LIPID, DLDL, CMP #### [facility] [address] [place] [address] Dr. Angel Slater [Catalytic activity/Vol]40 U/YEudhdf64-70Gip [facility] CenterComment on above:Performed By: #### TSH, LIPID, DLDL, CMP #### [facility] [address] [address] [address] Angel Shirleyon gap [Moles/Vol]6.9 mmol/LNormalThe [facility] CenterComment on above:Performed By: #### TSH, LIPID, DLDL, CMP #### [facility] [address] [place] [address] Dr. Angel HernándezAST [Catalytic activity/Vol]17 U/BNvchiy88-40Uub [facility] CenterComment on above:Performed By: #### TSH, LIPID, DLDL, CMP #### [facility] [address] [place] [address] Dr. Angel HernándezBilirubin [Mass/Vol]0.4 mg/dLNormal0.2-1.0[facility] Comment on above:Performed By: #### TSH, LIPID, DLDL, CMP #### [facility] [address] [place] [address] Dr. Angel HernándezCalcium [Mass/Vol]8.8 mg/dLNormal8.5-10.1[facility] Comment on above:Performed By: #### TSH, LIPID, DLDL, CMP #### [facility] [address] [place] [address] Dr. Angel HernándezChloride [Moles/Vol]102 mmol/DEgbnbq35-895Kjt [facility] Comment on above:Performed By: #### TSH, LIPID, DLDL, CMP #### [facility] [address] [place] [address] Dr. Angel HernándezCO2 [Moles/Vol]31.5 mmol/GYxjlfp89.0-32.0The [facility] Comment on above:Performed By: #### TSH, LIPID, DLDL, CMP #### [facility] [address] [place] [address] Dr. Angel HernándezCreatinine [Mass/Vol]1.05 mg/dLNormal0.70-1.30The [facility] CenterComment on above:Performed By: #### TSH, LIPID, DLDL, CMP #### [facility] [address] [address] [address] Angel BordenGFR-AF GERMAN>60Normal>=60The [facility] CenterComment on above:Performed By: #### TSH, LIPID, DLDL, CMP #### [facility] [address] [address] [address] Angel BordenGFR-NON AF GERMAN>60Normal>=60The [facility] CenterComment on above:Performed By: #### TSH, LIPID, DLDL, CMP #### [facility] [address] [address] [address] Angel HernándezGlobulin (S) [Mass/Vol]3.7 g/dLNormalThe [facility] CenterComment on above:Performed By: #### TSH, LIPID, DLDL, CMP #### [facility] [address] [place] [address] Dr. Angel HernándezGlucose [Mass/Vol]125 mg/dLCritically rlvr10-138PhmSt. Rita'S HospitalComment on above:Performed By: #### TSH, LIPID, DLDL, CMP #### [facility] [address] [place] [address] Dr. Angel HernándezPotassium [Moles/Vol]4.4 mmol/LNormal3.5-5.1[facility] Comment on above:Performed By: #### TSH, LIPID, DLDL, CMP #### [facility] [address] [address] [address] Angel HernándezProtein [Mass/Vol]7.3 g/dLNormal6.4-8.2The [facility] Comment on above:Performed By: #### TSH, LIPID, DLDL, CMP #### [facility] [address] [place] [address] Dr. Angel HernándezSodium [Moles/Vol]136 mmol/QUpunzm826-849YznSt. [facility]'S Hospital Comment on above:Performed By: #### TSH, LIPID, DLDL, CMP #### [facility] [address] [place] [address] Dr. Angel Arrieta nitrogen [Mass/Vol]12.0 mg/dLNormal7.0-18.0The [facility] CenterComment on above:Performed By: #### TSH, LIPID, DLDL, CMP #### [facility] [address] [address] [address] Angel Arrieta nitrogen/Creatinine [Mass ratio]11.4 mg/mgNormalThe [facility] CenterComment on above:Performed By: #### TSH, LIPID, DLDL, CMP #### [facility] [address] [address] [address] Angel Sánchez 77-39-9175XHE7.683 uIU/mLNormal0.358-3.740The [facility] CenterComment on above:Performed By: #### TSH, LIPID, DLDL, CMP #### [facility] [address] [address] [address] Angel HernándezCOVID-19 Positive/Negativeon 15-83-7854XJHHB-19 Positive/Negative NegativeNegativeMercy Health St. [facility] Hospital CtrComment on above:Testing for SARS-CoV-2 by RT-PCRThis test was developed and its performance characteristics determined by [employer] ([employer]) and validated at the [facility]. This test has not been FDA cleared or approved. This test has been authorized by FDA under an Emergency Use Authorization (EUA). This test has been validated in accordance with the FDA's Guidance Document (Policy for Diagnostics Testing in Laboratories Certified to Perform High Complexity Testing under CLIA prior to Emergency Use Authorization for Coronavirus Disease- 2019 during the Public Health Emergency) issued on January 15, 2020. This test is only authorized for the duration of time the declaration that circumstances exist justifying the authorization of the emergency use of in vitro diagnostic tests for detection of SARS-CoV-2 virus and/or diagnosis of COVID-19 infection under section 564(b)(1) of the Act, 21 U.S.C. 360bbb-3(b)(1), unless the authorization is terminated or revoked sooner.Otheron 52-11-1860Ryawppnyclg 2019 PCR [facility]/AFOhioHealth Grove [facility] Vital Signs Date TimeVital SignValuePerforming ZjkxkyhucXikjnmob70-36-2988 09:47-0400Body uhvncw400.8 cmAnnette Adams MD Work Phone: [phone] [place], [place] [address]Udtjekxera86-66-8978 09:47-0400Body mass index (BMI) [Ratio]31.85 kg/d7ErfhzkcAnnette Adams MD Work Phone: [phone] [place], [place] 6840210-09-2025 09:47-0400Body fygwfk910.7 kgAnnette Adams MD Work Phone: [phone] [place], [place] 6840210-09-2025 09:47-0400Diastolic blood mm[Hg]Annette Adams MD Work Phone: [phone] sale to [facility] [place], [place] [address]Douowblqcy85-53-1123 09:47-0400Systolic blood bkousdlx740 mm[Hg]Annette Adams MD Work Phone: [phone] [place], [place] 6840209-18-2025 08:37-0400Body inoqff222.26 cmBenjamin Ball DO Work Phone: [phone]09-18-2025 08:37-0400 Body mass index (BMI) [Ratio]33.5 kg/i4Zwcjyxwn Ball DO Work Phone: [phone]09-18-2025 08:37-0400 Body hqeqkx777.19 kgBenjamin Ball DO Work Phone: [phone] [place], [place] 7045309-18-2025 08:37-0400 Diastolic blood ffyamxcm28 mm[Hg]Jonah Ball DO Work Phone: [phone]09-18-2025 08:37-0400 Heart rate85 /minBenjamin Ball DO Work Phone: [phone] [place], [place] 7045309-18-2025 08:37-0400 Respiratory rate12 /minBenjamin Ball DO Work Phone: [phone] [place], [place] 70[address]309-18-2025 08:37-0400 Systolic blood nuzgbpal829 mm[Hg]Jonah Ball DO Work Phone: [facility]07-10-2025 09:40-0400 Body qlqauk523.8 cmAnnette Adams MD Work Phone: [facility] CenterQmactiauvg25-21-0696 09:40-0400Body mass index (BMI) [Ratio]32.71 kg/e2CzzeiorAnnette Adams MD Work Phone: [facility] CenterSytugxrutr62-20-7119 09:40-0400Body .42 kgAnnette Adams MD Work Phone: [facility] CenterBjknbiagik49-30-4644 09:40-0400Diastolic blood gogupvrg42 mm[Hg]Annette Adams MD Work Phone: [facility] CenterRpqvzhhaov49-29-8579 09:40-0400Systolic blood mm[Hg]Annette Adams MD Work Phone: [facility] CenterFluiudqykn44-78-6033 08:43-0400Body .26 cmMer[facility]03-17-2025 08:43-0400Body mass index (BMI) [Ratio]34 kg/b6NksehdwomMercy Health Willard Hospital03-17-2025 08:43-0400Body weight 104.32 kgMercy Health Willard Hospital03-17-2025 08:43-0400Diastolic blood qsxjmegb59 mm[Hg][facility]03-17-2025 08:43-0400Heart rate87 /[facility]03-17-2025 08:43-0400Respiratory rate12 /[facility]03-17-2025 08:43-0400Systolic blood dycayvwy484 mm[Hg][facility]02-03-2025 11:05-0500Body ucujln565.8 cmNaa Felder [employer] TRAIN SUPERVISOR Work Phone: [facility] CenterUlrgfdeerz40-31-3993 11:05-0500Body mass index (BMI) [Ratio]32.8 kg/y8AmpcjesNaa Felder [employer]CUS TRAIN SUPERVISOR Work Phone: [facility] CenterFukplrfkyt59-80-7860 11:05-0500Body .69 kgFejimi Felder CIRCUS TRAIN SUPERVISOR Work Phone: [facility] CenterAsasthwawa08-07-3842 11:05-0500Diastolic blood qsjfkejy82 mm[Hg]Naa Felder CIRC[employer] TRAIN SUPERVISOR Work Phone: [facility] CenterIbbzkolnin30-84-1666 11:05-0500Systolic blood vwtzhejt607 mm[Hg]Naa Felder CIRCUS TRAIN SUPERVISOR Work Phone: [facility] CenterDtarvxlzfr80-87-8228 12:29-0500Body .3 cmAnnette Adams MD Work Phone: [facility] CenterSpyjipfgau33-46-8234 12:29-0500Body mass index (BMI) [Ratio]33.08 kg/a4HngdkumAnnette Adams MD Work Phone: [facility] CenterLidtceablo24-87-3946 12:29-0500Body qunalh697.61 kgAnnette Adams MD Work Phone: [facility] CenterWavkvodgbv53-29-2621 15:42-0400Body imqxsx957.26 cmMercy Health Will[facility] Hospital10-23-2024 15:42-0400Body mass index (BMI) [Ratio]33 kg/n1TzizllylvMercy Health Willard Hospital10-23-2024 15:42-0400Body weight 101.37 kgMercy Health Willard Hospital10-23-2024 15:42-0400Diastolic blood mm[Hg][facility]10-23-2024 15:42-0400Heart rate89 /[facility]10-23-2024 15:42-0400Respiratory rate12 /[facility]10-23-2024 15:42-0400Systolic blood qyixitkp231 mm[Hg][facility]09-10-2024 09:19-0400Body cilsvu019.26 cmMercy Health Willard Hospital09-10-2024 09:19-0400Body mass index (BMI) [Ratio]33.7 kg/s8TafemymzkMercy Health Willard Hospital09-10-2024 09:19-0400Body goyubg940.53 kgMercy Health Willard Hospital09-10-2024 09:19-0400Diastolic blood ieixxpsk02 mm[Hg][facility] 06-24-2024 09:19-0400Heart rate91 /[facility] 06-24-2024 09:19-0400Respiratory rate16 /[facility] 06-24-2024 09:19-0400Systolic blood csxwfjfe705 mm[Hg][facility]05-08-2024 09:41-0400Body .26 cmMercy Health Willard Hospital05-08-2024 09:41-0400Body mass index (BMI) [Ratio]33.2 kg/y0TbgsdskpqMercy Health Willard Hospital05-08-2024 09:41-0400Body vktqna708.05 kgMercy Health Willard Hospital05-08-2024 09:41-0400Diastolic blood omphutcp35 mm[Hg] [facility]05-08-2024 09:41-0400Heart rate96 /[facility]05-08-2024 09:41-0400Respiratory rate20 /[facility]05-08-2024 09:41-0400Systolic blood ezacighy584 mm[Hg] [facility]01-08-2024 15:30-0500Body .26 cm Jonah Ball Other [employer] Other 01-08-2024 15:30-0500Body mass index (BMI) [Ratio] 32.16 kg/p2Dnpwcoug Ball Other [employer]St[employer] Other 01-08-2024 15:30-0500Body .79 kgBenjamin Ball Other [employer] Other 01-08-2024 15:30-0500Diastolic blood fmtkmohw10 mm[Hg] Jonah Ball Other [employer] Other 01-08-2024 15:30-0500Respiratory rate12 /minBenjamin Ball Other [employer] Other 01-08-2024 15:30-0500Systolic blood xonxabvv667 mm[Hg] Jonah Ball Other [employer] Other 09-01-2023 13:30-0400Body .26 cmBenjamin Ball Other [employer] Other 09-01-2023 13:30-0400Body mass index (BMI) [Ratio]32.1 kg/r3Bryerlme Ball Other [employer] Other 09-01-2023 13:30-0400Body .61 kgBenjamin Ball Other [employer] Other 09-01-2023 13:30-0400Diastolic blood cnepoxim09 mm[Hg] Jonah Ball Other [employer] Other 09-01-2023 13:30-0400Respiratory rate12 /minBenjamin Ball Other [employer] Other 09-01-2023 13:30-0400Systolic blood vthalbcw363 mm[Hg] Jonah Ball Other [employer] Other Encounters Encounter DateEncounter TypeCare ProviderFacilityStart: 08-14-2025 End: 74-13-8345VgggfrBdvlbhw W Bauer MD Work Phone: NOWE [facility] NeurologyComment on above:PBA (pseudobulbar affect); MCI (mild cognitive impairment)Start: 07-30-2025 End: 80-73-3391Ttodht outpatient new 30 minutesCelia Montanez MD Work Phone: noMI Bryon DermatologyComment on above:Seborrheic keratosis (Primary Dx); Neoplasm of unspecified behavior of bone, soft tissue, and skin; Lentigines; Actinic keratosisStart: 07-30-2025 End: 97-29-8547tvnolouccmSTYYH A PETITTINot AvailableStart: 07-30-2025 End: 94-82-1988Sxsfmgholger Montanez MD Work Phone: noMI [facility] DermatologyStart: 07-30-2025 End: 57-79-2666Ckwldwlloyd Montanez MD Work Phone: noMI [facility] DermatologyStart: 07-23-2025 End: 60-26-5845Okvkykholger Adams MD Work Phone: noms NEUROLOGYStart: 07-23-2025 End: 36-45-2148Zrzvphlloyd Adams MD Work Phone: noms NEUROLOGYStart: 07-23-2025 End: 42-12-6154bjqthiexzbNWDJPXZ W BAUERNot AvailableStart: 07-23-2025 End: 58-37-0550Ujalrw outpatient visit 25 minutesAnnette Adams MD Work Phone: noCo[facility] NeurologyComment on above:PBA (pseudobulbar affect); MCI (mild cognitive impairment)Start: 07-02-2025 End: 64-67-0316wnguqhfudhOsmozzof Ball DO Work Phone: [facility] Work Phone: Start: 07-02-2025 End: 58-40-0394Bkprmqc encounter procedureJonah Duffy [facility] Work Phone: Start: 07-02-2025 End: 34-65-7833Pqldcfv encounter statusBemanas Duffy [facility] Hospitaltart: 06-22-2025 End: 77-57-7086TqpabhQxijkim W Bauer MD Work Phone: noms Bryon NeurologyComment on above:PBA (pseudobulbar affect) (Primary Dx)Start: 04-23-2025 End: 85-40-1667Ymxpxh Humberto Adams MD Work Phone: noms NEUROLOGYStart: 04-23-2025 End: 68-59-7553Ihnghu Humberto Adams MD Work Phone: noms BM NEUROLOGYStart: 04-23-2025 End: 70-93-8892Sqmblq outpatient visit 25 minutesAnnette Adams MD Work Phone: noms SWS NEURComment on above:MCI (mild cognitive impairment)Start: 04-23-2025 End: 65-65-1947ftotpjrkerZUEREEN W BAUERNot AvailableStart: 02-23-2025 End: 43-37-4470Qwbxrs Humberto Adams MD Work Phone: noms NEUROLOGYStart: 02-23-2025 End: 88-73-2858Nbffaq Humberto Adams MD Work Phone: noms BM NEUROLOGYStart: 02-23-2025 End: 23-81-8200Tcnzdr outpatient visit 25 minutesAnnette Adams MD Work Phone: noms SWS NEURComment on above:PBA (pseudobulbar affect) (Primary Dx); MCI (mild cognitive impairment)Start: 02-23-2025 End: 64-20-4890mlbbhhvopePENYGJK W BAUERNot AvailableStart: 02-20-2025 End: 81-45-7357frvxtiqdevGIBJHDayton VA Medical Center CenterStart: 12-29-2024 End: 04-90-4715Nduzkbholger Adams MD Work Phone: noms NEUROLOGYStart: 12-29-2024 End: 40-30-0596Hlclbh flowsVeronika Adams MD Work Phone: noms BM NEUROLOGYStart: 12-29-2024 End: 84-31-5857zoeiebvjucQAPJTGY W BAUERNot AvailableStart: 12-29-2024 End: 75-39-1391nrmmwullffEuixcgdwjAvita [facility] Work Phone: Start: 12-29-2024 End: 19-40-8585Nalazcx encounter procedureNovant Health Medical [facility] Physician GroupTrinity Health System Work Phone: Start: 11-17-2024 End: 15-55-1579Jogtzd outpatient visit 25 minutesFelickyle Felder CIRCUS TRAIN SUPERVISOR Work Phone: noms SWS NEURComment on above:MCI (mild cognitive impairment)Start: 11-17-2024 End: 41-47-6451Sibfar Saud Fuller NP Work Phone: noms [facility] NEURO 210Comment on above:MCI (mild cognitive impairment) (Primary Dx); Generalized anxiety disorder (CMS/HCC); CALLIE (obstructive sleep apnea)Start: 10-16-2024 End: 22-07-8479Mqfnowz encounter procedureNoms Sws Neuro TechnicianNOMS SWS NEUR Comment on above:Episodic altered awareness; Resistant hypertension (CMS/HCC); Generalized anxiety disorder (CMS/HCC); Tinnitus of both ears; Visual disturbancesStart: 10-16-2024 End: 60-50-5161skrcakquymUAFMPDN WINDNAGELNot AvailableStart: 10-04-2024 End: 49-13-1164Iomwcc Humberto Adams MD Work Phone: noms BM NEUROLOGYStart: 10-04-2024 End: 46-35-5916Wmerzd Humberto Adams MD Work Phone: noms BM NEUROLOGYStart: 64-33-6044Yjxkhuq encounter statusAnnette Adams MD Work Phone: noMS HealthcareStart: 10-04-2024 End: 45-75-4975Dkbqxu outpatient visit 25 minutesAnnette Adams MD Work Phone: NOXH [facility] NEURComment on above:MCI (mild cognitive impairment) (Primary Dx)Start: 10-04-2024 End: 28-98-7246yfzqfxzrfaWEEPVET W BAUERNot AvailableStart: 08-28-2024 End: 61-93-2878mmjfwthppbTZPDASYRegional Medical Center Start: 08-06-2024 End: 64-82-6368sxynnpghhvNsrcbmojfAvita [facility] Work Phone: Start: 08-06-2024 End: 55-61-3726Umufdie encounter procedureNovant Health Medical [facility] Physician GroupTrinity Health System Work Phone: Start: 06-11-4875Rtk-patient / Non-visitFirclinch valley medical center Phys[facility] Work Phone: Start: 06-24-2024 End: 97-30-2960byrrciqtenRvuvkphdrCrystal Clinic [facility]opedic [facility] Work Phone: Start: 06-24-2024 End: 97-04-7158Bfxitdzcx for general adult medical examination without abnormal findingsSumma Health Barberton Campustart: 06-24-2024 End: 99-90-5097Hnzzoti encounter procedureNovant Health Medical Park [facility] Physician GroupTrinity Health System Work Phone: Start: 39-35-5079Oztzhpb encounter statusSumma Health Barberton Campustart: 06-09-2024 End: 06-98-1004vgxdkjbcxiGZWHCJVSt. Elizabeth Hospital Start: 02-29-2024 End: 53-07-0568qxoepiofogUUENXAORegional Medical Center Start: 02-20-2024 End: 71-37-7293alaagpdashIhueksaccCrystal Clinic Orthopedic Center Work Phone: Start: 02-20-2024 End: 25-68-6997Uowhtyx encounter procedureNovant Health Medical [facility] Physician [facility] Work Phone: Start: 79-08-9513Ijc-patient / Non-visitFirelands Physician Group-[facility] Work Phone: Start: 11-14-2023 End: 70-12-6187qdoqrvposhCdorbjgy Ball Other [employer] Startist Other Start: 13-61-4748Xdgmmcmen encounterBenjamin BallFPG [facility] Medical ClinicStart: 11-13-2023 End: 50-59-0796hcqemtatnnDzoprrgr Ball Other [employer] Start[employer] Other Start: 78-13-1342Dppzsfwyx encounterBenjamin BallFPG [facility] Medical ClinicStart: 11-06-2023 End: 32-91-9112cnalrwranuNgvbcyoo Ball Other [facility] Startist Other Start: 57-45-7152Drolyapyr encounterBenjamin BallFPG [facility] Medical ClinicStart: 10-22-2023 End: 15-88-2581aepprojfinTgalfaod Ball Other [facility] Startist Other Start: 40-71-6438Gzwdwj outpatient visit 25 minutes Jonah BallFPG [facility] Medical ClinicStart: 09-05-2023 End: 55-77-6560hamaegliazEsjfzrij Ball Other [facility] Startist Other Start: 12-03-7993Raraydejb encounterBenjamin BallFPG [facility] Medical ClinicStart: 07-18-2023 End: 54-01-3362glkeaidulkWublaqir Ball Other [employer] Other Start: 56-38-2321Apojvgxcj encounterBenjamin BallFPG [facility] Medical ClinicStart: 07-16-2023 End: 13-34-9274lwhujrinwuCOCPWPZV EDWARD [facility] Hospitaltart: 06-29-2023 End: 15-03-7440vhusdecmrsYmimtmmi Ball Other [employer] Other Start: 46-07-6684Srhihmllb encounterBenjamin BallFPG [facility] Medical ClinicStart: 06-19-2023 End: 97-74-9183bsdvqinemeDzatiehu Ball Other [employer] Other Start: 61-63-5127Byzpsnlzf encounterBenjamin BallFPG [facility] ClinicStart: 06-15-2023 End: 60-17-3428frevjvzwiwOedzgsxr Ball Other [employer] Other Start: 78-35-0764Tcfuvqthl for general adult medical examination without abnormal findingsBenjamin BallFPG [facility] Medical ClinicStart: 52-08-7352Cbsgkkdn preventive med est patient 40-64yrsBenjamin BallFPG [facility] Medical ClinicStart: 06-11-2023 End: 83-12-5539oxfrhbzuwdKbykjlvs Ball Other [employer] Start[employer] Other Start: 55-77-4657Thmtobnqc for general adult medical examination without abnormal findingsBenjamin BallFPG [facility] Medical ClinicStart: 82-29-0251Hdsvcwqmo encounterBenjamin BallFPG [facility] ClinicStart: 03-09-2023 End: 38-47-9411bldemkhnrgMfhnrntm Ball Other [employer] Other Start: 89-13-5657Atrvcgmqa encounterBenjamin BallFPG [facility] Medical ClinicStart: 08-30-2022 End: 06-31-1347fjwzyauujxJQ JONAH BALLFacility:R0Rlvrc: 23-48-0917Nvrpcolhe for general adult medical examination without abnormal findingsDR JONAH CLIVE [facility] Campustart: 06-29-2022 End: 89-39-5199yaameslphvRD JONAH DUFFYFacility:E5Dnjqv: 06-29-2022 End: 03-50-4062Dkyqahunp for general adult medical examination without abnormal findingsDR JONAH Mckeoncility:L0Oxxrg: 76-89-4322Lrpue health examination Jonah Duffy Other [facility] Startist Other Start: 10-05-2020 End: 31-57-8156Eamjmjf encounter procedureBemanas DuffyTuoq-Tdw-Bgamcoel Testing Procedures DateProcedureProcedure DetailPerforming ClinicianStart: 57-81-8861MERVUQSJHCF SKIN LESIONEmmarina Montanez MD Work Phone: Start: 07-30-2025 End: 99-35-8719LTUE / NAIL BIOPSYEmmarina Montanez MD Work Phone: Start: 56-39-4932LO CARDIAC SCORING WO IV CONTRAST JONAH DUFFYStart: 81-00-9870KDG screeningDR JONAH DUFFYComment on above: Performed By: #### PSASC #### [facility] [address] [place] [address] Dr. Ortiz [facility] HospitalStart: 08-23-2017 End: 83-84-1817Ssggaufsqlla screeningBemanas Duffy Other Start: 04-21-2014 End: 07-00-9545Nejqqnl examination of patientBemanas Duffy Other Depression screeningBemanas Duffy Other Plan of Treatment DateCare ActivityDetailAuthorStart: 10-22-2025 End: 08-50-3321Mubmofn encounter awvhuwnme62/08/2026 11:20 AM EST Office Visit [facility] [place] [facility] [address] [place] [address] Annette Adams MD [address] [facility] [address] [place] [address] [place] [id number] [facility] [place] NeurologyStart: 07-30-2025 End: 19-71-4628Iayfzjb encounter procedureNOMS Bryon DermatologyComment on above:ArrivedStart: 07-23-2025 End: 82-48-0744TEIA ALZHEIMER'S DISEASE RISKAPOE ALZHEIMER'S DISEASE RISK Lab Routine PBA (pseudobulbar affect) MCI (mild cognitive impairment)Expected: 07/23/2025 (Approximate), Expires: 07/23/2026[facility] Work Phone: Comment on above:Expected: 07/23/2025 (Approximate), Expires: 07/23/2026Start: 07-23-2025 End: 97-98-3667Zxyhtvxxnjhdq Lab TestMiscellaneous Lab Test Lab Routine PBA (pseudobulbar affect) MCI (mild cognitive impairment) Expected: 07/23/2025 (Approximate), Expires: 07/23/2026NOMI HealthcareComment on above:Expected: 07/23/2025 (Approximate), Expires: 07/23/2026Start: 05-62-5490LUYWZ-19 Vaccine ( season)COVID-19 Vaccine ( season)NOMS HealthcareStart: 24-77-4480Mybywmkqd vaccinationNOMI HealthcareStart: 04-23-2025 End: 34-31-8135Znmsgva encounter procedureNOMS SWS NEURComment on above:Arrived Start: 02-23-2025 End: 54-52-9153Jjbkbbq encounter xwhpdiwvs93/12/2025 11:20 AM EDT Office Visit [facility] NEUR [address] [place] [address] Annette Adams MD [address] [facility] [address] [address] ArrivedNOMS SWS NEURComment on above: ArrivedStart: 12-29-2024 End: 69-26-4487Esvipwf encounter procedureNOMS SWS NEURComment on above:Arrived Start: 11-17-2024 End: 77-65-4620Oujqkig encounter pxikagkjn42/03/2025 10:50 AM EST Office Visit [facility] [address] [facility] [address] [place] [phone] Naa Felder CIRCUS TRAIN SUPERVISOR [address] [place] [phone] [facility]COMM[facility] NEURStart: 10-23-2024 End: 19-44-6826Waqdave encounter xtswjewgp43/09/2025 11:00 AM EST Office Visit [facility] [address] [place] [phone] [facility] NEURStart: 10-07-2024 End: 01-40-7756Gxvjf MappingBrain Mapping Neurology Routine MCI (mild cognitive impairment) Expected: 10/07/2024 (Approximate),Expires: 10/04/2025[facility] Work Phone: Comment on above:Expected: 10/07/2024 (Approximate), Expires: 10/04/2025Start: 10-04-2024 End: 15-29-6816Fxhlhjv encounter pzfjivaks66/21/2024 12:30 PM EST Office Visit [facility] [address] [facility] [address] [place] [address] Annette Adams MD [address] [facility] [address] [place] [address] ArrivedNOAURORA [facility] NEURComment on above: ArrivedStart: 82-77-6137Vwxrdegfb vaccinationInfluenza Vaccine (#1)NOMS HealthcareStart: 84-51-1036KSzT/Tdap/Td Vaccines (1 - Tdap)DTaP/Tdap/Td Vaccines (1 - Tdap)NOMS HealthcareStart: 40-19-5177CWQ Vaccines (1 of 1 - Standard series)MMR Vaccines (1 of 1 - Standard series)NOMS HealthcareStart: 1961 Screening for malignant neoplasm of colonNOMI HealthcareBrain MappingBrain Mapping Neurology Routine Episodic altered awareness 10/16/2024 2:38 PM ESTNOMS Healthcare Work Phone: Comprehensive metabolic 1999 panel - Serum or Plasma [facility] HospitalComprehensive metabolic 1999 panel - Serum or PlasmaMercy Health Willard HospitalDermatopathology examDermatopathology exam Pathology and Cytology Timed Neoplasm of unspecified behavior of bone, soft tissue, and skin Release Upon Ordering for 1 Occurrences starting 07/30/2025 [facility] Healthcare Work Phone: comment on above:Release Upon Ordering for 1 Occurrences starting 07/30/2025[facility] Immunizations Immunization DateImmunizationNotesCare RgzdzxdyWnqnopbp00-49-8517rkoiiwmmn virus vaccine, unspecified formulationAnnette Adams MD Work Phone: [facility] Medical CenterWmrnmfugst06-73-9000lowasdu and diphtheria toxoids, adsorbed, preservative free, for adult use (5 Lf of tetanus toxoid and 2 Lf of diphtheria toxoid)Jonah Duffy Other [facility] Payers DatePayer CategoryPayerPolicy [id number] Health InsuranceMEDICAL MUTUAL [id number] 2.16.840.1.937835.3.57[id number] 2.0.1.330367.3.57[id number] 2.0.1.328307.3.57[id number] 2.0.1.064911.3.57[id number] 2.0.1.082706.3.57[id number] 2.0.1.546761.3.57[id number] 2.0.1.623327.3.57[id number] 2..1.937893.3.57[id number] 2..1.448455.3.57[id number] 2..1.394505.3.57[id number] Pay [id number] 2..1.761793.19 [id number] 2..1.800108.19 Social History DateTypeDetailFacilityTobacco smoking status NHISUnknown if ever smokedMercy Health St. [facility] CtrStart: 39-11-6349Cbp Assigned At [facility] Centertart: 10-04-2024 End: 58-63-7247Jqx Assigned At [facility] ER Startist Other Start: 10-11-2020 End: 39-73-3475Vfyeobz smoking status NHISNever smoked tobacco (finding) [facility] HospitalTobacc smoking status NHISTobacco smoking consumption unknownBRIGHAM CITY [facility] HealthcareStart: 14-02-5691Llk assigned at birthNot on fileNOMI HealthcareStart: 87-63-7548Ihpecrp use and exposureSmokeless tobacco non-userNOMS HealthcareStart: 10-04-2024 End: 81-59-6732Cjnkbfdqh beverage intakeCurrent drinker of alcohol (finding)[facility]OMS HealthcareStart: 10-04-2024 End: 93-92-9018Ewcvcsm of Social functionNOMI HealthcareStart: 33-14-8282GvlWbag (finding)[facility] Campustart: 13-13-4244VyhAsmhMTOG Healthcare Goals DatePatient GoalDesired Activity/State Clinical Notes 06-11-2023 to 07-30-2025 Note Date & MvjhUqrjZpbfzyhl42-45-5841 History of Present illness Narrative* Celia Montanez MD - 07/30/2025 3:30 PM EDT Images from the original note were not included. Skin Check Location: Patient requests a skin examination from the waist up Dermatologic history: no history of skin cancer, no history of atypical moles, no family history ofmelanoma Last visit: First time New patient Lesions: Location: Posterior neck Duration: Since Quality: painful, denies itch, denies bleeding Modifying factors: rubs on cpap strap Associated symptoms: enlarged, tender Treatments: none All pertinent medical history, medications, and allergies were reviewed. General Exam: alert, oriented to person, place, and time, normal affect, well appearing Unaccompanied A focused exam completed based on patient reported problems, see below A complete skin exam was offered, pt declined. Areas not examined despite medical recommendation: From the waist down Scalp, Examined Head, Face Examined Neck Examined Chest Examined Back Examined Abdomen Examined Right arm Examined Left arm Examined Hands Examined Digits,nails: Examined Lymphatics: Not examined Skin Exam 1. NEOPLASM OF UNSPECIFIED BEHAVIOR OF BONE, SOFT TISSUE, AND SKIN (2) posterior neck Cerebriform pink papule - Lesion biopsy Type of biopsy: tangential Informed consent: discussed and consent obtained Informed consent comment: The risks and benefits of the biopsy were discussed. Risks include but are not limited to bleeding, infection, scarring, pain, and nerve damage. An opportunity to ask questions prior to the procedure was permitted and all questions were answered. Patient was prepped and draped in usual sterile fashion: area cleansed with alcohol. Anesthesia: the lesion was anesthetized in a standard fashion Anesthetic: 1% lidocaine w/ epinephrine 1-100,000 buffered w/ 8.4% NaHCO3 Instrument used: DermaBlade Hemostasis achieved with: electrodesiccation Outcome: patient tolerated procedure well Outcome comment: The specimen was placed in a prelabeled formalin container to be sent for pathology Post-procedure details: sterile dressing applied and wound care instructions given Post-procedure details comment: Emphasized need to contact clinic for any signs of infection, uncontrollable bleeding, or complications. Dressing type: bandage Additional details: Photo taken yes Amount of lidocaine used: 1.0 cc Specimen A - Dermatopathology exam Differential Diagnosis: inflamed vs atypical nevus Check Margins: No Size of lesion: 1.7 x 1.5 cm Diagnosis: (D49.2) Neoplasm of unspecified behavior of bone, soft tissue, and skin Plan: Lesion biopsy Right Preauricular Area Irregularly pigmented papule - Lesion biopsy Type of biopsy: tangential Informed consent: discussed and consent obtained Informed consent comment: The risks and benefits of the biopsy were discussed. Risks include but are not limited to bleeding, infection, scarring, pain, and nerve damage. An opportunity to ask questions prior to the procedure was permitted and all questions were answered. Patient was prepped and draped in usual sterile fashion: area cleansed with alcohol. Anesthesia: the lesion was anesthetized in a standard fashion Anesthetic: 1% lidocaine w/ epinephrine 1-100,000 buffered w/ 8.4% NaHCO3 Instrument used: DermaBlade Hemostasis achieved with: electrodesiccation Outcome: patient tolerated procedure well Outcome comment: The specimen was placed in a prelabeled formalin container to be sent for pathology Post-procedure details: sterile dressing applied and wound care instructions given Post-procedure details comment: Emphasized need to contact clinic for any signs of infection, uncontrollable bleeding, or complications. Dressing type: bandage Additional details: Photo taken yes Amount of lidocaine used: 0.5 cc Specimen B - Dermatopathology exam Differential Diagnosis: melanoma vs atypical mole Check Margins: No Size of lesion: 0.9 x 0.8 cm Diagnosis: (D49.2) Neoplasm of unspecified behavior of bone, soft tissue, and skin Plan: Lesion biopsy, Lesion biopsy 2. LENTIGINES Generalized Scattered hall macules in sun-exposed areas. The patient was informed that lentigines are benign pigmented lesions that occur on sun-exposed andsun-damaged skin. No treatment is necessary. Recommended regular use of broad spectrum sunscreen SPF 30 or higher 3. ACTINIC KERATOSIS Dorsum of Nose Erythematous scaly papule Patient was counseled regarding these sun-induced growths that can develop into squamous cell carcinoma if left untreated. Discussed treatment with cryotherapy. It was emphasized that any treated lesions that fail to resolve should be re- evaluated. Cryotherapy performed today; see procedure note Diagnosis: Actinic keratosis Indication: Precancerous Location: see skin exam Consent: Verbal consent was obtained and risks were discussed, including, but not limited to risks of scarring, darker or marking machine operator pigmentary changes, recurrence, incomplete removal and infection. Method: Liquid nitrogen was used to treat the lesion(s) with two 5-10 second freeze-thaw cycles. Eyes were shielded using cotton pad during procedure Number of lesions treated: 1 Post-procedure instructions: Instructions were given orally and in writing. The office will be contacted if the lesion fails to resolve despite treatment, or if a side effect develops such as abnormal crusting, scabbing, redness or tenderness - Cryotherapy, skin lesion - Dorsum of Nose 4. SEBORRHEIC KERATOSIS Generalized Stuck on verrucous, hall-brown papules and plaques. Patient was counseled regarding these benign growths. Removal is normally not necessary, but they may be removed if they are symptomatic or for cosmetic reasons. Next Visit: pending biopsy results documented in this encounterCenterpoint Medical CenterIzvshlgwzn70-96-8232 History of Present illness Narrative* Annette Adams MD - 07/23/2025 9:35 AM EDT Images from the original note were not included. Subjective Remigio Fragoso is a 65 y.o. male who presents for PBA and dementia and question FTD History of Present Illness The patient presents for evaluation of dementia. He is currently on a regimen of 10 mg of donepezil, taken twice daily. Additionally, he takes guanfacine, which was previously sent to [facility] for a 90-day supply, but only 30 pills were received. A refill of donepezil is requested. His medication schedule includes six pills in the morning and five at night. He continues to take thiamine (B1). He experiences frequent episodes of laughter and crying. Hallucinations occur every night, often seeing monsters outside his bedroom door, but these do not disrupt his sleep. There are no changes in appetite or sense of taste or smell. He spends his time watching TV, sitting on the floor in front of the couch, and has recently started walking more during the day. He has a family history of dementia on both his maternal and paternal sides. There is no history ofbrain trauma requiring hospitalization. He has loose stools and has difficulty collecting a stool sample for testing. Bowel movements occurthroughout the day, often after meals, and occasionally result in accidents. Breathing issues have been noted, initially thought to be related to dementia. However, a chest x-ray and echocardiogram showed no abnormalities. FAMILY HISTORY - Paternal grandfather: Severe dementia - Paternal aunt: Dementia, - Maternal side: Brain problems, including water on the brain - Maternal aunt: Brain condition treated at [facility] MEDICATIONS CURRENT MEDS: Donepezil 10 mg Oral Twice daily Guanfacine Thiamine Namenda Review of Systems Constitutional: Negative for chills, [...] Negative for agitation, confusion and suicidal ideas. Objective Blood pressure 128/82, height 5' 10 , weight 222 lb. Physical Exam Lungs: Chest x-ray around the lungs was normal. Heart: Echo results were normal. Results Imaging - Chest x-ray: Normal Assessment & Plan 1. Dementia. His hallucinations are likely a manifestation of the disease process rather than a side effect of his current medications. A prescription for Seroquel will be provided to manage his sleep disturbances and hallucinations. All other medications, including donepezil and guanfacine, will be refilled and sent to [facility]. A genetic inheritance test will be conducted to assess for any familial dementias and amyloid counts to check for plaque buildup in his brain. 2. Loose stools. He experiences loose stools, which may be related to his medications. Namenda will be continued to help firm up his stools. 3. Breathing issues. He has undergone a chest x-ray and echocardiogram, both of which returned normal results. His breathing issues are likely behavioral rather than physiological. This clinical note was created utilizing [employer] documentation system. All information has beenthoroughly reviewed, corrected as necessary, and authenticated by the provider to ensure accuracy and completeness. On occasion, [employer] documentation system erroneously drops words or replaces aspoken word with a similar sounding word. Please notify with any questions or concerns regarding this clinical note. documented in this [facility]07-10-2025 History of Present illness Narrative* Annette Adams MD - 04/23/2025 9:30 AM EDT Images from the original note were not included. CHIEF COMPLAINT REASON FOR VISIT : a follow up to PBA and mild cognitive impairment. Sean Fragoso is a 64 y.o. male who presents [...] but only rides short distances. He requires encou ragement to participate in activities. He is currently [...] equal, round, and reactive to light and accommodation,both directly and consensually. Visual fragoso were full by confrontation. There was no [...] in all four extremities, including at least field technical assistant, finger abductors, biceps, triceps, deltoid, toe flexors [...] and spasticity are not evident. Arm swing isnormal. Toe, heel, and tandem walking are performed without difficulty. Musculoskeletal: Trigger-point tenderness was absent. There is no spasm of the trapezii or paraspinals. Results Assessment & Plan 1. Memory issues: question of MCI vs Alzheimer's disease. The patient's memory issues are being managed with donepezil and memantine. The dosage of donepezilwill be increased to 10 mg twice daily, to be taken in the morning and evening along with memantine. This adjustment aims to improve his cognitive function and reduce apathy. The prescription will besent to [facility]. 2. Sleep apnea. He [...] activities. This clinical note was created utilizing [employer] documentation system. All information has beenthoroughly reviewed, corrected as necessary, and authenticated by the provider to ensure accuracy and completeness. On occasion, The [employer] ambient documentation system erroneously drops words or replaces aspoken word with a similar sounding word. Please notify with any questions or concerns regarding this clinical note. documented in this encounterCenterpoint Medical [id number] History of Present illness Narrative* Annette Adams MD - 02/23/2025 11:20 AM EDT Images from the original note were not included. CHIEF COMPLAINT REASON FOR VISIT: Follow up. HPI: Remigio Fragoso is a 64 y.o. male who presents [...] Oriented to person, place and time. Recent andremote memory are intact. Speech is normal. Language is fluent with no aphasia. Attention and concentration are normal. Cranial Nerves CN II: Visual acuity is normal. Visual fragoso full to confrontation. CN III, IV, : [...] reflexes: Latha's absent. Ankle clonus absent. Coordination Jwkgal-hy-uprd, rapid alternating movements and fklr-cn-smod normal bilaterally without dysmetria. Gait Normal casual, toe, heel and tandem gait. Romberg is absent. PROCEDURE: NONE ASSESSMENT AND PLAN: Remigio Fragoso is a 64 year old male with cognitive decline accompanied by pseudobulbar affect with emotional outbursts as well as hypersexual tenancies to the point that it is affecting their social [place]. This is most consistent with a frontal [...] by Annette Adams MD documented in this encounterCenterpoint Medical [id number] NoteUT Cardiology - [facility] Subjective Remigio Fragoso is a 64 y.o. year old [...] calcification with mildly increased (more content not included)...[facility] 11-17-2024 History of Present illness Narrative* Haydee Fuller NP - 11/17/2024 4:54 PM EST Neuropsych testing referral placed/ordered/creyos memory testing and sent to patient. documented in this encounterCenterpoint Medical [id number] History of Present illness Narrative* Crissy Swain - 10/16/2024 3:00 PM EST Subjective Remigio Fragoso is a 64 y.o. male. HPI: Forgetfulness [...] the morning and 6.25 mg in the evening.Take with meals., Disp: , Rfl: donepezil (Aricept) [...] Oriented to person, place and time. Recent andremote memory are intact. Speech is normal. Language [...] condition and reduced neuronal capacity is associated withworking memory. Low working memory scores reflect inattention/lack of focus, cognitive decline due to aging and concussion/brain injury. Relatively low EEG global frequency power show possible signs of dementia. Faster alpha peak frequencies correlate with [employer]ER over-arousal conditions. Excessive SMR has been associated with attention disorders. documented in this encounterCenterpoint Medical [id number] History of Present illness Narrative* Annette Adams MD - 10/04/2024 12:30 PM EST Images from the original note were not included. CHIEF COMPLAINT REASON FOR VISIT: MCI HPI: Remigio Fragoso is a 64 y.o. male who presents for a new patient consultation referred by Dr. Duffy for MCI. Retired last year in September. Spouse states it will be little things that he does not remember. States all he does is sit on the couch and stares off into space. States he will not do much. 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 He states he did not seem to notice any issues when he was working, Did have MRI at [facility], States there is a strong hx [...] to say something and it is like heis short of breath. States he does like [...] Oriented to person, place and time. Recent andremote memory are intact. Speech is normal. Language is fluent with no aphasia. Attention and concentration are normal. Cranial Nerves CN II: Visual acuity is normal. Visual fragoso full to confrontation. CN III, IV, : [...] reflexes: Latha's absent. Ankle clonus absent. Coordination Ezeemf-vs-sctr, rapid alternating movements and hcko-mg-klrj normal bilaterally without dysmetria. Gait Normal casual, toe, heel and tandem gait. Romberg is absent. PROCEDURE: NONE ASSESSMENT AND PLAN: Remigio Fragoso is a 64 y.o. male who presents [...] (100 mg) by mouth Daily for overall brainand nerve health. Start donepezil (Aricept) 5 MG [...] Follow up 6-8 weeks. documented in this encounterCenterpoint Medical [id number] [facility] HPI: Remigio Fragoso is a 64 y.o. male with [...] or concerns. Mayela Yao MD Interventional Cardiology [facility]08-26-2024 [facility] Note HPI: Remigio Fragoso is a 64 y.o. male with [...] few days ago, he went to the community health and walked for several hours without any [...] or concerns. Mayela Yao MD Interventional Cardiology [facility]05-17-2024 [facility] HPI: Remigio Fragoso is a 63 y.o. male with [...] or concerns. Mayela Yao MD Interventional Cardiology [facility]01-08-2024 Evaluation note* Encounter Date Diagnosis Assessment Notes Treatment Notes Treatment Clinical Notes Oct, Primary hypertension (ICD-10 - I 10) This patient is instructed to consume a healthy, low-fat, low-salt diet. They are also encouraged to continue exercise to achieve/maintain a normal BMI. Oct,IFG (impaired fasting glucose) (ICD-10 - R73.01)Last 2 FBS: 118, 125 A1C < 6.5% Instructed on healthy diet and exercise Oct,Hypercholesterolemia (ICD-10 - E78.00)Instructed on diet and exercise with continued statin therapy.Discussed the beneficial effects of lo wering cholesterol in reducing the risk for cerebrovascular and cardiovascular disease. Oct,[facility] CAC score 200-399 (ICD-10 - R93.1)Increased risk for CAD. LAYNE score indicates 100% risk for LA in next 10 years. Recommend initiating primary prevention measures Recommend initiating ASA 81mg qd Recommend Stress testing Oct,OSA (obstructive sleep apnea) (ICD-10 - G47.33)This patient is aware of the benefits associated with CALLIE: With continued use, the patient reduces t he risk for LA, CVA, HTN, cardiac dysrhythmias and sudden cardiac deaths.The patient is also aware of the association between CALLIE and morning headaches, daytime somnolence, fatigue and obesity, whichalso has been improved with continued use.The patient is compliant with treatment, wearing the equipment every night for greater than 4 hours.The patient is instructed to continue use of the CPAP forOSA treatment. Oct,Other obesity due to excess calories (ICD-10 - E66.09)This patient has been instructed on a low-fat, high-fiber diet. They are instructed to reduce calories, portion sizes and snacks. It is recommended that they exercise for 30 minutes, 3-5 times weekly. Oct,ody mass index [BMI] 32.0-32.9, adult (ICD-10 - Z68.32) Oct,Family history of premature CAD (ICD-10 - Z82.49)He has increased 10 year risk for CAD. Father suffered fatal LA in 40s. Initiate primary prevention measures. Apr,Gastro-esophageal reflux disease with esophagitis, without bleeding (ICD-10 - K21.00)Avoid lying flat after eating. Avoid eating 2 hours prior to bedtime. Smaller, frequent meals may be better tolerated.Weight loss if overweight.PPI with any heartburn.Monitor for dysphagia. [facility] Other 10-04-2023 Evaluation note* Encounter Date Diagnosis Assessment Notes Treatment Notes Treatment Clinical Notes Jul, Hypertriglyceridemia (ICD-10 - E 78.1) [facility] Other 09-15-2023 Evaluation note* Encounter Date Diagnosis Assessment Notes Treatment Notes Treatment Clinical Notes Jun, Primary hypertension (ICD-10 - I 10) Jun,Tachycardia (ICD-10 - R00.0) [facility] Other 09-01-2023 Evaluation note* Encounter Date Diagnosis Assessment Notes Treatment Notes Treatment Clinical Notes Jun, Wellness examination (ICD-10 - Z 00.00) Healthy diet and exercise. Reviewed age-appropriate preventive testing recommended. Jun,ure hyperglyceridemia (ICD-10 - E78.1)Instructed on diet and exercise with continued statin therapy.Discussed the beneficial effects of lo wering cholesterol in reducing the risk for cerebrovascular and cardiovascular disease. INstructed to restart medications Jun,rimary hypertension (ICD-10 - I10)This patient is instructed to consume a healthy, low-fat, low-salt diet. They are also encouraged to continue exercise to achieve/maintain a normal BMI. Patient is instructed on home BP measurements: - rest for 5 minutes w/o talking- positioned w/ feeton floor and arm supported- average best 2/3 readings w/ goal < 135/85 Stop in after couple weeks for recheck Jun,IFG (impaired fasting glucose) (ICD-10 - R73.01)Healthy diet and exercise Encouraged to lose weight Check A1C Jun,Other obesity due to excess calories (ICD-10 - E66.09)This patient has been instructed on a low-fat, high-fiber diet. They are instructed to reduce calories, portion sizes and snacks. It is recommended that they exercise for 30 minutes, 3-5 times weekly. Jun,ody mass index [BMI] 32.0-32.9, adult (ICD-10 - Z68.32) Apr,Gastro-esophageal reflux disease with esophagitis, without bleeding (ICD-10 - K21.00)Diet instructions: Smaller portions, avoid eating and laying flat, avoid eating or drinking prior to bedtime. Weight loss. [facility] Other 08-28-2023 Evaluation note* Encounter Date Diagnosis Assessment Notes Treatment Notes Treatment Clinical Notes May, Wellness examination (ICD-10 - Z 00.00) [facility] Other Evaluation noteNo InformationNortGeisinger-Lewistown Hospital [facility] Other Evaluation note* Diagnosis Onset Date Resolution Status Elevated cholesterol acuteElevated coronary artery calcium scoreacuteHypertensionacuteOSA (obstructive sleep apnea)[facility] Work Phone: Evaluation note* Diagnosis Onset Date Resolution Status Benign prostatic hyperplasia with lower urinary tract symptoms acuteElevated cholesterolacuteElevated coronary artery calcium scoreacute Erectile dysfunctionacuteHypertensionacuteObesityacuteOSA (obstructive sleep apnea)acuteScreening PSA (prostate specific antigen)[facility] examination acute [facility] Work Phone: Evaluation note* Diagnosis [...] Date Resolution Status Admit Date Elevated cholesterol acuteMar2024 8:28amElevated coronary artery calcium scoreacuteDecember 29, 2024 8:28amExcessive drinking alcoholacuteDecember 29, 2024 8:28amFamily history of dementiaacuteDecember 29, 2024 8:28amHypertensionacuteDecember 29, 2024 8:28amMCI (mild cognitive impairment)acuteMar2024 8:28amObesityacute December 29, 2024 8:28amOSA (obstructive sleep apnea)[facility] 20[facility] 8:28am [facility] Work Phone: Evaluation note* Diagnosis [...] Date Resolution Status Admit Date Alzheimer's dementia acuteSept2024 8:24amElevated cholesterolacuteSept2024 8:24amElevated coronary artery calcium scoreacuteSept2024 8:24am Excessive drinking alcoholacuteSept2024 8:24amFamily history of dementiaacuteSept2024 8:24amHypertensionacuteSept2024 8:24amObesityacuteSept2024 8:24amOSA (obstructive sleep apnea)acute July 02, 2025 8:24amScreening PSA (prostate specific antigen)acute July 02, 2025 8:24amWellness examinationacutept2024 8:24am [facility] Work Phone: Evaluation note* Diagnosis PBA (pseudobulbar affect) 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 MCI (mild cognitive impairment) Mild cognitive impairment, so stated [facility] Diagnosis Seborrheic keratosis- Primary Neoplasm of unspecified behavior of bone, soft tissue, and skin Lentigines Actinic keratosis documented [facility] this [facility]* Diagnosis PBA (pseudobulbar affect) 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 MCI (mild cognitive impairment) Mild cognitive impairment, so stated documented in this encounter [facility] HealthcareHistory general Narrative - Reported* Type Description Date Medical History Dysphagia, unspecified Medical HistoryEsophageal obstructionMedical HistorySchatzki's ringMedical HistoryEssential hypertensionMedical HistoryExternal hemorrhoidsMedical History Adenomatous polyp of descending colonSurgical DobpeipKZKJWPQKHIK0965,2020 Surgical HistoryEGD W/ [id number] HistorySEE SURGICAL HX [facility] Other History general Narrative - Reported* Type Description Date Medical History Dysphagia, unspecified Medical HistoryEsophageal obstructionMedical HistorySchatzki's ringMedical HistoryEssential hypertensionMedical HistoryExternal hemorrhoidsMedical History Adenomatous polyp of descending colonSurgical HistoryCOLONOSCOPY (repeat 2024) Surgical HistoryEGD W/ [id number] HistorySEE SURGICAL HX [facility] Other Reason for referral (narrative)* Reason Referral for an abno rmal stress test. Diagnosis 1 Family history of pr emature CAD (Z82.49) Referral Organization [facility] Rose sandrita Referring Provider First Name Jonah Referring Provider Last Name Clive Referring Provider Specialty Internal Me dicine Referred Organization [facility] Referred Provider Dileep Ivy V Referred Address [address], [place],[address] Referred Provider Specialty Cardiovascul ar Disease Referral [...] NM imaging report and treadmill test dictation) [facility] Other Reason for referral (narrative)No reason for referral information availableOhio [facility] Work Phone: Advance Directives Advance Directive Response Recorded Date/ Time Advance Directives No September 4:44pm Advance Directive Response Recorded Date/ Time Advance Directives No September 5:44pm Chief Complaint and Reason for Visit Chief Complaint Schatzkis Ring,Fam H x Colon Cancer Chief Complaint Amb Documentation 4 month follow upReason for VisitElevated cholesterol Elevated coronary artery calcium score Hypertension CALLIE (obstructive sleep apnea) Chief Complaint Wellness Reason for Visit Benign prostatic hyp erplasia with lower urinary tract symptoms Elevated cholesterol Elevated coronary artery calcium score Erectile dysfunction Hypertension Obesity CALLIE (obstructive sleep apnea) Screening PSA (prostate specific antigen) Wellness examination Chief Complaint Wellness medical concerns, memory, sleeps a lotReason for VisitBenign prostatic hyperplasia with lower urinary tract symptoms Elevated cholesterol [...] Not Specified No pertinent family history Unknown fatherDeceasedUnknownHeart diseaseUnknownNot SpecifiedHeart diseaseUnknown Diabetes mellitusUnknownDeceasedUnknown Relationship Condition Age at Onset Recorded Date/T rona Not Specified No pertinent family history Unknown fatherDeceasedUnknownHeart diseaseUnknownmotherHeart diseaseUnknownDiabetes mellitusUnknownDeceasedUnknown Additional Source Comments (unrecognized sect ion and content) No Status Records FoundNo Status Records FoundNo Status Records FoundNo Status Records Found INFORMATION SOURCE (unrecogn ized section and content) DATE CREATED AUTHOR 09/02/2022 [facility] DATE CREATED AUTHOR AUTHOR'S ORGANIZ ATION 07/21/2023 [facility] DATE CREATED AUTHOR AUTHOR'S ORGANIZ ATION 02/22/2025 [facility] DATE CREATED AUTHOR AUTHOR'S ORGANIZ ATION 08/01/2025 [facility] REASON FOR VISIT (unrecogniz ed section and content) ReasonCommentsMemory LossMCIReasonCommentsBrain MapSpecialtyDiagnoses / ProceduresReferred By ContactReferred To ContactNeurology Diagnoses MCI (mild cognitive impairment) Procedures Brain Mapping Annette Adams MD [address] [place] [address] Phone: tel: fax: Annette Adams MD [address] [place] [address] Phone: tel: fax: Referral IDStatusReasonStart DateExpiration DateVisits RequestedVisits [id number]/24/[id number] Med RequestReason CommentsPBAMemory LossReasonCommentsSuspicious Skin LesionReasonCommentsMed Change Request Care Teams (unrecognized sec tion and [...] Care Provider Active Start: December 17, 2023 Hernan Talbot ProviderActiveStart: December 17, 2023 Team Status: Inactive Member [...] Start: August 06, 2024 End: August 06, 2024Team MemberRelationshipSpecialtyStart DateEnd Date Jonah Duffy MD [address] [place] [phone] PCP - GeneralInternal Medicine01/07/24 Rosalee Ragsdale DO [address] [place] [address] Referring PhysicianNeurology01/02/24Team MemberRelationshipSpecialtyStart DateEnd Date Jonah Duffy MD [address] [place] [phone] PCP - GeneralInternal Medicine01/07/24 Rosalee Ragsdale DO [address] [place] [address] Referring PhysicianNeurology01/02/24Team MemberRelationshipSpecialtyStart DateEnd Date Jonah Duffy MD [address] [place] [address] PCP - GeneralInternal Medicine01/07/24 Rosalee Ragsdale DO [address] [place] [address] Referring PhysicianNeurology01/02/24Team MemberRelationshipSpecialtyStart DateEnd Date Jonah Duffy MD [address] [place] [address] PCP - GeneralInternal Medicine01/07/24 Rosalee Ragsdale DO [address] [place] [address] Referring PhysicianNeurology01/02/24Team MemberRelationshipSpecialtyStart DateEnd Date Jonah Duffy MD [address] [place] [address] PCP - GeneralInternal Medicine01/07/24 Rosalee Ragsdale DO [address] [place] [address] Referring PhysicianNeurology01/02/24 Team Status: Inactive Member Role Status Dates Jonah Duffy DO Primary Care Provide r, Attending Provider Active Start: December 29, 2024 End: December 29, 2024Team MemberRelationshipSpecialtyStart DateEnd Date Jonah Duffy MD [address] [place] [address] PCP - GeneralInternal Medicine01/07/24 Rosalee Ragsdale DO [address] [place] [address] Referring PhysicianNeurology01/02/24Team MemberRelationshipSpecialtyStart DateEnd Date Jonah Duffy DO PCP - GeneralInternal Medicine01/07/24 Rosalee Ragsdale DO [address] [place] [address] Referring PhysicianNeurology01/02/24Team MemberRelationshipSpecialtyStart DateEnd Date Jonah Duffy DO PCP - GeneralInternal Medicine01/07/24 Rosalee Ragsdale DO [address] [place] [address] Referring PhysicianNeurology01/02/24Team MemberRelationshipSpecialtyStart DateEnd Date oJnah Duffy DO PCP - GeneralInternal Medicine01/07/24 Rosalee Ragsdale DO [address] [place] [address] Referring PhysicianNeurology01/02/24Team MemberRelationshipSpecialtyStart DateEnd Date Jonah Duffy DO PCP - GeneralInternal Medicine01/07/24 Rosalee Ragsdale DO [address] [place] [address] Referring PhysicianNeurology01/02/24 Team Status: Inactive Member Role Status Dates Jonah Duffy DO Primary Care Provider Active Start: July 02, 2025 End: July 02cindi Duffy DOAttending ProviderActiveStart: July 02, 2025 End: July 02, 2025Team MemberRelationshipSpecialtyStart DateEnd Date Jonah Duffy DO PCP - GeneralInternal Medicine01/07/24 Rosalee Ragsdale DO [address] [place] [address] Referring PhysicianNeurology01/02/24Team MemberRelationshipSpecialtyStart DateEnd Date Jonah Duffy DO PCP - GeneralInternal Medicine01/07/24 Rosalee Ragsdale DO [address] [place] [address] Referring PhysicianNeurology01/02/24Team MemberRelationshipSpecialtyStart DateEnd Date Jonah Duffy DO [address] [place] [phone] PCP - GeneralInternal Medicine01/07/24 Rosalee Ragsdale DO [address] [place] [address] Referring PhysicianNeurology01/02/24Team MemberRelationshipSpecialtyStart DateEnd Date Jonah Duffy DO [address] [place] [address] PCP - GeneralInternal Medicine01/07/24 Rosalee Ragsdale DO [address] [place] [address] Referring PhysicianNeurology01/02/24Team MemberRelationshipSpecialtyStart DateEnd Date Jonah Duffy DO [address] [place] [address] PCP - GeneralInternal Medicine01/07/24 Rosalee Ragsdale DO [address] [place] [address] Referring PhysicianNeurology01/02/24 Goals (unrecognized section and content) Goals may [...] BE BASED ON THE PRIMARY CLINICAL RECORDS. [facility] [employer] [facility]. provides no warranty or guarantee of the accuracy or completeness of information in this document.
--- NOTE | 2025-09-21 15:26 | XR_ITS ---
[address] [address] Patient Name: IRVING FRAGOSO MRN: [id number] date: 1960 Sex: M Assigned Patient Location: [facility] Current Patient Location: [facility] Accession/Order Number: [id number] Exam Date: 09/21/2025 15:30 Report Date: 09/21/2025 16:31 At the request of: SHIN BRADSHAW MD Procedure: XR chest 2V XR chest 2V 09/21/2025 3:35 PM SIGNS AND SYMPTOMS: ^Shortness Of Breath PROTOCOL: Frontal and lateral radiographs of the chest COMPARISON: 07/20/2025 FINDINGS: The trachea is midline. Atherosclerotic changes are noted in the aortic arch. The heart and mediastinal structures are within normal limits. The lung parenchyma is clear. The bony thorax is intact. Degenerative facet noted in the thoracic spine. XR/XR chest 2V IMPRESSION: No acute cardiopulmonary pathology. Impression dictated by: Guillermo Sloan M.D. 09/21/2025 4:31 PM Dictation [facility] Electronically authenticated by: [id number] Date: 09/21/2025 16:31
== END 2025-09-21 15:20 | disposition home or self-care (01) ==
LOC: RAD 15:20
PROVIDERS: PCP Internal Medicine; Visit Provider Internal Medicine Cardiovascular Disease
DX: R06.02 Shortness of breath (principal)
CPT/HCPCS: 71046